=== PATIENT | female | born 1945 | race Caucasian/White ===

== ENCOUNTER → 2018-04-07 14:15 | Outpatient (CLI) | payer MEDICARE, OTHER, SELFPAY | PROVIDERS: Family Provider Family Medicine; PCP Family Medicine; Visit Provider Orthopaedic Surgery | DX: M25.561 Pain in right knee (principal) | CPT/HCPCS: 73564 ==

== ENCOUNTER 2018-11-03 05:26 | Inpatient (IN) | payer MEDICARE, OTHER, SELFPAY ==
[2018-09-28 13:55] VITALS: BMI 26.6
[2018-10-27 10:25] VITALS: BP 144/80; PULSE 75; RESP 16; TEMP 36.8; O2SAT 99; BMI 28.1
--- NOTE | 2018-10-27 10:55 | SDCEKG_ITS ---
Test Reason : Blood Pressure : / mmHG Vent. Rate : 073 BPM Atrial Rate : 073 BPM P-R Int : 128 ms QRS Dur : 086 ms QT Int : 372 ms P-R-T Axes : 068 067 052 degrees QTc Int : 409 ms Normal sinus rhythm Normal ECG Confirmed by TIFFANIE WEINBERG, TASH ([id number]), editor managing newspaper SERJIO ROMAN ([id number]) on 10/28/2018 1:57:33 PM Referred By: Sean Mittal Confirmed By:TASH MORENO MD
--- NOTE | 2018-10-30 13:24 | CASEMGMT ---
Attempted to call patient's home phone, no answer, no answering machine. Attempted to call cell phone, rang 3 times and the call was disconnected. Julianna Bueno LPN Clinical Support
[2018-11-03] VITALS (9 sets, daily range): BP systolic 123–135; BP diastolic 48–95; PULSE 72–89; RESP 14–18; TEMP 35.9–36.6; O2SAT 96–100; BMI 28.1
[2018-11-03] MEDS: Acetaminophen 500 MG Tablet PO (05:59)
[2018-11-03] MEDS: Meloxicam 7.5 MG Tablet PO (06:00)
[2018-11-03] MEDS: Pregabalin 75 MG Capsule PO (06:00)
[2018-11-03] MEDS: Cefazolin 2 GM in 0.9% Normal Saline 100 ML IV ×3 (07:26→23:06)
[2018-11-03] MEDS: Morphine 4 MG/ML Syringe (09:13)
[2018-11-03] MEDS: Bupivacaine Mpf 0.5% 30 ML VIAL (09:15)
[2018-11-03] MEDS: Betamethasone/Betamethasone 30 MG/5 ML Vial (09:15)
--- NOTE | 2018-11-03 09:32 | RAD_ITS ---
STUDY: X-RAY - RIGHT KNEE REASON FOR EXAM: Female, 73 years old. Status post right total knee replacement. TECHNIQUE: 2 view(s) of the knee. COMPARISON: Comparison is made with prior study of April 07, 2018. FINDINGS: Normal visualized distal femur. Normal visualized proximal tibia and fibula. Normal proximal tibiofibular articulation. The patient is status post total knee replacement. There is good alignment. Postoperative soft tissue changes. RAD/Knee 1 or 2 Views IMPRESSION: Status post total knee replacement. There is good alignment. Postoperative soft tissue changes. Electronically Signed: Luis Higgins, at 12:42 EDT , Service support ,
--- NOTE | 2018-11-03 09:51 | PCM.OPRPT ---
Report of Operation Date of Procedure: 11/03/18 Description of Surgical Findings:: Preoperative diagnosis: Right knee DJD Postoperative diagnosis: Same Procedure: Right total knee arthroplasty Implant: [place] triathlon cemented right femoral component size 4, cemented tibial baseplate size 4, cemented asymmetric patella size 29, polyethylene X3 size 9 CS Anesthesia: Spinal with adductor canal block Tourniquet time: 60 minutes at 300 mmHg Complications: None Condition: Stable to PACU Estimated blood loss: 25 cc Indication for procedure: This is a 73-year-old female with long standing degenerative joint disease of the knee who has failed conservative treatment and wished to proceed with elective total knee arthroplasty. Risk benefits and alternatives were reviewed including; risk of bleeding, infection, nerve artery and tissue damage, continued pain, postoperative stiffness, venous thromboembolism, need for postoperative rehabilitation, mechanical feel to the knee, and expected postoperative course. Procedure: The patient was met in the preoperative holding area. The operative extremity was identified by both patient and physician and was marked. Patient was met by anesthesia. An adductor canal block was placed by anesthesia postoperatively. The patient was brought back to the operating room on a wheeled cart and transferred to the operating table in the supine position. Anesthesia was started. A well-padded tourniquet was placed on the operative extremity. The patient was prepped and draped in the usual sterile fashion. A timeout was called to ensure the proper patient procedure and extremity were being contemplated. An Esmarch was used to exsanguinate the extremity. The tourniquet was inflated. A 10 blade scalpel was used to make a midline incision down through the skin and subcutaneous tissue. Skin retractors placed. Bovie was used to perform meticulous hemostasis. full-thickness flaps were elevated medial and lateral along the joint capsule. A deep blade scalpel was used to perform a medial parapatellar arthrotomy. The knee was brought to full extension. A Bovie was used to release the soft tissues off the most proximal aspect of the medial tibial plateau a three-quarter inch curved osteotome was also used for this process. The infrapatellar fat pad was excised. The fat pad was excised partially anterior lateral portion the anterior medial was elevated from the femur. the patella was everted. The knee was brought into flexion. An intramedullary drill was used followed by flexible intramedullary guide richar. The distal femoral cutting block was placed and set to remove 8 mm of bone and 5 degrees of valgus. The block was secured with pins and an oscillating saw was used to complete the distal femoral cut. During this, and all bony cuts retractors were used to protect the collateral ligaments. At this point a femoral sizer was used to measure the AP dimension of the femur. The sizer block was pinned in 3 degrees of external rotation. The sizing block was removed and the appropriately sized 4-in-1 cutting block was placed over the previously made pinholes. It was checked with an shima wing and the block was secured with pins. An oscillating saw was used to complete the anterior cut followed by the posterior cut followed by the posterior chamfer cut followed by the anterior chamfer cut. The block was removed as well as the fragments. A ronguer was used to remove excess osteophytes. The medial and lateral meniscus were excised as well as the ACL. At this point a PCL retractor was placed and an intramedullary drill was passed down the tibial canal followed by a solid intramedullary guide richar. The tibial cutting block was attached and set to remove 9 mm of bone from the high side. This was checked with an external alignment drop richar for slope and tilt. It was pinned into place. An oscillating saw was used to complete the tibial plateau cut and the block was removed. A large osteotome was used to elevate the fragment and a Lily and a Bovie were used to free the fragment from the surrounding soft tissue. A rongeur was once again used to remove osteophytes a lamina router machine operator was used to evaluate the posterior capsular structures. A three-quarter inch curved osteotome was used to remove posterior osteophytes. A spacer block was inserted in both extension and flexion to ensure adequate spacing. Trials were inserted full extension and flexion were achieved in varus and valgus stability throughout range of motion were seen, balancing techniques were performed. At this point the attention was turned towards the patella. A caliper was used to ensure sufficient bone stock to remove 10 mm of bone. A reamer was used to perform this task. Lug holes were made for the appropriate-sized patella. The patella trial was inserted and there was good patellar tracking with knee range of motion. The tibial baseplate was allowed to float into rotation and was marked on the tibial plateau with a Bovie. Lug holes were made in the femur and trials were removed. The tibial baseplate was then sized and its preparation was completed with a fin punch. The knee was thoroughly irrigated. A posterior capsular injection was performed with our standard cocktail. The knee was brought into flexion and irrigated again. The tibial baseplate was cemented. Excess cement was removed with curettes. The polyethylene component was inserted. The femoral component was cemented. The knee was brought into full extension and placed on a bump. The patellar component was cemented. At this point a Betadine rinse was placed and thoroughly irrigated after a few minutes. At this point all gloves were changed. The knee was thoroughly irrigated the joint capsule was closed with #1 Ethibond. Tourniquet was let down followed by 0 Vicryl and 2-0 Vicryl in the subcutaneous tissues. followed by jessica in the skin. Dressing was applied in the form of Xeroform 4 x 4 ABD web roll and an Jasiel wrap from the foot to the groin. The patient tolerated the procedure well, all counts were correct patient was brought back to the PACU in stable condition. Type of Anesthesia:: General, Spinal
[2018-11-03] MEDS: APIXABAN 2.5 MG TABLET PO ×2 (11:12→21:40)
[2018-11-03] MEDS: Polyethylene Glycol 3350 17 GM PACKET PO (11:12)
[2018-11-03] MEDS: Loratadine 10 MG Tablet PO (11:13)
[2018-11-03] MEDS: Senna/Docusate Sodium 1 Tablet 2 TABLET PO ×2 (11:13→21:40)
[2018-11-03] MEDS: Ensure Clear 120 ML Liquid PO ×2 (11:15→16:59)
[2018-11-03] MEDS: oxyCODONE 5 MG Tablet PO ×2 (12:43→17:01)
[2018-11-03] MEDS: Acetaminophen 500 MG Tablet 1000 MG PO ×2 (12:44→21:39)
[2018-11-03] MEDS: Lactated Ringers 1,000 ML 100 ML IV (14:46)
[2018-11-04] MEDS: 0.9% NaCl Peripheral Flush Adult/Peds IV ×3 (02:29→22:34)
[2018-11-04] MEDS: oxyCODONE 5 MG Tablet PO ×5 (02:32→22:31)
[2018-11-04 02:36] VITALS: BP 116/55; PULSE 75; RESP 18; TEMP 36.7; O2SAT 99
[2018-11-04] MEDS: Acetaminophen 500 MG Tablet 1000 MG PO ×3 (05:49→22:30)
[2018-11-04] MEDS: Levothyroxine 100 MCG Tablet PO (05:49)
[2018-11-04 06:17] LABS: Hematocrit 32.5 % (37-47); Hemoglobin 10.9 g/dl (12.0-15.0); Mean Corp Hgb Conc 33.5 g/gl (32-36); Mean Corpuscular Hgb 33.4 pg (27.0-32.0); Mean Corpuscular Volume 99.7 fL (81-99); Mean Platelet Vol. 11.2 fl (6.2-12.0); Platelet Count 176 K/mm3 (150-450); RBC Distribution Width CV 12.8 % (11.6-14.6); RBC Distribution Width SD 46.4 fl (35.1-43.9); Red Blood Count 3.26 M/mm3 (4.2-5.4); White Blood Count 12.6 K/mm3 (4.4-11.0)
[2018-11-04 06:29] LABS: Anion Gap 1 (5-15); BUN 12 mg/dL (7-18); BUN/Creat Ratio 17.5 RATIO (10-20); Calcium,Total 8.3 mg/dL (8.5-10.1); Chloride 110 mmol/L (98-107); Creatinine, Serum 0.69 mg/dL (0.55-1.02); EST Glomerular Filtration Rate 89 mL/min (>60); Est Glom Filt Rate - Afr Amer 108 mL/min (>60); Estimated Creatinine Clearance 45.76 ml/min; Glucose 141 mg/dL (74-106); Potassium 4.4 mmol/L (3.5-5.1); Sodium Level 142 mmol/L (136-145)
[2018-11-04 06:30] LABS: Scan Indicated on CBC? Y/N NO
[2018-11-04 08:52] VITALS: PULSE 81
[2018-11-04] MEDS: Senna/Docusate Sodium 1 Tablet 2 TABLET PO ×2 (09:55→22:29)
[2018-11-04] MEDS: APIXABAN 2.5 MG TABLET PO ×2 (09:55→22:28)
[2018-11-04] MEDS: Pantoprazole Sodium 40 MG Tablet PO (09:55)
[2018-11-04] MEDS: Magnesium Oxide 400 MG Tablet 200 MG PO (09:55)
[2018-11-04] MEDS: Polyethylene Glycol 3350 17 GM PACKET PO (09:55)
[2018-11-04] MEDS: Atenolol 25 MG Tablet PO (09:55)
[2018-11-04] MEDS: Loratadine 10 MG Tablet PO (09:55)
[2018-11-04] MEDS: Ensure Clear 120 ML Liquid PO (09:56)
[2018-11-04 09:59] VITALS: BP 118/55; PULSE 81; RESP 18; TEMP 37.2; O2SAT 98
[2018-11-04 10:09] VITALS: BP 118/55; PULSE 81; RESP 16; TEMP 37.2; O2SAT 98
--- NOTE | 2018-11-04 10:40 | CASEMGMT ---
DEVON MARCELINO Face to Face with patient for initial transition planning/care coordination assessment. DEVON MARCELINO introduced self and role at [facility]. Patient lying in bed, alert and oriented. Patient willing to participate in assessment and is able to answer all questions appropriately. Care providers, pharmacy, and demographics verified. Patient wishes to discharge home and would like outpatient therapy setup at [facility] or 2nd choice [facility]. Patient states she has no further needs or concerns at this time. CM to follow for discharge planning needs that may arise. DEVON MARCELINO called [facility] to setup outpatient therapy, first available appt is 11/11, which is too far out for patient to have first visit. DEVON MARCELINO called [facility] and made appt for Friday11/06/18 0900. DEVON MARCELINO updated patient regarding appt for outpatient at [place] PCP: Lexy Specialists: None Preferred [facility] Insurance: [facility] Prescription Benefit: Yes Living Will/HPOA: yes, Leroy Sandhu LNOK: Living Arrangements: Patient lives with in 1 story home with 3 steps and railing to enter the home. Transportation: DME/HHC: Patient has raised toilet seat, cane, walker, at home. Disposition Plan: Patient to discharge to home with outpatient therapy, family support, and follow-up plans in place. Asiya MATTHEWS, RN, CM
[2018-11-04] MEDS: Ketorolac 15 MG/ML Vial IV (12:05)
--- NOTE | 2018-11-04 13:29 | NURSING ---
charting reviewed for student nurse for educational learning purposes.
[2018-11-04 15:17] VITALS: BP 114/83; PULSE 74; RESP 16; TEMP 36.7; O2SAT 100
--- NOTE | 2018-11-04 17:01 | PCM.PN.ORT ---
Patient Problems: Active and Suspected Problems S/P total knee arthroplasty (Acute) Subjective: seen examined doing well. pain controlled. no fever chills nausea vomitting chest pain or SOB - Physical Exam General: Alert, Oriented x3, Cooperative, No apparent distress Extremities: - - dressing clean dry and intact, incision well approximated. compartments soft and supple. NVI EHL TA GS. intact sensation to light touch. Vital Signs Temp Pulse Resp BP Pulse Ox 98.0 F 74 16 114/83 H 100 11/04/18 15:17 11/04/18 15:17 11/04/18 15:17 11/04/18 15:17 11/04/18 15:17 Oxygen Delivery Method Room Air Weight: 171 lb 11.841 oz Body Mass Index (BMI) 28.1 Intake and Output for Last 24 Hours 11/02/18 11/03/18 11/04/18 23:59 23:59 23:59 Intake Total 3260 / 3260 1756 / 1756 Balance 3260 / 3260 1756 / 1756 Laboratory Tests Past 24 Hrs 11/04/18 11/04/18 05:20 05:20 WBC 12.6 H RBC 3.26 L Hgb 10.9 L Hct 32.5 L MCV 99.7 H MCH 33.4 H MCHC 33.5 RDW 12.8 RDW Differential 46.4 H Plt Count 176 MPV 11.2 Sodium 142 Potassium 4.4 Chloride 110 H Carbon Dioxide 31.0 Anion Gap 1 L BUN 12 Creatinine 0.69 Estim Creat Clear Calc 45.76 Est GFR (MDRD) Af Amer 108 Est GFR (MDRD) Non-Af 89 BUN/Creatinine Ratio 17.5 Glucose 141 H Calcium 8.3 L Medical Necessity - Tobacco Use Smoking Status: Never smoker Assessment/Plan All Active Problems S/P total knee arthroplasty (Acute) Continue PT/OT Out patient physical theapy Eliquis x 2 wks Oxycodone enourage ROM may begin showering POD#3 f/u 2 wks. DC in AM
--- NOTE | 2018-11-04 17:13 | PCM.DC.ORTHO ---
Discharge Diet: No Restrictions Discharge Activity: Return to Normal Activity Weight Bearing Status: Weight bearing as tolerated Additional Activity Instructions:: encourage full knee extension and flexion one time every time you get up and down and multiple x /day. may shower POD#3 but do not submerge. start physical therapy as soon as possible. f/u in office 2 wks call if any concerns. Allergies/Adverse Reactions: Allergies lincomycin [From Lincocin] Allergy (Verified 10/27/18 10:13) Other CAUSED DIARRHEA, POSSIBLY C-DIFF Sulfa (Sulfonamide Antibiotics) Allergy (Verified 10/27/18 10:12) Swelling Medications to take at Discharge Atenolol [Tenormin (beta damian)] 25 mg PO DAILY 10/22/13 Bifidobacterium Infantis [Align] 4 mg PO DAILY 10/22/13 Calcium Carbonate/Vitamin D3 [Calcium 600 + Vit D Tablet] 1 ea PO BID 10/22/13 Levothyroxine [Synthroid] 100 mcg PO DAILY 10/22/13 traMADol [Ultram (G)] 75 mg PO Q4H PRN PRN 05/17/15 fluticasone propionate 50 mcg/actuation nasal spray,suspension 1 spray INTRANASAL PRN PRN 90 Days #48 g 09/28/18 omeprazole 40 mg capsule,delayed release 40 mg PO DAILY 90 Days #90 cap 09/28/18 Cholecalciferol (VIT D3) [Vitamin D3] 1,000 unit PO DAILY 10/27/18 Diclofenac Sodium [Voltaren] 100 gm TP PRN PRN 10/27/18 Fexofenadine HCl [Nelsy Allergy] 180 mg PO DAILY 10/27/18 Ibuprofen 200 mg PO Q6H PRN PRN 10/27/18 Magnesium 250 mg PO DAILY 10/27/18 Polyethylene Glycol 3350 [Miralax] 17 gm PO DAILY 10/27/18 Vitamin B Complex 1 each PO DAILY 10/27/18 Apixaban [Eliquis] 2.5 mg PO BID 14 Days #28 tablet 11/04/18 Oxycodone [Oxyir] 5 - 10 mg PO Q4H PRN PRN #60 tablet 11/04/18 The following prescriptions were given: Oxycodone [Oxyir] 5 - 10 mg PO Q4H PRN PRN #60 tablet PRN Reason: Mod-Severe Pain (-05/13) Apixaban [Eliquis] 2.5 mg PO BID 14 Days #28 tablet Primary Care Physician: Edilberto Pugh MD [Primary Care Provider] - Test Results: Test results from this visit will be discussed in further detail at your follow-up appointment, if applicable. Please Follow Up With: [employer] When: Friday Please Follow Up With: Sean Mittal DO - 2 wks
[2018-11-04 22:36] VITALS: BP 111/54; PULSE 77; RESP 16; TEMP 36.7; O2SAT 96
[2018-11-05 03:39] VITALS: BP 106/51; PULSE 71; RESP 16; TEMP 36.7; O2SAT 95
[2018-11-05] MEDS: oxyCODONE 5 MG Tablet PO ×2 (03:43→08:03)
[2018-11-05 05:58] LABS: Hematocrit 30.9 % (37-47); Hemoglobin 10.1 g/dl (12.0-15.0); Mean Corp Hgb Conc 32.7 g/gl (32-36); Mean Platelet Vol. 11.3 fl (6.2-12.0); Platelet Count 141 K/mm3 (150-450); RBC Distribution Width SD 46.1 fl (35.1-43.9); Red Blood Count 3.06 M/mm3 (4.2-5.4); White Blood Count 7.1 K/mm3 (4.4-11.0)
[2018-11-05 06:09] LABS: Scan Indicated on CBC? Y/N NO
[2018-11-05] MEDS: Acetaminophen 500 MG Tablet 1000 MG PO (06:37)
[2018-11-05] MEDS: Levothyroxine 100 MCG Tablet PO (06:37)
[2018-11-05 07:54] VITALS: BP 130/46; PULSE 82; RESP 16; TEMP 37.1; O2SAT 96
--- NOTE | 2018-11-05 09:29 | DS.PCM_ITS ---
Discharge Date and Diagnosis - Problem List Patient Problems: Active and Suspected Problems S/P total knee arthroplasty (Acute) Date of Admission: 11/03/18 Date of Discharge: 11/05/18 - Primary Discharge Diagnosis Active and Suspected Problems S/P total knee arthroplasty (Acute) Hospital Course and Treatment Operations: total knee replacement Summary of Care Provided: The patient is a 73 year old F the patient has with long-standing history of right knee DJD and has failed conservative treatment. she wished to undergo elective total knee arthroplasty and underwent the aforementioned procedure on the admission date without complications. sHe did receive pre-and postoperative antibiotics which were discontinued within 23 hours postoperatively. she did receive a spinal anesthesia and the pain was controlled postoperatively with p.o. and IV pain medication. There was minimal intraoperative blood loss she did receive 2 g of tranexamic acid and her vital signs and labs were stable postoperatively and she did not require a blood transfusion. He was seen by physical therapy and did progress with his ambulation. Postoperatively she was started on both mechanical and chemical DVT prophylaxis for which she will continue his Eliquis 2.5 mg twice daily for 2 additional weeks post hospital discharge. her dressing was changed in the morning of postop day #2 without any concerning signs. sHe will begin showering on postop day #3 with daily dressing changes. Encouraged him to achieve full range of motion as soon as possible he will receive home health care and home physical therapy and will follow-up in the office in 2 weeks for staple removal. There is no intrahospital complications . Patient Problems: Active and Suspected Problems S/P total knee arthroplasty (Acute) Subjective: Doing well no complaints and controlled relating well wishes to go directly to outpatient physical therapy - Physical Exam General: Alert, Oriented x3 Extremities: - - Incision looks good neurovascularly intact compartments soft Vital Signs Temp Pulse Resp BP Pulse Ox 98.7 F 82 16 130/46 H 96 11/05/18 07:54 11/05/18 07:54 11/05/18 07:54 11/05/18 07:54 11/05/18 07:54 Oxygen Delivery Method Room Air Weight: 171 lb 11.841 oz Body Mass Index (BMI) 28.1 Intake and Output for Last 24 Hours 11/03/18 11/04/18 11/05/18 23:59 23:59 23:59 Intake Total 3260 / 3260 2656 / 2656 200 / 200 Balance 3260 / 3260 2656 / 2656 200 / 200 Laboratory Tests Past 24 Hrs 11/05/18 05:28 WBC 7.1 RBC 3.06 L Hgb 10.1 L Hct 30.9 L MCV 101.0 H MCH 33.0 H MCHC 32.7 RDW 13.0 RDW Differential 46.1 H Plt Count 141 L MPV 11.3 Discharge Diet: No Restrictions Discharge Activity: Return to Normal Activity Weight Bearing Status: Weight bearing as tolerated Additional Activity Instructions:: encourage full knee extension and flexion one time every time you get up and down and multiple x /day. may shower POD#3 but do not submerge. start physical therapy as soon as possible. f/u in office 2 wks call if any concerns. Home Medications: Medications to take at Discharge Atenolol [Tenormin (beta damian)] 25 mg PO DAILY 10/22/13 Bifidobacterium Infantis [Align] 4 mg PO DAILY 10/22/13 Calcium Carbonate/Vitamin D3 [Calcium 600 + Vit D Tablet] 1 ea PO BID 10/22/13 Levothyroxine [Synthroid] 100 mcg PO DAILY 10/22/13 traMADol [Ultram (G)] 75 mg PO Q4H PRN PRN 05/17/15 fluticasone propionate 50 mcg/actuation nasal spray,suspension 1 spray INTRANASAL PRN PRN 90 Days #48 g 09/28/18 omeprazole 40 mg capsule,delayed release 40 mg PO DAILY 90 Days #90 cap 09/28/18 Cholecalciferol (VIT D3) [Vitamin D3] 1,000 unit PO DAILY 10/27/18 Diclofenac Sodium [Voltaren] 100 gm TP PRN PRN 10/27/18 Fexofenadine HCl [Nelsy Allergy] 180 mg PO DAILY 10/27/18 Ibuprofen 200 mg PO Q6H PRN PRN 10/27/18 Magnesium 250 mg PO DAILY 10/27/18 Polyethylene Glycol 3350 [Miralax] 17 gm PO DAILY 10/27/18 Vitamin B Complex 1 each PO DAILY 10/27/18 Apixaban [Eliquis] 2.5 mg PO BID 14 Days #28 tablet 11/04/18 Oxycodone [Oxyir] 5 - 10 mg PO Q4H PRN PRN #60 tablet 11/04/18 Following Prescrptions Were Given to Patient: Oxycodone [Oxyir] 5 - 10 mg PO Q4H PRN PRN #60 tablet PRN Reason: Mod-Severe Pain (4-05/13) Apixaban [Eliquis] 2.5 mg PO BID 14 Days #28 tablet Primary Care Physician: Edilberto Pugh MD [Primary Care Provider] - Please Follow Up With: [employer] When: Friday Please Follow Up With: Sean Mittal DO - 2 wks Medical Necessity - Tobacco Use Smoking Status: Never smoker Meaningful Use Info Meaningful Use Diagnoses (Choose all that apply): None applicable
[2018-11-05] MEDS: Magnesium Oxide 400 MG Tablet 200 MG PO (11:33)
[2018-11-05] MEDS: APIXABAN 2.5 MG TABLET PO (11:34)
[2018-11-05] MEDS: Atenolol 25 MG Tablet PO (11:34)
[2018-11-05] MEDS: Loratadine 10 MG Tablet PO (11:34)
[2018-11-05] MEDS: Pantoprazole Sodium 40 MG Tablet PO (11:35)
== END 2018-11-05 11:57 | disposition home or self-care (01) | DRG 470 ==
PROVIDERS: Admitting Provider Orthopaedic Surgery; Family Provider Family Medicine; PCP Family Medicine; Referring Provider Orthopaedic Surgery; Visit Provider Orthopaedic Surgery
PROC: (CPT 27447; principal; 2018-11-03 07:05)
DX: M17.11 Unilateral primary osteoarthritis, right knee (principal)
CPT/HCPCS: 36415; 73560; 80048; 85027; 87081; 93005; 97110; 97162; 97166; 97530; C1776; J7120; A4216; J0702; J3490

== ENCOUNTER 2018-11-06 08:26 | Emergency (ER) | payer MEDICARE, OTHER, SELFPAY ==
[2018-11-03 10:54] VITALS: BMI 28.1
[2018-11-06 08:27] VITALS: BP 117/67; PULSE 86; RESP 16; TEMP 36.3; O2SAT 99; BMI 28.3
--- NOTE | 2018-11-06 08:49 | ED.VISSUMM ---
- ER Visit Summary Date of Service: 11/06/18 Chief Complaint: Neck pain and headache History of Present Illness: The patient is a 73 F who presents with neck pain and headache that has been getting worse over the past 2 days. Patient describes the pain as aching. Patient states the pain is worse with extension of her neck. Patient states the pain radiates up into the occipital area of her head. Patient admits to some nausea and vomiting. Patient admits to some lightheadedness. Patient also admits to some decreased hearing. Patient denies any fevers or chills. Patient denies any visual changes. Patient denies any paresthesias or weakness. Patient was recently discharged from the hospital after a right total knee replacement. Physical Examination: Vital signs are stable. Patient is afebrile. Patient is in no acute distress. Oral mucosa is pink and moist. Neck is supple. Trachea is midline. There is no JVD noted. Heart was regular rate and rhythm. Lungs are clear and equal bilateral. Abdomen is soft nontender. Cranial nerves II through XII are intact. There are no focal motor or sensory deficits noted. Test Results: CBC showed a mild anemia with a hemoglobin of 11.3 and hematocrit 34.1. Basic metabolic profile showed a slight hypokalemia of 3.4. Urinalysis was normal. CT scan of the brain was obtained. There are chronic changes but no acute ST or T wave changes. EKG showed normal sinus rhythm with a rate of 77. There are no acute ST or T wave changes. Emergency Department Course and Treatment: Patient was given an injection of morphine here. Patient felt better on reevaluation. Patient was given a dose of [place] just prior to discharge. Patient was instructed to use ice or heat to her neck as needed. Patient was instructed to continue her medications as previously prescribed. Patient understood and was agreeable with the plan. All questions were answered. Disposition: Discharge home Impression: 1. Cervical strain 2. Headache This note was generated with [employer] dictation software. It may contain incorrect words, spelling, and punctuation that were not noted in review of the chart prior to signing ED Disposition - Plan for ED Patient: Disposition: Home or Assisted Living Diagnosis: Cervical strain, Headache, tension-type Instructions: ED Headache Tension, ED Sprain Strain Neck Referrals: Edilberto Pugh MD [Primary Care Provider] - 3-5 Days
--- NOTE | 2018-11-06 08:52 | ED.DCSUM_ITS ---
- ER Visit Summary Date of Service: 11/06/18 Chief Complaint: Neck pain and headache History of Present Illness: The patient is a 73 F who presents with neck pain and headache that has been getting worse over the past 2 days. Patient describes the pain as aching. Patient states the pain is worse with extension of her neck. Patient states the pain radiates up into the occipital area of her head. Patient admits to some nausea and vomiting. Patient admits to some lightheadedness. Patient also admits to some decreased hearing. Patient denies any fevers or chills. Patient denies any visual changes. Patient denies any paresthesias or weakness. Patient was recently discharged from the hospital af ter a right total knee replacement. Physical Examination: Vital signs are stable. Patient is afebrile. Patient is in no acute distress. Oral mucosa is pink and moist. Neck is supple. Trachea is midline. There is no JVD noted. Heart was regular rate and rhythm. Lungs are clear and equal bilateral. Abdomen is soft nontender. Cranial nerves II through XII are intact. There are no focal motor or sensory deficits noted. Test Results: CBC showed a mild anemia with a hemoglobin of 11.3 and hematocrit 34.1. Basic metabolic profile showed a slight hypokalemia of 3.4. Urinalysis was normal. CT scan of the brain was obtained. There are chronic changes but no acute ST or T wave changes. EKG showed normal sinus rhythm with a rate of 77. There are no acute ST or T wave changes. Emergency Department Course and Treatment: Patient was given an injection of morphine here. Patient felt better on reevaluation. Patient was given a dose of [place] just prior to discharge. Patient was instructed to use ice or heat to her neck as needed. Patient was instructed to continue her medications as previously prescribed. Patient understood and was agreeable with the plan. All questions were answered. Disposition: Discharge home Impression: 1. Cervical strain 2. Headache This note was generated with [employer] dictation software. It may contain incorrect words, spelling, and punctuation that were not noted in review of the chart prior to signing ED Disposition - Plan for ED Patient: Disposition: Home or Assisted Living Diagnosis: Cervical strain, Headache, tension-type Instructions: ED Headache Tension, ED Sprain Strain Neck Referrals: Edilberto Pugh MD [Primary Care Provider] - 3-5 Days
--- NOTE | 2018-11-06 09:22 | CT_ITS ---
STUDY: CT BRAIN WITHOUT CONTRAST REASON FOR EXAM: Female, 73 years old. Headaches. RADIATION DOSAGE (If Supplied By Facility): CTDIvol = ( 44.99 ) mGy, DLP = ( 745.49 ) mGycm TECHNIQUE: Transaxial CT imaging of the brain was performed without administration of intravenous contrast material. Individualized dose optimization techniques were used for this CT. COMPARISON: No relevant priors. FINDINGS: Normal soft tissue structures. Normal calvarium. There is mild cerebral atrophy with widening of the extra-axial spaces and ventricular dilatation. Normal white matter tracts of the cerebral hemispheres. Normal basal ganglia and thalami. Normal brainstem. Normal cerebellum. There is no intracranial hemorrhage. There are no findings of an acute ischemic infarction. Atherosclerotic calcification of the cavernous portions of the internal carotid arteries bilaterally. Normal visualized paranasal sinuses. CT/Brain/Head without Contrast IMPRESSION: Chronic involutional changes of the brain. Electronically Signed: Luis Higgins, at 10:26 EDT , Service support ,
--- NOTE | 2018-11-06 09:23 | EKG12_ITS ---
Test Reason : NEURO Blood Pressure : / mmHG Vent. Rate : 077 BPM Atrial Rate : 077 BPM P-R Int : 130 ms QRS Dur : 074 ms QT Int : 368 ms P-R-T Axes : 057 054 047 degrees QTc Int : 416 ms Normal sinus rhythm Normal ECG Confirmed by SCOTT WEINBERG, EWA ([id number]), avid editor SERJIO ROMAN ([id number]) on 11/09/2018 11:14:50 AM Referred By: TIFFANY Confirmed By:EWA CHAVEZ MD
[2018-11-06 09:32] LABS: Absolute Lymphocyte Count 1.79 X10^3/ul (0.83-4.51); Absolute Neutrophil Count 5.9 X10^3/uL (2.0-7.7); Basophil# 0.02 X10^3/uL; Basophil% 0.2 % (0-1); Eosinophil# 0.04 X10^3/uL; Eosinophils% 0.5 % (0-5); Hematocrit 34.1 % (37-47); Hemoglobin 11.3 g/dl (12.0-15.0); Lymphocyte # 1.79 X10^3/ul (4.0); Lymphocyte % 21.2 % (19-41); Mean Corp Hgb Conc 33.1 g/gl (32-36); Mean Corpuscular Hgb 33.3 pg (27.0-32.0); Mean Corpuscular Volume 100.6 fL (81-99); Mean Platelet Vol. 11.3 fl (6.2-12.0); Monocyte# 0.68 X10^3/uL; Monocyte% 8.1 % (0-10); Neutrophil # 5.89 X10^3/uL (2.7-7.7); Neutrophil % 69.8 % (47-70); Platelet Count 179 K/mm3 (150-450); RBC Distribution Width CV 12.9 % (11.6-14.6); RBC Distribution Width SD 47.4 fl (35.1-43.9); Red Blood Count 3.39 M/mm3 (4.2-5.4); White Blood Count 8.4 K/mm3 (4.4-11.0)
[2018-11-06 09:37] LABS: POSITIVE COUNT NO; POSITIVE DIFFERENTIAL NO; POSITIVE MORPHOLOGY NO
[2018-11-06 09:41] LABS: Anion Gap 5 (5-15); BUN 14 mg/dL (7-18); BUN/Creat Ratio 16.2 RATIO (10-20); Calcium,Total 8.7 mg/dL (8.5-10.1); Chloride 103 mmol/L (98-107); Creatinine, Serum 0.86 mg/dL (0.55-1.02); EST Glomerular Filtration Rate 68 mL/min (>60); Est Glom Filt Rate - Afr Amer 83 mL/min (>60); Estimated Creatinine Clearance 53.21 ml/min; Glucose 125 mg/dL (74-106); Potassium 3.4 mmol/L (3.5-5.1); Sodium Level 138 mmol/L (136-145)
[2018-11-06] MEDS: Morphine 4 MG/ML Syringe IV (09:47)
[2018-11-06] MEDS: Ondansetron 4 MG/2 ML Vial IV (09:48)
[2018-11-06] MEDS: 0.9% Normal Saline 1,000 ML 1000 ML IV (09:48)
[2018-11-06 10:47] LABS: Bacteria 0 SEEN /hpf (None Seen); Mucous, Urine 0 SEEN /hpf (<or=2+); Red Blood Cells-Urine 0 SEEN /hpf (0-5)
[2018-11-06 10:54] LABS: Color, Urine Yellow (Yellow); Glucose, Dipstick Normal (Normal); Ketone-Dipstick 50 mg/dl (Negative); Leukocyte Esterase-Dipstick 25 /ul (Negative); Nitrite-Dipstick Negative (Negative); Occult Blood-Urine Negative /ul (Negative); Protein-Dipstick Negative (Negative); Urine Bilirubin Dipstick Negative (Negative); Urine Clarity Sl. Cloudy (Clear); Urine Urobilinogen Normal (Normal)
[2018-11-06 11:07] LABS: Squamous Epithelial Cells - UA 0-5 SEEN /hpf (5-10); White Blood Cells 0-5 SEEN /hpf (0-5)
[2018-11-06 11:45] VITALS: BP 165/87; PULSE 57; RESP 18; O2SAT 98
[2018-11-06] MEDS: HYDROcodone Bitartrate/Apap 5/325 Tablet PO (12:49)
== END 2018-11-06 14:59 | disposition home or self-care (01) ==
PROVIDERS: Emergency Provider Emergency Medicine; Family Provider Family Medicine; PCP Family Medicine
DX: S16.1XXA Strain of muscle, fascia and tendon at neck level, initial encounter (principal); X58.XXXA Exposure to other specified factors, initial encounter; Y93.9 Activity, unspecified; Y92.9 Unspecified place or not applicable; R51 Headache; I10 Essential (primary) hypertension; E03.9 Hypothyroidism, unspecified; K21.9 Gastro-esophageal reflux disease without esophagitis; Z79.899 Other long term (current) drug therapy
CPT/HCPCS: 70450; 80048; 81001; 85025; 93005; 96361; 96374; 96375; 99282; J7030; J2405

== ENCOUNTER 2018-11-07 17:36 | Emergency (ER) | payer MEDICARE, OTHER, SELFPAY ==
[2018-11-06 08:27] VITALS: BMI 28.3
[2018-11-07 17:37] VITALS: BP 146/72; PULSE 105; RESP 17; TEMP 37.1; O2SAT 100; BMI 27.9
[2018-11-07] MEDS: DiphenhydrAMINE 50 MG/ML Syringe 25 MG IV (18:07)
[2018-11-07 18:30] LABS: Absolute Lymphocyte Count 1.76 X10^3/ul (0.83-4.51); Absolute Neutrophil Count 4.2 X10^3/uL (2.0-7.7); Basophil# 0.02 X10^3/uL; Basophil% 0.3 % (0-1); Eosinophil# 0.03 X10^3/uL; Eosinophils% 0.5 % (0-5); Hematocrit 31.5 % (37-47); Hemoglobin 10.7 g/dl (12.0-15.0); Lymphocyte # 1.76 X10^3/ul (4.0); Lymphocyte % 27.4 % (19-41); Mean Corpuscular Hgb 33.2 pg (27.0-32.0); Mean Corpuscular Volume 97.8 fL (81-99); Mean Platelet Vol. 10.5 fl (6.2-12.0); Monocyte# 0.45 X10^3/uL; Neutrophil # 4.16 X10^3/uL (2.7-7.7); Neutrophil % 64.6 % (47-70); Platelet Count 189 K/mm3 (150-450); RBC Distribution Width CV 12.7 % (11.6-14.6); RBC Distribution Width SD 45.6 fl (35.1-43.9); Red Blood Count 3.22 M/mm3 (4.2-5.4); White Blood Count 6.4 K/mm3 (4.4-11.0)
[2018-11-07 18:35] LABS: POSITIVE COUNT NO; POSITIVE DIFFERENTIAL NO; POSITIVE MORPHOLOGY NO
[2018-11-07 18:41] LABS: Anion Gap 6 (5-15); BUN 14 mg/dL (7-18); BUN/Creat Ratio 21.6 RATIO (10-20); Calcium,Total 8.4 mg/dL (8.5-10.1); Chloride 107 mmol/L (98-107); Creatinine, Serum 0.65 mg/dL (0.55-1.02); EST Glomerular Filtration Rate 96 mL/min (>60); Est Glom Filt Rate - Afr Amer 116 mL/min (>60); Estimated Creatinine Clearance 45.76 ml/min; Glucose 112 mg/dL (74-106); Potassium 3.6 mmol/L (3.5-5.1); Sodium Level 139 mmol/L (136-145)
[2018-11-07] MEDS: proCHLORPERazine 10 MG/2 ML Vial IV (19:37)
[2018-11-07 19:41] VITALS: BP 144/71; PULSE 114; RESP 11; O2SAT 96
--- NOTE | 2018-11-07 19:44 | ED.VISSUMM ---
- ER Visit Summary Date of Service: 11/07/18 Chief Complaint: [] Tension to the back of the head status post right knee surgery spinal anesthesia History of Present Illness: The patient is a 73 F [] she reports a few days ago she had knee surgery the initial attempt was a spinal anesthesia that was partial effective and she was converted to general anesthesia since that time she had a pressure tension type headache to the occipital part of her head that goes away when she is supine and comes back intensifies when she is upright she was seen yesterday in the emergency department her workup including head CT and labs are unremarkable she is currently on oxy codon for the knee pain and that is really not helping her headache she has had no known history of headaches some nausea no vomiting no fever no cough no rhinorrhea no numbness paresthesias her postop status otherwise uncomplicated, she presents because the tension type pain to the back of the head persisted Physical Examination: [] Vital signs are within normal range General, no distress resting comfortably HEENT is generally unremarkable The neck is supple no adenopathy Cardiovascular, regular rate and rhythm Lungs, clear bilateral Abdomen, soft nontender Extremities, right knee has a compressive stockings and is in normal postop state no real issues with that Neurologic, awake alert answering questions appropriately moving all 4 extremities is awake alert moving all 4 her neck is very supple if she sits back she actually feels that her headache goes away her lumbar spine is unremarkable Test Results: [] Emergency Department Course and Treatment: [] Screening labs and CT were unremarkable yesterday , labs are unremarkable today with Compazine Benadryl, IV caffeine, persistent having symptoms, I spoke with the attending anesthesiology service though by shortly to see her for a blood patch Treatment Plan: [] Disposition: [] Home pending anesthesia blood patch Impression: [] Post spinal anesthesia headache, status post right knee surgery This note was generated with [employer] dictation software. It may contain incorrect words, spelling, and punctuation that were not noted in review of the chart prior to signing ED Disposition - Plan for ED Patient: Referrals: Edilberto Pugh MD [Primary Care Provider] -
--- NOTE | 2018-11-07 19:47 | ED.DEP ---
ED Disposition - Plan for ED Patient: Instructions: ED Headache Post Spinal Tap No Patc Referrals: Edilberto Pugh MD [Primary Care Provider] -
[2018-11-07 20:44] VITALS: BP 144/57; PULSE 99; RESP 17; O2SAT 97
== END 2018-11-07 20:45 | disposition home or self-care (01) ==
PROVIDERS: Emergency Provider Emergency Medicine; Family Provider Family Medicine; PCP Family Medicine
DX: T88.59XA Other complications of anesthesia, initial encounter (principal); G44.40 Drug-induced headache, not elsewhere classified, not intractable; Z98.890 Other specified postprocedural states; Z79.01 Long term (current) use of anticoagulants
CPT/HCPCS: 80048; 85025; 96365; 96375; 99284; J7040; A4216

== ENCOUNTER → 2018-12-21 13:17 | Outpatient (CLI) | payer MEDICARE, OTHER, SELFPAY ==
--- NOTE | 2018-12-21 13:19 | RAD_ITS ---
STUDY: X-RAY - LEFT KNEE REASON FOR EXAM: Chronic pain. TECHNIQUE: 4 view(s) of the knee. COMPARISON: Radiographs 09/05/2014. FINDINGS: Normal visualized distal femur. Normal visualized proximal tibia and fibula. Normal proximal tibiofibular articulation. There is mild joint space narrowing of the medial femorotibial compartment with little interval change. Normal lateral femorotibial compartment. There are minimal marginal osteophytes without joint space narrowing of the patellofemoral articulation. The soft tissue structures are unremarkable. RAD/Knee 4 or More Views IMPRESSION: Mild arthrosis of the medial femorotibial compartment. Electronically Signed: Gerry Bai MD at 15:34 EDT Tel , Service support ,
== END ==
PROVIDERS: Family Provider Family Medicine; PCP Family Medicine; Referring Provider Orthopaedic Surgery; Visit Provider Orthopaedic Surgery
DX: M25.562 Pain in left knee (principal)
CPT/HCPCS: 73564

== ENCOUNTER 2019-01-22 14:00 | Outpatient (RCR) | payer MEDICARE, OTHER, SELFPAY ==
[2018-11-03 10:54] VITALS: BMI 28.1
--- NOTE | 2018-11-09 14:58 | HP.PTEVAL ---
Patient's Visit Information HENRRY GALVEZ is a 73 year old F referred to Physical Therapy by Sean Mittal DO with a diagnosis of R TKA. Date of Evaluation: 11/09/18 Physical Therapist: Manuel Isbell PT, ATC - Visit Plan Frequency: 2-3x /Week Duration: 4-6 Weeks Plan: R knee PROM/mobs, stretching and strengthening, balance and proprio, nustep, and HEP - Subjective Findings: DOS: 11/03/18. Pt reports chronic Hx of R knee pain prior to having a R TKA. Pt reports she returned home on and was doing well until having an adverse reaction to either the oxycodon or her spinal. Pt returned to the ER on Friday and Friday mornings secondary to these adverse reactions. Pt reports this is the worst she has felt for the past few days because is feels weak an is not eating well. Pt reports she hopes to only get better now at this time. No tingling or numbness in R LE. Pt reports no sleep difficulty secondary to pain, but does have trouble with getting comfortable. Pt has stairs to get into her house and negotiates them one step at a time. Pt reports she has been performing her HEP that she received from the hospital. Pt reports she has been using a walker, but used no AD prior to surgery. 0/10 pain at rest, 8/10 pain in her R thigh. - Pain R TKA Pain Intensity (Out of 10): 0 Pain Intensity Range: 8 - Objective Neuro: B LE sensation is WNL to light touch. B achilles reflex= 2/3. Girth at joint line: L knee 40 cm, R knee 43 cm. ROM: L knee 0-120 degrees, 0-10-90. MMT: L LE is 5/5 throughout. R LE is 3/5 throughout. Gait: Pt ambulates with the use of a WW and has a slow cadance at this time. - Goals Goal 1:: Decrease R knee pain x 50% to aid with ambulation Goal Time Frame: 4-6 Weeks Goal 2:: Increase R knee ROM x 25 degrees to aid with restoring a normalized gait pattern Goal Time Frame: 4-6 Weeks Goal 3:: Increase R knee strength x 1 grade to aid with stair negotiation Goal Time Frame: 4-6 Weeks Goal 4:: I with HEP Goal Time Frame: 4-6 Weeks - Rehabilitation Potential Physical Therapy Diagnosis: R knee pain, weakness, and limited ROM secondary to R TKA Rehabilitation Potential: Good - Anticipated Interventions Patient/Client Instruction: Educate patient on: Condition, Plan of Care For the Purpose of:: To improve self management Therapeutic Exercise to Include: Strength training, Endurance training, Balance training, Flexibilty training, Gait and locomotor training, Passive ROM, Active ROM, Dynamic Lumbar Stabilization For the Purpose of:: To decrease pain, To increase ROM, To improve muscle performance and motor function Cryotherapy (ice pack, ice massage): Yes For the Purpose of:: To decrease pain Thank you for the opportunity to evaluate your patient. For Medicare and Medicare HMO plans, please review the plan of care and approve it. It will need to be FAXED BACK to us at [phone] for Medicare purposes. For Medicare only, by signing this I certify the plan of care. Please let me know if there are questions or concerns regarding this plan of care. Physician Signature: Date:
--- NOTE | 2018-12-07 10:19 | HP.PTREVAL ---
Sean Mittal, DO, It has been my pleasure to treat HENRRY GALVEZ over the last 12 visits for R TKA 11/03/18. Please see the progress note below for an update on the physical therapy plan of care! Subjective: Minor pain this date Objective/Function: R knee girth at joint line: 42 cm. R knee ROM: 0-6-110. R knee MMT: Ext 4/5, flex 4-/5. Pt is progressing well toward Rx goals Plan Plan: Cont to focus on R knee ROM and strengthening Goals Goal 1:: Decrease R knee pain x 50% to aid with ambulation Goal Time Frame: 4-6 Weeks Goal 2:: Increase R knee ROM x 25 degrees to aid with restoring a normalized gait pattern Goal Time Frame: 4-6 Weeks Goal 3:: Increase R knee strength x 1 grade to aid with stair negotiation Goal Time Frame: 4-6 Weeks Goal 4:: I with HEP Goal Time Frame: 4-6 Weeks Anticipated Interventions Patient/Client Instruction: Educate patient on: Condition, Plan of Care For the Purpose of:: To improve self management Therapeutic Exercise to Include: Strength training, Endurance training, Balance training, Flexibilty training, Gait and locomotor training, Passive ROM, Active ROM, Dynamic Lumbar Stabilization For the Purpose of:: To decrease pain, To increase ROM, To improve muscle performance and motor function Cryotherapy (ice pack, ice massage): Yes For the Purpose of:: To decrease pain Please do not hesitate to contact me at [phone] by phone or if you have questions or concerns regarding this new plan of care! Sincerely, Manuel Isbell, PT, ATC
--- NOTE | 2018-12-18 14:59 | HP.PTREVAL ---
Sean Mittal, DO, It has been my pleasure to treat HENRRY GALVEZ over the last 17 visits for R TKA 11/03/18. Please see the progress note below for an update on the physical therapy plan of care! Subjective: Pt reports moderate pain this date Objective/Function: R knee pain 4-03/13. R knee ROM: 0-4-108 degrees. R knee MMT: 4/5 throughout. Pt is progressing well toward Rx goals Plan Plan: Cont or discharge pending Dr visit next week Goals Goal 1:: Decrease R knee pain x 50% to aid with ambulation Goal Time Frame: 4-6 Weeks Goal 2:: Increase R knee ROM x 25 degrees to aid with restoring a normalized gait pattern Goal Time Frame: 4-6 Weeks Goal 3:: Increase R knee strength x 1 grade to aid with stair negotiation Goal Time Frame: 4-6 Weeks Goal 4:: I with HEP Goal Time Frame: 4-6 Weeks Anticipated Interventions Patient/Client Instruction: Educate patient on: Condition, Plan of Care For the Purpose of:: To improve self management Therapeutic Exercise to Include: Strength training, Endurance training, Balance training, Flexibilty training, Gait and locomotor training, Passive ROM, Active ROM, Dynamic Lumbar Stabilization For the Purpose of:: To decrease pain, To increase ROM, To improve muscle performance and motor function Cryotherapy (ice pack, ice massage): Yes For the Purpose of:: To decrease pain Please do not hesitate to contact me at [phone] by phone or if you have questions or concerns regarding this new plan of care! Sincerely, Manuel Isbell, PT, ATC
--- NOTE | 2019-01-22 14:36 | HP.PTDCSUM ---
HP - PT D/C Summary It has been my pleasure to treat HENRRY GALVEZ under orders from Sean Mittal DO, for the diagnosis of R TKA 11/03/18 for a total of 27 visit(s). Discharge Date: Please see the following information for a summary of their discharge status. - Subjective Subjective: Pt reports she is ready for discharge - Pain R TKA Pain Intensity (Out of 10): 1 - Overall Improvement % Improvement: 80 - Objective Objective/Function: R knee pain 0-10. MMT: 5/ throughout. R knee ROM: 0-2-104 degrees. Pt is I with HEP - Goals Goal 1:: Decrease R knee pain x 50% to aid with ambulation Goal 2:: Increase R knee ROM x 25 degrees to aid with restoring a normalized gait pattern Goal 3:: Increase R knee strength x 1 grade to aid with stair negotiation Goal 4:: I with HEP - Plan Plan: Discharge - D/C Information If there are questions or concerns regarding this patient's physical therapy, please feel free to call me at [phone]. Thank you for the referral of this patient. Sincerely, Manuel Isbell, PT, ATC
== END 2019-01-22 19:00 | disposition home or self-care (01) ==
LOC: PT 14:00
PROVIDERS: Family Provider Family Medicine; PCP Family Medicine; Referring Provider Orthopaedic Surgery; Visit Provider Orthopaedic Surgery
DX: Z96.651 Presence of right artificial knee joint (principal)
CPT/HCPCS: 97110; 97140; 97161; 97530

== ENCOUNTER 2019-11-27 11:05 | Emergency (ER) | payer MEDICARE, OTHER, SELFPAY ==
[2019-02-01 13:21] VITALS: BMI 27.9
[2019-11-27 11:07] VITALS: BP 142/55; PULSE 75; RESP 16; TEMP 36.8; O2SAT 99; BMI 28.5
--- NOTE | 2019-11-27 11:08 | RAD_ITS ---
STUDY: X-RAY CHEST REASON FOR EXAM: Female, 74 years old. Epigastric pain started this am -- back pain, nausea -- fullness feeling TECHNIQUE: Single AP portable view of the chest. COMPARISON: None. FINDINGS: The lungs are clear and expanded. There is no demonstrated pleural abnormality. Normal size heart. Normal mediastinum and aj. Normal visualized pulmonary arteries. There is atherosclerotic calcification of the aortic arch with tortuosity. There are diffuse degenerative changes of the visualized thoracic spine. Normal visualized ribs, clavicles, and shoulders. There is no demonstrated abnormality of the visualized soft tissue structures of the upper abdomen. RAD/Chest 1 View (Portable) IMPRESSION: No demonstrated acute cardiopulmonary process. Electronically Signed: Maria A Hardy MD at 11:57 EDT Tel , Service support ,
--- NOTE | 2019-11-27 11:08 | EKG12_ITS ---
Test Reason : Blood Pressure : / mmHG Vent. Rate : 071 BPM Atrial Rate : 071 BPM P-R Int : 198 ms QRS Dur : 072 ms QT Int : 402 ms P-R-T Axes : 069 056 033 degrees QTc Int : 436 ms Normal sinus rhythm Confirmed by TIFFANIE WEINBERG, TASH ([id number]), business editor JAMILA JON ([id number]) on 11/29/2019 10:00:12 AM Referred By: YOVANI Confirmed By:TASH MORENO MD
--- NOTE | 2019-11-27 11:20 | ED.VISSUMM ---
- ER Visit Summary Date of Service: 11/27/19 Chief Complaint: Chest pain History of Present Illness: The patient is a 74 F history of reflux. No prior cardiac disease. Patient states after she was doing some gardening today and around 10:00 got fullness in her epigastric and lower sternal region. Radiating into her back. Mild nausea. No vomiting. No diarrhea. No fever. No cough. No melena. She is not had recent exertional chest pain or exertional shortness of breath. No history of prior DVT or PE. No risk factors. No known history of cardiac disease. Non-smoker. Physical Examination: Older female no acute distress. Vital signs are stable. She is afebrile. HEENT exam unremarkable. Neck nontender no lymphadenopathy. Lungs clear to auscultation bilaterally. Heart regular rate and rhythm rate about 75. No murmur. Chest wall nontender. Abdomen soft nontender. Normal bowel sounds no peritoneal signs. No reproducible tenderness in either the epigastric region or right upper quadrant. She is nondistended there is no signs of obstruction. She is moving all 4 extremities. They are neurovascular intact. Equal symmetrical radial pulses. Calves are nontender without edema or cords. Neurologically she is awake and alert with no focal motor deficits. Test Results: BC normal. White count of 5. Hemoglobin 13. Chemistries normal normal gap. Troponin normal. Chest x-ray portable 1 view read by myself shows a normal cardiac silhouette mediastinum. Normal heart size. No cardiomegaly. Chronic changes consistent with her age. But no acute process. EKG shows a normal sinus rhythm rate of 71 no acute signs of RI or ischemia. No significant changes from an EKG done 1 year ago. Second EKG was obtained and again showed normal sinus rhythm rate of 72 with no changes. No signs of RI or ischemia. Repeat exam at 12:47 PM. Patient is symptom-free after GI cocktail and Pepcid. She and I discussed everything she is comfortable being discharged home with outpatient follow-up. Emergency Department Course and Treatment: Older female with atypical epigastric and lower sternal chest fullness. Cardiac work-up will be entertained. Along with a lipase. She has not had any recent exertional symptoms. She is a non-smoker. She will be treated with aspirin. Repeat exam the patient is doing well at 11:50 AM. She and I went over all of her test results. She is going to be treated with a GI cocktail and Pepcid and see if that has any effect on her symptoms. Treatment Plan: With a primary care physician. Return if worse. She takes omeprazole she will now take it twice a day for the next 5 days. Return if feeling worse. Specifically increasing chest pain or develop shortness of breath. Disposition: Discharge Impression: Atypical chest and epigastric pain History of reflux This note was generated with [employer] dictation software. It may contain incorrect words, spelling, and punctuation that were not noted in review of the chart prior to signing ED Disposition - Plan for ED Patient: Referrals: Edilbetro Pugh MD [Primary Care Provider] -
[2019-11-27 11:23] VITALS: O2SAT 100
[2019-11-27] MEDS: Aspirin 81 MG TAB.CHEW 324 MG PO (11:24)
[2019-11-27 11:27] LABS: Absolute Lymphocyte Count 1.62 X10^3/uL (0.83-4.51); Absolute Neutrophil Count 2.9 X10^3/uL (2.0-7.7); Basophil# 0.05 X10^3/uL; Basophil% 0.9 % (0-1); Eosinophils% 5.5 % (0-5); Hematocrit 38.8 % (37-47); Lymphocyte # 1.62 X10^3/ul (4.0); Lymphocyte % 29.8 % (19-41); Mean Corp Hgb Conc 33.5 g/dL (32-36); Mean Corpuscular Hgb 33.8 pg (27.0-32.0); Mean Corpuscular Volume 100.8 fL (81-99); Mean Platelet Vol. 10.5 fl (6.2-12.0); Monocyte# 0.54 X10^3/uL; Monocyte% 9.9 % (0-10); NRBC Flagged by Analyzer 0 % (0-5); Neutrophil % 53.5 % (47-70); Platelet Count 209 K/mm3 (150-450); RBC Distribution Width CV 12.5 % (11.6-14.6); RBC Distribution Width SD 46.9 fl (35.1-43.9); Red Blood Count 3.85 M/mm3 (4.2-5.4); White Blood Count 5.4 K/mm3 (4.4-11.0)
[2019-11-27 11:41] LABS: Anion Gap 4 (5-15); BUN 14 mg/dL (7-18); BUN/Creat Ratio 16.1 RATIO (10-20); Calcium,Total 9.1 mg/dL (8.5-10.1); Chloride 103 mmol/L (98-107); Creatinine, Serum 0.87 mg/dL (0.55-1.02); EST Glomerular Filtration Rate 68 mL/min (>60); Est Glom Filt Rate - Afr Amer 82 mL/min (>60); Estimated Creatinine Clearance 53.91 ml/min; Glucose 107 mg/dL (74-106); Potassium 3.7 mmol/L (3.5-5.1); Sodium Level 137 mmol/L (136-145)
[2019-11-27] MEDS: Famotidine 20 MG Tablet 40 MG PO (12:04)
--- NOTE | 2019-11-27 12:04 | EKG12_ITS ---
Test Reason : Blood Pressure : / mmHG Vent. Rate : 072 BPM Atrial Rate : 072 BPM P-R Int : 096 ms QRS Dur : 084 ms QT Int : 414 ms P-R-T Axes : 046 051 024 degrees QTc Int : 453 ms Sinus rhythm with short RI Otherwise normal ECG Confirmed by TIFFANIE WEINBERG, TASH ([id number]), technical writer and editor JAMILA JON ([id number]) on 11/29/2019 9:59:58 AM Referred By: YOVANI Confirmed By:TASH MORENO MD
[2019-11-27] MEDS: Mag Hydrox/Al Hydrox/Simeth 30 ML UDC PO (12:05)
[2019-11-27 12:12] VITALS: BP 129/60; PULSE 72; RESP 11; O2SAT 98
--- NOTE | 2019-11-27 12:49 | ED.DEP ---
ED Disposition - Plan for ED Patient: Disposition: Home or Assisted Living Instructions: ED Chest Pain Atypical Unkn Cause Referrals: Edilberto Pugh MD [Primary Care Provider] - 3-5 Days Additional Instructions: Most likely this was noncardiac chest pain. All your labs and both EKGs were normal. The omeprazole you take for reflux I would now take it twice a day for the next 5 days. Call and follow-up with your primary care physician. If you are having worse chest pain or exertional chest pain or shortness of breath return to the emergency department. Otherwise follow-up with your primary care physician.
[2019-11-27 13:09] VITALS: BP 128/76; PULSE 71; RESP 18
== END 2019-11-27 13:10 | disposition home or self-care (01) ==
PROVIDERS: Emergency Provider Emergency Medicine; PCP Family Medicine
DX: R07.9 Chest pain, unspecified (principal); R10.13 Epigastric pain; K21.9 Gastro-esophageal reflux disease without esophagitis
CPT/HCPCS: 71045; 80048; 84484; 85025; 93005; 99285; A4216

== ENCOUNTER 2020-04-16 15:49 | Emergency (ER) | payer MEDICARE, OTHER, SELFPAY ==
[2020-04-16 15:50] VITALS: BP 135/74; PULSE 83; RESP 15; TEMP 36.7; O2SAT 98; BMI 30.6
--- NOTE | 2020-04-16 15:53 | ED.VIS.GEN ---
History of Present Illness Chief Complaint: Lower Extremity Injury Informant: Patient Narrative: 74-year-old female presents with right ankle pain. She states she has gait issues at baseline and typically does have falls periodically. She feels otherwise well. She just lost her balance and fell twisting her right ankle. She was able to get up but had difficulty bearing weight on the right ankle. She was assisted by her and they came directly to the ED. She has a distant fracture of the right ankle previously. She denies dizziness, lightheadedness, chest pain, palpitations, shortness of breath or any other preceding symptoms prior to the fall. She feels otherwise well now. Past Medical History - Allergies and Home Meds Allergies/Adverse Reactions: Allergies lincomycin [From Lincocin] Allergy (Verified 04/16/20 15:49) Other CAUSED DIARRHEA, POSSIBLY C-DIFF Sulfa (Sulfonamide Antibiotics) Allergy (Verified 04/16/20 15:49) Swelling Primary Care Physician: Edilberto Pugh MD [Primary Care Provider] - Past Medical History: - - Hypothyroidism, GERD, hypertension, depression Surgical History: total knee arthroplasty Lives: Spouse/ Significant Other Smoking Status: Never smoker Alcohol: None Drugs: None Review of Systems General: Denies: Chills, Fever, Sweats Eyes: Denies: Visual changes - bilaterally, Diplopia ENT: Denies: Rhinorrhea, Sore throat Cardiovascular: Denies: Chest pain, Palpitations Respiratory: Denies: Dyspnea, Cough, Dyspnea on exertion Gastrointestinal: Denies: Abdominal pain, Nausea, Vomiting, Diarrhea, Melena, Hematochezia Genitourinary: Denies: Dysuria, Hematuria, Frequency Musculoskeletal: Reports: - - Right ankle pain Skin: Reports: - - Slight bruising over lateral malleolus. Denies: Rash, Abscess Neurological: Denies: Headache, Weakness Physical Exam Vital Signs/Narrative: Vital Signs Temp Pulse Resp BP Pulse Ox 04/16/20 15:50 98.0 F 83 15 135/74 H 98 Inital Vital Signs reviewed: Yes General: Well nourished, Well developed, No Acute Distress Head: Normocephalic, Atraumatic Eyes: Perrl, EOMI ENT: Moist mucous membranes, Sinus tenderness Cardiovascular: Regular rate, Regular rhythm Respiratory: No distress, CTA bilaterally Extremities: - - Tenderness to palpation over the right lateral malleolus. No obvious deformity. Vascular intact with brisk cap refill to all 5 toes of the right foot. No tenderness to palpation of the foot Skin: - - Wheezing over the right lateral malleolus Neurological: Alert, Oriented x3 Psychological: Normal affect, Normal Mood Diagnostic/Tx/Re-eval Clinical Impression(s) from Imaging Studies Ankle X-Ray 04/16/20 16:08 IMPRESSION: Mild soft tissue swelling of the ankle. Electronically Signed: Michael Saba DO at 16:27 EDT Tel [phone], Service support , - Medical Decision Making Patient was seen and evaluated on arrival for right ankle pain after mechanical fall. There is minimal swelling however there is tenderness over the right lateral malleolus. Patient also reports she is nonambulatory on the right ankle due to pain. Right ankle x-ray shows no acute fracture or subluxation. Patient was placed in Jasiel wrap and Aircast. She states she has a walker at home and her will assist her. Patient is discharged home in stable condition. Impression: 1. Right ankle sprain 2. Mechanical fall ED Disposition - Plan for ED Patient: Disposition: Home or Assisted Living Instructions: ED Sprain Ankle Referrals: Edilberto Pugh MD [Primary Care Provider] -
--- NOTE | 2020-04-16 16:08 | RAD_ITS ---
STUDY: X-RAY - RIGHT ANKLE REASON FOR EXAM: Female, 74 years old. FALL TODAY RESULTING IN RIGHT ANKLE INJURY. PT STATES SHE CANNOT PUT WEIGHT ON THAT ANKLE. TECHNIQUE: 3 view(s) of the ankle. COMPARISON: None. FINDINGS: Normal visualized distal tibia and fibula. Normal medial and lateral malleoli. Normal tibiotalar articulation and ankle mortise. Normal visualized talus and calcaneus. The visualized subtalar, talonavicular, calcaneocuboid and tarsal articulations are normal. There is mild soft tissue swelling. RAD/Ankle min 3 Views IMPRESSION: Mild soft tissue swelling of the ankle. Electronically Signed: Michael Saba DO at 16:27 EDT Tel [phone], Service support ,
== END 2020-04-16 17:06 | disposition home or self-care (01) ==
PROVIDERS: Emergency Provider Student in an Organized Health Care Education/Training Program; PCP Family Medicine
DX: S93.401A Sprain of unspecified ligament of right ankle, initial encounter (principal); I10 Essential (primary) hypertension; E03.9 Hypothyroidism, unspecified; K21.9 Gastro-esophageal reflux disease without esophagitis; F32.9 Major depressive disorder, single episode, unspecified; W19.XXXA Unspecified fall, initial encounter; Z79.899 Other long term (current) drug therapy
CPT/HCPCS: 73610; 99283

== ENCOUNTER → 2020-05-31 09:42 | Outpatient (CLI) | payer MEDICARE, OTHER, SELFPAY ==
--- NOTE | 2020-05-31 09:50 | RAD_ITS ---
STUDY: X-RAY - ESOPHAGUS (BARIUM SWALLOW) WITH FLUOROSCOPY REASON FOR EXAM: Female, 74 years old. Clearing throat constantly, difficulty with solids getting stuck in upper esophagus TECHNIQUE: 16 view(s) of the esophagus were obtained following swallowing of barium. FLUOROSCOPY TIME (if supplied): (0:23) minutes/seconds COMPARISON: None. FINDINGS: There is no demonstrated esophageal foreign body. There is no demonstrated stricture or mucosal abnormality. There is a small hiatal hernia of the fundus of the stomach. Gastroesophageal reflux. The patient ingested a 12 mm tablet of barium without difficulty. Normal visualized aortic arch and descending thoracic aorta. Normal visualized pulmonary parenchyma. Normal visualized osseous structures of the thorax. RAD/Esophagus Single Contrast IMPRESSION: Small sliding hiatal hernia with gastroesophageal reflux. Electronically Signed: Luis Higgins, at 15:48 EDT , Service support ,
== END ==
PROVIDERS: PCP Family Medicine; Referring Provider Nurse Practitioner Adult Health; Visit Provider Nurse Practitioner Adult Health
DX: R09.89 Other specified symptoms and signs involving the circulatory and respiratory systems (principal); K21.9 Gastro-esophageal reflux disease without esophagitis
CPT/HCPCS: 74220

== ENCOUNTER 2020-06-28 09:47 | Emergency (ER) | payer MEDICARE, OTHER, SELFPAY ==
[2020-06-28 09:49] VITALS: BP 136/76; PULSE 88; RESP 16; TEMP 36.4; O2SAT 96; BMI 30.7
--- NOTE | 2020-06-28 10:01 | VDLE_ITS ---
Reason For Study: PAIN RIGHT GSV is normal. CFV is compressible, spontaneous, phasic, competent and demonstrates normal augmentation. FV is compressible, spontaneous, phasic, competent and demonstrates normal augmentation. POP V is compressible, spontaneous, phasic, competent and demonstrates normal augmentation. T/P Trunk is compressible. PTV is compressible. RT PerV is compressible. Procedure Exam performed in department. A preliminary report was called and/or faxed to ED. Interpretation Summary Deep veins of the right lower extremity are patent and compressible segmentally. There is no evidence of right lower extremity deep vein thrombosis. Valvular competence appears intact within the proximal deep venous system on the right . The right great saphenous vein appears patent and compressible segmentally. Ordering Physician: Chino Dennis Referring Physician: JEANIE SMITH Performed By: Josefina Vera, ABBECS, RVT
--- NOTE | 2020-06-28 10:03 | ED.VIS.GEN ---
History of Present Illness Chief Complaint: Lower Extremity Injury Informant: Patient Narrative: 74-year-old female presents with concern for right lower extremity pain. States that she suffered an ankle sprain 2 months ago. States that she has had persistent pain to the anterior aspect of her right ankle. Worse with movement. Describes it as aching. Denies any numbness or tingling. Patient concerned for DVT. No history of DVT or pulmonary embolism. Past Medical History - Allergies and Home Meds Allergies/Adverse Reactions: Allergies lincomycin [From Lincocin] Allergy (Verified 06/28/20 09:48) Other CAUSED DIARRHEA, POSSIBLY C-DIFF Sulfa (Sulfonamide Antibiotics) Allergy (Verified 06/28/20 09:48) Swelling Primary Care Physician: Edilberto Pugh MD [Primary Care Provider] - Prior records reviewed: Yes Past Medical History: - - GERD Surgical History: total knee arthroplasty Lives: With Family Smoking Status: Never smoker Alcohol: None Drugs: None Review of Systems General: Denies: Chills, Fever, Sweats Eyes: Denies: Visual changes - bilaterally, Diplopia ENT: Denies: Rhinorrhea, Sore throat Cardiovascular: Denies: Chest pain, Palpitations Respiratory: Denies: Dyspnea, Cough, Dyspnea on exertion Gastrointestinal: Denies: Abdominal pain, Nausea, Vomiting, Diarrhea, Melena, Hematochezia Genitourinary: Denies: Dysuria, Hematuria, Frequency Musculoskeletal: Reports: Arthralgias. Denies: Back pain, Extremity Pain Skin: Denies: Rash, Wounds Neurological: Denies: Headache, Weakness, Numbness Physical Exam Vital Signs/Narrative: Vital Signs Temp Pulse Resp BP Pulse Ox 06/28/20 09:49 97.5 F L 88 16 136/76 H 96 General: Well nourished, Well developed, No Acute Distress Head: Normocephalic, Atraumatic Eyes: Perrl, EOMI ENT: Moist mucous membranes, No rhinorrhea Neck: Supple, Nontender Cardiovascular: Regular rate, Regular rhythm, No murmurs Respiratory: No distress, CTA bilaterally, Chest nontender Abdomen: Soft, Nontender, Nondistended, Normal bowel sounds Back: Nontender, Normal Inspection Extremities: No edema, - - TTP of the anterior distal RLE. Skin: Normal color, No rash Neurological: Alert, Oriented x3, Cranial nerves II-XII grossly intact, Normal Strength, Normal Sensation Psychological: Normal affect, Normal Mood Diagnostic/Tx/Re-eval - Medical Decision Making Appears well nontoxic. Vital signs within normal limits. Venous ultrasound of the right lower extremity negative for DVT. Patient likely has a anterior right lower extremity tendinitis. Patient will be given Naprosyn 500 mg twice daily for the next 5 days. Patient will have an Jasiel wrap placed. Advised on rest and follow-up with her primary care physician. Impression: 1. RLE anterior tendonitis ED Disposition - Plan for ED Patient: Disposition: Home or Assisted Living Instructions: Treating Tendonitis of the Foot Prescriptions: Naproxen [Naprosyn] 500 mg PO BID #10 tab Prescription Printed Referrals: Edilberto Pugh MD [Primary Care Provider] -
[2020-06-28 10:44] VITALS: BP 129/78; PULSE 94; RESP 18; O2SAT 98
--- NOTE | 2020-06-28 10:45 | ED.RN ---
THIS NURSE REVIEWED D/C INSTRUCTIONS WITH PT. PT VERBALIZED UNDERSTANDING OF INSTRUCTIONS. PT DENIES FURTHER NEEDS OR QUESTIONS AT THIS TIME
== END 2020-06-28 11:19 | disposition home or self-care (01) ==
LOC: ED 10:55
PROVIDERS: Emergency Provider Emergency Medicine; PCP Family Medicine
DX: M77.9 Enthesopathy, unspecified (principal)
CPT/HCPCS: 93971; 99282

== ENCOUNTER 2020-10-10 08:00 | Outpatient (RCR) | payer MEDICARE, SELFPAY ==
[2020-10-10] MEDS: COVID-19 VACC, MRNA(PFIZER)/PF 30 MCG/0.3 ML SYRINGE IM (13:00)
[2020-10-31] MEDS: COVID-19 VACC, MRNA(PFIZER)/PF 30 MCG/0.3 ML SYRINGE IM (12:57)
== END 2021-01-09 23:59 ==
LOC: IMMUN 08:00
PROVIDERS: PCP Family Medicine; Visit Provider Family Medicine
DX: Z23 Encounter for immunization (principal)
CPT/HCPCS: 0001A; 0002A; 91300

== ENCOUNTER 2021-11-24 13:29 | Emergency (ER) | payer MEDICARE, OTHER, SELFPAY ==
[2021-11-24 13:31] VITALS: BP 129/65; PULSE 81; RESP 18; TEMP 36.7; O2SAT 97; BMI 31.1
--- NOTE | 2021-11-24 14:03 | EDS_ITS ---
HPI History of Present Illness Chief Complaint: Laceration Informant: patient Narrative Narrative: Patient tripped and fell while walking outside. She states that the last second she changes direction she wanted to go and her toes just got caught. She ended up bumping her head. She thinks her glasses actually cut her forehead. She states she did not hit that hard. She has no headache at all. She is not on any blood thinners. She has no neck pain numbness or tingling. This was a mechanical fall and not syncope. She states she feels fine. Last tetanus is unknown. [facility] Medical History COVID-19 Encounter for screening for COVID-19 Home Medications atenolol 25 mg PO DAILY 10/22/13 [History Last Taken 11/27/19] levothyroxine 100 mcg PO DAILY 10/22/13 [History Last Taken 11/27/19] fluticasone propionate 50 mcg/actuation nasal spray,suspension 1 spray INTRANAS AL PRN PRN 90 Days #48 g 09/28/18 [History Last Taken 11/27/19] omeprazole 40 mg capsule,delayed release 40 mg PO DAILY 90 Days #90 cap 09/28/18 [History Last Taken 11/27/19] cholecalciferol (vitamin D3) [Vitamin D3] 1,000 unit PO DAILY 10/27/18 [History Last Taken 11/27/19] magnesium 250 mg PO DAILY 10/27/18 [History Last Taken 11/27/19] vitamin B complex [Vitamins B Complex] 1 ea PO DAILY 10/27/18 [History Last Taken 11/27/19] fluoxetine 40 mg PO DAILY 11/27/19 [History Last Taken 11/27/19] turmeric-turmeric root extract 1 ea PO DAILY 11/27/19 [History Last Taken 11/27/19] naproxen 500 mg PO BID #10 tab 06/28/20 [Rx Last Taken Unknown] dexamethasone 4 mg tablet 4 mg PO DAILY #5 tab 07/06/21 [Rx Last Taken Unknown] Allergy/AdvReac Type Severity Reaction Status Date / Time lincomycin [From Lincocin] Allergy Other Verified 11/24/21 13:30 Sulfa (Sulfonamide Allergy Swelling Verified 11/24/21 13:30 Antibiotics) Social History Smoking Status: Never smoker ROS ROS ED Constitutional Constitutional ED: Denies chills or fever(s) Eyes Eyes: Denies blurry vision or change in vision ENT ENT ED: Denies ear pain Cardiovascular Cardiovascular: Denies chest pain, palpitations or racing heartbeat Respiratory/Chest Respiratory/Chest: Denies dyspnea Gastrointestinal Gastrointestinal: Denies nausea or vomiting Musculoskeletal Musculoskeletal: Denies back pain or neck pain Integumentary Reports other Details: See history of present illness Neurologic Neurologic: Denies headache(s), paresthesias or weakness Hematologic/Lymphatic Hematologic/Lymphatic: Denies easy bleeding or easy bruising EXAM Physical Exam Const Vital Signs: 11/24/21 13:31 Temperature 98.1 F Temperature Source Temporal Pulse Rate 81 Respiratory Rate 18 Blood Pressure 129/65 H Blood Pressure Mean 86 Pulse Ox 97 Oxygen Delivery Method Room Air Positive well nourished and well developed; Negative for unkempt General Appearance ED: well developed; Negative for unkempt or NAD HEENT HEENT Narrative: Patient has a small contusion above the right eye. She has a laceration that is about 13 mm in length. It is very shallow. It is not bleeding. Negative for tenderness Chest Wall inspection of chest normal Resp normal respiratory effort Cardio regular rhythm Rate: regular rate GI normal to inspection, nondistended, normoactive bowel sounds and non-tender Palpation: soft Back/Spine normal to inspection and no thoracic nor lumbar tenderness Extremity normal to inspection General Extremety ED: Negative for tenderness Neuro oriented x3, moves all extremities, no focal motor deficits and no sensory deficits noted Sensorium / Orientation: alert; Negative for lethargic or stuporous Motor Exam: strength 5/5 throughout Psych Appearance: Negative for unkempt MDM MDM MDM Narrative Medical decision making narrative: The area was scrubbed and clean. It was then dried off. The laceration actually was very shallow and when at an angle. The upper part of the laceration was quite thin skin. I do not think suturing would work well in this area. For that reason we did 3 layers of Dermabond closure. She tolerated this well. We discussed care of this as well as reasons to return . Discharge Plan Triage Chief Complaint: Laceration ED Provider: Dakota Chavez Dx/Rx/DC Orders Clinical Impression: Fall from slip, trip, or stumble, Forehead laceration Instructions: ED Laceration, Face: Skin Glue Prescriptions: No Action omeprazole 40 mg capsule,delayed release(DR/EC) 40 mg PO DAILY 90 Days Qty: 90 RF: 0 fluticasone propionate 50 mcg/actuation spray,suspension 1 spray INTRANASAL PRN PRN (Reason: Allergies) 90 Days Qty: 48 RF: 0 dexamethasone [Decadron] 4 mg tablet 4 mg PO DAILY Qty: 5 RF: 0 atenolol 25 MG tablet 25 mg PO DAILY RF: 0 levothyroxine 100 MCG tablet 100 mcg PO DAILY RF: 0 magnesium 250 MG tablet 250 mg PO DAILY RF: 0 vitamin B complex [Vitamins B Complex] 1 EACH capsule 1 ea PO DAILY RF: 0 cholecalciferol (vitamin D3) [Vitamin D3] 1,000 UNIT tablet 1,000 unit PO DAILY RF: 0 fluoxetine 20 MG capsule 40 mg PO DAILY RF: 0 turmeric-turmeric root extract 1 EACH capsule 1 ea PO DAILY RF: 0 naproxen 500 MG tablet 500 mg PO BID Qty: 10 RF: 0 Primary Care Provider: Edilberto Pugh Referrals: Edilberto Pugh MD [Primary Care Provider] - 3-5 Days if not improving Disposition Disposition: Home, Self Care
[2021-11-24] MEDS: Diphth,Pertuss(Acell),Tet Vac 0.5 ML Vial IM (14:13)
[2021-11-24 14:26] VITALS: PULSE 86; RESP 16
== END 2021-11-24 14:37 | disposition home or self-care (01) ==
LOC: ED 14:31
PROVIDERS: Emergency Provider Emergency Medicine; PCP Family Medicine; Visit Provider Emergency Medicine
DX: S01.81XA Laceration without foreign body of other part of head, initial encounter (principal); Z23 Encounter for immunization; Z79.899 Other long term (current) drug therapy; Z86.16 Personal history of COVID-19; W01.0XXA Fall on same level from slipping, tripping and stumbling without subsequent striking against object, initial encounter
CPT/HCPCS: 12001; 90471; 90715; 99283

== ENCOUNTER 2024-04-25 21:53 | Emergency (ER) | payer MEDICARE, OTHER, SELFPAY ==
[2024-04-25 21:54] VITALS: BP 158/86; PULSE 94; RESP 16; TEMP 36.6; O2SAT 98; BMI 33.0
[2024-04-25 22:30] VITALS: TEMP 36.6; O2SAT 98
[2024-04-25] MEDS: Lidocaine 1% (20 ml mdv) 20 ML Vial INFILT (23:11)
--- NOTE | 2024-04-25 23:23 | EX.ED.GENINJ ---
HPI History of Present Illness Chief Complaint: Fall Detail of Chief Complaint: Contusion forehead and abrasion with laceration nose Informant: patient Onset/Context/Timing Onset: Today Mechanism/Context: Blunt Injury and Fall Quality of Pain: Dull Location: Nose Current Severity: Gone Maximum Severity: Mild Worsened by: Palpation Relieved by: Not applicable Associated Symptoms Associated Symptoms: Negative for Parasthesias, Weakness, Loss of function, Inability to ambulate, Loss of consciousness or Amnesia Narrative Narrative: Patient is a 78-year-old female. She had a mechanical fall. She remembers the fall. She denies headache. She denies double vision blurred vision loss of vision. She wears hearing aids. There is no change in her hearing. There is no ringing or ears. She does not have difficulty breathing out of her nose. She denies her teeth being malaligned. Is able to open and close her mouth completely. She denies neck pain. She denies paresthesia, anesthesia medics. She is not on antithrombotic or anticoagulant. She denies cardiac respiratory symptoms. She denies GI symptoms and specifically nausea and vomiting. Prior similar symptoms: No Recent Illness/Hospitalization: No [facility] Medical History (Updated 04/25/24 @ 23:[address] Juaquin Calderon MD) Hypercholesterolemia COVID-19 Encounter for screening for COVID-19 Home Medications ?Medication ?Instructions ?Recorded ?Last Taken ?Type atenolol 25 mg tablet 25 mg PO DAILY BP 10/22/13 11/27/19 History fluticasone propionate 50 1 spray intranasal PRN PRN 09/28/18 11/27/19 History mcg/actuation nasal Allergies 90 days #48 grams spray,suspension omeprazole 40 mg capsule,delayed 40 mg PO DAILY GERD 90 days #90 09/28/18 11/27/19 History release caps magnesium 250 mg tablet 400 mg PO DAILY SUPPLEMENT 10/27/18 11/27/19 History vitamin B complex (Vitamins B 1 ea PO DAILY SUPPLEMENT 10/27/18 11/27/19 History Complex capsule) Bifidobacterium infantis 4 mg 4 mg PO DAILY 04/25/24 Unknown History capsule (Align) acetaminophen 500 mg capsule 1,000 mg PO PRN 04/25/24 Unknown History calcium carbonate 500 mg-vitamin 1 tab PO BID 04/25/24 Unknown History D3 15 mcg (600 unit) tablet levothyroxine 125 mcg tablet 125 mcg PO DAILY disorder of 04/25/24 Unknown History thyroid gland naproxen 500 mg tablet 1,000 mg PO BID 04/25/24 Unknown History polyethylene glycol 3350 17 17 g PO DAILY 04/25/24 Unknown History gram/dose oral powder (Miralax) pravastatin 20 mg tablet 20 mg PO DAILY 04/25/24 Unknown History tumeric curcumin 500 mg PO DAILY 04/25/24 Unknown History Allergy/AdvReac Type Severity Reaction Status Date / Time lincomycin (From Lincocin) Allergy Other Verified 04/25/24 21:56 Sulfa (Sulfonamide Allergy Swelling Verified 04/25/24 21:56 Antibiotics) Social History Smoking Status: Never smoker ROS ROS ED Eyes Eyes: Denies blurry vision or change in vision ENT ENT ED: Reports other Details: Complains of pain in the tip of her nose. And see HPI narrative ; Denies ear pain, rhinorrhea or sore throat Cardiovascular Cardiovascular: Denies chest pain or palpitations Respiratory/Chest Respiratory/Chest: Denies cough or dyspnea Gastrointestinal Gastrointestinal: Denies nausea or vomiting Integumentary Reports other Details: Flap like laceration tip of the nose and abrasion Neurologic Neurologic: Denies headache(s), paresthesias or weakness Hematologic/Lymphatic Hematologic/Lymphatic: Denies easy bleeding or easy bruising EXAM Physical Exam Const Vital Signs: 04/25/24 21:54 04/25/24 22:30 Temperature 97.8 F 97.8 F Temperature Source Oral Pulse Rate 94 Respiratory Rate 16 Respiratory Effort Normal Non-Labored Respiratory Depth Normal Respiratory Pattern Normal Blood Pressure 158/86 H Blood Pressure Mean 110 Pulse Ox 98 98 Oxygen Delivery Method Room Air Room Air Positive well nourished and well developed General Appearance ED: well developed and NAD HEENT HEENT Narrative: There is a contusion above the left brow. There is no palpable pression. There are no clinical findings of basilar skull fracture. Ears normal. TMs normal. There is no TMJ tenderness. There is no evidence of malocclusion. There is no injury to her teeth. trauma and tenderness Eyes PERRL and EOMs intact bilaterally General Eye ED: Yes other Other Details: There is no subconjunctival hemorrhage. Neck full ROM Neck Narrative: C-spine was cleared per Nexus criteria. General: tenderness Resp normal respiratory effort Cardio regular rhythm Rate: regular rate Back/Spine normal to inspection Extremity normal to inspection and full ROM Neuro oriented x3, CN's II-XII intact bilaterally, moves all extremities, no focal motor deficits, no sensory deficits noted and gait normal Neuro Narrative: There is no dysmetria. There is no clonus or Babinski sign noted. Marcia Coma Scale: document GCS findings Spontaneous Obeys Commands Oriented 15 Plantar Reflex: Downgoing: bilateral Psych mental status grossly normal and thought process normal Skin no rashes or lesions noted, No no wounds, skin turgor normal and no jaundice Skin Narrative: Circular flap type laceration tip of the nose. PROC Procedures Other Procedures Procedure(s): Flap type laceration tip of the nose. Total length 4.5 cm. Patient was assessed a local nutrition. Wounds irrigated with 100 cc normal saline. Simple interrupted sutures placed using 6-0 Ethilon. A total of 4 stitches. MDM MDM MDM Narrative Medical decision making narrative: Since patient is on no antithrombotic and no anticoagulant with no complaint of headache nonfocal neurologic exam CT of the head was not obtained. C-spine was cleared per Nexus criteria. The nose was anesthetized by local infiltration. Allowed 5 minutes for proper anesthesia. Will reevaluate to determine how best to repair this injury. Discharge Plan Triage Chief Complaint: Fall ED Provider: Juaquin Calderon Dx/Rx/DC Orders Clinical Impression: Laceration of nose, Abrasion of nose, Forehead contusion, Injury due to fall Instructions: ED Laceration, All Closures, ED Laceration Minimize Scars Prescriptions: No Action omeprazole 40 mg capsule,delayed release(DR/EC) 40 mg PO DAILY 90 Days Qty: 90 fluticasone propionate 50 mcg/actuation spray,suspension 1 spray INTRANASAL PRN PRN (Reason: Allergies) 90 Days Qty: 48 atenolol 25 MG tablet 25 mg PO DAILY magnesium 250 MG tablet 400 mg PO DAILY vitamin B complex [Vitamins B Complex] 1 EACH capsule 1 ea PO DAILY levothyroxine 125 mcg tablet 125 mcg PO DAILY pravastatin 20 mg tablet 20 mg PO DAILY calcium carbonate-vitamin D3 500 mg-15 mcg (600 unit) tablet 1 tab PO BID polyethylene glycol 3350 [Miralax] 17 gram/dose powder 17 g PO DAILY tumeric curcumin 500 mg PO DAILY acetaminophen 500 mg capsule 1,000 mg PO PRN Align 4 mg capsule 4 mg PO DAILY naproxen 500 MG tablet 1,000 mg PO BID Primary Care Provider: Edilberto Pugh Referrals: Edilberto Pugh MD [Primary Care Provider] - 5 Days for suture removal Activity Restrictions/Additional Instructions: Apply bacitracin ointment 2-3 times a day. Print Language: Citizen Of [place] Disposition Disposition: Home, Self Care
[2024-04-25 23:46] VITALS: BP 145/78; PULSE 84; RESP 17; TEMP 36.2; O2SAT 100
== END 2024-04-25 23:46 | disposition home or self-care (01) ==
PROVIDERS: Emergency Provider Emergency Medicine; PCP Family Medicine; Visit Provider Emergency Medicine
DX: S01.21XA Laceration without foreign body of nose, initial encounter (principal); E78.00 Pure hypercholesterolemia, unspecified; Z79.899 Other long term (current) drug therapy; Z86.16 Personal history of COVID-19; W19.XXXA Unspecified fall, initial encounter
CPT/HCPCS: 12013; 99284

== ENCOUNTER → 2025-02-28 | Outpatient (CLI) | payer MEDICARE, OTHER, SELFPAY ==
--- NOTE | 2025-02-28 08:50 | RAD_ITS ---
EXAM: Single and double contrast esophagram. CLINICAL HISTORY: Gastroesophageal reflux disease. Patient complains of constant throat clearing. COMPARISON: None. TECHNIQUE: Single and double contrast esophagram. Fluoroscopy time: 138 seconds. Dose: 53.3 mGy. FINDINGS: Recurrent esophageal reflux is seen to the level of the proximal esophagus. No area of persistent esophageal narrowing is noted. Intermittent spasm of the mid to distal esophagus is noted. Limited imaging of the stomach and duodenum shows no abnormality. Easy passage of the 13 mm barium tablet into the stomach was seen. RAD/Esophagus Dual Contrast IMPRESSION: 1. Extensive recurrent gastroesophageal reflux. 2. Intermittent spasm of the mid to distal esophagus. Reading Location: [place] [id number]
== END | disposition home or self-care (01) ==
PROVIDERS: PCP Family Medicine
DX: K21.9 Gastro-esophageal reflux disease without esophagitis (principal)
CPT/HCPCS: 74221

== ENCOUNTER 2025-04-25 05:53 | Day surgery (SDC) | payer MEDICARE, OTHER, SELFPAY ==
--- NOTE | 2025-04-20 13:20 | PAT.ANE_ITS ---
Pre-Assessment Diagnosis/Proposed Procedure Planned Operative Procedure(s): COLONOSCOPY/EGD Anesthesia History Anesthesia History - legal administrative assistant: Anesthesia History - legal administrative assistant Hx Hospitalization No 04/20/25 11:44 Any Problems With Anesthesia Yes: NAUSEA 04/20/25 11:44 Cholinesterase deficiency No 04/20/25 11:44 You/Your Family Experience No 04/20/25 11:44 fever (hyperthermia) with Relationship Recent Exposure to Contagious No 11/03/18 05:50 Disease Does patient have nerve No 04/20/25 11:44 stimulator Patient instructed to have device shut off --Does patient have Pacemaker or ICD? When Was Last Pacemaker Check QUESTION #4 FULL TEXT: You/Your Family Experience fever (hyperthermia) with Anesthesia Last Oral Intake Last Oral intake: Last Oral Intake NPO since Meds taken in AM with sips of water? Meds patient instructed to take am of surgery PONV PONV - legal administrative assistant: PONV - legal administrative assistant Female Yes 04/20/25 11:44 HX of Motion Sickness Yes 04/20/25 11:44 HX of N/V After Surgery No 04/20/25 11:44 Non-Smoker Yes 04/20/25 11:44 Duration of Surgery greater No 04/20/25 11:44 than 60 minutes Number of Risk Factors 3 04/20/25 11:44 PONV Score Moderate Risk 04/20/25 11:44 Height & Weight Height & Weight: Anesthesia: Height & Weight Height 5 ft 5 in 03/15/25 14:36 Respiratory Assessment Respiratory Assessment - legal administrative assistant: Respiratory Tract Infection Hx - legal administrative assistant Hx Respiratory Tract Infection No 04/20/25 11:44 STOP Sleep Apnea STOP Sleep Apnea - legal administrative assistant: STOP Sleep Apnea - legal administrative assistant Hx Hypertension No 04/20/25 11:44 Hx Sleep Apnea No 04/20/25 11:44 CPAP No 04/20/25 11:44 BIPAP No 04/20/25 11:44 Do you snore loudly (louder No 04/20/25 11:44 than talking or can be heard Do you often feel tired/ No 04/20/25 11:44 fatigued/ sleepy during daytime? Has anyone observed you stop No 04/20/25 11:44 breathing during sleep? STOP Results Negative 04/20/25 11:44 QUESTION #5 FULL TEXT : Do you snore loudly (louder than talking or can be heard through closed doors)? Tobacco Use History Tobacco Use History - legal administrative assistant: Tobacco Use History - legal administrative assistant Tobacco Use Smoking Status Never smoker 04/20/25 11:44 Hx Tobacco Use No 04/20/25 11:44 Years Smoking Packs Smoked per Day Smoking Cessation Date was within the last 15 years Hx Smoking Cessation Date Hx Smoking Cessation Counseling Hematologic Medial History Hematologic Hx - legal administrative assistant: Hematologic Medical Hx - documentation nurse Hx of Blood Transfusion No 04/20/25 11:44 Hx of Transfusion in last 3 No 04/20/25 11:44 Months Date of Last Transfusion (if within last 3 months) Ever experience any problems No 04/20/25 11:44 with transfusion(s)? Specify any problems Hx of Preganancy in last 3 No 04/20/25 11:44 Months Nurse Filling Out Transfusion VCHRISTIN 04/20/25 11:44 & Questions: Date: 04/20/25 04/20/25 11:44 Time: 11:45 04/20/25 11:44 Patient unable to answer at this time (ie. confused, unrespo /Reproduction History /Reproductive History - legal administrative assistant: /Reproductive Hx- legal administrative assistant Hx Now No 04/20/25 11:44 Gestational Age (in weeks): EDC: Hx Hx Para Hx Section SAB No 04/20/25 11:44 [facility] Medical History (Updated 04/20/25 @ 11:44 by Meghan Ramirez) Wears hearing aid Wears glasses Cancer Post-menopausal Alcohol use Thyroid disease Fatty liver High cholesterol Easy bruising Back pain Migraine headache Injury of head and neck Gastric reflux Non-smoker CPAP (continuous positive airway pressure) dependence Shortness of breath on exertion Chronic cough Leg cramps History of edema History of stress test Normal Holter exam History of echocardiogram History of irregular heartbeat Breast lump Back problem Hypercholesterolemia COVID-19 Encounter for screening for COVID-19 Home Medications ?Medication ?Instructions ?Recorded ?Last Taken ?Type atenolol 25 mg tablet 25 mg PO DAILY BP 10/22/13 0 11/27/19 History fluticasone propionate 50 1 spray intranasal PRN PRN 0 09/28/18 11/27/19 History mcg/actuation nasal Allergies 90 days #48 grams spray,suspension omeprazole 40 mg capsule,delayed 40 mg PO BID GERD 90 days #90 caps 09/28/18 11/27/19 History release magnesium 250 mg tablet 400 mg PO DAILY SUPPLEMENT 0 10/27/18 11/27/19 History vitamin B complex (Vitamins B 1 ea PO DAILY SUPPLEMENT 10/27/18 11/27/19 History Complex capsule) calcium 500 mg (as 1 tab PO BID 04/25/24 Unknow n History carbonate)-vitamin D3 15 mcg (600 unit) tablet pravastatin 20 mg tablet 20 mg PO DAILY 04/25/24 Unkn own History fluoxetine 40 mg capsule 40 mg PO QDAY 03/14/25 Unkno wn History levothyroxine 112 mcg capsule 112 mcg PO QDAY 03/14/25 Unknown History metformin 500 mg tablet 500 mg PO QDAY 03/14/25 Unkn own History famotidine 40 mg tablet 40 mg PO QHS #90 tabs Unknown Rx liver health supplement 2 tab PO DAILY 03/15/25 Unkn own History melatonin 5 mg capsule 5 mg PO QHS 03/15/25 Unknown History peg 3350-electrolytes 236 240 ml PO Q10M #4,000 mL 07/28 Unknown Rx gram-22.74 gram-6.74 gram-5.86 gram solution (Golytely) linaclotide 145 mcg capsule 145 mcg PO QAM #30 caps Unknown Rx (Linzess) cinnamon bark-chromium picolinate 1 cap PO DAILY 04/20 Unknown History 500 mg-100 mcg capsule turmeric 400 mg capsule 400 mg PO DAILY 04/20/25 Unk nown History Allergy/AdvReac Type Severity Reaction Status Date / Time lincomycin (From Lincocin) Allergy Other Verified 04/20/25 11:24 Sulfa (Sulfonamide Allergy Swelling Verified 04/20/25 11:24 Antibiotics) Family History Daughter Colon cancer Mother Arthritis Cancer skin Father Myocardial infarction Brother Myocardial infarction Thyroid disorder Surgical History (Updated 04/20/25 @ 11:44 by Meghan Ramirez) Hx of breast biopsy Hx of dilation and curettage Hx of arthroscopic knee surgery Hx of varicose vein ligation and stripping Hx of bilateral cataract extraction History of total right knee replacement Social History Smoking Status: Never smoker alcohol intake: current details: wine substance use type: does not use Audit: Pertinent Findings Pertinent Findings EKG Perinent findings: EKG 11/27/2019. Sinus rhythm with short CO. Otherwise normal EKG Recommendation Anesthesia Recommendation Anesthesia recommendation: OPTIMIZED for anesthesia
[2025-04-25] VITALS (8 sets, daily range): BP systolic 83–126; BP diastolic 52–68; PULSE 67–78; RESP 14–16; TEMP 36.2–36.7; O2SAT 95–97; BMI 31.3
--- OUTSIDE RECORDS SUMMARY | 2025-04-25 05:56 | XMS RPT_ITS | CCD ---
Author Organization [facility] Care Team Providers Care Internet Marketing Assistant Name Role Phone Edilberto Smith MD Primary Care Provider EDILBERTO SMITH Primary Care Unavailable LEXI MARX Referring Unavailable Edilberto Smith MD Primary Care Provider Araseli ULTRASOUND TECHNICIAN.Lexi RILEY Unavailable Suppan ULTRASOUND TECHNICIAN.ROSEMARY, Zoey A Unavailable Suppan ULTRASOUND TECHNICIAN.ROSEMARY, Zoey A Unavailable EDILBERTO SMITH Attending Unavailable LUIS, EDILBERTO Verdugo Primary Care Unavailable LUIS, EDILBERTO Verdugo Referring Unavailable LUIS, EDILBERTO Verdugo Primary Care Unavailable LUIS, EDILBERTO Verdugo Attending Unavailable LUIS, EDILBERTO Verdugo Primary Care Unavailable LUIS, EDILBERTO Verdugo Referring Unavailable LUIS, EDILBERTO Verdugo Primary Care Unavailable LUIS, EDILBERTO Verdugo Referring Unavailable LUIS, EDILBERTO Verdugo Primary Care Unavailable LUIS, EDILBERTO Verdugo Referring Unavailable LUIS, EDILBERTO Verdugo Primary Care Unavailable ZOEY PICKARD Attending Unavailable LUIS, EDILBERTO Verdugo Primary Care Unavailable LEXI MARX Attending Unavailable LUIS, EDILBERTO Verdugo Primary Care Unavailable JOSE CARLOS LEVIN Attending Unavailable LUIS, EDILBERTO Verdugo Primary Care Unavailable LEXI MARX Attending Unavailable LUIS, EDILBERTO Verdugo Primary Care Unavailable LUIS, EDILBERTO Verdugo Referring Unavailable LUIS, EDILBERTO Verdugo Primary Care Unavailable LUISEDILBERTO Attending Unavailable LUIS, EDILBERTO Verdugo Primary Care Unavailable LUIS, EDILBERTO Verdugo Referring Unavailable LUIS, EDILBERTO Verdugo Primary Care Unavailable LUIS, EDILBERTO Verdugo Referring Unavailable LUIS, EDILBERTO Verdugo Primary Care Unavailable Luis Dr. Edilberto WEINBERG Primary Care Provider Gerardo Mosley Attending Provider [phone] Gerardo Mosley Referring Provider Laura Ramsey Attending Provider Dr. Edilberto Smith MD Referring Provider [phone] Wray, Gerardo Referring Unavailable Millhousen, Edilberto Primary Care Unavailable Wray, Gerardo Attending Unavailable Edilberto Smith Primary Care Unavailable Calderon, Juaquin Attending Unavailable Luis, Edilberto Primary Care Unavailable Millhousen, Edilberto Referring Unavailable Friend, Amos Attending Unavailable LuisEdilberto Primary Care Unavailable Laura Ponce Attending Unavailable Wray, Gerardo Referring Unavailable Luis, Edilberto Primary Care Unavailable Luis, Edilberto Referring Unavailable Laura Pnoce Attending Unavailable Allergies Allergy Classification Reported Allergen(s) Allergy Type Date of Onset Reaction(s) Facility Pollen (1 source) Tree and shrub pollen Substance Allergy 0 Intolerance [facility] Sulfonamides (antibiotic) (1 source) Sulfonamides (Antibiotic) Drug Allergy 6 Other: See Comments [facility] Work Phone: (4 sources) Lincomycin Drug Allergy 2 Other [facility] Comment on above: CAUSED DIARRHEA, POS SIBLY C-DIFF (20 sources) Sulfonamides (Antibiotic); Translations: [SULFA (SULFONAMIDE ANTIBIOTICS)] Allergy to substance 6 Other: See Comments [facility] Work Phone: (20 sources) Seasonal allergy; Translations: [SEASONAL ALLERGIES] Allergy to substance 8 Other: See Comments [facility] (20 sources) Tree and shrub pollen; Translations: [TREE AND SHRUB POLLEN] Drug Allergy 0 Intolerance [facility] Work Phone: (1 source) Lincomycin Drug Allergy 5 [facility] Repository Medications Current Medications Medication Drug Class(es) Dates Sig (Normalized) Sig (Original) amoxicillin 875 mg / clavulanate 125 mg oral tablet (1 source) Penicillin-class Antibacterial Start: 09-19-2022 End: 09-29-2022 take 1 tablet by mouth twice daily amoxicillin-clavul anic acid (AUGMENTIN) 875-125 mg per tablet Indications: Boil, thigh Take 1 tablet by mouth twice daily for 10 days. 20 tablet 0 09/19/2022 09/29/2022 Active Comment on above: Take 1 tablet by jessica twice daily for 10 days. atenolol 25 mg oral tablet (20 sources) beta-Adrenergic Damian Start: 03-07-2025 End: 09-03-2025 take 1 tablet by mouth once daily atenolol (TENORMIN) 25 mg tablet Indications: Palpitations Take 1 tablet by mouth once daily. 90 tablet 1 03/07/2025 09/03/2025 Active Start: 10-22-2013 End: 02-23-2025 take 1 tablet by mouth once daily atenolol (TENORMIN) 25 mg tablet Indications: Palpitations Take 1 tablet by mouth once daily. 90 tablet 1 08/27/2024 02/23/2025 Active Comment on above: Take 1 tablet by jessica once daily. bifidobacterium infantis 4 mg oral capsule (20 sources) Start: 04-25-20 take 1 capsule by mouth once daily Bifidobacterium Infantis (Align) 4 mg capsule Active 4 mg PO DAILY April 25, 2024 12:00am Comment on above: Take by mouth. calcium carbonate 1250 mg / cholecalciferol 600 unt oral tablet (3 sources) Vitamin D Start: 04-25-20 Calcium Carbonate-Vitamin D3 500 mg-15 mcg (600 unit) tablet Active 1 {tbl} PO TWICE A DAY April 25, 2024 12:00am Calcium Carbonate / vitamin D3 (20 sources) take 1 tablet by mouth twice daily CALCIUM CARBONATE/VITAMIN D3 (CALCIUM 600 + D ORAL) Take 1 tablet by mouth twice daily. Active take 1 tablet by mouth twice gini ly CALCIUM CARBONATE/VITAMIN D3 (CALCIUM 600 + D ORAL) Take 1 tablet by mouth twice daily. 0 Active Comment on above: Take 1 tablet by jessica twice daily. COMPOUNDED PRESCRIPTION (20 sources) COMPOUNDED PRESC RIPTION Turmeric Curcumin 500 mg taking 1 daily Active COMPOUNDED PRESC RIPTION Turmeric Curcumin 500 mg taking 1 daily 0 Active Comment on above: Turmeric Curcumin 50 0 mg taking 1 daily CPAP/BIPAP/OTHER (18 sources) Start: End: CPAP/BIPAP/OTHER APAP 5-15 cmH2O 1 Each 04/02/2024 08/18/2051 Active ELDERBERRY FRUIT (9 sources) elderberry fruit 50 mg/5 mL syrp Take 2 teaspoonsful by mouth once daily. Active famotidine 40 mg oral tablet (2 sources) Histamine-2 Receptor Antagonist Start: 5 take 1 tablet by mouth at bedtime Famotidine 40 mg tablet Active 40 mg PO AT BEDTIME 90 1 March 15, 2025 12:00am FLUoxetine 40 mg oral capsule (20 sources) Serotonin Reuptake Inhibitor Start: 5 take 1 capsule by mouth once daily Fluoxetine 40 mg capsule Active 40 mg PO daily March 14, 2025 12:00am Start: 01-12-2024 End: 01-04-2025 take 1 capsule by mouth once daily Fluoxetine 40 mg capsule Active 40 mg PO daily March 14, 2025 12:00am Start: 12-11-2021 End: 01-10-2024 take 1 capsule by mouth once daily FLUoxetine (PROZAC) 40 mg capsule Indications: Hot flashes , Fatigue, unspecified type Take 1 capsule by mouth once daily. 90 capsule 3 11/11/2022 01/10/2024 Discontinued Start: 12-13-2020 End: 12-04-2021 take 1 capsule by mouth once daily FLUoxetine (PROZAC) 40 mg capsule Indications: Hot flashes , Fatigue, unspecified type Take 1 capsule by mouth once daily. 30 capsule 5 12/04/2021 Active Start: 11-27-2019 take 40 mg by mouth once daily Fluoxetine Active 40 MG PO DAILY November 27, 2019 11:29am Start: 11-27-2019 End: 04-25-2024 take 2 capsules by mouth once daily Fluoxetine 20 MG capsule Discontinued 40 mg PO DAILY November 27, 2019 12:00am April 25, 2024 10:45pm Comment on above: Take 1 capsule by [facility] once daily. fluticasone propionate 0.05 mg/actuat metered dose nasal spray (20 sources) Corticosteroid Start: 3 End: 5 take 1 spray(s) nasal route once daily fluticasone (FLONASE) 50 mcg/actuation nasal spray Use 1 [place] in each nostril once daily. 3 Each 3 01/17/2023 09/20/2024 Discontinued Start: 12-28-2019 take 1 spray(s) nasa l route once daily fluticasone (FLONASE) 50 mcg/actuation nasal spray Use 1 [place] in each nostril once daily. 3 Bottle 3 12/28/2019 Active Start: 09-28-2018 Fluticasone Pr opionate Active 1 SPRAY INTRANASAL NEEDED 48 90 September 28, 2018 2:38pm Start: 09-28-2018 End: 01-09-2025 Fluticasone Propionate 50 mcg/actuation spray,suspension Active 1 NMA INTRANASAL NEEDED as needed for Allergies 48 90 0 September 28, 2018 1:00am Comment on above: Use 1 [place] in each nostril once daily. levothyroxine sodium 0.112 mg oral capsule (20 sources) l-Thyroxine Start: take 1 capsule by mouth once daily Levothyroxine 112 mcg capsule Active 112 ug PO daily March 14, 2025 12:00am Start: 09-20-2024 End: 09-20-2025 take 1 tablet by mouth once daily for thyroid dysfunction levothyroxine (LEVOXYL) 112 mcg tablet Indications: Hypothyroidism, unspecified type Take 1 tablet by mouth once daily. Take on empty stomach. For thyroid. 90 tablet 3 09/20/2024 09/20/2025 Active Start: 06-30-2023 End: 03-15-2025 take 1 tablet by mouth once daily Levothyroxine 125 mcg tablet Discontinued 125 ug PO DAILY April 25, 2024 12:00am March 15, 2025 2:39pm disorder of thyroid gland Start: 01-01-2023 take 1 tablet by jessica th once daily for thyroid dysfunction levothyroxine (LEVOXYL) 125 mcg tablet Take 1 tablet by mouth once daily. Take on empty stomach. For thyroid. 90 tablet 1 01/01/2023 Active Start: 08-31-2021 End: 12-28-2022 take 1 tablet by mouth once daily for thyroid dysfunction levothyroxine (LEVOXYL) 125 mcg tablet Take 1 tablet by mouth once daily. Take on empty stomach. For thyroid. 90 tablet 1 07/08/2022 12/28/2022 Discontinued Start: 10-22-2013 End: 04-25-2024 take 1 tablet by mouth once daily Levothyroxine 100 MCG tablet Discontinued 100 ug PO DAILY October 22, 2013 12:00am April 25, 2024 10:45pm THROID Comment on above: Take 1 tablet by jessica th once daily. Take on empty stomach. For thyroid. linaclotide 0.145 mg oral capsule (3 sources) Guanylate Cyclase-C Agonist Start: 03-15-2025 End: 03-21-2025 Linaclotide (Linzess) 145 mcg capsule Active 145 ug PO EVERY MORNING 30 March 21, 2025 4:30pm take once a day, 30 minutes before your first meal liver health supplement (2 sources) Start: 03-15-2025 liver health supplement Active PO TWICE A DAY March 15, 2025 12:00am Magnesium (20 sources) Start: 10-27-2018 take 250 mg by mouth once daily Magnesium Active 250 MG PO DAILY October 27, 2018 10:13am Start: 10-27-2018 Magnesium 250 MG tablet Active 400 mg PO DAILY October 27, 2018 12:00am SUPPLEMENT take 1 tablet by jessica th once daily Magnesium 250 mg tab Take 250 mg by mouth once daily. Using OTC for leg cramps Active take 1 tablet by jessica th once daily Magnesium 250 mg tab Take 250 mg by mouth once daily. Using OTC for leg cramps 0 Active Comment on above: Take 250 mg by mouth once daily. Using OTC for leg cramps melatonin 5 mg oral capsule (20 sources) Start: 03-15-2025 Melatonin 5 mg capsule Active mg PO March 15, 2025 12:00am melatonin 5 mg t ablet Take 5 mg by mouth as directed. Active Comment on above: Take 5 mg by mouth a s directed. metFORMIN hydrochloride 500 mg oral tablet (11 sources) Biguanide Start: 2024 End: 2025 take 1 tablet by mouth once daily Metformin 500 mg tablet Active 500 mg PO daily March 14, 2025 12:00am methylPREDNISolone (1 source) Corticosteroid Start: 2024 End: 2024 methylPREDNISolone (MEDROL, DEBBI,) 4 mg Dose-Pack Indications: Acute right-sided low back pain without sciatica Take as instructed per package. 21 tablet 09/07/2024 09/13/2024 Active mupirocin 0.02 mg/mg topical ointment (1 source) RNA Synthetase Inhibitor Antibacterial Start: 2022 End: 2022 mupirocin (BACTROBAN) 2 % ointment Apply 1 application to affected area three times daily for 10 days. 30 g 0 01/22/2023 02/01/2023 Active Comment on above: Apply 1 application to affected area three times daily for 10 days. omeprazole 40 mg delayed release oral capsule (20 sources) Proton Pump Inhibitor Start: 2018 End: 2025 omeprazole (PRILOSEC) 40 mg capsule Indications: Gastroesophageal reflux disease without esophagitis Take 1 capsule by mouth daily before breakfast. Then resume once a day 90 capsule 3 12/28/2024 12/28/2025 Active Comment on above: Take 1 capsule by mo [facility] daily before breakfast. polyethylene glycol 3350 28983 mg powder for oral solution (20 sources) Osmotic Laxative Start: 2023 Polyethylene Glycol 3350 (Miralax) 17 gram/dose powder Active 17 g PO DAILY April 25, 2024 12:00am Start: 10-22-2013 End: 04-07-2018 take 17 g by mouth twice daily Polyethylene Glycol 335 0 17 GM packet Discontinued 17 g PO TWICE A DAY October 22, 2013 12:00am April 07, 2018 2:04pm End: 01-22-2023 polyethylene glycol 3350 (WV RALAX, GLYCOLAX) 17 gram/dose powder Take 17 g by mouth once daily. 0 01/22/2023 Discontinued (Course of therapy completed) Comment on above: Take 17 g by mouth o nce daily. polyethylene glycol 3350 558342 mg / potassium chloride 2970 mg / sodium bicarbonate 6740 mg / sodium chloride 5860 mg / sodium sulfate 67348 mg powder for oral solution (2 sources) Osmotic Laxative Start: 5 Peg 3350-Electrolytes (Golytely) 236-22.74-6.74 -5.86 gram recon soln Active 240 mL PO Q10M 4000 0 March 15, 2025 12:00am take as directed for split dose bowel prep pravastatin sodium 20 mg oral tablet (20 sources) HMG-CoA Reductase Inhibitor Start: 3 End: take 1 tablet by mouth once daily Pravastatin 20 mg tablet Active 20 mg PO DAILY April 25, 2024 12:00am Start: 12-11-2021 End: 01-01-2023 take 1 tablet by mouth once daily pravastatin (PRAVACHOL) 20 mg tablet Indications: Hyperlipidemia, mixed Take 1 tablet by mouth once daily. 90 tablet 2 12/02/2022 Active Start: 09-19-2021 take 1 tablet by jessica th once daily pravastatin (PRAVACHOL) 20 mg tablet Indications: Hyperlipidemia, mixed Take 1 tablet by mouth once daily. 30 tablet 2 09/19/2021 Active Comment on above: Take 1 tablet by jessica th once daily. psyllium 400 mg oral capsule (15 sources) psyllium husk (METAMUCIL) 0.4 gram cap Take by mouth. Active Psyllium Seed-Sucrose (METAMUCIL, SUGAR,) (15 sources) Psyllium Seed-Zaragoza crose (METAMUCIL, SUGAR,) Take 1 Tablespoonful by mouth once daily. Active tumeric curcumin (3 sources) Start: 04-25-2024 take 500 mg by mouth once daily tumeric curcumin Active 500 mg PO DAILY April 25, 2024 12:00am Turmeric-Turmeric Root Extract (8 sources) Start: 11-27-2019 Turmeric-Turmeric Root Extract Active 1 EACH PO DAILY November 27, 2019 11:29am Start: 11-27-2019 End: 04-25-2024 take 1 capsule by mouth once daily Turmeric-Turmeric Root Extract 1 EACH capsule Discontinued 1 NMA PO DAILY November 27, 2019 12:00am April 25, 2024 10:46pm Start: 10-27-2018 End: 11-04-2018 take 500 mg by mouth once daily Turmeric Root Extract Discontinued 500 MG PO DAILY October 27, 2018 10:13am November 04, 2018 5:11pm Start: 10-27-2018 End: 11-04-2018 take 1 capsule by mouth once daily Turmeric Root Extract 500 MG capsule Discontinued 500 mg PO DAILY October 27, 2018 12:00am November 04, 2018 5:11pm SUPPLEMENT Vitamin B Complex (Vitamins B Complex) 1 EACH capsule (4 sources) Start: 10-27-2018 take 1 capsule by mouth once daily Vitamin B Complex (Vitamins B Complex) 1 EACH capsule Active 1 EACH PO DAILY October 27, 2018 10:13am Start: 10-27-2018 take 1 capsule by mo [facility] once daily Vitamin B Complex (Vitamins B Complex) 1 EACH capsule Active 1 NMA PO DAILY October 27, 2018 12:00am SUPPLEMENT Completed/Discontinued Medications Medication Drug Class(es) Dates Sig (Normalized) Sig (Original) acetaminophen 500 mg oral capsule (20 sources) Start: 04-25-2024 End: 03-15-2025 Acetaminophen 500 mg capsule Discontinued 1000 mg PO NEEDED April 25, 2024 12:00am March 15, 2025 2:38pm take 2 tablets by mo [facility] every twelve hours as needed acetaminophen (TYLENOL) 500 mg tablet Ta ke 1,000 mg by mouth twice daily as needed. Active Comment on above: Take 1,000 mg by jessica twice daily as needed. acetaminophen 300 mg / HYDROcodone bitartrate 5 mg oral tablet (4 sources) Opioid Agonist Start: 5 End: 8 take 1 tablet by mouth every six hours at mealtime Hydrocodone-Acetamino phen Discontinued 1 - 2 TABLET PO EVERY 6 HOURS NEEDED 60 October 12, 2014 11:52am April 07, 2018 2:05pm take with food Start: 10-12-2014 End: 04-07-2018 Hydrocodone-Acetaminophen 1 EACH tablet Discontinued 1 - 2 {tbl} PO EVERY 6 HOURS NEEDED as needed for Pain 60 October 12, 2014 12:00am April 07, 2018 2:05pm take with food acetaminophen 325 mg / oxyCODONE hydrochloride 5 mg oral tablet (4 sources) Opioid Agonist Start: 05-24-2015 End: 04-07-2018 take 1 tablet by mouth every six hours as needed Oxycodone-Acetaminophen Discontinued 1 - 2 TABLET PO EVERY 6 HOURS NEEDED 60 May 24, 2015 7:31am April 07, 2018 2:04pm Start: 05-24-2015 End: 04-07-2018 Oxycodone-Acetaminophen 1 TA BLET tablet Discontinued 1 - 2 {tbl} PO EVERY 6 HOURS NEEDED as needed for Pain 60 May 24, 2015 12:00am April 07, 2018 2:04pm apixaban 2.5 mg oral tablet (4 sources) Factor Xa Inhibitor Start: 11-04-2018 End: 11-18-2018 take 1 tablet by mouth twice daily Apixaban (Eliquis) 2.5 MG tablet Discontinued 2.5 mg PO TWICE A DAY 28 14 0 November 04, 2018 12:00am November 17, 2018 12:00am November 18, 2018 12:07am aspirin 81 mg chewable tablet (4 sources) Platelet Aggregation Inhibitor, Nonsteroidal Anti-inflammatory Drug Start: 10-22-2013 End: 04-07-2018 take 1 tablet by mouth once daily Aspirin 81 MG tablet,chewable Discontinued 81 mg PO DAILY@0800 October 22, 2013 12:00am April 07, 2018 2:05pm chlorpheniramine maleate 4 mg oral tablet (4 sources) Histamine-1 Receptor Antagonist Start: 10-22-2013 End: 09-28-2018 take 1 tablet by mouth once daily Chlorpheniramine Maleate 4 MG tablet Discontinued 4 mg PO DAILY October 22, 2013 12:00am September 28, 2018 2:41pm cholecalciferol 0.025 mg oral tablet (20 sources) Vitamin D Start: 10-27-2018 End: 04-25-2024 take 1 tablet by mouth once daily Cholecalciferol (Vitamin D3) (Vitamin D3) 1,000 UNIT tablet Discontinued 1000 U PO DAILY October 27, 2018 12:00am April 25, 2024 10:45pm SUPPLEMENT take 1 capsule by mouth once gini ly Cholecalciferol, Vitamin D3, 1,000 unit cap Take 1,000 Units by mouth once daily. 0 Active Comment on above: Take 1,000 Units by mouth once daily. CPAP (4 sources) Start: 09-19-2023 End: 12-12-2023 CPAP Indications: SHIVA (obstructive sleep apnea) Auto titrating PAP device 5-15 cmH2O with humidification, A extra small ResMed AirFit P10 for her nasal pillows mask was used. optional chin strap (if indicated) , filters, tubing, humidifier and lifetime supplies. 1 Each 0 09/19/2023 12/12/2023 Discontinued Start: 09-19-2023 CPAP Indicatio ns: SHIVA (obstructive sleep apnea) Auto titrating PAP device 5-15 cmH2O with humidification, A extra small ResMed AirFit P10 for her nasal pillows mask was used. optional chin strap (if indicated) , filters, tubing, humidifier and lifetime supplies. 1 Each 0 09/19/2023 Active Comment on above: Auto titrating PAP d evice 5-15 cmH2O with humidification, A extra small ResMed AirFit P10 for her nasal pillows mask was used. optional chin strap (if indicated) , filters, tubing, humidifier and lifetime supplies. dexamethasone 4 mg oral tablet (4 sources) Corticosteroid Start: 07-06-20 End: 04-25-20 24 take 1 tablet by mouth once daily Dexamethasone (Decadron) 4 mg tablet Discontinued 4 mg PO DAILY 5 July 06, 2021 1:00am April 25, 2024 10:45pm docusate sodium 200 mg oral capsule (20 sources) End: 06-25-20 docusate sodium (COLACE ORAL) Take 200 mg by mouth as directed. 06/25/2024 Discontinued Comment on above: Take 200 mg by mouth as directed. oxyquinoline sulfate 0.97846 mg/mg / sodium dodecyl sulfate 0.0001 mg/mg vaginal gel (19 sources) Start: 01-10-20 Oxyquinoline-Na Lauryl Sulfate (TRIMO-RAMON JELLY) 0.025-0.01 % gel Use 1 Applicatorful vaginally two times a week. 113.4 g 1 01/09/2022 Active Comment on above: Use 1 Applicatorful vaginally two times a week. fexofenadine hydrochloride 180 mg oral tablet (20 sources) Histamine-1 Receptor Antagonist Start: 06-18-20 End: 06-25-20 24 take 1 tablet by mouth once daily fexofenadine (ROSITA ALLERGY) 180 mg tablet Take 1 tablet by mouth once daily. 06/18/2023 06/25/2024 Discontinued Start: 04-07-2018 End: 09-28-2018 take 1 tablet by mouth once daily Fexofenadine 180 mg tablet Discontinued 180 mg PO DAILY April 07, 2018 12:00am September 28, 2018 2:41pm Comment on above: Take 1 tablet by [facility] once daily. 24 hr fexofenadine hydrochloride 180 mg / pseudoephedrine hydrochloride 240 mg extended release oral tablet (4 sources) alpha-Adrenergic Agonist, Histamine-1 Receptor Antagonist Start: 05-17-20 15 End: 04-07-20 18 take 1 tablet by mouth once daily Fexofenadine-Pseudoe phedrine Discontinued 1 TAB.SR PO DAILY May 17, 2015 10:00am April 07, 2018 2:05pm Start: 05-17-2015 End: 04-07-2018 take 1 tablet by mouth every twenty-four hours Fexofenadine-Pseudoephedrine 1 TAB.SR tablet extended release 24 hr Discontinued 1 NMA PO DAILY May 17, 2015 12:00am April 07, 2018 2:05pm ibuprofen 200 mg oral tablet (20 sources) Nonsteroidal Anti-inflammatory Drug End: 03-03-2024 take 2 tablets by mouth every twelve hours as needed ibuprofen (MOTRIN) 200 mg tablet Take 400 mg by mouth twice daily as needed. 03/03/2024 Discontinued Comment on above: Take 400 mg by mouth twice daily as need ed. naproxen 500 mg oral tablet (11 sources) Nonsteroidal Anti-inflammatory Drug Start: 04-25-2024 End: 03-15-2025 take 2 tablets by mouth twice daily Naproxen 500 MG tablet Discontinued 1000 mg PO TWICE A DAY April 25, 2024 12:00am March 15, 2025 2:43pm Start: 06-28-2020 End: 04-25-2024 take 1 tablet by mouth twice daily Naproxen 500 MG tablet Discontinued 500 mg PO TWICE A DAY June 28, 2020 1:00am April 25, 2024 10:46pm Start: 10-06-2014 End: 09-28-2018 take 1 tablet by mouth twice daily as needed for pain Naproxen 500 MG tablet Discontinued 500 mg PO TWICE DAILY NEEDED as needed for Pain October 06, 2014 1:00am September 28, 2018 2:40pm ondansetron 8 mg oral tablet (4 sources) Serotonin-3 Receptor Antagonist Start: 05-24-2015 End: 04-07-2018 take 1 tablet by mouth every eight hours as needed for nausea Ondansetron Hcl 8 MG tablet Discontinued 8 mg PO EVERY 8 HOURS NEEDED as needed for Nausea 20 0 May 24, 2015 12:00am April 07, 2018 2:05pm PARoxetine hydrochloride 10 mg oral tablet (4 sources) Serotonin Reuptake Inhibitor Start: 05-17-2015 End: 04-07-2018 take 1 tablet by mouth once daily Paroxetine Hcl 10 MG tablet Discontinued 10 mg PO DAILY May 17, 2015 12:00am April 07, 2018 2:04pm Polyethylene Glycols (11 sources) End: 06-25-2024 polyethylene glycol 3350 (MIRALAX ORAL) Take by mouth. 06/25/2024 Discontinued polyethylene gly col 3350 (MIRALAX ORAL) Take by mouth. Active polyethylene gly col 3350 (MIRALAX ORAL) Take by mouth. 0 Active psyllium husk (METAMUCIL ORA L) (20 sources) End: 03-03-2024 psyllium husk (METAMUCIL ORA L) Take by mouth. 03/03/2024 Discontinued (Changing Therapy/Dosage Form) End: 03-03-2024 psyllium husk (METAMUCIL ORA L) Take by mouth. 0 03/03/2024 Discontinued (Changing Therapy/Dosage Form) psyllium husk (M ETAMUCIL ORAL) Take by mouth. 0 Active Comment on above: Take by mouth. triamcinolone acetonide 40 mg/ml injectable suspension (1 source) Corticosteroid Start: 04-07-2018 End: 04-07-2018 Kenalog (triamcinolone acetonide) 10 mg/mL suspension for injection Discontinued 80 MG INTRAARTIC ONCE 8 April 07, 2018 1:46pm April 07, 2018 2:43pm Vitamin B Complex (20 sources) Start: 10-22-2013 End: 04-07-2018 Vitamin B Complex Discontinued 1 EACH PO DAILY October 22, 2013 9:37am April 07, 2018 2:04pm VITAMIN B COMPLE X (B COMPLEX ORAL) Take by mouth. Active VITAMIN B COMPLE X (B COMPLEX ORAL) Take by mouth. 0 Active Comment on above: Take by mouth. 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] 03-15-2025 Chronic Cardiac dysrhythmias (4 sources) Palpitations; Translations: [Palpitations] Episodic Diabetes mellitus without complication (4 sources) Type 2 diabetes mellitus without complication; Translations: [Type 2 diabetes mellitus without complications] Onset: 5 09-20-2024 Chronic Disorders of lipid metabolism (20 sources) Mixed hyperlipidemia; Translations: [Mixed hyperlipidemia] Onset: 2 Chronic E Codes: Fall (20 sources) Fall on same level from slipping, tripping or stumbling ; Translations: [Fall on same level from slipping, tripping and stumbling without subsequent striking against object, initial encounter] Onset: 3 Resolved: 4 02-28-2023 Episodic Esophageal disorders (10 sources) Gastroesophageal reflux disease without esophagitis; Translations: [Gastro-esophageal reflux disease without esophagitis] Onset: 4 Chronic Headache; including migraine (20 sources) Tension-type headache; Translations: [Tension-type headache, unspecified, not intractable] Onset: 3 02-28-2023 Chronic Heart valve disorders (20 sources) Mitral valve prolapse; Translations: [Nonrheumatic mitral (valve) prolapse] Onset: 6 05-16-2016 Chronic Immunizations and screening for infectious disease (20 sources) Patient encounter status; Translations: [Encounter for screening for COVID-19] Onset: 3 Resolved: 4 Episodic Joint disorders and dislocations; trauma-related (2 sources) Dislocation of temporomandibular joint; Translations: [Dislocation of jaw, unspecified side, initial encounter] 03-14-2025 Episodic Malaise and fatigue (6 sources) Fatigue; Translations: [Other fatigue] Episodic Osteoarthritis (20 sources) Arthritis of knee; Translations: [Unilateral primary osteoarthritis, unspecified knee] Onset: 6 07-30-2021 Chronic Other connective tissue disease (20 sources) History of total knee arthroplasty; Translations: [Presence of unspecified artificial knee joint] Onset: 3 02-28-2023 Chronic Other ear and sense organ disorders (2 sources) Hearing loss; Translations: [Unspecified hearing loss, unspecified ear] 03-14-2025 Chronic Other ear and sense organ disorders (2 sources) Hearing disorder; Translations: [Unspecified hearing loss, unspecified ear] 03-15-2025 Chronic Other female genital disorders (1 source) Lesion of vulva; Translations: [Other specified noninflammatory disorders of vulva and perineum] Episodic Other gastrointestinal disorders (1 source) Chronic constipation; Translations: [Other constipation] 03-18-2024 Episodic Other hematologic conditions (1 source) Macrocytosis; Translations: [Other specified diseases of blood and blood-forming organs] Chronic Other injuries and conditions due to external causes (1 source) Injury of head; Translations: [Unspecified injury of head, initial encounter] Episodic Other liver diseases (1 source) Steatosis of liver; Translations: [Fatty (change of) liver, not elsewhere classified] 03-18-2024 Chronic Other lower respiratory disease (1 source) Snoring; Translations: [Snoring] 06-18-2023 Episodic Other nutritional; endocrine; and metabolic disorders (1 source) Body mass index 30+ - obesity; Translations: [Body mass index (BMI) 31.0-31.9, adult] 06-18-2023 Chronic Other upper respiratory disease (20 sources) Allergic rhinitis due to pollen; Translations: [Allergic rhinitis due to pollen] Onset: 8 03-17-2018 Chronic Prolapse of female genital organs (3 sources) Vaginal wall prolapse; Translations: [Cystocele, unspecified] Chronic Residual codes; unclassified (1 source) Hypersomnia; Translations: [Hypersomnia, unspecified] 06-18-2023 Chronic Residual codes; unclassified (4 sources) Hypoxia; Translations: [Idiopathic sleep related nonobstructive alveolar hypoventilation] 08-08-2023 Chronic Residual codes; unclassified (20 sources) Obstructive sleep apnea syndrome; Translations: [Obstructive sleep apnea (adult) (pediatric)] Onset: 4 08-08-2023 Chronic Residual codes; unclassified (2 sources) Idiopathic sleep related nonobstructive alveolar hypoventilation; Translations: [Nocturnal hypoxia] Onset: 4 Chronic Residual codes; unclassified (3 sources) Obstructive sleep apnea (adult) (pediatric); Translations: [SHIVA (obstructive sleep apnea)] Onset: 4 Chronic Residual codes; unclassified (2 sources) Sleep apnea; Translations: [Sleep apnea, unspecified] 03-14-2025 Chronic Residual codes; unclassified (1 source) Other specified health status; Translations: [Other specified conditions influencing health status] 12-12-2023 Episodic Residual codes; unclassified (1 source) Insomnia; Translations: [Insomnia, unspecified] 06-25-2024 Episodic Residual codes; unclassified (2 sources) Family history of cancer of colon; Translations: [Family history of malignant neoplasm of digestive organs] 03-15-2025 Episodic Comment on above: daughter Skin and subcutaneous tissue infections (1 source) Furuncle of thigh; Translations: [Furuncle of limb, unspecified] Episodic Sprains and strains (20 sources) Strain of neck muscle; Translations: [Strain of muscle, fascia and tendon at neck level, initial encounter] Onset: 3 Resolved: 02-28-2023 Episodic Superficial injury; contusion (6 sources) Abrasion of nose; Translations: [Abrasion of nose, initial encounter] 05-03-2024 Episodic Thyroid disorders (20 sources) Hypothyroidism; Translations: [Hypothyroidism, unspecified] Onset: 6 11-15-2015 Chronic Thyroid disorders (2 sources) Disorder of thyroid gland; Translations: [Disorder of thyroid, unspecified] 03-14-2025 Episodic Unclassified (1 source) Acute right-sided low back pain without sciatica; Translations: [Acute right-sided low back pain without sciatica] Onset: Viral infection (4 sources) Disease caused by 2019-nCoV; Translations: [COVID-19] 07-06-2021 Episodic Past or Other Problems Problem Classification Problem Date Documented Date Episodic/Chronic Abdominal pain (3 sources) Epigastric pain; Translations: [Epigastric pain] Onset: 03-03-2024 03-03-2024 Episodic Diabetes mellitus without complication (20 sources) Hyperglycemia; Translations: [Hyperglycemia, unspecified] Onset: 09-03-2023 Resolved: 09-20-2024 Episodic Gastritis and duodenitis (20 sources) Acute superficial gastritis; Translations: [Acute gastritis without bleeding] Onset: 07-15-2018 07-15-2018 Episodic Open wounds of head; neck; and trunk (20 sources) Laceration of forehead; Translations: [Laceration without foreign body of other part of head, initial encounter] Onset: 02-28-2023 Resolved: 09-03-2023 02-28-2023 Episodic Other non-traumatic joint disorders (20 sources) Pain in right knee; Translations: [Pain in joint, lower leg] Onset: 01-11-2018 01-11-2018 Episodic Other screening for suspected conditions (not mental disorders or infectious disease) (1 source) Encounter for screening mammogram for malignant neoplasm of breast; Translations: [Encounter for screening mammogram for malignant neoplasm of breast] Onset: 03-03-2024 Episodic Residual codes; unclassified (20 sources) Flushing; Translations: [Flushing] Onset: 11-15-2015 11-15-2015 Episodic Residual codes; unclassified (20 sources) History of colonoscopy; Translations: [Other specified postprocedural states] Onset: 07-15-2018 07-15-2018 Episodic Residual codes; unclassified (1 source) Insomnia, unspecified; Translations: [Insomnia, unspecified type] Onset: 06-25-2024 Episodic Screening and history of mental health and substance abuse codes (2 sources) Encounter for screening for depression; Translations: [Encounter for screening examination for other mental health and behavioral disorders] Onset: 03-03-2024 Episodic Spondylosis; intervertebral disc disorders; other back problems (20 sources) Low back pain; Translations: [Lumbar pain] Onset: 03-04-2022 Episodic Results Test Name Value Interpretation Reference Range Facility MR/PAT.[facility] 04-20[facility]2025 [facility] [address] [place] [address] PAT - Anesthesia 04/20/25 1320 MR#: [id number] Acct: [id number] Name: YANG SANDHU Rep #: [id number] : 1945 79 From: Brian Saldana MD PCP: Dr. Edilberto Smith MD Status:PRE [facility] [place] Race: C Location: EN Pre-Assessment Diagnosis/Proposed Procedure Planned Operative Procedure(s): COLONOSCOPY/EGD Anesthesia History Anesthesia History - independent living instructor: Anesthesia History - independent living instructor Hx Hospitalization No 04/20/25 11:44 Any Problems With Anesthesia Yes: NAUSEA 04/20/25 11:44 Cholinesterase deficiency No 04/20/25 11:44 You/Your Family Experience No 04/20/25 11:44 fever (hyperthermia) with Relationship Recent Exposure to Contagious No 11/03/18 05:50 Disease Does patient have nerve No 04/20/25 11:44 stimulator Patient instructed to have device shut off --Does patient have Pacemaker or ICD? When Was Last Pacemaker Check QUESTION #4 FULL TEXT: You/Your Family Experience fever (hyperthermia) with Anesthesia Last Oral Intake Last Oral intake: Last Oral Intake NPO since Meds taken in AM with sips of water? Meds patient instructed to take am of surgery PONV PONV - independent living instructor: PONV - independent living instructor Female Yes 04/20/25 11:44 HX of Motion Sickness Yes 04/20/25 11:44 HX of N/V After Surgery No 04/20/25 11:44 Non-Smoker Yes 04/20/25 11:44 Duration of Surgery greater No 04/20/25 11:44 than 60 minutes Number of Risk Factors 3 04/20/25 11:44 PONV Score Moderate Risk 04/20/25 11:44 Height Weight Height Weight: Anesthesia: Height Weight Height 5 ft 5 in 03/15/25 14:36 Respiratory Assessment Respiratory Assessment - independent living instructor: Respiratory Tract Infection Hx - independent living instructor Hx Respiratory Tract Infection No 04/20/25 11:44 STOP Sleep Apnea STOP Sleep Apnea - independent living instructor: STOP Sleep Apnea - independent living instructor Hx Hypertension No 04/20/25 11:44 Hx Sleep Apnea No 04/20/25 11:44 CPAP No 04/20/25 11:44 BIPAP No 04/20/25 11:44 Do you snore loudly (louder No 04/20/25 11:44 than talking or can be heard Do you often feel tired/ No 04/20/25 11:44 fatigued/ sleepy during daytime? Has anyone observed you stop No 04/20/25 11:44 breathing during sleep? STOP Results Negative 04/20/25 11:44 QUESTION #5 FULL TEXT : Do you snore loudly (louder than talking or can be heard through closed doors)? 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 Specify any problems Hx of Preganancy in last 3 No 04/20/25 11:44 Months Nurse Filling Out Transfusion VCHRISTIN 04/20/25 11:44 Questions: Date: 04/20/25 04/20/25 11:44 Time: 11:45 04/20/25 11:44 Patient unable to answer at this time (ie. confused, unrespo /Reproduction History /Reproductive History - independent living instructor: /Reproductive Hx- independent living instructor Hx Now No 04/20/25 11:44 Gestational Age (in weeks): EDC: Hx Hx Para Hx Section SAB No 04/20/25 11:44 [facility] Medical History (Updated 04/20/25 @ 11:44 by Meghan Ramirez) Wears hearing aid Wears glasses Cancer Post-menopausal Alcohol use Thyroid disease Fatty liver High cholesterol Easy bruising Back pain Migraine headache Injury of head and neck Gastric reflux Non-smoker CPAP (continuous positive airway pressure) dependence Shortness of breath on exertion Chronic cough Leg cramps History of edema History of stress test Normal Holter exam History of echocardiogram History of irregular heartbeat Breast lump Back problem Hypercholesterolemia COVID-19 Encounter for screening for COVID-19 Home Medications ???Medication ???Instructions ???Recorded ???Last Taken ???Type atenolol 25 mg tablet 25 mg PO DAILY BP 10/22/13 0 History fluticasone propionate 50 1 spray intranasal PRN PRN 9 11/27/19 History mcg/actuation nasal Allergies 90 days #48 grams spray,suspensio (more content not included)... Normal [facility] Gastroenterology Visit Repor ton 04-12-2025 Gastroenterology Visit Report [facility] Gastroenterology [address] [place] [address] OFFICE VISIT Date of Service: 04/12/25 MR#: [id number] Acct: [id number] Name: YANG SANDHU Rep #: [id number] : 1945 Provider: JOSE thomas Age/Sex: 79/F Location: [facility] Status: Signed Intake Vital Signs 03/15/25 14:36 04/11/25 08:45 04/12/25 15:46 Height 5 ft 5 in 5 ft 5 in 5 ft 5 in Weight: 200 lb 8 oz 197 lb 2 oz BMI 33.3 32.8 BP 130/80 H 137/65 H Respiration 16 16 Pulse 80 77 Temp 97.5 F L 97.8 F Temp Source Temporal Pulse Oximetry (%) 92 95 Oxygen Delivery Method room air room air Intake Visit Reasons: PROBLEMS W/ABIGAILS Pattern Keeper Required: No Accompanied by: Self Is patient in pain?: No Allergies lincomycin (From Lincocin) Allergy (Verified 03/15/25 14:25) Other Sulfa (Sulfonamide Antibiotics) Allergy (Verified 03/15/25 14:25) Swelling Medications ???Medication ???Instructions ???Recorded ???Confirmed ???Type atenolol 25 mg tablet 25 mg PO DAILY BP 10/22/13 5 History fluticasone propionate 50 1 spray intranasal PRN PRN 9 04/12/25 History mcg/actuation nasal Allergies 90 days #48 grams spray,suspension omeprazole 40 mg capsule,delayed 40 mg PO DAILY GERD 90 days #90 04/12/25 History release caps magnesium 250 mg tablet 400 mg PO DAILY SUPPLEMENT 9 04/12/25 History vitamin B complex (Vitamins B 1 ea PO DAILY SUPPLEMENT 10/27/18 04/12/25 History Complex capsule) Bifidobacterium infantis 4 mg 4 mg PO DAILY 04/25/24 04/12/25 Hi story capsule (Align (B.infantis)) calcium 500 mg (as 1 tab PO BID 04/25/24 04/12/25 His tory carbonate)-vitamin D3 15 mcg (600 unit) tablet polyethylene glycol 3350 17 17 g PO DAILY 04/25/24 04/12/25 Hi story gram/dose oral powder (Miralax) pravastatin 20 mg tablet 20 mg PO DAILY 04/25/24 04/12/25 H istory tumeric curcumin 500 mg PO DAILY 04/25/24 04/12/25 History fluoxetine 40 mg capsule 40 mg PO QDAY 03/14/25 04/12/25 Hi story levothyroxine 112 mcg capsule 112 mcg PO QDAY 03/14/25 04/12/25 History metformin 500 mg tablet 500 mg PO QDAY 03/14/25 04/12/25 H istory famotidine 40 mg tablet 40 mg PO QHS #90 tabs 03/15/2504/28 Rx liver health supplement PO BID 03/15/25 04/12/25 History melatonin 5 mg capsule mg PO 03/15/25 04/12/25 History peg 3350-electrolytes 236 240 ml PO Q10M #4,000 mL 03/15/25 04/12/25 Rx gram-22.74 gram-6.74 gram-5.86 gram solution (Golytely) linaclotide 145 mcg capsule 145 mcg PO QAM #30 caps 03/21/25 0 04/12/25 Rx (Linzess) Have you fallen in the past year?: No PFS Medical History Breast lump Back problem Hypercholesterolemia COVID-19 Encounter for screening for COVID-19 Surgical History History of eye surgery History of joint replacement Family History Daughter Colon cancer Mother Arthritis Cancer skin Father Myocardial infarction Brother Myocardial infarction Thyroid disorder Social History Smoking Status: Never smoker alcohol intake: current details: wine substance use type: does not use HPI HPI Details: OV 03/15/2025 79-year-old female with a history of gastroesophageal reflux disease presenting with a worsening of reflux symptoms. Her condition has been managed with omeprazole but remains uncontrolled as confirmed by recent imaging which highlighted significant acid reflux and esophageal spasms. This is further complicated by chronic constipation that affects her bowel habits. Due to a strong family history of colon cancer, there is a noted emphasis on continued gastrointestinal surveillance. The current symptoms from GERD are persistent and mainly exacerbated in the morning. She will add Famotidine at HS and schedule bidirectional endoscopies. Patient Instructions: Continue Omeprazole every morning Add Famotidine 40mg at HS Colonoscopy and EGD - adding Famotidine at HS is still an issue - persistent throat clearing - hoarseness worse in the morning - ENT referred her to GI - was really hope full that Linzess was going to work - has had days where she takes 290mcg - now going every 2-3 days with an OTC laxative and has used suppositories - probiotic daily - Miralax - discontinued The patient is a 79-year-old female presenting with persistent reflux symptoms and chronic constipation. The patient has a known history of Gastroesophageal Reflux Disease (GERD), which has been managed with omeprazole, but her symptoms remain uncontrolled. There is a noted presence of (more content not included)... Normal [facility] Gastroenterology Visit Repor ton 03-15-2025 Gastroenterology Visit Report [facility] Gastroenterology [address] [place] [address] OFFICE VISIT Date of Service: 03/15/25 MR#: [id number] Acct: [id number] Name: YANG SANDHU Rep #: [id number] : 1945 Provider: JOSE thomas Age/Sex: 79/F Location: [facility] Status: Signed Intake Vital Signs 04/25/24 21:54 03/15/25 14:36 Height 5 ft 5 in 5 ft 5 in Weight: 200 lb 8 oz BMI 33.3 BP 130/80 H Respiration 16 Pulse 80 Temp 97.5 F L Temp Source Temporal Pulse Oximetry (%) 92 Oxygen Delivery Method room air Intake Visit Reasons: Gastroesophageal reflux disease (GERD) Chief Complaint: globus sensation Pattern Keeper Required: No Accompanied by: Self Is patient in pain?: No Allergies lincomycin (From Lincocin) Allergy (Verified 03/15/25 14:25) Other Sulfa (Sulfonamide Antibiotics) Allergy (Verified 03/15/25 14:25) Swelling Medications ???Medication ???Instructions ???Recorded ???Confirmed ???Type atenolol 25 mg tablet 25 mg PO DAILY BP 10/22/13 5 History fluticasone propionate 50 1 spray intranasal PRN PRN 9 03/15/25 History mcg/actuation nasal Allergies 90 days #48 grams spray,suspension omeprazole 40 mg capsule,delayed 40 mg PO DAILY GERD 90 days #90 03/15/25 History release caps magnesium 250 mg tablet 400 mg PO DAILY SUPPLEMENT 9 03/15/25 History vitamin B complex (Vitamins B 1 ea PO DAILY SUPPLEMENT 10/27/18 03/15/25 History Complex capsule) Bifidobacterium infantis 4 mg 4 mg PO DAILY 04/25/24 03/15/25 Hi story capsule (Align (B.infantis)) calcium 500 mg (as 1 tab PO BID 04/25/24 03/15/25 His tory carbonate)-vitamin D3 15 mcg (600 unit) tablet polyethylene glycol 3350 17 17 g PO DAILY 04/25/24 03/15/25 Hi story gram/dose oral powder (Miralax) pravastatin 20 mg tablet 20 mg PO DAILY 04/25/24 03/15/25 H istory tumeric curcumin 500 mg PO DAILY 04/25/24 03/15/25 History fluoxetine 40 mg capsule 40 mg PO QDAY 03/14/25 03/15/25 Hi story levothyroxine 112 mcg capsule 112 mcg PO QDAY 03/14/25 03/15/25 History metformin 500 mg tablet 500 mg PO QDAY 03/14/25 03/15/25 H istory famotidine 40 mg tablet 40 mg PO QHS #90 tabs 03/15/2507/28 Rx linaclotide 145 mcg capsule 145 mcg PO QAM #90 caps 03/15/25 0 03/15/25 Rx (Linzess) liver health supplement PO BID 03/15/25 History melatonin 5 mg capsule mg PO 03/15/25 03/15/25 History peg 3350-electrolytes 236 240 ml PO Q10M #4,000 mL 03/15/25 03/15/25 Rx gram-22.74 gram-6.74 gram-5.86 gram solution (Golytely) Have you fallen in the past year?: Yes [facility] Medical History Breast lump Back problem Hypercholesterolemia COVID-19 Encounter for screening for COVID-19 Surgical History History of eye surgery History of joint replacement Family History Daughter Colon cancer Mother Arthritis Cancer skin Father Myocardial infarction Brother Myocardial infarction Thyroid disorder Social History Smoking Status: Never smoker alcohol intake: current details: wine substance use type: does not use HPI HPI Chief Complaint: globus sensation Details: Barium Swallow 02/28/2025 1. Extensive recurrent gastroesophageal reflux. 2. Intermittent spasm of the mid to distal esophagus. - referred by ENT - evidence of LPR on laryngoscopy - Omeprazole 40mg daily, has been on this dose for the past 5-6 years - she has also been taking chewable Alkaseltzer antacid for the past week - c/o globus sensation - denies any dysphagia - denies any heart, lung or kidney disease - denies taking any NSAIDS - denies any weight gain - 1-2 glasses of wine daily - denies any smoking - 1-2cup of coffee a day - reports her last colonoscopy was 5 years ago - daughter with colon CA - Maternal GF with esophageal CA - reports she has had trouble cleaning out in the past for a colonoscopy - denies any bleeding - has 1-2 BM and reports incomplete evacuation - Miralax 17g once a day - water intake is not optimal - she reports her fiber intake is good - denies any hard stools - she reports stools have been small in the past 1-2 years ROS Const Constitutional: No fatigue, fever(s) or weight change ENT ENT: No difficulty swallowing Gastro GI: Positive for heartburn; No abdominal pain, belching, bloating, change in bowel habits, change in stool character, coffee ground emesis, constipation, cramping, diarrhea, difficulty swallowing, feeling full early, excessive flatus, incontinent of stools, Vomiting blood/hematemesis, Bloo (more content not included)... Normal [facility] Esophagus Dual Contraston Esophagus Dual Contrast [facility] Imaging Services [address], [place] [id number] Esophagus Dual Contrast MR#: [id number] Acct: [id number] Name: YANG SANDHU Rep #: [id number] : 1945 F 79 From: William Donohue PCP: Dr. Edilberto Smith MD Status: REG CLI Study: Esophagus Dual Contrast Date of Exam: 02/28/25 Exam# [id number] Ordering Dr: Gerardo Wray EXAM: Single and double contrast esophagram. CLINICAL HISTORY: Gastroesophageal reflux disease. Patient complains of constant throat clearing. COMPARISON: None. TECHNIQUE: Single and double contrast esophagram. Fluoroscopy time: 138 seconds. Dose: 53.3 mGy. FINDINGS: Recurrent esophageal reflux is seen to the level of the proximal esophagus. No area of persistent esophageal narrowing is noted. Intermittent spasm of the mid to distal esophagus is noted. Limited imaging of the stomach and duodenum shows no abnormality. Easy passage of the 13 mm barium tablet into the stomach was seen. RAD/Esophagus Dual Contrast IMPRESSION: 1. Extensive recurrent gastroesophageal reflux. 2. Intermittent spasm of the mid to distal esophagus. Reading Location: [place] [address] CC: Dr. Edilberto Smith MD; ROSANNE Muniz Rn Visiting: Signed [facility] CNOVon 12-21-2024 [facility] Office Visit (FAMPWS ) HENRRY SANDHU ([id number]) 1945 F Date Time Provider Department 12/21/24 4:40 PM [facility] During your visit today, we recorded the following information about you: Pulse Blood pressure Weight Height 86/minute 108/64 91.4 kg 1.676 m Edilberto Smtih MD 12/21/2024 5:05 PM Signed Patient presents with: Follow Up HPI: Patient presents today for office visit for follow up. HLD: No myalgias THYROID: No energy, hair or skin changes. No temperature intolerances. No weight change. Hx of mitral valve prolapse Continues atenolol Does not follow with cardiology Denies chest pain and shortness of breath DM: Sugars are slightly higher. Discussed watching the diet. Does not check sugars. Still using cpap. Benefiting from its use. Using prozac for hot flashes. Seems to be improved. Latest Ref Rng 12/18/2024 WBC 3.70 - 11.00 k/uL 6.09 RBC 3.90 - 5.20 m/uL 4.16 Hemoglobin 11.5 - 15.5 g/dL 13.8 Hematocrit 36.0 - 46.0 % 41.1 MCV 80.0 - 100.0 fL 98.8 MCH 26.0 - 34.0 pg 33.2 MCHC 30.5 - 36.0 g/dL 33.6 RDW-CV 11.5 - 15.0 % 12.2 Platelet Count 150 - 400 k/uL 208 MPV 9.0 - 12.7 fL 11.5 Neut% % 54.5 Abs Neut (ANC) 1.45 - 7.50 k/uL 3.32 Lymph% % 28.2 Abs Lymph 1.00 - 4.00 k/uL 1.72 [place]% % 7.6 Abs [place] <0.87 k/uL 0.46 Eosin% % 8.7 Abs Eosin <0.46 k/uL 0.53 (H) Baso% % 0.8 Abs Baso <0.11 k/uL 0.05 Immature Gran % % 0.2 IMMATURE GRANS (ABS) <0.10 k/uL <0.03 NRBC /100 WBC 0.0 Absolute nRBC <0.01 k/uL <0.01 DTYPE Auto Protein, Total 6.3 - 8.0 g/dL 6.9 Albumin 3.9 - 4.9 g/dL 4.0 Calcium 8.5 - 10.2 mg/dL 9.4 Bilirubin, Total 0.2 - 1.3 mg/dL 0.7 Alkaline Phosphatase 34 - 123 U/L 81 AST 13 - 35 U/L 21 ALT 7 - 38 U/L 21 Glucose 74 - 99 mg/dL 180 (H) BUN 7 - 21 mg/dL 12 Creatinine 0.58 - 0.96 mg/dL 0.72 Sodium 136 - 144 mmol/L 135 (L) Potassium 3.7 - 5.1 mmol/L 4.7 Chloride 98 - 107 mmol/L 100 CO2 22 - 30 mmol/L 27 Anion Gap 8 - 15 mmol/L 8 eGFR >=60 mL/min/1.73m? 86 Hemoglobin A1C 4.3 - 5.6 % 6.3 (H) Estimated Average Glucose mg/dL 134 MEDICATIONS: Current Outpatient Medications Medication Sig pravastatin (PRAVACHOL) 20 mg tablet Take 1 tablet by mouth once daily. elderberry fruit 50 mg/5 mL syrp Take 2 teaspoonsful by mouth once daily. fluticasone (FLONASE) 50 mcg/actuation nasal spray Use 1 Mcfall in each nostril once daily. levothyroxine (LEVOXYL) 112 mcg tablet Take 1 tablet by mouth once daily. Take on empty stomach. For thyroid. metFORMIN (GLUCOPHAGE) 500 mg tablet Take 1 tablet by mouth daily with breakfast. atenolol (TENORMIN) 25 mg tablet Take 1 tablet by mouth once daily. psyllium husk (METAMUCIL) 0.4 gram cap Take by mouth. Psyllium Seed-Sucrose (METAMUCIL, SUGAR,) Take 1 Tablespoonful by mouth once daily. omeprazole (PRILOSEC) 40 mg capsule Take 1 capsule by mouth daily before breakfast. Then resume once a day CPAP/BIPAP/OTHER APAP 5-15 cmH2O FLUoxetine (PROZAC) 40 mg capsule Take 1 capsule by mouth once daily. melatonin 5 mg tablet Take 5 mg by mouth as directed. acetaminophen (TYLENOL) 500 mg tablet Take 1,000 mg by mouth twice daily as needed. Magnesium 250 mg tab Take 250 mg by mouth once daily. Using OTC for leg cramps COMPOUNDED PRESCRIPTION Turmeric Curcumin 500 mg taking 1 daily CALCIUM CARBONATE/VITAMIN D3 (CALCIUM 600 + D ORAL) Take 1 tablet by mouth twice daily. Bifidobacterium Infantis (ALIGN) 4 mg cap Take by mouth. VITAMIN B COMPLEX (B COMPLEX ORAL) Take by mouth. No current facility-administered medications for this visit. ALLERGIES: ALLERGIES Allergen Reactions Seasonal Allergies Other: See Comments Sulfa (Sulfonamide * Other: See Comments Eye swelling with use of eye drops containing sulfa antimicrobial Tree And Shrub Poll* Intolerance PAST MEDICAL HISTORY Diagnosis Date Arrhythmia Arthritis GERD (gastroesophageal reflux disease) Hot flashes Hypothyroid Mitral valve prolapse normal echo 2015 Seasonal allergies Snoring PAST SURGICAL HISTORY Procedure Laterality Date BREAST BIOPSY Left 90? @ [facility] COLONOSCOPY FLX DX W/COLLJ SPEC WHEN PFRMD 02/27/2018 normal colonoscopy, repeat in 5 years due to family history D AND C DIAGNOSTIC NONOB 14 ESOPHAGOGASTRODUODENOSCOPY TRANSORAL DIAGNOSTIC 02/27/2018 EGD ESOPHAGOGASTRODUODENOSCOPY TRANSORAL DIAGNOSTIC 06/12/2020 EGD EYE SURGERY HX JOINT REPLACEMENT HX KNEE SURGERY HX Bilateral 10/16,05/18 LIGATION COLLATERAL VEIN 1999? SKIN BIOPSY HX FAMILY HISTORY Problem Relation Age of Onset Anesthesia Mother Hypertension Mother Stroke Mother Heart Father Cancer Maternal Grandfather esophagus Colon Cancer Daughter Social History Tobacco Use Smoking status: Never Smokeless tobacco: Never Vaping Use Vaping status: Never Used Substance Use Topics Alcohol use: Yes Alcohol/w (more content not included)... Normal [facility] CBC W Auto Differential pane l (Bld)on 12-18-2024 Basophils (Bld) [#/Vol] 0.05 10*3/uL Normal <0.11 [facility] Comment on above: Order Comment: Speci men Type: BLOOD SPECIMENOrdering Facility: [facility] Address: [address] [place] [address] Performed By: #### 5 7021-8 ####[facility] LABCLIA [id number] [place] [address] [place] Basophils/100 WBC (Bld) 0.8 % Normal [facility] Comment on above: Order Comment: Speci men Type: BLOOD SPECIMENOrdering Facility: [facility] Address: [address] [place] [address] Performed By: #### 5 7021-8 ####[facility] LABCLIA [id number] [place] [address] [place] Differential cell count method Nom (Bld) Auto Normal [facility] Comment on above: Order Comment: Speci men Type: BLOOD SPECIMENOrdering Facility: [facility] Address: [address] [place] [address] Performed By: #### 5 7021-8 ####[facility] LABIA [id number] [place] [address] [place] Eosinophils (Bld) [#/Vol] 0.53 10*3/uL High <0.46 [facility] Comment on above: Order Comment: Speci men Type: BLOOD SPECIMENOrdering Facility: [facility] Address: [address] [place], [place] [address] Performed By: #### 5 7021-8 ####[facility] LABCLIA [id number] [place] [address] [place] Eosinophils/100 WBC (Bld) 8.7 % Normal [facility] Comment on above: Order Comment: Speci men Type: BLOOD SPECIMENOrdering Facility: [facility] Address: [address] [place] [address] Performed By: #### 5 7021-8 ####[facility] LABCLIA [id number] [address], [place] [address] [place] Erythrocyte distribution width (RBC) [Ratio] 12.2 % Normal 11.5-15.0 [facility] Comment on above: Order Comment: Speci men Type: BLOOD SPECIMENOrdering Facility: [facility] Address: [address] [place] [address] Performed By: #### 5 7021-8 ####[facility] LABIA [id number] [address], [place] [address] [place] Hematocrit (Bld) [Volume fraction] 41.1 % Normal 36.0-46.0 [facility] Comment on above: Order Comment: Speci men Type: BLOOD SPECIMENOrdering Facility: [facility] Address: [address] [place] [address] Performed By: #### 5 7021-8 ####[facility]CLIA [id number] [place] [id number] [place] Hemoglobin (Bld) [Mass/Vol] 13.8 g/dL Normal 11.5-15.5 [facility] Comment on above: Order Comment: Speci men Type: BLOOD SPECIMENOrdering Facility: [facility] Address: [address] [place] [address] Performed By: #### 5 7021-8 ####[facility] LABIA [id number] [address] [place] [address] [place] Immature granulocytes (Bld) [#/Vol] 10*3/uL Normal <0.10 [facility] Comment on above: Order Comment: Speci men Type: BLOOD SPECIMENOrdering Facility: [facility] Address: [address] [place] [address] Performed By: #### 5 7021-8 ####[facility]CLIA [id number] [place] [address] [place] Immature granulocytes/100 WBC (Bld) 0.2 % Normal [facility] Comment on above: Order Comment: Speci men Type: BLOOD SPECIMENOrdering Facility: [facility] Address: [address] [place] [address] Performed By: #### 5 7021-8 ####[facility]CLIA [id number] [place] [address] [place] Lymphocytes (Bld) [#/Vol] 1.72 10*3/uL Normal 1.00-4.00 [facility] Comment on above: Order Comment: Speci men Type: BLOOD SPECIMENOrdering Facility: [facility] Address: [address] [place] [address] Performed By: #### 5 7021-8 ####[facility]CLIA [id number] [place] [address] [place] Lymphocytes/100 WBC (Bld) 28.2 % Normal [facility] Comment on above: Order Comment: Speci men Type: BLOOD SPECIMENOrdering Facility: [facility] Address: [address] [place] [address] Performed By: #### 5 7021-8 ####[facility] LABCLIA [id number] [place] [address] [place] MCH (RBC) [Entitic mass] 33.2 pg Normal 26.0-34.0 [facility] Comment on above: Order Comment: Speci men Type: BLOOD SPECIMENOrdering Facility: [facility] Address: [address] [place] [address] Performed By: #### 5 7021-8 ####[facility]CLIA [id number] [address], [place] [address] [place] MCHC (RBC) [Mass/Vol] 33.6 g/dL Normal 30.5-36.0 [facility] Comment on above: Order Comment: Speci men Type: BLOOD SPECIMENOrdering Facility: [facility] Address: [address] [place] [address] Performed By: #### 5 7021-8 ####[facility] LABIA [id number] [address], [place] [address] [place] MCV (RBC) [Entitic vol] 98.8 fL Normal 80.0-100.0 [facility] Comment on above: Order Comment: Speci men Type: BLOOD SPECIMENOrdering Facility: [facility] Address: [address] [place] [address] Performed By: #### 5 7021-8 ####[facility] LABIA [id number] [address], [place] [address] [place] Monocytes (Bld) [#/Vol] 0.46 10*3/uL Normal <0.87 [facility] Comment on above: Order Comment: Speci men Type: BLOOD SPECIMENOrdering Facility: [facility] Address: [address] [place] [address] Performed By: #### 5 7021-8 ####[facility]CLIA [id number] [address], [facility] [place] Monocytes/100 WBC (Bld) 7.6 % Normal [facility] Comment on above: Order Comment: Speci men Type: BLOOD SPECIMENOrdering Facility: [facility] Address: [address] [place] [address] Performed By: #### 5 7021-8 ####[facility]CLIA [id number] [address], [facility] [place] Neutrophils (Bld) [#/Vol] 3.32 10*3/uL Normal 1.45-7.50 [facility] Comment on above: Order Comment: Speci men Type: BLOOD SPECIMENOrdering Facility: [facility] Address: [address] [place] [address] Performed By: #### 5 7021-8 ####[facility] LABCLIA [id number] [place] [address] [place] Neutrophils/100 WBC (Bld) 54.5 % Normal [facility] Comment on above: Order Comment: Speci men Type: BLOOD SPECIMENOrdering Facility: [facility] Address: [address] [place] [address] Performed By: #### 5 7021-8 ####[facility]CLIA [id number] [place] [address] [place] Nucleated RBC (Bld) [#/Vol] 10*3/uL Normal <0.01 [facility] Comment on above: Order Comment: Speci men Type: BLOOD SPECIMENOrdering Facility: [facility] Address: [address] [place] [address] Performed By: #### 5 7021-8 ####[facility] LABCLIA [id number] [place] [address] [place] Nucleated RBC/100 WBC (Bld) [Ratio] 0.0 /100 WBC Normal [facility] Comment on above: Order Comment: Speci men Type: BLOOD SPECIMENOrdering Facility: [facility] Address: [address] [place] [address] Performed By: #### 5 7021-8 ####[facility] LABCLIA [id number] [place] [address] [place] Platelet mean volume (Bld) [Entitic vol] 11.5 fL Normal 9.0-12.7 [facility] Comment on above: Order Comment: Speci men Type: BLOOD SPECIMENOrdering Facility: [facility] Address: [address] [place] [address] Performed By: #### 5 7021-8 ####[facility] LABCLIA [id number] [place] [id number] [place] Platelets (Bld) [#/Vol] 208 10*3/uL Normal 150-400 [facility] Comment on above: Order Comment: Speci men Type: BLOOD SPECIMENOrdering Facility: [facility] Address: [address] [place] [address] Performed By: #### 5 7021-8 ####[facility] LABIA [id number] [place] [address] [place] RBC (Bld) [#/Vol] 4.16 10*6/uL Normal 3.90-5.20 [facility] Comment on above: Order Comment: Speci men Type: BLOOD SPECIMENOrdering Facility: [facility] Address: [address] [place] [address] Performed By: #### 5 7021-8 ####[facility] LABIA [id number] [place] [address] [place] WBC (Bld) [#/Vol] 6.09 10*3/uL Normal 3.70-11.00 [facility] Comment on above: Order Comment: Speci men Type: BLOOD SPECIMENOrdering Facility: [facility] Address: [address] [place] [address] Performed By: #### 5 7021-8 ####[facility] LABIA [id number] [place] [id number] [place] Comprehensive metabolic 2000 panelon 12-18-2024 Albumin [Mass/Vol] 4.0 g/dL Normal 3.9-4.9 [facility] Comment on above: Order Comment: Speci men Type: BLOOD SPECIMENOrdering Facility: [facility] Address: [address] [place] [address] Performed By: #### 2 4323-8 ####[facility] [id number] [facility] [address] [place] [address] [place] ALP [Catalytic activity/Vol] 81 U/L Normal 34-123 [facility] Comment on above: Order Comment: Speci men Type: BLOOD SPECIMENOrdering Facility: [facility] Address: [address] [place] [address] Performed By: #### 2 4323-8 ####[facility]CLIA [id number] [facility] [address], [facility] [place] ALT [Catalytic activity/Vol] 21 U/L Normal 7-38 [facility] Comment on above: Order Comment: Speci men Type: BLOOD SPECIMENOrdering Facility: [facility] Address: [address] [place] [address] Performed By: #### 2 4323-8 ####[facility] LABCLIA [id number] [place] [address] [place] Anion gap [Moles/Vol] 8 mmol/L Normal 8-15 [facility] Comment on above: Order Comment: Speci men Type: BLOOD SPECIMENOrdering Facility: [facility] Address: [address] [place] [address] Performed By: #### 2 4323-8 ####[facility]CLIA [id number] [place] [id number] [place] AST [Catalytic activity/Vol] 21 U/L Normal 13-35 [facility] Comment on above: Order Comment: Speci men Type: BLOOD SPECIMENOrdering Facility: [facility] Address: [address] [place] [address] Performed By: #### 2 4323-8 ####[facility] [id number] [facility] [address] [address] [place] Bilirubin [Mass/Vol] 0.7 mg/dL Normal 0.2-1.3 [facility] Comment on above: Order Comment: Speci men Type: BLOOD SPECIMENOrdering Facility: [facility] Address: [address] [place] [address] Performed By: #### 2 4323-8 ####[facility] LABCLIA [id number] [address] [place] [address] [place] Calcium [Mass/Vol] 9.4 mg/dL Normal 8.5-10.2 [facility] Comment on above: Order Comment: Speci men Type: BLOOD SPECIMENOrdering Facility: [facility] Address: [address] [place], [place] [address] Performed By: #### 2 4323-8 ####[facility]CLIA [id number] [address] [place] [address] [place] Chloride [Moles/Vol] 100 mmol/L Normal 98-107 [facility] Comment on above: Order Comment: Speci men Type: BLOOD SPECIMENOrdering Facility: [facility] Address: [address] [place] [address] Performed By: #### 2 4323-8 ####[facility]CLIA [id number] [address] [place] [address] [place] CO2 [Moles/Vol] 27 mmol/L Normal 22-30 [facility] Comment on above: Order Comment: Speci men Type: BLOOD SPECIMENOrdering Facility: [facility] Address: [address] [place] [address] Performed By: #### 2 4323-8 ####[facility]CLIA [id number] [facility] [address] [place] [address] [place] Creatinine [Mass/Vol] 0.72 mg/dL Normal 0.58-0.96 [facility] Comment on above: Order Comment: Speci men Type: BLOOD SPECIMENOrdering Facility: [facility] Address: [address] [place] [address] Performed By: #### 2 4323-8 ####[facility]CLIA [id number] [place] [address] [place] Creatinine and Glomerular filtration rate.predicted panel (S/P/Bld) 86 mL/min/1.73m??? Normal >=60 [facility] Comment on above: Order Comment: Shun guido Type: BLOOD SPECIMENOrdering Facility: [facility] Address: [address] [place] [address] Result Comment: Roselyn mated Glomerular Filtration Rate (eGFR) is calculated using the 2020 CKD-EPI creatinine equation. This equation utilizes serum creatinine, sex, and age as parameters. The creatinine assay has traceable calibration to isotope dilution-mass spectrometry. Refer to KDIGO guidelines for clinical interpretation. In patients with unstable renal function, e.g. those with acute kidney injury, the eGFR may not accurately reflect actual GFR. Performed By: #### 2 4323-8 ####[facility] LABIA [id number] [place] [address] [place] Glucose [Mass/Vol] 180 mg/dL High 74-99 [facility] Comment on above: Order Comment: Shun guido Type: BLOOD SPECIMENOrdering Facility: [facility] Address: [address] [place] [address] Result Comment: The [place] Diabetes Association (ADA) provides guidance for cutoff values for fasting glucose and random glucose. The ADA defines fasting as no caloric intake for at least 8 hours. Fasting plasma glucose results between 100 to 125 mg/dL indicate increased risk for diabetes (prediabetes). Fasting plasma glucose results greater than or equal to 126 mg/dL meet the criteria for diagnosis of diabetes. In the absence of unequivocal hyperglycemia, results should be confirmed by repeat testing. In a patient with classic symptoms of hyperglycemia or hyperglycemic crisis, random plasma glucose results greater than or equal to 200 mg/dL meet the criteria for diagnosis of diabetes. Reference: Standards of Medical Care in Diabetes 2016, [place] Diabetes Association. Diabetes Care. 2016.39(Suppl 1). Performed By: #### 2 4323-8 ####[facility]CL[facility] [id number] [place] [id number] [place] Potassium [Moles/Vol] 4.7 mmol/L Normal 3.7-5.1 [facility] Comment on above: Order Comment: Speci men Type: BLOOD SPECIMENOrdering Facility: [facility] Address: [address] [place] [address] Performed By: #### 2 4323-8 ####[facility]CLIA [id number] [facility] [address] [place] [address] [place] Protein [Mass/Vol] 6.9 g/dL Normal 6.3-8.0 [facility] Comment on above: Order Comment: Speci men Type: BLOOD SPECIMENOrdering Facility: [facility] Address: [address] [place] [address] Performed By: #### 2 4323-8 ####[facility]CLIA [id number] [facility] [place] [id number] [place] Sodium [Moles/Vol] 135 mmol/L Low 136-144 [facility] Comment on above: Order Comment: Speci men Type: BLOOD SPECIMENOrdering Facility: [facility] Address: [address] [place] [address] Performed By: #### 2 4323-8 ####[facility]CLIA [id number] [facility] [address] [place] [address] [place] Urea nitrogen [Mass/Vol] 12 mg/dL Normal 7-21 [facility] Comment on above: Order Comment: Speci men Type: BLOOD SPECIMENOrdering Facility: [facility] Address: [address] [place] [address] Performed By: #### 2 4323-8 ####[facility]CLIA [id number] [facility] [address] [address] [place] HbA1c (Bld)on 12-18-2024 Average glucose Estimated from glycated hemoglobin (Bld) [Mass/Vol] 134 mg/dL Normal [facility] Comment on above: Order Comment: Speci men Type: BLOOD SPECIMENOrdering Facility: [facility] Address: [address] [place] [address] Result Comment: eAG: (Estimated average glucose) is a calculated value from HgbA1c and is client services representative of the average blood glucose level in the last 2-3 month period. Performed By: #### 5 5454-3 ####[facility] [id number] [place] [address] [place] HbA1c (Bld) [Mass fraction] 6.3 % High 4.3-5.6 [facility] Comment on above: Order Comment: Shun guido Type: BLOOD SPECIMENOrdering Facility: [facility] Address: [address] [place] [address] Result Comment: [place] Diabetes Association guidelines indicate that patients with HgbA1c in the range 5.7-6.4% are at increased risk for development of diabetes, and intervention by lifestyle modification may be beneficial. HgbA1c greater or equal to 6.5% is considered diagnostic of diabetes. Performed By: #### 5 5454-3 ####[facility] [id number] [address] [place] TSH SerPl-aCncon 10-18-2024 TSH Qn 0.333 m[IU]/L Normal 0.270-4.200 [facility] Comment on above: Order Comment: Shun guido Type: BLOOD SPECIMENOrdering Facility: [facility] Address: [address] [place] [address] Performed By: #### 3 016-3 ####[facility] [id number] [place] [id number] [place] CNOVon 09-20-2024 CNOV Office Visit (FAMPWS ) HENRRY [id number]) 1945 F Date Time Provider Department 09/20/24 2:40 PM EDILBERTO SMITH During your visit today, we recorded the following information about you: Pulse Blood pressure Weight Height 83/minute 100/58 91.2 kg 1.676 m Edilberto Smith MD 09/20/2024 3:15 PM Signed Patient presents with: 6 Month Exam HPI: Patient presents today for office visit for follow up. HLD: No myalgias No palpitations. Taking Atenolol. No side effects. No dizziness. Denies chest pain and shortness of breath Hot flashes stable Continues Prozac Hypothyroidism: Energy level ok for 79 Discussed diabetic diet. Declines testing. Discussed checking eyes annually and checking her feet annually as well. Pulled back muscle a couple weeks ago Mid-back Doing better Weld and felt something pop No numbness or weakness. Saw Lexi Marx on 09/07/24 for issue See note: Pt presents today with complaint of back pain. Started when she as pulling a bag of salt across the garage. Refers that she felt and heard it pop. She immediately sat down. Put ice on the area. Refers that it was in middle at the waist line. No n/t. No saddle anesthesia. No change in bowel/bladder. Legs working normally. She takes 400 mg of ibuprofen twice daily. Using a heating pad. Movement exacerbates the pain. Staying still helps the pain. MEDICATIONS: Latest Ref Rng 09/16/2024 Cholesterol, Total <200 mg/dL 184 Triglyceride <150 mg/dL 113 HDL Cholesterol >39 mg/dL 73 Non HDL Cholesterol <130 mg/dL 111 Fasting Time hrs 12 VLDL Cholesterol <30 mg/dL 23 TC:HDL Ratio <5.10 2.52 LDL Cholesterol <100 mg/dL 88 LDL:HDL Ratio <2.54 1.21 Hemoglobin A1C 4.3 - 5.6 % 7.1 (H) Estimated Average Glucose mg/dL 157 TSH 0.270 - 4.200 mIU/L 0.252 (L) Legend: (H) High (L) Low ALLERGIES: ALLERGIES Allergen Reactions Seasonal Allergies Other: See Comments Sulfa (Sulfonamide * Other: See Comments Eye swelling with use of eye drops containing sulfa antimicrobial Tree And Shrub Poll* Intolerance PAST MEDICAL HISTORY Diagnosis Date Arrhythmia Arthritis GERD (gastroesophageal reflux disease) Hot flashes Hypothyroid Mitral valve prolapse normal echo 2016 Seasonal allergies Snoring PAST SURGICAL HISTORY Procedure Laterality Date BREAST BIOPSY Left 90? @ [facility] COLONOSCOPY FLX DX W/COLLJ SPEC WHEN PFRMD 02/27/2018 normal colonoscopy, repeat in 5 years due to family history D AND C DIAGNOSTIC NONOB 14 ESOPHAGOGASTRODUODENOSCOPY TRANSORAL DIAGNOSTIC 02/27/2018 EGD ESOPHAGOGASTRODUODENOSCOPY TRANSORAL DIAGNOSTIC 06/12/2020 EGD EYE SURGERY HX JOINT REPLACEMENT HX KNEE SURGERY HX Bilateral 10/16,05/18 LIGATION COLLATERAL VEIN 1999? SKIN BIOPSY HX FAMILY HISTORY Problem Relation Age of Onset Anesthesia Mother Hypertension Mother Stroke Mother Heart Father Cancer Maternal Grandfather esophagus Colon Cancer Daughter Social History Tobacco Use Smoking status: Never Smokeless tobacco: Never Vaping Use Vaping status: Never Used Substance Use Topics Alcohol use: Yes Alcohol/week: 2.0 standard drinks of alcohol Types: 2 Glasses of Wine (5oz) per week Comment: daily Drug use: No Reviewed current medications, allergies, past medical history, surgical history, family history and social history today. REVIEW OF SYSTEMS All other reviewed and negative other than HPI. HEALTH MAINTENANCE: Reviewed health maintenance issues today and recommended the following in detail. Advance Directive Discussion -daughter and son are surrogates. VITALS: BP 100/58 Pulse 83 Ht 167.6 cm (5' 6) Wt 91.2 kg (201 lb) SpO2 96% BMI 32.44 kg/m? Last 4 Encounter Wt Readings: Date: Wt: 06/25/2024 88.3 kg (194 lb 9.6 oz) 03/18/2024 89.4 kg (197 lb) 03/03/2024 89.8 kg (198 lb) 12/12/2023 87.5 kg (193 lb) PHYSICAL EXAMINATION: General appearance: Well appearing, alert, in no acute distress, well-hydrated, well nourished. Skin: Skin color, texture, turgor normal, no suspicious rashes or lesions Head: Normocephalic, no masses, lesions, tenderness or abnormalities Lungs: Lungs clear to auscultation. No wheezing, rhonchi, rales Heart: RRR without murmur, gallop, or rubs. No ectopy Abdomen: Normal abdominal exam, Abdomen soft, non-tender. Bowel sounds normal. No masses, organomegaly Extremities: No deformities, edema, skin discoloration, clubbing or cyanosis. Good capillary refill. Musculoskeletal: No joint swelling, deformity, or tenderness ASSESSMENT/PLAN: 1. Mixed hyperlipidemia - ICD9: 272.2, ICD10: E78.2 (primary diagnosis) - Controlled - Continue current medications 2. SHIVA (obstructive sleep apnea) - ICD9: 327.23, ICD10: G47.33 - using nightly. Sees sleep med. 3. Hypothyroidism, unspecified type - ICD9: 244.9, ICD10: (more content not included)... Normal [facility] HbA1c (Bld)on 09-16-2024 Average glucose Estimated from glycated hemoglobin (Bld) [Mass/Vol] 157 mg/dL Normal [facility] Comment on above: Order Comment: Shun guido Type: BLOOD SPECIMENOrdering Facility: [facility] Address: [address] [place] [address] Result Comment: eAG: (Estimated average glucose) is a calculated value from HgbA1c and is client services representative of the average blood glucose level in the last 2-3 month period. Performed By: #### 5 5454-3 ####[facility] LABCLIA [id number] [place] [address] [place] HbA1c (Bld) [Mass fraction] 7.1 % High 4.3-5.6 [facility] Comment on above: Order Comment: Shun guido Type: BLOOD SPECIMENOrdering Facility: [facility] Address: [address] [place] [address] Result Comment: Amer ican Diabetes Association guidelines indicate that patients with HgbA1c in the range 5.7-6.4% are at increased risk for development of diabetes, and intervention by lifestyle modification may be beneficial. HgbA1c greater or equal to 6.5% is considered diagnostic of diabetes. Performed By: #### 5 5454-3 ####[facility] LABCLIA [id number] [place] [address] [place] Lipid 1996 panelon 5 Cholesterol [Mass/Vol] 184 mg/dL Normal <200 [facility] Comment on above: Order Comment: Speci men Type: BLOOD SPECIMENOrdering Facility: [facility] Address: [address] [place] [address] Result Comment: <200 mg/dL, Desirable 200-239 mg/dL, Borderline high >239 mg/dL, High Performed By: #### 2 4331-1 ####[facility]ORY[facility]IA [id number] [address] [id number] [place] [address] [place]#### 3016-3 ####[facility]ORYCLIA [id number] [address] Cholesterol in HDL [Mass/Vol] 73 mg/dL Normal >39 [facility] Comment on above: Order Comment: Speci men Type: BLOOD SPECIMENOrdering Facility: [facility] Address: [address] [place] [address] Result Comment: 40-5 9 mg/dL, Acceptable >59 mg/dL, High: Negative risk factor for coronary heart disease <40 mg/dL, Low: Positive risk factor for coronary heart disease Performed By: #### 2 4331-1 ####[facility]ORYCLIA [id number] [address] STATES [facility] [id number] [place] [address] OF [place]#### 3016-3 ####[facility]ORYCLIA [id number] [address] STATES [facility] Cholesterol in LDL [Mass/Vol] 88 mg/dL Normal <100 [facility] Comment on above: Order Comment: Speci men Type: BLOOD SPECIMENOrdering Facility: [facility] Address: [address] [place] [address] Result Comment: <100 mg/dL, Optimal 100-129 mg/dL, Near optimal/above optimal 130-159 mg/dL, Borderline high 160-189 mg/dL, High >189 mg/dL, Very high Secondary prevention optimal LDL Cholesterol levels are recommended to be < 70 mg/dL Performed By: #### 2 4331-1 ####[facility]ORYCLIA [id number] [address] [id number] [address] OF [place]#### 3016-3 ####[facility] LABORATORYCLIA [id number] [place] [id number] [facility] Cholesterol in LDL/Cholesterol in HDL [Mass ratio] 1.21 {ratio} Normal <2.54 [facility] Comment on above: Order Comment: Speci men Type: BLOOD SPECIMENOrdering Facility: [facility] Address: [address] [place] [address] Result Comment: Refe rosarioce: 1. National Cholesterol Education Program ATP III Guideline At-A-Glance Quick Desk Reference: National Heart, Lung, and Blood Strong. National Institutes of Health. 2001: NIH Publication No. 01-3305. 2. An International Atherosclerosis Society position paper: global recommendations for the management of dyslipidemia: executive summary, Atherosclerosis. 2014: 232(2):410-413. Performed By: #### 2 4331-1 ####[facility]ORYCLIA [id number] [address] [id number] [address] STATES OF [place]#### 3016-3 ####[facility] LABORATORYCLIA [id number] [place] [id number] [place] [facility] Cholesterol in VLDL [Mass/Vol] 23 mg/dL Normal <30 [facility] Comment on above: Order Comment: Speci men Type: BLOOD SPECIMENOrdering Facility: [facility] Address: [address] [place] [address] Performed By: #### 2 4331-1 ####[facility]ORYCLIA [id number] [place] [id number] [facility] [id number] [address] OF [place]#### 3016-3 ####[facility] LABORATORYCLIA [id number] [address] Cholesterol non HDL [Mass/Vol] 111 mg/dL Normal <130 [facility] Comment on above: Order Comment: Speci men Type: BLOOD SPECIMENOrdering Facility: [facility] Address: [address] [place] [address] Result Comment: <130 mg/dL, Optimal 130-159 mg/dL, Near optimal/above optimal 160-189 mg/dL, Borderline high 190-219 mg/dL, High >219 mg/dL, Very high Secondary prevention optimal non HDL Cholesterol levels are recommended to be <100 mg/dL Performed By: #### 2 4331-1 ####[facility]ORYCLIA [id number] [id number] [place] [address]#### 3016-3 ####[facility] LABORATORYCLIA [id number] [address] STATES [facility] Cholesterol.total/Ch olesterol in HDL [Mass ratio] 2.52 {ratio} Normal <5.10 [facility] Comment on above: Order Comment: Speci men Type: BLOOD SPECIMENOrdering Facility: [facility] Address: [address] [place] [address] Performed By: #### 2 4331-1 ####[facility]ORYCLIA [id number] [id number] [place] [address]#### 3016-3 ####[facility]ORYCLIA [id number] [address] STATES OF [place] FASTING TIME 12 hrs Normal [facility] Comment on above: Order Comment: Speci men Type: BLOOD SPECIMENOrdering Facility: [facility] Address: [address] [place] [address] Performed By: #### 2 4331-1 ####[facility]ATORYCLIA [id number] [place] [address] [place] [facility] [id number] [place] [address] [place]#### 3016-3 ####[facility]ORYCLIA [id number] [place] [address] [place] Triglyceride [Mass/Vol] 113 mg/dL Normal <150 [facility] Comment on above: Order Comment: Speci men Type: BLOOD SPECIMENOrdering Facility: [facility] Address: [address] [place] [address] Result Comment: <150 mg/dL, Normal 150-199 mg/dL, Borderline high 200-499 mg/dL, High >499 mg/dL, Very high Performed By: #### 2 4331-1 ####[facility]ORYCLIA [id number] [address] STATES OF [place] [id number] [place] [address] [place]#### 3016-3 ####[facility]ORYCLIA [id number] [place] [id number] [place] TSH SerPl-aCncon 09-16-2024 TSH Qn 0.252 m[IU]/L Low 0.270-4.200 [facility] Comment on above: Order Comment: Speci men Type: BLOOD SPECIMENOrdering Facility: [facility] Address: [address] [place] [address] Performed By: #### 2 4331-1 ####[facility]ATORYCLIA [id number] [address] STATES OF [facility] [id number] [place] [id number] [place]#### 3016-3 ####[facility] H[facility]PITALIA [id number] [place] [address] [place] CNOVon 09-07-2024 CNOV Office Visit (FAMPWS ) HENRRY SANDHU ([id number]) 1945 F Date Time Provider Department 09/07/24 10:00 AM LEXI MARX During your visit today, we recorded the following information about you: Pulse Respiration Blood pressure 95/minute 16/minute 126/78 Lexi Marx APRN.SCHOOL BUS ATTENDANT 09/07/2024 12:24 PM Signed This is a 79 year old female who presents today with: Patient presents with: Acute Visit: Back pain x6 days HISTORY OF PRESENT ILLNESS: Henrry Sandhu is a 79 year old female. Patient presents with: Acute Visit: Back pain x6 days Pt presents today with complaint of back pain. Started when she as pulling a bag of salt across the garage. Refers that she felt and heard it pop. She immediately sat down. Put ice on the area. Refers that it was in middle at the waist line. No n/t. No saddle anesthesia. No change in bowel/bladder. Legs working normally. She takes 400 mg of ibuprofen twice daily. Using a heating pad. Movement exacerbates the pain. Staying still helps the pain. PAST MEDICAL HISTORY: PAST MEDICAL HISTORY Diagnosis Date Arrhythmia Arthritis GERD (gastroesophageal reflux disease) Hot flashes Hypothyroid Mitral valve prolapse normal echo 2016 Seasonal allergies Snoring PAST SURGICAL HISTORY Procedure Laterality Date BREAST BIOPSY Left 90? @ [facility] COLONOSCOPY FLX DX W/COLLJ SPEC WHEN PFRMD 02/27/2018 normal colonoscopy, repeat in 5 years due to family history D AND C DIAGNOSTIC NONOB 14 ESOPHAGOGASTRODUODENOSCOPY TRANSORAL DIAGNOSTIC 02/27/2018 EGD ESOPHAGOGASTRODUODENOSCOPY TRANSORAL DIAGNOSTIC 06/12/2020 EGD EYE SURGERY HX JOINT REPLACEMENT HX KNEE SURGERY HX Bilateral 10/16,05/18 LIGATION COLLATERAL VEIN 1999? SKIN BIOPSY HX ALLERGIES Seasonal Allergies, Sulfa (Sulfonamide Antibiotics), and Tree And Shrub Pollen MEDICATIONS Current Outpatient Medications Medication Sig atenolol (TENORMIN) 25 mg tablet Take 1 tablet by mouth once daily. levothyroxine (LEVOXYL) 125 mcg tablet Take 1 tablet by mouth once daily. Take on empty stomach. For thyroid. psyllium husk (METAMUCIL) 0.4 gram cap Take by mouth. Psyllium Seed-Sucrose (METAMUCIL, SUGAR,) Take 1 Tablespoonful by mouth once daily. pravastatin (PRAVACHOL) 20 mg tablet Take 1 tablet by mouth once daily. omeprazole (PRILOSEC) 40 mg capsule Take 1 capsule by mouth daily before breakfast. Then resume once a day CPAP/BIPAP/OTHER APAP 5-15 cmH2O FLUoxetine (PROZAC) 40 mg capsule Take 1 capsule by mouth once daily. melatonin 5 mg tablet Take 5 mg by mouth as directed. fluticasone (FLONASE) 50 mcg/actuation nasal spray Use 1 Mcfall in each nostril once daily. acetaminophen (TYLENOL) 500 mg tablet Take 1,000 mg by mouth twice daily as needed. Magnesium 250 mg tab Take 250 mg by mouth once daily. Using OTC for leg cramps COMPOUNDED PRESCRIPTION Turmeric Curcumin 500 mg taking 1 daily CALCIUM CARBONATE/VITAMIN D3 (CALCIUM 600 + D ORAL) Take 1 tablet by mouth twice daily. Bifidobacterium Infantis (ALIGN) 4 mg cap Take by mouth. VITAMIN B COMPLEX (B COMPLEX ORAL) Take by mouth. No current facility-administered medications for this visit. FAMILY HISTORY Problem Relation Age of Onset Anesthesia Mother Hypertension Mother Stroke Mother Heart Father Cancer Maternal Grandfather esophagus Colon Cancer Daughter Social History Tobacco Use Smoking status: Never Smokeless tobacco: Never Vaping Use Vaping status: Never Used Substance Use Topics Alcohol use: Yes Alcohol/week: 2.0 standard drinks of alcohol Types: 2 Glasses of Wine (5oz) per week Comment: daily Drug use: No EXAM: BP 126/78 Pulse 95 Resp 16 PHYSICAL EXAM: General Appearance: Well appearing, alert, in no acute distress, well-hydrated, well nourished.. Skin: Skin color, texture, turgor normal, no suspicious rashes or lesions. Head: Normocephalic, no masses, lesions, tenderness or abnormalities. Eyes: Anicteric sclera. Pupils are equally round and reactive to light. Extraocular movements are intact. . Back:no pain to palpation of vertebrae, good flexion and extension, good range of motion, motor and sensory appear to be normal, negative SLR test, no evidence of scoliosis, + right paralumbar tenderness. Lungs: Lungs clear to auscultation. No wheezing, rhonchi, rales.. Heart: RRR without murmur, gallop, or rubs. No ectopy. Neurologic: Gait normal. Unable to elicit LE reflexes bilat. = strength of LE. No foot drop. ASSESSMENT/PLAN: 1. Acute right-sided low back pain without sciatica - ICD9: 724.2, ICD10: M54.50 Has taken medrol dose pack in the past for the same. Will start medrol dose pack. Aware to hold ibuprofen while on this. Can use tylenol prn. Moist heat/ice. Topicals. Gentle stretching. - METHYLPREDNISOLONE 4 MG TABLETS IN A DOSE PACK Discussed red flag symptoms an (more content not included)... Normal [facility] CNOVon 06-25-2024 CNOV Office Visit (SLEWST ) HENRRY SANDHU ([id number]) 1945 F Date Time Provider Department 06/25/24 9:30 AM JOSE CARLOS LEVIN During your visit today, we recorded the following information about you: Pulse Blood pressure Weight 79/minute 123/78 88.3 kg Jose Carlos Levin APRN.CNP 06/25/2024 9:52 AM Signed [facility] Follow up/ Established patient visit Date of last visit : 12/12/2023 The following Impression/Plan was copied and pasted from the patient's last [facility] visit on 12/12/23: IMPRESSION/PLAN: G47.33 SHIVA (obstructive sleep apnea) (primary encounter diagnosis) G47.34 Nocturnal hypoxia Z78.9 Intolerance of continuous positive airway pressure (CPAP) ventilation Henrry Sanhdu is a delightful 78 year old female with at least mild SHIVA, nocturnal hypoxia even in the absence of respiratory events on sleep study, CPAP intolerance. PMH of HLD, MVP, hypothyroidism, hot flashes, obesity. We reviewed her HSAT and PAP titration study results, discussed SHIVA, risks of untreated SHIVA, treatment options. 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 Her AHI is <15 so not a candidate for Inspire. She isn't interested in trying PAP again. We will order overnight oximetry from [facility]; if hypoxia as seen on HSAT then will refer to Pulm. Will send her a PT PAL msg with result. Jose Carlos Levin APRN.SCHOOL BUS ATTENDANT Here for follow up for SHIVA, now on PAP therapy, doing great on it Her PAP titration study showed that nocturnal hypoxia was controlled with PAP therapy SLEEP APNEA Sleep apnea type : SHIVA, Most Recent Apnea-Hypopnea Index (AHI): 10 on HSAT Treatment : PAP therapy DME: [facility] PAP History: Uses AutoPAP for 7.5 hours per night, 7 nights per week. Current PAP settin-15 cm H2O. Difficulties with AutoPAP: None Reviewed objective PAP compliance data: Mask type: cradle nasal mask with apical hose Mask issues: none There is a perceived benefit by the patient: fewer naps, waking less in the night, and falling asleep quicker in the night -- SLEEP HYGIENE QUESTIONS: Bedtime: 9-10 PM. She does not have a hard time falling asleep. Takes melatonin 5 mg. Sleeps for 2-3 hrs, then wakes up, then varies how long she is awake--might read on her Jermaine, falls asleep now after 15 min. Can wake up due to hot flashes, they are partially controlled with prozac. Wake time: 630-7 AM, without an alarm. On weekends, she maintains the same sleep schedule. Average total sleep time (in a 24 hour period): 7-8 hours. PATIENT-ENTERED QUESTIONNAIRE SLEEP SCORES 12/06/2023 Sleep Questions Reason for visit: Sleep apnea Difficulty falling or staying asleep or poor sleep quality On average, hours of sleep in 24 hours: 7 Accidents or near accidents due to drowsy drivin Multiple values from one day are sorted in reverse-chronological order 12/06/2023 [place] Sleepiness Scale Score 4 (No clinically significant daytime sleepiness) 12/06/2023 PROMIS CAT Sleep Disturbance PROMIS Sleep Disturbance T-Score 53 (within normal limits) PROMIS Sleep Disturbance Percentile 38 08/29/2022 12/06/2023 PHQ-9 Score 1 3 02/24/2023 12/06/2023 02/28/2024 PROMIS Global Health - (T-Scores - the mean of general population = 50. Five points is a clinically meaningful difference.) Physical T-Score 54.1 54.1 47.7 Mental T-Score 56 53.3 59 ALLERGIES Allergen Reactions Seasonal Allergies Other: See Comments Sulfa (Sulfonamide * Other: See Comments Eye swelling with use of eye drops containing sulfa antimicrobial Tree And Shrub Poll* Intolerance CURRENT MEDICATIONS: Psyllium Seed-Sucrose (METAMUCIL, SUGAR,) Take 1 Tablespoonful by mouth once daily. pravastatin (PRAVACHOL) 20 mg tablet Take 1 tablet by mouth once daily. omeprazole (PRILOSEC) 40 mg capsule Take 1 capsule by mouth daily before breakfast. Then resume once a day CPAP/BIPAP/OTHER APAP 5-15 cmH2O atenolol (TENORMIN) 25 mg tablet Take 1 tablet by mouth once daily. FLUoxetine (PROZAC) 40 mg capsule Take 1 capsule by mouth once daily. levothyroxine (LEVOXYL) 125 mcg tablet Take 1 tablet by mouth once daily. Take on empty stomach. For thyroid. melatonin 5 mg tablet Take 5 mg by mouth as directed. fluticasone (FLONASE) 50 mcg/actuation nasal spray Use 1 Mcfall in each nostril once daily. acetaminophen (TYLENOL) 500 mg tablet Take 1,000 mg by mouth twice daily as needed. Magnesium 250 mg tab Take 250 mg by mouth once daily. Using OTC for leg cramps COMPOUNDED PRESCRIPTION Turmeric Curcumin 500 mg taking 1 daily CALCIUM CARBONATE/VITAMIN D3 (CALCIUM 600 + D ORAL) Take 1 tablet by mouth twice daily. Bifidobacterium Infantis (ALIGN) 4 mg cap Take by mouth. VITAMIN B COMPLEX (B C (more content not included)... Normal [facility] CNOVon 04-30-2024 [facility] HEN[facility]Y SANDHU ([id number]) 1945 F Date Time Provider Department 04/30/24 2:20 PM [facility]I [facility] During your visit today, we recorded the following information about you: Pulse Respiration Blood pressure 77/minute 16/minute 128/82 Lexi Marx APRN.SCHOOL BUS ATTENDANT 04/30/2024 6:05 PM Signed This is a 78 year old female who presents today with: Patient presents with: ER F/U: [facility] ER 04/25/24 dx: fall with laceration to nose HISTORY OF PRESENT ILLNESS: Henrry Sandhu is a 78 year old female. Patient presents with: ER F/U: [facility] ER 04/25/24 dx: fall with laceration to nose Pt presents today for ER follow-up. She went to [place] ER on 04/25/24 after a fall. She had mechanical fall. She obtained an abrasion and laceration to her nose and a contusion on her forehead. There was a contusion above the left brow. No palpable pression. There were no clinical findings of basilar skull fracture. Ears normal TMs were normal there were no TMJ tenderness. No evidence of malocclusion. No injury to her teeth. She had a flap type laceration on the tip of her nose. She had 4 sutures placed. Last Tdap was 2021. PAST MEDICAL HISTORY: PAST MEDICAL HISTORY Diagnosis Date Arrhythmia Arthritis GERD (gastroesophageal reflux disease) Hot flashes Hypothyroid Mitral valve prolapse normal echo 2015 Seasonal allergies Snoring PAST SURGICAL HISTORY Procedure Laterality Date BREAST BIOPSY Left 90? @ [facility] COLONOSCOPY FLX DX W/COLLJ SPEC WHEN PFRMD 02/27/2018 normal colonoscopy, repeat in 5 years due to family history D AND C DIAGNOSTIC NONOB 14 ESOPHAGOGASTRODUODENOSCOPY TRANSORAL DIAGNOSTIC 02/27/2018 EGD ESOPHAGOGASTRODUODENOSCOPY TRANSORAL DIAGNOSTIC 06/12/2020 EGD EYE SURGERY HX JOINT REPLACEMENT HX KNEE SURGERY HX Bilateral 10/16,05/18 LIGATION COLLATERAL VEIN 1999? SKIN BIOPSY HX ALLERGIES Seasonal Allergies, Sulfa (Sulfonamide Antibiotics), and Tree And Shrub Pollen MEDICATIONS Current Outpatient Medications Medication Sig omeprazole (PRILOSEC) 40 mg capsule Take 1 capsule by mouth daily before breakfast. Then resume once a day CPAP/BIPAP/OTHER APAP 5-15 cmH2O polyethylene glycol 3350 (MIRALAX ORAL) Take by mouth. atenolol (TENORMIN) 25 mg tablet Take 1 tablet by mouth once daily. FLUoxetine (PROZAC) 40 mg capsule Take 1 capsule by mouth once daily. levothyroxine (LEVOXYL) 125 mcg tablet Take 1 tablet by mouth once daily. Take on empty stomach. For thyroid. pravastatin (PRAVACHOL) 20 mg tablet Take 1 tablet by mouth once daily. docusate sodium (COLACE ORAL) Take 200 mg by mouth as directed. melatonin 5 mg tablet Take 5 mg by mouth as directed. fexofenadine (ROSITA ALLERGY) 180 mg tablet Take 1 tablet by mouth once daily. fluticasone (FLONASE) 50 mcg/actuation nasal spray Use 1 Mcfall in each nostril once daily. acetaminophen (TYLENOL) 500 mg tablet Take 1,000 mg by mouth twice daily as needed. Magnesium 250 mg tab Take 250 mg by mouth once daily. Using OTC for leg cramps COMPOUNDED PRESCRIPTION Turmeric Curcumin 500 mg taking 1 daily CALCIUM CARBONATE/VITAMIN D3 (CALCIUM 600 + D ORAL) Take 1 tablet by mouth twice daily. Bifidobacterium Infantis (ALIGN) 4 mg cap Take by mouth. VITAMIN B COMPLEX (B COMPLEX ORAL) Take by mouth. No current facility-administered medications for this visit. FAMILY HISTORY Problem Relation Age of Onset Anesthesia Mother Hypertension Mother Stroke Mother Heart Father Cancer Maternal Grandfather esophagus Colon Cancer Daughter Social History Tobacco Use Smoking status: Never Smokeless tobacco: Never Vaping Use Vaping status: Never Used Substance Use Topics Alcohol use: Yes Alcohol/week: 2.0 standard drinks of alcohol Types: 2 Glasses of Wine (5oz) per week Comment: daily Drug use: No EXAM: BP 128/82 Pulse 77 Resp 16 SpO2 95% PHYSICAL EXAM: General Appearance: Well appearing, alert, in no acute distress, well-hydrated, well nourished.. Skin: Skin color, texture, turgor normal, no suspicious rashes or lesions. 4 sutures intact to the tip of the nose. Well approximated. No s/s of infection. Some healing ecchymosis around eyes and forehead. Head: Normocephalic, no masses, lesions, tenderness or abnormalities. Eyes: Anicteric sclera. Extraocular movements are intact. Neurologic: Gait normal. ASSESSMENT/PLAN: 1. Laceration of nose, subsequent encounter - ICD9: V58.89, 873.20, ICD10: S01.21XD (primary diagnosis) - SUTURE REMOVAL PROCECDURE (W NOTE) SUTURE REMOVAL Date/Time: 04/30/2024 6:01 PM Performed by: Lexi Marx APRN.SCHOOL BUS ATTENDANT Authorized by: Lexi Marx APRN.SCHOOL BUS ATTENDANT Location: Body area: Head/neck Location details: Nose Procedure details: Wound appearance: Clean Suture not placed during surgical procedure Patient tolerance: Patient tolerated the procedure we (more content not included)... Normal [facility] Suture Removalon 04-30-2024 Lexi Marx APR N.SCHOOL BUS ATTENDANT 04/30/2024 6:05 PM SUTURE REMOVAL Date/Time: 04/30/2024 6:01 PM Performed by: Lexi Marx APRN.SCHOOL BUS ATTENDANT Authorized by: Lexi Marx APRN.SCHOOL BUS ATTENDANT Location: Body area: Head/neck Location details: Nose Procedure details: Wound appearance: Clean Suture not placed during surgical procedure Patient tolerance: Patient tolerated the procedure well with no immediate complications [facility] Emergency Department Summary on 04-25-2024 Emergency Department Summary [facility] Medical Records Department [address] [place] [address] Emergency Department Summary 04/25/24 MR#: [id number] Acct: [id number] Name: YANG SANDHU Rep #: [id number] : 1945 78 From: Juaquin Calderon MD PCP: Dr. Edilberto Smith MD Status:REG ER Location: ED HPI History of Present Illness Chief Complaint: Fall Detail of Chief Complaint: Contusion forehead and abrasion with laceration nose Informant: patient Onset/Context/Timing Onset: Today Mechanism/Context: Blunt Injury and Fall Quality of Pain: Dull Location: Nose Current Severity: Gone Maximum Severity: Mild Worsened by: Palpation Relieved by: Not applicable Associated Symptoms Associated Symptoms: Negative for Parasthesias, Weakness, Loss of function, Inability to ambulate, Loss of consciousness or Amnesia Narrative Narrative: Patient is a 78-year-old female. She had a mechanical fall. She remembers the fall. She denies headache. She denies double vision blurred vision loss of vision. She wears hearing aids. There is no change in her hearing. There is no ringing or ears. She does not have difficulty breathing out of her nose. She denies her teeth being malaligned. Is able to open and close her mouth completely. She denies neck pain. She denies paresthesia, anesthesia medics. She is not on antithrombotic or anticoagulant. She denies cardiac respiratory symptoms. She denies GI symptoms and specifically nausea and vomiting. Prior similar symptoms: No Recent Illness/Hospitalization: No PFSH PFS Medical History (Updated 04/25/24 @ 23:[address] Juaquin Calderon MD) Hypercholesterolemia COVID-19 Encounter for screening for COVID-19 Home Medications ???Medication ???Instructions ???Recorded ???Last Taken ???Type atenolol 25 mg tablet 25 mg PO DAILY BP 10/22/13 11/27/19 History fluticasone propionate 50 1 spray intranasal PRN PRN 09/28/18 11/27/19 History mcg/actuation nasal Allergies 90 days #48 grams spray,suspension omeprazole 40 mg capsule,delayed 40 mg PO DAILY GERD 90 days #90 09/28/18 11/27/19 History release caps magnesium 250 mg tablet 400 mg PO DAILY SUPPLEMENT 10/27/18 11/27/19 History vitamin B complex (Vitamins B 1 ea PO DAILY SUPPLEMENT 10/27/18 11/27/19 History Complex capsule) Bifidobacterium infantis 4 mg 4 mg PO DAILY 04/25/24 Unknown History capsule (Align) acetaminophen 500 mg capsule 1,000 mg PO PRN 04/25/24 Unknown History calcium carbonate 500 mg-vitamin 1 tab PO BID 04/25/24 Unknown History D3 15 mcg (600 unit) tablet levothyroxine 125 mcg tablet 125 mcg PO DAILY disorder of 04/25/24 Unknown History thyroid gland naproxen 500 mg tablet 1,000 mg PO BID 04/25/24 Unknown History polyethylene glycol 3350 17 17 g PO DAILY 04/25/24 Unknown History gram/dose oral powder (Miralax) pravastatin 20 mg tablet 20 mg PO DAILY 04/25/24 Unknown History tumeric curcumin 500 mg PO DAILY 04/25/24 Unknown History Allergy/AdvReac Type Severity Reaction Status Date / Time lincomycin (From Lincocin) Allergy Other Verified 04/25/24 21:56 Sulfa (Sulfonamide Allergy Swelling Verified 04/25/24 21:56 Antibiotics) Social History Smoking Status: Never smoker ROS ROS ED Eyes Eyes: Denies blurry vision or change in vision ENT ENT ED: Reports other Details: Complains of pain in the tip of her nose. And see HPI narrative ; Denies ear pain, rhinorrhea or sore throat Cardiovascular Cardiovascular: Denies chest pain or palpitations Respiratory/Chest Respiratory/Chest: Denies cough or dyspnea Gastrointestinal Gastrointestinal: Denies nausea or vomiting Integumentary Reports other Details: Flap like laceration tip of the nose and abrasion Neurologic Neurologic: Denies headache(s), paresthesias or weakness Hematologic/Lymphatic Hematologic/Lymphatic: Denies easy bleeding or easy bruising EXAM Physical Exam Const Vital Signs: 04/25/24 21:54 04/25/24 22:30 Temperature 97.8 F 97.8 F Temperature Source Oral Pulse Rate 94 Respiratory Rate 16 Respiratory Effort Normal Non-Labored Respiratory Depth Normal Respiratory Pattern Normal Blood Pressure 158/86 H Blood Pressure Mean 110 Pulse Ox 98 98 Oxygen Delivery Method Room Air Room Air Positive well nourished and well developed General Appearance ED: well developed and NAD HEENT HEENT Narrative: There is a contusion above the left brow. There is no palpable pression. There are no clinical findings of basilar skull fracture. Ears normal. TMs normal. There is no TMJ tenderness. There is no evidence of malocclusion. There is no injury to her teeth. trauma and tenderness Eyes PERRL and EOMs intact bilaterally General Eye ED: Yes other Other Details: There is no subconj (more content not included)... Normal [facility] 03-30-2024 ROSEMARYN Telephone (SLEWST) HENRRY SANDHU ([id number]) 1945 F Date Time Provider Department 03/30/24 JOSE CARLOS LEVIN During your visit today, we recorded the following information about you: Jose Carlos Levin APRN.CNP 03/30/2024 5:19 PM Signed We had referred pt to Pulm for nocturnal hypoxia however her oxygen level is normal when she uses CPAP per her titration study. Therefore, she doesn't need to see Pulm. The treatment is CPAP, not oxygen. But she chose not to use CPAP. She doesn't need a workup by Pulm, this is per the [facility] Dr Henderson. Jose Carlos Levin APRN.SCHOOL BUS ATTENDANT Allergies As of Date: 03/30/2024 Noted Allergy Reaction SEASONAL ALLERGIES 03/17/2018 14 - Other: See Comments SULFA (SULFONAMIDE ANTIBIOTICS) 08/05/2015 14 - Other: See Comments Comments: Eye swelling with use of eye drops containing sulfa antimicrobial TREE AND SHRUB POLLEN 05/23/2020 5 - Intolerance Date Reviewed: 03/18/2024 Reviewed by: Zoey Pickard APRN.CNP - Fully Assessed Prescriptions as of 04/27/2024 - omeprazole (PRILOSEC) 40 mg capsule Take 1 capsule by mouth daily before breakfast. Then resume once a day - CPAP/BIPAP/OTHER APAP 5-15 cmH2O - polyethylene glycol 3350 (MIRALAX ORAL) Take by mouth. - atenolol (TENORMIN) 25 mg tablet Take 1 tablet by mouth once daily. - FLUoxetine (PROZAC) 40 mg capsule Take 1 capsule by mouth once daily. - levothyroxine (LEVOXYL) 125 mcg tablet Take 1 tablet by mouth once daily. Take on empty stomach. For thyroid. - pravastatin (PRAVACHOL) 20 mg tablet Take 1 tablet by mouth once daily. - docusate sodium (COLACE ORAL) Take 200 mg by mouth as directed. - melatonin 5 mg tablet Take 5 mg by mouth as directed. - fexofenadine (ROSITA ALLERGY) 180 mg tablet Take 1 tablet by mouth once daily. - fluticasone (FLONASE) 50 mcg/actuation nasal spray Use 1 Mcfall in each nostril once daily. - acetaminophen (TYLENOL) 500 mg tablet Take 1,000 mg by mouth twice daily as needed. - Magnesium 250 mg tab Take 250 mg by mouth once daily. Using OTC for leg cramps - COMPOUNDED PRESCRIPTION Turmeric Curcumin 500 mg taking 1 daily - CALCIUM CARBONATE/VITAMIN D3 (CALCIUM 600 + D ORAL) Take 1 tablet by mouth twice daily. - Bifidobacterium Infantis (ALIGN) 4 mg cap Take by mouth. - VITAMIN B COMPLEX (B COMPLEX ORAL) Take by mouth. Problem List As Of Date 03/30/2024 Noted Resolved Arthritis of knee [M17.10] 11/15/2015 Hot flashes [R23.2] 11/15/2015 Hypothyroidism [E03.9] 11/15/2015 Mitral valve prolapse [I34.1] 05/16/2016 Chronic pain of right knee [M25.561, G89.29] 01/11/2018 Chronic pain of left knee [M25.562, G89.29] 01/11/2018 Seasonal allergic rhinitis due to pollen [J30.1]03/17/2018 Acute superficial gastritis without hemorrhage *07/15/2018 H/O colonoscopy [Z98.890] 07/15/2018 Mixed hyperlipidemia [E78.2] 02/28/2022 Lumbar pain [M54.50] 03/04/2022 Encounter for screening for COVID-19 [Z11.52] 02/28/2023 09/03/2023 Diagnosed: 02/28/2023 Fall on same level from slipping, tripping or s*02/28/2023 09/03/2023 Diagnosed: 02/28/2023 History of total knee replacement [Z96.659] 02/28/2023 Diagnosed: 02/28/2023 Laceration of forehead [S01.81XA] 02/28/2023 09/03/2023 Diagnosed: 02/28/2023 Strain of neck muscle [S16.1XXA] 02/28/2023 09/03/2023 Diagnosed: 02/28/2023 Tension type headache [G44.209] 02/28/2023 Diagnosed: 02/28/2023 Prediabetes [R73.03] 09/03/2023 SHIVA (obstructive sleep apnea) [G47.33] 09/19/2023 Encounter Status:Closed by JOSE CARLOS LEVIN on 04/27/24 [facility] CNOVon 03-18-2024 CNOV Office Visit (FAMPWS ) HENRRY SANDHU ([id number]) 1945 F Date Time Provider Department 03/18/24 11:40 AM ZOEY PICKARD [facility] During your visit today, we recorded the following information about you: Pulse Blood pressure Weight 76/minute 120/70 89.4 kg Zoey Pickard APRN.SCHOOL BUS ATTENDANT 03/18/2024 12:22 PM Signed This is a 78 year old female who presents today with: Patient presents with: Follow Up: Epigastric pain HISTORY OF PRESENT ILLNESS: Henrry S Edson is a 78 year old female. Patient presents with: Follow Up: Epigastric pain Still some epigastric stuffiness. Also bowels are constipated. Was taking metamucil, switched to Benefiber, now on Miralax. Bowels are moving but not enough and only small amounts. States not exercising enough. Drinks 2 cups of coffee, ice tea and Crystal light. Balance issues so hard for her to exercise. Does chair yogurt. Doesn't drink much water. PAST MEDICAL HISTORY: PAST MEDICAL HISTORY No date: Arrhythmia No date: Arthritis No date: GERD (gastroesophageal reflux disease) No date: Hot flashes No date: Hypothyroid No date: Mitral valve prolapse Comment: normal echo 2015 No date: Seasonal allergies No date: Snoring PAST SURGICAL HISTORY 90?: BREAST BIOPSY; Left Comment: @ [facility] 02/27/2018: COLONOSCOPY FLX DX W/COLLJ SPEC WHEN PFRMD Comment: normal colonoscopy, repeat in 5 years due to family history 14: D AND C DIAGNOSTIC NONOB 02/27/2018: ESOPHAGOGASTRODUODENOSCOPY TRANSORAL DIAGNOSTIC Comment: EGD 06/12/2020: ESOPHAGOGASTRODUODENOSCOPY TRANSORAL DIAGNOSTIC Comment: EGD No date: EYE SURGERY HX No date: JOINT REPLACEMENT HX 10/16,05/18: KNEE SURGERY HX; Bilateral 1999?: LIGATION COLLATERAL VEIN No date: SKIN BIOPSY HX ALLERGIES Seasonal Allergies, Sulfa (Sulfonamide Antibiotics), and Tree And Shrub Pollen MEDICATIONS Current Outpatient Medications Medication Sig polyethylene glycol 3350 (MIRALAX ORAL) Take by mouth. omeprazole (PRILOSEC) 40 mg capsule Take 1 capsule by mouth daily before breakfast. Then resume once a day atenolol (TENORMIN) 25 mg tablet Take 1 tablet by mouth once daily. FLUoxetine (PROZAC) 40 mg capsule Take 1 capsule by mouth once daily. levothyroxine (LEVOXYL) 125 mcg tablet Take 1 tablet by mouth once daily. Take on empty stomach. For thyroid. pravastatin (PRAVACHOL) 20 mg tablet Take 1 tablet by mouth once daily. docusate sodium (COLACE ORAL) Take 200 mg by mouth as directed. melatonin 5 mg tablet Take 5 mg by mouth as directed. fexofenadine (ROSITA ALLERGY) 180 mg tablet Take 1 tablet by mouth once daily. fluticasone (FLONASE) 50 mcg/actuation nasal spray Use 1 Mcfall in each nostril once daily. acetaminophen (TYLENOL) 500 mg tablet Take 1,000 mg by mouth twice daily as needed. Magnesium 250 mg tab Take 250 mg by mouth once daily. Using OTC for leg cramps COMPOUNDED PRESCRIPTION Turmeric Curcumin 500 mg taking 1 daily CALCIUM CARBONATE/VITAMIN D3 (CALCIUM 600 + D ORAL) Take 1 tablet by mouth twice daily. Bifidobacterium Infantis (ALIGN) 4 mg cap Take by mouth. VITAMIN B COMPLEX (B COMPLEX ORAL) Take by mouth. No current facility-administered medications for this visit. FAMILY HISTORY Problem Relation Age of Onset Anesthesia Mother Hypertension Mother Stroke Mother Heart Father Cancer Maternal Grandfather esophagus Colon Cancer Daughter Social History Tobacco Use Smoking status: Never Smokeless tobacco: Never Vaping Use Vaping Use: Never used Substance Use Topics Alcohol use: Yes Alcohol/week: 2.0 standard drinks of alcohol Types: 2 Glasses of Wine (5oz) per week Comment: daily Drug use: No REVIEW OF SYSTEMS Weight gain Some weight gain in last few years. Grieving loss of 3 years ago Good social support. No N/V, much constipation, liquid Hepatic steatosis. Discussed diet, exercise, and prune juice EXAM: BP 120/70 Pulse 76 Wt 89.4 kg (197 lb) SpO2 95% BMI 31.80 kg/m? PHYSICAL EXAM: Physical Exam Vitals reviewed. Constitutional: Appearance: Normal appearance. Cardiovascular: Rate and Rhythm: Normal rate and regular rhythm. Pulses: Normal pulses. Heart sounds: Normal heart sounds. Pulmonary: Effort: Pulmonary effort is normal. Breath sounds: Normal breath sounds. Abdominal: Palpations: Abdomen is soft. Tenderness: There is no abdominal tenderness. There is no guarding or rebound. Comments: Very hypoactive MONO Musculoskeletal: Comments: Moves all ext. W/O difficulty No edema Neurological: Mental Status: She is alert. LABS: reviewed recent labs AND liver ultrasound ASSESSMENT/PLAN: 1. Chronic constipation - ICD9: 564.00, ICD10: K59.09 (primary diagnosis) Ongoing - Increase water to 64 oz. Water daily - Prune juice or apple cider - Increase activity - Miralax daily - MOM if needed or magnesiu (more content not included)... [facility] [id number] Author: COORDINATOR, MAMMOGRAPHY, ? Service: ? Author Type: Physician Type: Letter Filed: 03/10/2024 13:15 Note Text: March 11, 2024 PID: [id number] Henrry Sandhu [facility] [place] [id number] Dear Ms. Sandhu, We are pleased to inform you that the results of your recent breast imaging exam on 03/10/2024 are normal. Breast tissue can be either dense or not dense. Dense tissue makes it harder to find breast cancer on a mammogram and also raises the risk of developing breast cancer. Your breast tissue is dense. In some people with dense tissue, other imaging tests in addition to a mammogram may help find cancers. Talk to your healthcare provider about breast density, risks for breast cancer, and your individual situation. Early detection of cancer is very important. We also understand recommendations regarding breast cancer screening are controversial. Please discuss with your primary care provider which strategy is best for you and whether a mammogram is right for you. Your imaging studies and report will be kept on file at [facility] as part of your permanent medical record and are available for your continuing care. Thank you for allowing us to help in meeting your health care needs. Sincerely, Dr. Alicea Interpreting Radiologist [facility] (Normal over 40) Normal [facility] SCREENINGon 03-10-2024 [facility] SCREENING * * *Final Report* * * DATE OF EXAM: Mar 10 2024 10:52AM [facility] [id number] - [facility] SCREENING / PROCEDURE REASON: Encounter for screening mammogram for malignant neoplasm of breast * * * * Physician Interpretation * * * * RESULT: #[id number] - [facility] SCREENING BILATERAL DIGITAL SCREENING MAMMOGRAM WITH CAD: 03/10/2024 HISTORY: /Screening Mammogram - patient reports NO breast symptoms /priors available for comparison Encounter For Screening Mammogram For Malignant Neoplasm Of Breast. RESULT: TECHNIQUE: The study was acquired using full field digital technology and interpreted from soft copy. Current study was also evaluated with a Computer Aided Detection (CAD). Comparison is made to exams dated: 09/11/2021 mammogram, 09/08/2020 mammogram - [facility], 12/15/2017 mammogram, and 01/26/2019 mammogram - [facility]. The breasts are heterogeneously dense, which may obscure small masses. There is a biopsy clip in the left breast. No significant masses, calcifications, or other findings are seen in either breast. There has been no significant interval change. IMPRESSION: NEGATIVE There is no mammographic evidence of malignancy. A 1 year screening mammogram is recommended. The exam was reviewed by a staff physician. Lizette Ramírez D.O. pt,joey/keturah:03/10/2024 13:15:28 Cycle Manager(s): Eamon Tuttle RT(R)(M), [facility] letter sent: Normal over 40 Mammogram BI-RADS: Category 1: Negative Multiple national specialty organizations have released breast cancer screening guidelines for women at average risk for developing breast cancer - guidelines that are based on both evidence and opinion, yet differ on when to start and how often to screen for breast cancer. With representation from Breast Imaging, Internal Medicine, Women's Health, Family Medicine, and Medical/Surgical Oncology, the [facility] has carefully reviewed the data and reached the following consensus: 1) All women should engage in shared decision-making with their providers to decide when to start and how often to screen; 2) All women should have the opportunity to start screening mammography at age 40; 3) For women ages 45-55, we recommend annual screening mammograms; 4) For women ages 55 and over, we support both the transition from an annual to a biennial interval if this aligns more with patient's values and preferences, or continuation with annual screening; 5) All women should discuss with their providers when to stop screening mammograms. Rn Visiting: [place] Transcribe Date/Time: Mar 10 2024 10:34A Dictated by: JASSI RAMÍREZ DO This examination was interpreted and the report reviewed and electronically signed by: LIZETTE ALICEA MD on Mar 10 2024 1:15PM EST [id number] Normal [facility] No Panel Informationon 03-10 IMPRESSION: Hepatic steatosis. Rn Visiting: RAHUL Transcribe Date/Time: Mar 10 2024 11:41A Dictated by : STERLING GODINEZ MD This examination was interpreted and the report reviewed and electronically signed by: STERLING GODINEZ MD on Mar 10 2024 11:49AM EST DIVISION OF RADIOLOGY No Panel InformationOrdered By: [facility] Provider on 03-10-2024 [facility] US ABD RIGHT UPPER QUADRANTo n 03-10-2024 US ABD RIGHT UPPER QUADRANT * * *Final Report* * * DATE OF EXAM: Mar 10 2024 11:18AM [facility] 1032 - US ABD RIGHT UPPER QUADRANT / PROCEDURE REASON: Epigastric pain * * * * Physician Interpretation * * * * EXAMINATION: RIGHT UPPER QUADRANT AND SPLEEN ULTRASOUND CLINICAL HISTORY: Epigastric pain TECHNIQUE: Sonography of the right upper quadrant and spleen was performed. Images were obtained and stored in a permanent archive and interpreted remotely. MQ: URUQ_2 COMPARISON: None. RESULT: Pancreas: Normal sonographic appearance. Portions obscured: tail Liver: Echotexture: Normal, homogeneous. Echogenicity: Increased Surface contour: Smooth Lesions: None. Biliary: No intrahepatic biliary duct dilation. CBD: 0.3 cm at the hilum. Gallbladder: Normal caliber -Contents: No cholelithiasis -Wall: Normal -Other: No pericholecystic fluid. Bilateral Kidneys: Normal cortical echogenicity. No hydronephrosis. Spleen: Normal in size measuring 8.2 cm in craniocaudad dimension. No sonographic evidence of focal splenic lesion. Ascites: None. IMPRESSION: Hepatic steatosis. Rn Visiting: RAHUL Transcribe Date/Time: Mar 10 2024 11:41A Dictated by : STERLING GODINEZ MD This examination was interpreted and the report reviewed and electronically signed by: STERLING GODINEZ MD on Mar 10 2024 11:49AM EST [id number] Normal [facility] US ABD SPLEEN - NBon 024 * * *Final Report* * * DATE OF EXAM: Mar 10 2024 11:18AM U 1232 - US ABD SPLEEN -NB / PROCEDURE REASON: Epigastric pain * * * * Physician Interpretation * * * * EXAMINATION: RIGHT UPPER QUADRANT AND SPLEEN ULTRASOUND CLINICAL HISTORY: Epigastric pain TECHNIQUE: Sonography of the right upper quadrant and spleen was performed. Images were obtained and stored in a permanent archive and interpreted remotely. MQ: URUQ_2 COMPARISON: None. RESULT: Pancreas: Normal sonographic appearance. Portions obscured: tail Liver: Echotexture: Normal, homogeneous. Echogenicity: Increased Surface contour: Smooth Lesions: None. Biliary: No intrahepatic biliary duct dilation. CBD: 0.3 cm at the hilum. Gallbladder: Normal caliber -Contents: No cholelithiasis -Wall: Normal -Other: No pericholecystic fluid. Bilateral Kidneys: Normal cortical echogenicity. No hydronephrosis. Spleen: Normal in size measuring 8.2 cm in craniocaudad dimension. No sonographic evidence of focal splenic lesion. Ascites: None. DIVISION OF RADIOLOGY Provider, [facility] - 03/10/2024 * * *Final Report* * * DATE OF EXAM: Mar 10 2024 11:18AM U 1232 - US ABD SPLEEN -NB / PROCEDURE REASON: Epigastric pain * * * * Physician Interpretation * * * * EXAMINATION: RIGHT UPPER QUADRANT AND SPLEEN ULTRASOUND CLINICAL HISTORY: Epigastric pain TECHNIQUE: Sonography of the right upper quadrant and spleen was performed. Images were obtained and stored in a permanent archive and interpreted remotely. MQ: URUQ_2 COMPARISON: None. RESULT: Pancreas: Normal sonographic appearance. Portions obscured: tail Liver: Echotexture: Normal, homogeneous. Echogenicity: Increased Surface contour: Smooth Lesions: None. Biliary: No intrahepatic biliary duct dilation. CBD: 0.3 cm at the hilum. Gallbladder: Normal caliber -Contents: No cholelithiasis -Wall: Normal -Other: No pericholecystic fluid. Bilateral Kidneys: Normal cortical echogenicity. No hydronephrosis. Spleen: Normal in size measuring 8.2 cm in craniocaudad dimension. No sonographic evidence of focal splenic lesion. Ascites: None. IMPRESSION IMPRESSION: Hepatic steatosis. Rn Visiting: RAHUL Transcribe Date/Time: Mar 10 2024 11:41A Dictated by : STERLING GODINEZ MD This examination was interpreted and the report reviewed and electronically signed by: STERLING GODINEZ MD on Mar 10 2024 11:49AM EST [facility] Radiology Study observation (narrative) [facility] US ABD SPLEEN -NBon 03-10-20 24 US ABD SPLEEN -NB * * *Final Report* * * DATE OF EXAM: Mar 10 2024 11:18AM U 1232 - US ABD SPLEEN -NB / PROCEDURE REASON: Epigastric pain * * * * Physician Interpretation * * * * EXAMINATION: RIGHT UPPER QUADRANT AND SPLEEN ULTRASOUND CLINICAL HISTORY: Epigastric pain TECHNIQUE: Sonography of the right upper quadrant and spleen was performed. Images were obtained and stored in a permanent archive and interpreted remotely. MQ: URUQ_2 COMPARISON: None. RESULT: Pancreas: Normal sonographic appearance. Portions obscured: tail Liver: Echotexture: Normal, homogeneous. Echogenicity: Increased Surface contour: Smooth Lesions: None. Biliary: No intrahepatic biliary duct dilation. CBD: 0.3 cm at the hilum. Gallbladder: Normal caliber -Contents: No cholelithiasis -Wall: Normal -Other: No pericholecystic fluid. Bilateral Kidneys: Normal cortical echogenicity. No hydronephrosis. Spleen: Normal in size measuring 8.2 cm in craniocaudad dimension. No sonographic evidence of focal splenic lesion. Ascites: None. IMPRESSION: Hepatic steatosis. Rn Visiting: [facility] Transcribe Date/Time: Mar 10 2024 11:41A Dictated by : STERLING GODINEZ MD This examination was interpreted and the report reviewed and electronically signed by: STERLING GODINEZ MD on Mar 10 2024 11:49AM EST [id number] Normal [facility] US Abdomen RUQon 03-10-2024 * * *Final Report* * * DATE OF EXAM: Mar 10 2024 11:18AM WRU 1032 - US ABD RIGHT UPPER QUADRANT / PROCEDURE REASON: Epigastric pain * * * * Physician Interpretation * * * * EXAMINATION: RIGHT UPPER QUADRANT AND SPLEEN ULTRASOUND CLINICAL HISTORY: Epigastric pain TECHNIQUE: Sonography of the right upper quadrant and spleen was performed. Images were obtained and stored in a permanent archive and interpreted remotely. MQ: URUQ_2 COMPARISON: None. RESULT: Pancreas: Normal sonographic appearance. Portions obscured: tail Liver: Echotexture: Normal, homogeneous. Echogenicity: Increased Surface contour: Smooth Lesions: None. Biliary: No intrahepatic biliary duct dilation. CBD: 0.3 cm at the hilum. Gallbladder: Normal caliber -Contents: No cholelithiasis -Wall: Normal -Other: No pericholecystic fluid. Bilateral Kidneys: Normal cortical echogenicity. No hydronephrosis. Spleen: Normal in size measuring 8.2 cm in craniocaudad dimension. No sonographic evidence of focal splenic lesion. Ascites: None. DIVISION OF RADIOLOGY Provider, [facility] - 03/10/2024 * * *Final Report* * * DATE OF EXAM: Mar 10 2024 11:18AM WRU 1032 - US ABD RIGHT UPPER QUADRANT / PROCEDURE REASON: Epigastric pain * * * * Physician Interpretation * * * * EXAMINATION: RIGHT UPPER QUADRANT AND SPLEEN ULTRASOUND CLINICAL HISTORY: Epigastric pain TECHNIQUE: Sonography of the right upper quadrant and spleen was performed. Images were obtained and stored in a permanent archive and interpreted remotely. MQ: URUQ_2 COMPARISON: None. RESULT: Pancreas: Normal sonographic appearance. Portions obscured: tail Liver: Echotexture: Normal, homogeneous. Echogenicity: Increased Surface contour: Smooth Lesions: None. Biliary: No intrahepatic biliary duct dilation. CBD: 0.3 cm at the hilum. Gallbladder: Normal caliber -Contents: No cholelithiasis -Wall: Normal -Other: No pericholecystic fluid. Bilateral Kidneys: Normal cortical echogenicity. No hydronephrosis. Spleen: Normal in size measuring 8.2 cm in craniocaudad dimension. No sonographic evidence of focal splenic lesion. Ascites: None. IMPRESSION IMPRESSION: Hepatic steatosis. [facility] Transcribe Date/Time: Mar 10 2024 11:41A Dictated by : STERLING GODINEZ MD This examination was interpreted and the report reviewed and electronically signed by: STERLING GODINEZ MD on Mar 10 2024 11:49AM EST [facility] Radiology Study observation (narrative) [facility] CBC W Auto Differential pane l (Bld)on 03-03-2024 Basophils (Bld) [#/Vol] 0.05 10*3/uL [facility] Basophils/100 WBC (Bld) 0.7 % [facility] Differential cell count method Nom (Bld) Auto [facility] Eosinophils (Bld) [#/Vol] 0.37 10*3/uL [facility] Eosinophils/100 WBC (Bld) 5.1 % [facility] Erythrocyte distribution width (RBC) [Ratio] 12.6 % 11.5 - 15.0 % [facility] Hematocrit (Bld) [Volume fraction] 41.6 % 36.0 - 46.0 % [facility] Hemoglobin (Bld) [Mass/Vol] 14.0 g/dL 11.5 - 15.5 g/dL [facility] Immature granulocytes (Bld) [#/Vol] [facility] Immature granulocytes/100 WBC (Bld) 0.3 % [facility] Interpretation and review of laboratory results Abnormal [facility] Lymphocytes (Bld) [#/Vol] 2.23 10*3/uL [facility] Lymphocytes/100 WBC (Bld) 30.5 % [facility] MCH (RBC) [Entitic mass] 33.9 pg 26.0 - 34.0 pg [facility] MCHC (RBC) [Mass/Vol] 33.7 g/dL 30.5 - 36.0 g/dL [facility] MCV (RBC) [Entitic vol] 100.7 fL High 80.0 - 100.0 fL [facility] Monocytes (Bld) [#/Vol] 0.54 10*3/uL NINF [facility] Monocytes/100 WBC (Bld) 7.4 % [facility] Neutrophils (Bld) [#/Vol] 4.10 10*3/uL [facility] Neutrophils/100 WBC (Bld) 56.0 % [facility] Nucleated RBC (Bld) [#/Vol] NINF [facility] Nucleated RBC/100 WBC (Bld) [Ratio] 0.0 % /100 WBC [facility] Platelet mean volume (Bld) [Entitic vol] 11.6 fL 9.0 - 12.7 fL [facility] Platelets (Bld) [#/Vol] 207 10*3/uL [facility] RBC (Bld) [#/Vol] 4.13 10*6/uL 3.90 - 5.2 0 m/uL [facility] WBC (Bld) [#/Vol] 7.31 10*3/uL [facility] Basophils (Bld) [#/Vol] 0.05 10*3/uL Normal <0.11 [facility] Comment on above: Order Comment: Speci men Type: BLOOD SPECIMENOrdering Facility: [facility] Address: [address] [place] [address] Performed By: #### 5 7021-8 ####[facility] LABCLIA [id number] [address] [place] Basophils/100 WBC (Bld) 0.7 % Normal [facility] Comment on above: Order Comment: Speci men Type: BLOOD SPECIMENOrdering Facility: [facility] Address: [address] [place], [place] [id number] Performed By: #### 5 7021-8 ####[facility] LABCLIA [id number] [place] [address] [place] Differential cell count method Nom (Bld) Auto Normal [facility] Comment on above: Order Comment: Speci men Type: BLOOD SPECIMENOrdering Facility: [facility] Address: [address] [place] [address] Performed By: #### 5 7021-8 ####[facility] LABCLIA [id number] [place] [address] [place] Eosinophils (Bld) [#/Vol] 0.37 10*3/uL Normal <0.46 [facility] Comment on above: Order Comment: Speci men Type: BLOOD SPECIMENOrdering Facility: [facility] Address: [address] [place] [address] Performed By: #### 5 7021-8 ####[facility] LABCLIA [id number] [place] [address] [place] Eosinophils/100 WBC (Bld) 5.1 % Normal [facility] Comment on above: Order Comment: Speci men Type: BLOOD SPECIMENOrdering Facility: [facility] Address: [address] [place] [address] Performed By: #### 5 7021-8 ####[facility] LABIA [id number] [place] [address] [place] Erythrocyte distribution width (RBC) [Ratio] 12.6 % Normal 11.5-15.0 [facility] Comment on above: Order Comment: Speci men Type: BLOOD SPECIMENOrdering Facility: [facility] Address: [address] [place] [address] Performed By: #### 5 7021-8 ####[facility] LABCLIA [id number] [place] [address] [place] Hematocrit (Bld) [Volume fraction] 41.6 % Normal 36.0-46.0 [facility] Comment on above: Order Comment: Speci men Type: BLOOD SPECIMENOrdering Facility: [facility] Address: [address] [place] [address] Performed By: #### 5 7021-8 ####[facility] LABCLIA [id number] [place] [address] [place] Hemoglobin (Bld) [Mass/Vol] 14.0 g/dL Normal 11.5-15.5 [facility] Comment on above: Order Comment: Speci men Type: BLOOD SPECIMENOrdering Facility: [facility] Address: [address] [place] [address] Performed By: #### 5 7021-8 ####[facility] LABIA [id number] [place] [address] [place] Immature granulocytes (Bld) [#/Vol] 10*3/uL Normal <0.10 [facility] Comment on above: Order Comment: Speci men Type: BLOOD SPECIMENOrdering Facility: [facility] Address: [address] [place] [address] Performed By: #### 5 7021-8 ####[facility] LABIA [id number] [place] [address] [place] Immature granulocytes/100 WBC (Bld) 0.3 % Normal [facility] Comment on above: Order Comment: Speci men Type: BLOOD SPECIMENOrdering Facility: [facility] Address: [address] [place] [address] Performed By: #### 5 7021-8 ####[facility] LABIA [id number] [place] [address] [place] Lymphocytes (Bld) [#/Vol] 2.23 10*3/uL Normal 1.00-4.00 [facility] Comment on above: Order Comment: Speci men Type: BLOOD SPECIMENOrdering Facility: [facility] Address: [address] [place] [address] Performed By: #### 5 7021-8 ####[facility] LABIA [id number] [place] [address] [place] Lymphocytes/100 WBC (Bld) 30.5 % Normal [facility] Comment on above: Order Comment: Speci men Type: BLOOD SPECIMENOrdering Facility: [facility] Address: [address] [place] [address] Performed By: #### 5 7021-8 ####[facility] LABIA [id number] [place] [address] [place] MCH (RBC) [Entitic mass] 33.9 pg Normal 26.0-34.0 [facility] Comment on above: Order Comment: Speci men Type: BLOOD SPECIMENOrdering Facility: [facility] Address: [address] [place] [address] Performed By: #### 5 7021-8 ####[facility] LABIA [id number] [place] [address] [place] MCHC (RBC) [Mass/Vol] 33.7 g/dL Normal 30.5-36.0 [facility] Comment on above: Order Comment: Speci men Type: BLOOD SPECIMENOrdering Facility: [facility] Address: [address] [place] [address] Performed By: #### 5 7021-8 ####[facility] LABIA [id number] [place] [address] [place] MCV (RBC) [Entitic vol] 100.7 fL High 80.0-100.0 [facility] Comment on above: Order Comment: Speci men Type: BLOOD SPECIMENOrdering Facility: [facility] Address: [address] [place] [address] Performed By: #### 5 7021-8 ####[facility] LABIA [id number] [place] [address] [place] Monocytes (Bld) [#/Vol] 0.54 10*3/uL Normal <0.87 [facility] Comment on above: Order Comment: Speci men Type: BLOOD SPECIMENOrdering Facility: [facility] Address: [address] [place] [address] Performed By: #### 5 7021-8 ####[facility] LABCLIA [id number] [place] [address] [place] Monocytes/100 WBC (Bld) 7.4 % Normal [facility] Comment on above: Order Comment: Speci men Type: BLOOD SPECIMENOrdering Facility: [facility] Address: [address] [place] [address] Performed By: #### 5 7021-8 ####[facility] LABCLIA [id number] [place] [address] [place] Neutrophils (Bld) [#/Vol] 4.10 10*3/uL Normal 1.45-7.50 [facility] Comment on above: Order Comment: Speci men Type: BLOOD SPECIMENOrdering Facility: [facility] Address: [address] [place] [address] Performed By: #### 5 7021-8 ####[facility] LABCLIA [id number] [place] [address] [place] Neutrophils/100 WBC (Bld) 56.0 % Normal [facility] Comment on above: Order Comment: Speci men Type: BLOOD SPECIMENOrdering Facility: [facility] Address: [address] [place] [address] Performed By: #### 5 7021-8 ####[facility] LABCLIA [id number] [place] [address] [place] Nucleated RBC (Bld) [#/Vol] 10*3/uL Normal <0.01 [facility] Comment on above: Order Comment: Speci men Type: BLOOD SPECIMENOrdering Facility: [facility] Address: [address] [place] [address] Performed By: #### 5 7021-8 ####[facility] LABCLIA [id number] [place] [address] [place] Nucleated RBC/100 WBC (Bld) [Ratio] 0.0 /100 WBC Normal [facility] Comment on above: Order Comment: Speci men Type: BLOOD SPECIMENOrdering Facility: [facility] Address: [address] [place] [address] Performed By: #### 5 7021-8 ####[facility] LABIA [id number] [place] [address] [place] Platelet mean volume (Bld) [Entitic vol] 11.6 fL Normal 9.0-12.7 [facility] Comment on above: Order Comment: Speci men Type: BLOOD SPECIMENOrdering Facility: [facility] Address: [address] [place] [address] Performed By: #### 5 7021-8 ####[facility] LABIA [id number] [place] [address] [place] Platelets (Bld) [#/Vol] 207 10*3/uL Normal 150-400 [facility] Comment on above: Order Comment: Speci men Type: BLOOD SPECIMENOrdering Facility: [facility] Address: [address] [place] [address] Performed By: #### 5 7021-8 ####[facility] LABCLIA [id number] [place] [address] [place] RBC (Bld) [#/Vol] 4.13 10*6/uL Normal 3.90-5.20 [facility] Comment on above: Order Comment: Speci men Type: BLOOD SPECIMENOrdering Facility: [facility] Address: [address] [place] [address] Performed By: #### 5 7021-8 ####[facility] LABCLIA [id number] [place] [id number] [place] WBC (Bld) [#/Vol] 7.31 10*3/uL Normal 3.70-11.00 [facility] Comment on above: Order Comment: Speci men Type: BLOOD SPECIMENOrdering Facility: [facility] Address: [address] [place] [address] Performed By: #### 5 7021-8 ####[facility] LABCLIA [id number] [place] [id number] [place] CNOVon 03-03-2024 CNOV Office Visit (FAMPWS ) HENRRY SANDHU ([id number]) 1945 F Date Time Provider Department 03/03/24 1:40 PM [facility] During your visit today, we recorded the following information about you: Pulse Blood pressure Weight 88/minute 124/72 89.8 kg Edilberto Smith MD 03/03/2024 2:13 PM Signed Patient presents with: 6 Month Exam HPI: Patient presents today for office visit for follow up. Uncomfortable fullness above naval. Has had for about 2-3 months. Notices more after she eats and doesn't seem to matter how much she eats. Taking omeprazole 40 mg daily. Started that due to clearing her throat all the time. Feels like still doing that and thought maybe that needed increased. Using Miralax now for bowels has tried a few different things. 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 No changes in the bowels overall. No bloody or black stools. Is on prilosec once a day. Last EGD 3 yrs ago. No cough. ? Dysphagia. Discussed avoiding nsaids No chest pain or shortness of breath. Takes atenolol for palpitations and doing well. Prozac is doing well. Hot flashes under control. HYPOTHYROID: Patient is compliant with medications: Yes TSH up to date. Prediabetes: A1C is elevated at 6.1 Follows with sleep med Sees pulmonary end of the month. Is not using her cpap. Discussed risks of not treating. No issues with lipid meds. MEDICATIONS: Current Outpatient Medications Medication Sig atenolol (TENORMIN) 25 mg tablet Take 1 tablet by mouth once daily. FLUoxetine (PROZAC) 40 mg capsule Take 1 capsule by mouth once daily. levothyroxine (LEVOXYL) 125 mcg tablet Take 1 tablet by mouth once daily. Take on empty stomach. For thyroid. pravastatin (PRAVACHOL) 20 mg tablet Take 1 tablet by mouth once daily. omeprazole (PRILOSEC) 40 mg capsule Take 1 capsule by mouth daily before breakfast. docusate sodium (COLACE ORAL) Take 200 mg by mouth as directed. melatonin 5 mg tablet Take 5 mg by mouth as directed. fexofenadine (ROSITA ALLERGY) 180 mg tablet Take 1 tablet by mouth once daily. fluticasone (FLONASE) 50 mcg/actuation nasal spray Use 1 Mcfall in each nostril once daily. psyllium husk (METAMUCIL ORAL) Take by mouth. acetaminophen (TYLENOL) 500 mg tablet Take 1,000 mg by mouth twice daily as needed. ibuprofen (MOTRIN) 200 mg tablet Take 400 mg by mouth twice daily as needed. Magnesium 250 mg tab Take 250 mg by mouth once daily. Using OTC for leg cramps COMPOUNDED PRESCRIPTION Turmeric Curcumin 500 mg taking 1 daily CALCIUM CARBONATE/VITAMIN D3 (CALCIUM 600 + D ORAL) Take 1 tablet by mouth twice daily. Bifidobacterium Infantis (ALIGN) 4 mg cap Take by mouth. VITAMIN B COMPLEX (B COMPLEX ORAL) Take by mouth. No current facility-administered medications for this visit. ALLERGIES: ALLERGIES Allergen Reactions Seasonal Allergies Other: See Comments Sulfa (Sulfonamide * Other: See Comments Eye swelling with use of eye drops containing sulfa antimicrobial Tree And Shrub Poll* Intolerance PAST MEDICAL HISTORY No date: Arrhythmia No date: Arthritis No date: GERD (gastroesophageal reflux disease) No date: Hot flashes No date: Hypothyroid No date: Mitral valve prolapse Comment: normal echo 2015 No date: Seasonal allergies No date: Snoring PAST SURGICAL HISTORY 90?: BREAST BIOPSY; Left Comment: @ [facility] 02/27/2018: COLONOSCOPY FLX DX W/COLLJ SPEC WHEN PFRMD Comment: normal colonoscopy, repeat in 5 years due to family history 15: D AND C DIAGNOSTIC NONOB 02/27/2018: ESOPHAGOGASTRODUODENOSCOPY TRANSORAL DIAGNOSTIC Comment: EGD 06/12/2020: ESOPHAGOGASTRODUODENOSCOPY TRANSORAL DIAGNOSTIC Comment: EGD No date: EYE SURGERY HX No date: JOINT REPLACEMENT HX 10/16,05/18: KNEE SURGERY HX; Bilateral 1999?: LIGATION COLLATERAL VEIN No date: SKIN BIOPSY HX FAMILY HISTORY Problem Relation Age of Onset Anesthesia Mother Hypertension Mother Stroke Mother Heart Father Cancer Maternal Grandfather esophagus Colon Cancer Daughter Social History Tobacco Use Smoking status: Never Smokeless tobacco: Never Vaping Use Vaping Use: Never used Substance Use Topics Alcohol use: Yes Alcohol/week: 2.0 standard drinks of alcohol Types: 2 Glasses of Wine (5oz) per week Comment: daily Drug use: No Reviewed current medications, allergies, past medical history, surgical history, family history and social history today. REVIEW OF SYSTEMS All other reviewed and negative other than HPI. HEALTH MAINTENANCE: Reviewed health maintenance issues today and recommended the following in detail. Depression Screening Never done Anxiety Screening Never done Covid-19 Vaccine( season) due on 10/03/2023 VITALS: BP 124/72 Pulse 88 Wt 89.8 kg (198 lb) SpO2 98% BMI 31.96 kg/m? Last 4 Encounter Wt Readings: Date: Wt: 12/12/2023 87.5 kg (193 lb) 10/30/2023 (more content not included)... Normal [facility] Comprehensive metabolic 2000 panelon 03-03-2024 Albumin [Mass/Vol] 4.2 g/dL Normal 3.9-4.9 [facility] Comment on above: Order Comment: Speci men Type: BLOOD SPECIMENOrdering Facility: [facility] Address: [address] [place] [address] Performed By: #### 2 4323-8, 3040-3 ####[facility] LABCLIA [id number] [place] [address] [place] ALP [Catalytic activity/Vol] 81 U/L Normal 34-123 [facility] Comment on above: Order Comment: Speci men Type: BLOOD SPECIMENOrdering Facility: [facility] Address: [address] [place] [phone] Performed By: #### 2 4323-8, 0-3 ####[facility] LABCLIA [id number] [place] [id number] [place] ALT [Catalytic activity/Vol] 19 U/L Normal 7-38 [facility] Comment on above: Order Comment: Speci men Type: BLOOD SPECIMENOrdering Facility: [facility] Address: [address] [place] [phone] Performed By: #### 2 4323-8, 3039-3 ####[facility] LABCLIA [id number] [place] [address] [place] Anion gap [Moles/Vol] 12 mmol/L Normal 8-15 [facility] Comment on above: Order Comment: Speci men Type: BLOOD SPECIMENOrdering Facility: [facility] Address: [address] [place] [phone] Performed By: #### 2 4323-8, 3039-3 ####[facility] LABCLIA [id number] [place] [address] [place] AST [Catalytic activity/Vol] 19 U/L Normal 13-35 [facility] Comment on above: Order Comment: Speci men Type: BLOOD SPECIMENOrdering Facility: [facility] Address: [address] [place] [phone] Performed By: #### 2 4323-8, 3040-3 ####[facility] LABCLIA [id number] [place] [id number] [place] Bilirubin [Mass/Vol] 0.5 mg/dL Normal 0.2-1.3 [facility] Comment on above: Order Comment: Speci men Type: BLOOD SPECIMENOrdering Facility: [facility] Address: [address] [place] [phone] Performed By: #### 2 4323-8, 3039-3 ####[facility] LABCLIA [id number] [facility] [place] [address] [place] Calcium [Mass/Vol] 9.7 mg/dL Normal 8.5-10.2 [facility] Comment on above: Order Comment: Speci men Type: BLOOD SPECIMENOrdering Facility: [facility] Address: [address] [place] [address] Performed By: #### 2 4323-8, 3039-3 ####[facility] LABCLIA [id number] [facility] [place] [address] [place] Chloride [Moles/Vol] 100 mmol/L Normal 98-107 [facility] Comment on above: Order Comment: Speci men Type: BLOOD SPECIMENOrdering Facility: [facility] Address: [address] [place] [address] Performed By: #### 2 43238, 3 ####[facility] LABCLIA [id number] [place] [address] [place] CO2 [Moles/Vol] 24 mmol/L Normal 22-30 [facility] Comment on above: Order Comment: Speci men Type: BLOOD SPECIMENOrdering Facility: [facility] Address: [address] [place] [address] Performed By: #### 2 4323-8, 3039-3 ####[facility] LABCLIA [id number] [facility] [place] [id number] [place] Creatinine [Mass/Vol] 0.80 mg/dL Normal 0.58-0.96 [facility] Comment on above: Order Comment: Speci men Type: BLOOD SPECIMENOrdering Facility: [facility] Address: [address] [place] [address] Performed By: #### 2 4323-8, 3039-3 ####[facility] LABCLIA [id number] [place] [id number] [place] Creatinine and Glomerular filtration rate.predicted panel (S/P/Bld) 76 mL/min/1.73m??? Normal >=60 [facility] Comment on above: Order Comment: Shun guido Type: BLOOD SPECIMENOrdering Facility: [facility] Address: [address] [place] [address] Result Comment: Roselyn mated Glomerular Filtration Rate (eGFR) is calculated using the 2020 CKD-EPI creatinine equation. This equation utilizes serum creatinine, sex, and age as parameters. The creatinine assay has traceable calibration to isotope dilution-mass spectrometry. Refer to KDIGO guidelines for clinical interpretation. In patients with unstable renal function, e.g. those with acute kidney injury, the eGFR may not accurately reflect actual GFR. Performed By: #### 2 4323-8, 3040-3 ####[facility] LABCLIA [id number] [place] [address] [place] Glucose [Mass/Vol] 165 mg/dL High 74-99 [facility] Comment on above: Order Comment: Shun guido Type: BLOOD SPECIMENOrdering Facility: [facility] Address: [address] [place] [address] Result Comment: The [place] Diabetes Association (ADA) provides guidance for cutoff values for fasting glucose and random glucose. The ADA defines fasting as no caloric intake for at least 8 hours. Fasting plasma glucose results between 100 to 125 mg/dL indicate increased risk for diabetes (prediabetes). Fasting plasma glucose results greater than or equal to 126 mg/dL meet the criteria for diagnosis of diabetes. In the absence of unequivocal hyperglycemia, results should be confirmed by repeat testing. In a patient with classic symptoms of hyperglycemia or hyperglycemic crisis, random plasma glucose results greater than or equal to 200 mg/dL meet the criteria for diagnosis of diabetes. Reference: Standards of Medical Care in Diabetes 2016, [place] Diabetes Association. Diabetes Care. 2016.39(Suppl 1). Performed By: #### 2 4323-8, 3040-3 ####[facility] LABIA [id number] [place] [address] [place] Potassium [Moles/Vol] 3.7 mmol/L Normal 3.7-5.1 [facility] Comment on above: Order Comment: Speci men Type: BLOOD SPECIMENOrdering Facility: [facility] Address: [address] [place] [address] Performed By: #### 2 4323-8, 3039-3 ####[facility] LABCLIA [id number] [place] [address] [place] Protein [Mass/Vol] 7.1 g/dL Normal 6.3-8.0 [facility] Comment on above: Order Comment: Speci men Type: BLOOD SPECIMENOrdering Facility: [facility] Address: [address] [place] [address] Performed By: #### 2 4323-8, 3039-3 ####[facility] LABCLIA [id number] [place] [address] [place] Sodium [Moles/Vol] 136 mmol/L Normal 136-144 [facility] Comment on above: Order Comment: Speci men Type: BLOOD SPECIMENOrdering Facility: [facility] Address: [address] [place] [address] Performed By: #### 2 4323-8, 3 ####[facility] LABCLIA [id number] [place] [address] [place] Urea nitrogen [Mass/Vol] 17 mg/dL Normal 7-21 [facility] Comment on above: Order Comment: Speci men Type: BLOOD SPECIMENOrdering Facility: [facility] Address: [address] [place] [address] Performed By: #### 2 4323-8, 3039-3 ####[facility] LABCLIA [id number] [place] [address] [place] Lipase SerPl-cCncon 03-03- 24 Lipase [Catalytic activity/Vol] 17 U/L Normal 16-61 [facility] Comment on above: Order Comment: Speci men Type: BLOOD SPECIMENOrdering Facility: [facility] Address: [address] [place] [address] Performed By: #### 2 4323-8, 3040-3 ####[facility] LABIA [id number] [address] [place] HbA1c (Bld)on 02-10-2024 Average glucose Estimated from glycated hemoglobin (Bld) [Mass/Vol] 128 mg/dL Normal [facility] Comment on above: Order Comment: Shun guido Type: BLOOD SPECIMENOrdering Facility: [facility] Address: [address] [place] [address] Result Comment: eAG: (Estimated average glucose) is a calculated value from HgbA1c and is client services representative of the average blood glucose level in the last 2-3 month period. Performed By: #### 5 5454-3 ####[facility] [id number] [address] [place] HbA1c (Bld) [Mass fraction] 6.1 % High 4.3-5.6 [facility] Comment on above: Order Comment: Shun guido Type: BLOOD SPECIMENOrdering Facility: [facility] Address: [address] [place] [address] Result Comment: [place] Diabetes Association guidelines indicate that patients with HgbA1c in the range 5.7-6.4% are at increased risk for development of diabetes, and intervention by lifestyle modification may be beneficial. HgbA1c greater or equal to 6.5% is considered diagnostic of diabetes. Performed By: #### 5 5454-3 ####[facility] [id number] [address] [place] 01-12-2024 LIANA Telephone (FAMPWS) HENRRY SANDHU ([id number]) 1945 F Date Time Provider Department 01/12/24 JOSE CARLOS LEVIN During your visit today, we recorded the following information about you: Robyn Jean LPN 01/12/2024 11:21 AM Signed Vernell with [facility] reports they received an order for nocturnal O2. Vernell reports she needs a sleep titration study from the last 30 days-signed, dated by provider with [facility]. OV notes from last 30 days. Advised Vernell last sleep titration was 09/16/23. Pt did have an Overnight Pulse Ox on 12/23/23. Last OV with Jose Carlos Levin CNP: 12/12/23. Vernell is going to call back after reviewing with billing team to see if they will accept Sleep Titration 09/16/23 along with Overnight PO. JM Babin Sherrie, RN 01/12/2024 12:08 PM Signed Vernell with [facility] calling back. States since patient has medicare, she will need new sleep titration study completed and after that, a new O2 script. DEVON Magallanes Rebecca, APRN.ROSEMARY 01/12/2024 12:49 PM Signed She isn't on PAP therapy, therefore no titration study needed. Jose Carlos Levin APRN.Julianna Rockwell LPN 01/12/2024 2:11 PM Signed TC to [facility] who will pass along information to Vernell and will give a phone call. Advised them the patient is not using PAP and will not need a titration study. JM Livingston M Robin, RN 01/13/2024 10:56 AM Signed Vernell- Sasha- returned call and reports, because it is Medicare, and patient has a diagnoses of SHIVA, patient does have to have a sleep titration study within 30 days, to qualify for oxygen. Please phone Vernell with any questions- [phone] extension [phone] Gissel Alston RN 01/13/2024 11:56 AM Signed Vernell calls back and states if provider orders a 3 part O2 testing patient would then qualify without sleep titration study. Patient would have to de-stat during a walking test to qualify. DEVON Rodrigez Rebecca, APRN.SCHOOL BUS ATTENDANT 01/13/2024 12:47 PM Signed Please tell Dasannamaria we have referred pt to Pul for them to eval and treat, thank you Allergies As of Date: 01/12/2024 Noted Allergy Reaction SEASONAL ALLERGIES 03/17/2018 14 - Other: See Comments SULFA (SULFONAMIDE ANTIBIOTICS) 08/05/2015 14 - Other: See Comments Comments: Eye swelling with use of eye drops containing sulfa antimicrobial TREE AND SHRUB POLLEN 05/23/2020 5 - Intolerance Date Reviewed: 12/12/2023 Reviewed by: Jose Carlos Levin APRN.SCHOOL BUS ATTENDANT - Fully Assessed Reason for Visit: Orders [681] Prescriptions as of 03/31/2024 - polyethylene glycol 3350 (MIRALAX ORAL) Take by mouth. - omeprazole (PRILOSEC) 40 mg capsule Take 1 capsule by mouth daily before breakfast. Then resume once a day - atenolol (TENORMIN) 25 mg tablet Take 1 tablet by mouth once daily. - FLUoxetine (PROZAC) 40 mg capsule Take 1 capsule by mouth once daily. - levothyroxine (LEVOXYL) 125 mcg tablet Take 1 tablet by mouth once daily. Take on empty stomach. For thyroid. - pravastatin (PRAVACHOL) 20 mg tablet Take 1 tablet by mouth once daily. - docusate sodium (COLACE ORAL) Take 200 mg by mouth as directed. - melatonin 5 mg tablet Take 5 mg by mouth as directed. - fexofenadine (ROSITA ALLERGY) 180 mg tablet Take 1 tablet by mouth once daily. - fluticasone (FLONASE) 50 mcg/actuation nasal spray Use 1 Mcfall in each nostril once daily. - acetaminophen (TYLENOL) 500 mg tablet Take 1,000 mg by mouth twice daily as needed. - Magnesium 250 mg tab Take 250 mg by mouth once daily. Using OTC for leg cramps - COMPOUNDED PRESCRIPTION Turmeric Curcumin 500 mg taking 1 daily - CALCIUM CARBONATE/VITAMIN D3 (CALCIUM 600 + D ORAL) Take 1 tablet by mouth twice daily. - Bifidobacterium Infantis (ALIGN) 4 mg cap Take by mouth. - VITAMIN B COMPLEX (B COMPLEX ORAL) Take by mouth. Problem List As Of Date 01/12/2024 Noted Resolved Arthritis of knee [M17.10] 11/15/2015 Hot flashes [R23.2] 11/15/2015 Hypothyroidism [E03.9] 11/15/2015 Mitral valve prolapse [I34.1] 05/16/2016 Chronic pain of right knee [M25.561, G89.29] 01/11/2018 Chronic pain of left knee [M25.562, G89.29] 01/11/2018 Seasonal allergic rhinitis due to pollen [J30.1]03/17/2018 Acute superficial gastritis without hemorrhage *07/15/2018 H/O colonoscopy [Z98.890] 07/15/2018 Mixed hyperlipidemia [E78.2] 02/28/2022 Lumbar pain [M54.50] 03/04/2022 Encounter for screening for COVID-19 [Z11.52] 02/28/2023 09/03/2023 Diagnosed: 02/28/2023 Fall on same level from slipping, tripping or s*02/28/2023 09/03/2023 Diagnosed: 02/28/2023 History of total knee replacement [Z96.659] 02/28/2023 Diagnosed: 02/28/2023 Laceration of forehead [S01.81XA] 02/28/2023 09/03/2023 Diagnosed: 02/28/2023 Strain of neck muscle [S16.1XXA] 02/28/2023 09/03/2023 Diagnosed: 02/28/2023 Tension type headache [G44.209] 02/28/2023 Diagnosed: 02/28/2023 (more content not included)... Normal [facility] Cielo 12-31-2023 CNPN Telephone (CHASITY) HENRRY SANDHU ([id number]) 1945 F Date Time Provider Department 12/31/23 JOSE CARLOS LEVIN During your visit today, we recorded the following information about you: Julianna Choe LPN 12/31/2023 3:57 PM Addendum Please see attached overnight pulse ox results. Scan on 12/30/2023 1:40 PM by Provider, Mike, MARIBELL: Overnight Pulse Ox JM Livingston Rebecca, APRN.ROSEMARY 01/02/2024 12:41 PM Signed Please tell pt the overnight oximetry showed she spent 3 hrs with oxygen below 88%. I would like Pulmonology to evaluate her. Consult placed. Jose Carlos Levin APRN.Julianna Rockwell LPN 01/02/2024 2:12 PM Signed TC to pt who voiced understanding and is agreeable to seeing pulmonology. Please assist pt in scheduling. JM Livingston M Robin, RN 01/08/2024 1:11 PM Signed Bessie - Sasha- reports she received the overnight POX testing signed, but the oxygen order was not signed. Patient has an appt with pulm on 04-01-24 Bessie asking if you want patient to stay hypoxic until the pulm appt? Asking if Nayeli Levin can sign the oxygen order, then once patient sees pulmonary they can take over? Please phone Bessie with reply: [phone] Jose Carlos Levin APRN.ROSEMARY 01/08/2024 3:49 PM Signed First, that is a ridiculous question asked by [facility]: of course I don't want the patient to be hypoxic. Second, I don't recall seeing an order for oxygen. Third, I would be happy to sign an order for oxygen until the pt sees Pulm. Is there an order for me to sign today? I am off tomorrow. Jose Carlos Levin APRN.Brittney Riggs LPN 01/08/2024 4:54 PM Signed Phone call placed to Bessie at [facility] advised original order was signed but not the oxygen portion. Advised provider agreeable to sign Rx Oxygen [employer] faxing to [phone], upload to chart for provider to print sign. Brittney Willingham LPN Rx received [employer] fwd to provider for review. Scan on 01/08/2024 4:49 PM by Provider, MARIBELL Mckeon: Rx [employer] O2 Jose Carlos Levin APRN.ROSEMARY 01/08/2024 6:15 PM Signed I printed and signed the O2 order. Will have MD staff fax it to [facility]. It is in the 3B To Be Faxed file. Shona Gomez MA 01/09/2024 11:27 AM Signed Orders are signed by Jeremi Levin and faxed back to [facility] Fax has been sent and confirmed . Nothing further needed Allergies As of Date: 12/31/2023 Noted Allergy Reaction SEASONAL ALLERGIES 03/17/2018 14 - Other: See Comments SULFA (SULFONAMIDE ANTIBIOTICS) 08/05/2015 14 - Other: See Comments Comments: Eye swelling with use of eye drops containing sulfa antimicrobial TREE AND SHRUB POLLEN 05/23/2020 5 - Intolerance Date Reviewed: 12/12/2023 Reviewed by: Jose Carlos Levin APRN.SCHOOL BUS ATTENDANT - Fully Assessed Reason for Visit: Results [95] Primary Visit Diagnosis:Nocturnal hypoxia [G47.34] Order(s):CONSULT TO PULM/CRITICAL CARE [116566] Order #: [id number]: 1 FUTURE Prescriptions as of 01/09/2024 - levothyroxine (LEVOXYL) 125 mcg tablet Take 1 tablet by mouth once daily. Take on empty stomach. For thyroid. - pravastatin (PRAVACHOL) 20 mg tablet Take 1 tablet by mouth once daily. - omeprazole (PRILOSEC) 40 mg capsule Take 1 capsule by mouth daily before breakfast. - atenolol (TENORMIN) 25 mg tablet Take 1 tablet by mouth once daily. - docusate sodium (COLACE ORAL) Take 200 mg by mouth as directed. - melatonin 5 mg tablet Take 5 mg by mouth as directed. - fexofenadine (ROSITA ALLERGY) 180 mg tablet Take 1 tablet by mouth once daily. - fluticasone (FLONASE) 50 mcg/actuation nasal spray Use 1 Mcfall in each nostril once daily. - FLUoxetine (PROZAC) 40 mg capsule Take 1 capsule by mouth once daily. - psyllium husk (METAMUCIL ORAL) Take by mouth. - acetaminophen (TYLENOL) 500 mg tablet Take 1,000 mg by mouth twice daily as needed. - ibuprofen (MOTRIN) 200 mg tablet Take 400 mg by mouth twice daily as needed. - Magnesium 250 mg tab Take 250 mg by mouth once daily. Using OTC for leg cramps - COMPOUNDED PRESCRIPTION Turmeric Curcumin 500 mg taking 1 daily - CALCIUM CARBONATE/VITAMIN D3 (CALCIUM 600 + D ORAL) Take 1 tablet by mouth twice daily. - Bifidobacterium Infantis (ALIGN) 4 mg cap Take by mouth. - VITAMIN B COMPLEX (B COMPLEX ORAL) Take by mouth. Problem List As Of Date 12/31/2023 Noted Resolved Arthritis of knee [M17.10] 11/15/2015 Hot flashes [R23.2] 11/15/2015 Hypothyroidism [E03.9] 11/15/2015 Mitral valve prolapse [I34.1] 05/16/2016 Chronic pain of right knee [M25.561, G89.29] 01/11/2018 Chronic pain of left knee [M25.562, G89.29] 01/11/2018 Seasonal allergic rhinitis due to pollen [J30.1]03/17/2018 Acute superficial gastritis without hemorrhage *07/15/2018 H/O colonoscopy [Z98.890] 07/15/2018 Mixed hyperlipidemia [E78.2] 02/28/2022 Lumbar pain [M54.50] 03/04/2022 Encounter for screening for COVID-19 [Z11.52] 02/02 (more content not included)... Normal [facility] CBC W Auto Differential pane l (Bld)on 06-18-2023 Basophils (Bld) [#/Vol] 0.04 10*3/uL <0.11 k/uL [facility] Basophils/100 WBC (Bld) 0.5 % [facility] Differential cell count method Nom (Bld) Auto [facility] Eosinophils (Bld) [#/Vol] 0.36 10*3/uL <0.46 k/uL [facility] Eosinophils/100 WBC (Bld) 4.8 % [facility] Erythrocyte distribution width (RBC) [Ratio] 12.2 % 11.5 - 15.0 % [facility] Hematocrit (Bld) [Volume fraction] 41.3 % 36.0 - 46.0 % [facility] Hemoglobin (Bld) [Mass/Vol] 14.4 g/dL 11.5 - 15.5 g/dL [facility] Immature granulocytes (Bld) [#/Vol] <0.10 k/uL [facility] Immature granulocytes/100 WBC (Bld) 0.3 % [facility] Lymphocytes (Bld) [#/Vol] 2.80 10*3/uL 1.00 - 4.00 k/uL [facility] Lymphocytes/100 WBC (Bld) 37.0 % [facility] MCH (RBC) [Entitic mass] 35.0 pg High 26.0 - 34.0 pg [facility] MCHC (RBC) [Mass/Vol] 34.9 g/dL 30.5 - 36.0 g/dL [facility] MCV (RBC) [Entitic vol] 100.2 fL High 80.0 - 100.0 fL [facility] Monocytes (Bld) [#/Vol] 0.57 10*3/uL <0.87 k/uL [facility] Monocytes/100 WBC (Bld) 7.5 % [facility] Neutrophils (Bld) [#/Vol] 3.77 10*3/uL 1.45 - 7.50 k/uL [facility] Neutrophils/100 WBC (Bld) 49.9 % [facility] Nucleated RBC (Bld) [#/Vol] <0.01 k/uL [facility] Nucleated RBC/100 WBC (Bld) [Ratio] 0.0 /100 WBC [facility] Platelet mean volume (Bld) [Entitic vol] 11.2 fL 9.0 - 12.7 fL [facility] Platelets (Bld) [#/Vol] 227 10*3/uL 150 - 400 k/uL [facility] RBC (Bld) [#/Vol] 4.12 10*6/uL 3.90 - 5.2 0 m/uL [facility] WBC (Bld) [#/Vol] 7.56 10*3/uL 3.70 - 11.00 k/uL [facility] XR Lumbar spine 3 Viewson IMPRESSION: No acute fracture. Degenerative disease of the lumbar spine. Rn Visiting: RAHUL Transcribe Date/Time: Mar 01 2022 4:21P Dictated by : YOGESH RAMIRES MD This examination was interpreted and the report reviewed and electronically signed by: YOGESH RAMIRES MD on Mar 01 2022 4:22PM EST ZZZ_DO_NOT_ USE_DIVISIO N OF RADIOLOGY * * *Final Report* * * DATE OF EXAM: Feb 28 2022 4:01PM WOX 5228 - XR LUMBAR 3V AP/LAT/L5-S1 / PROCEDURE REASON: Lumbar pain * * * * Physician Interpretation * * * * X-ray lumbosacral spine, AP, lateral and L5-S1 views Indication: Intermittent low back pain Comparison: None Counting reference: Lumbosacral junction. For the purposes of this report, L5S1 is considered the last lumbar type disc space and L4-5 is considered the level of the iliac crest. No acute fracture or destructive osseous lesion. Slight curvature of the lower thoracic and upper lumbar spine towards the left. Grade 1 anterolisthesis of L4 on L5. There is degenerative disc disease at multiple levels of the lumbar spine with endplate sclerosis, intervertebral disc space narrowing and osteophyte formation. Facet joint degenerative disease at L4-5 and L5-S1. Sacroiliac joints appear normal. ZZZ_DO_NOT_ USE_DIVISIO N OF RADIOLOGY Provider[facility]01/[facility]22 * * *Final Report* * * DATE OF EXAM: Feb 28 2022 4:01PM WOX 5228 - XR LUMBAR 3V AP/LAT/L5-S1 / PROCEDURE REASON: Lumbar pain * * * * Physician Interpretation * * * * X-ray lumbosacral spine, AP, lateral and L5-S1 views Indication: Intermittent low back pain Comparison: None Counting reference: Lumbosacral junction. For the purposes of this report, L5S1 is considered the last lumbar type disc space and L4-5 is considered the level of the iliac crest. No acute fracture or destructive osseous lesion. Slight curvature of the lower thoracic and upper lumbar spine towards the left. Grade 1 anterolisthesis of L4 on L5. There is degenerative disc disease at multiple levels of the lumbar spine with endplate sclerosis, intervertebral disc space narrowing and osteophyte formation. Facet joint degenerative disease at L4-5 and L5-S1. Sacroiliac joints appear normal. IMPRESSION IMPRESSION: No acute fracture. Degenerative disease of the lumbar spine. Rn Visiting: RAHUL Transcribe Date/Time: Mar 01 2022 4:21P Dictated by : YOGESH RAMIRES MD This examination was interpreted and the report reviewed and electronically signed by: YOGESH RAMIRES MD on Mar 01 2022 4:22PM EST [facility] XR Lumbar spine 3 ViewsOrder ed By: [facility] Provider on 03-01-2022 [facility] XR Lumbar spine 3 Viewson Radiology Study observation (narrative) [facility] Vital Signs Date Time Vital Sign Value Performing Clinician Facility 04-12-2025 15:46-0400 Body height 165.[address] Edilberto Smith MD Work Phone: 8(360)[phone] [place] [address] 04-12-2025 15:46-0400 Body mass index (BMI) [Ratio] 32.8 kg/m2 Dr. Edilberto Smith MD Work Phone: 5(164)091-458037 [place] [address] 04-12-2025 15:46-0400 Body temperature 97.8 [degF] Dr. Edilberto Smith MD Work Phone: 2(196)898-406337 [place] [address] 04-12-2025 15:46-0400 Body weight 89.[address] Edilberto Smith MD Work Phone: 3(012)761-753537 [place] [address] 04-12-2025 15:46-0400 Diastolic blood pressure 65 mm[Hg] Dr. Edilberto Smith MD Work Phone: 7(205)887-663137 [place] [address] 04-12-2025 15:46-0400 Heart rate 77 /min Dr. Edilberto Smith MD Work Phone: 2(384)455-413937 [place] [address] 04-12-2025 15:46-0400 Respiratory rate 16 /min Dr. Edilberto Smith MD Work Phone: 0(430)986-733037 [place] [address] 04-12-2025 15:46-0400 SaO2% (BldA) [Mass fraction] 95 % Dr. Edilberto Smith MD Work Phone: 2(447)389-310937 [place] [address] 04-12-2025 15:46-0400 Systolic blood pressure 137 mm[Hg] Dr. Edilberto Smith MD Work Phone: 6(306)605-951237 [place] [address] 03-15-2025 14:36-0400 Body height 165.[address] Edilberto Smith MD Work Phone: 3(006)867-384437 [place] [address] 03-15-2025 14:36-0400 Body mass index (BMI) [Ratio] 33.3 kg/m2 Dr. Edilberto Smith MD Work Phone: 7(761)651-262537 [place] [address] 03-15-2025 14:36-0400 Body temperature 97.5 [degF] Dr. Edilberto Smith MD Work Phone: 5(827)723-620637 [place] [address] 03-15-2025 14:36-0400 Body weight 90.[address] Edilberto Smith MD Work Phone: 0(573)350-034437 [place] [address] 03-15-2025 14:36-0400 Diastolic blood pressure 80 mm[Hg] Dr. Edilberto Smith MD Work Phone: 5(339)868-116137 [place] [address] 03-15-2025 14:36-0400 Heart rate 80 /min Dr. Edilberto Smith MD Work Phone: 5(072)452-734837 [place] [address] 03-15-2025 14:36-0400 Respiratory rate 16 /min Dr. Edilberto Smith MD Work Phone: 0(830)587-824437 [place] [address] 03-15-2025 14:36-0400 SaO2% (BldA) [Mass fraction] 92 % Dr. Edilberto Smith MD Work Phone: 1(659)616-782637 [place] [address] 03-15-2025 14:36-0400 Systolic blood pressure 130 mm[Hg] Dr. Edilberto Smith MD Work Phone: [facility] 09-20-2024 14:34-0500 Body height 167.6 cm Edilberto Smith MD Work Phone: [facility] 09-20-2024 14:34-0500 Body mass index (BMI) [Ratio] 32.44 kg/m2 Edilberto Smith MD Work Phone: [facility] 09-20-2024 14:34-0500 Body weight 91.17 kg Edilberto Smiht MD Work Phone: [facility] 09-20-2024 14:34-0500 Diastolic blood pressure 58 mm[Hg] Edilberto Smith MD Work Phone: [facility] 02-17-2025 14:34-0500 Heart rate 83 /min Edilberto Smith MD Work Phone: [facility] 09-20-2024 14:34-0500 SaO2% (BldA) [Mass fraction] 96 % Edilberto Smith MD Work Phone: [facility] 09-20-2024 14:34-0500 Systolic blood pressure 100 mm[Hg] Edilberto Smith MD Work Phone: [facility] 09-07-2024 09:50-0500 Diastolic blood pressure 78 mm[Hg] Lexi Haagen ULTRASOUND TECHNICIAN.SCHOOL BUS ATTENDANT Work Phone: [facility] 09-07-2024 09:50-0500 Heart rate 95 /min Lexi Haagen ULTRASOUND TECHNICIAN.SCHOOL BUS ATTENDANT Work Phone: [facility] 09-07-2024 09:50-0500 Respiratory rate 16 /min Lexi Haagen ULTRASOUND TECHNICIAN.SCHOOL BUS ATTENDANT Work Phone: [facility] 09-07-2024 09:50-0500 Systolic blood pressure 126 mm[Hg] Lexi Haagen ULTRASOUND TECHNICIAN.SCHOOL BUS ATTENDANT Work Phone: [facility] 06-25-2024 09:18-0500 Body mass index (BMI) [Ratio] 31.41 kg/m2 Jose Carlos Poonam ULTRASOUND TECHNICIAN.SCHOOL BUS ATTENDANT Work Phone: [facility] 06-25-2024 09:18-0500 Body weight 88.27 kg Jose Carlos Poonam ULTRASOUND TECHNICIAN.SCHOOL BUS ATTENDANT Work Phone: [facility] 06-25-2024 09:18-0500 Diastolic blood pressure 78 mm[Hg] Jose Carlos Poonam ULTRASOUND TECHNICIAN.SCHOOL BUS ATTENDANT Work Phone: [facility] 06-25-2024 09:18-0500 Heart rate 79 /min Jose Carlos Poonam ULTRASOUND TECHNICIAN.SCHOOL BUS ATTENDANT Work Phone: [facility] 06-25-2024 09:18-0500 SaO2% (BldA) [Mass fraction] 97 % Jose Carlos Poonam ULTRASOUND TECHNICIAN.SCHOOL BUS ATTENDANT Work Phone: [facility] 06-25-2024 09:18-0500 Systolic blood pressure 123 mm[Hg] Jose Carlos Poonam ULTRASOUND TECHNICIAN.SCHOOL BUS ATTENDANT Work Phone: [facility] 04-30-2024 14:32-0400 Diastolic blood pressure 82 mm[Hg] Lexi Haagen ULTRASOUND TECHNICIAN.SCHOOL BUS ATTENDANT Work Phone: [facility] 04-30-2024 14:32-0400 Heart rate 77 /min Lexi Haagen ULTRASOUND TECHNICIAN.SCHOOL BUS ATTENDANT Work Phone: [facility] 04-30-2024 14:32-0400 Respiratory rate 16 /min Lexi Haagen ULTRASOUND TECHNICIAN.SCHOOL BUS ATTENDANT Work Phone: [facility] 04-30-2024 14:32-0400 SaO2% (BldA) [Mass fraction] 95 % Lexi Haagen ULTRASOUND TECHNICIAN.SCHOOL BUS ATTENDANT Work Phone: [facility] 04-30-2024 14:32-0400 Systolic blood pressure 128 mm[Hg] Lexi Haagen ULTRASOUND TECHNICIAN.SCHOOL BUS ATTENDANT Work Phone: [facility] 03-18-2024 11:44-0400 Body mass index (BMI) [Ratio] 31.8 kg/m2 Zoey Suppan ULTRASOUND TECHNICIAN.SCHOOL BUS ATTENDANT Work Phone: [facility] 03-18-2024 11:44-0400 Body weight 89.36 kg Zoey Suppan ULTRASOUND TECHNICIAN.SCHOOL BUS ATTENDANT Work Phone: [facility] 03-18-2024 11:44-0400 Diastolic blood pressure 70 mm[Hg] Zoey Suppan ULTRASOUND TECHNICIAN.SCHOOL BUS ATTENDANT Work Phone: [facility] 03-18-2024 11:44-0400 Heart rate 76 /min Zoey Suppan ULTRASOUND TECHNICIAN.SCHOOL BUS ATTENDANT Work Phone: [facility] 03-18-2024 11:44-0400 SaO2% (BldA) [Mass fraction] 95 % Zoey Suppan ULTRASOUND TECHNICIAN.SCHOOL BUS ATTENDANT Work Phone: [facility] 03-18-2024 11:44-0400 Systolic blood pressure 120 mm[Hg] Zoey Suppan ULTRASOUND TECHNICIAN.SCHOOL BUS ATTENDANT Work Phone: [facility] 03-03-2024 13:42-0400 Body mass index (BMI) [Ratio] 31.96 kg/m2 Edilberto Smith MD Work Phone: [facility] 03-03-2024 13:42-0400 Body weight 89.81 kg Edilberto Smith MD Work Phone: [facility] 03-03-2024 13:42-0400 Diastolic blood pressure 72 mm[Hg] Edilberto Smith MD Work Phone: [facility] 03-03-2024 13:42-0400 Heart rate 88 /min Edilberto Smith MD Work Phone: [facility] 03-03-2024 13:42-0400 SaO2% (BldA) [Mass fraction] 98 % Edilberto Smith MD Work Phone: [facility] 03-03-2024 13:42-0400 Systolic blood pressure 124 mm[Hg] Edilberto Smith MD Work Phone: [facility] 12-12-2023 14:54-0400 Body mass index (BMI) [Ratio] 31.15 kg/m2 Jose Carlos Poonam ULTRASOUND TECHNICIAN.SCHOOL BUS ATTENDANT Work Phone: [facility] 12-12-2023 14:54-0400 Body weight 87.54 kg Jose Carlos Poonam ULTRASOUND TECHNICIAN.SCHOOL BUS ATTENDANT Work Phone: [facility] 12-12-2023 14:54-0400 Diastolic blood pressure 74 mm[Hg] Jose Carlos Poonam ULTRASOUND TECHNICIAN.SCHOOL BUS ATTENDANT Work Phone: [facility] 12-12-2023 14:54-0400 Heart rate 77 /min Jose Carlos Poonam ULTRASOUND TECHNICIAN.SCHOOL BUS ATTENDANT Work Phone: [facility] 12-12-2023 14:54-0400 Respiratory rate 16 /min Jose Carlos Poonam ULTRASOUND TECHNICIAN.SCHOOL BUS ATTENDANT Work Phone: [facility] 12-12-2023 14:54-0400 SaO2% (BldA) [Mass fraction] 97 % Jose Carlos Poonam ULTRASOUND TECHNICIAN.SCHOOL BUS ATTENDANT Work Phone: [facility] 12-12-2023 14:54-0400 Systolic blood pressure 122 mm[Hg] Jose Carlos Levin ULTRASOUND TECHNICIAN.SCHOOL BUS ATTENDANT Work Phone: [facility] 06-18-2023 14:18-0500 Body temperature 98.49 [degF] Lexi Haagen ULTRASOUND TECHNICIAN.SCHOOL BUS ATTENDANT Work Phone: [facility] 06-18-2023 14:18-0500 Body weight 88.91 kg Lexi Haagen ULTRASOUND TECHNICIAN.SCHOOL BUS ATTENDANT Work Phone: [facility] 06-18-2023 14:18-0500 Diastolic blood pressure 80 mm[Hg] Lexi Haagen ULTRASOUND TECHNICIAN.SCHOOL BUS ATTENDANT Work Phone: [facility] 06-18-2023 14:18-0500 Heart rate 83 /min Lexi Haagen ULTRASOUND TECHNICIAN.SCHOOL BUS ATTENDANT Work Phone: [facility] 06-18-2023 14:18-0500 SaO2% (BldA) [Mass fraction] 90 % Lexi Haagen ULTRASOUND TECHNICIAN.SCHOOL BUS ATTENDANT Work Phone: [facility] 06-18-2023 14:18-0500 Systolic blood pressure 130 mm[Hg] Lexi Haagen ULTRASOUND TECHNICIAN.SCHOOL BUS ATTENDANT Work Phone: [facility] 01-22-2023 08:53-0400 Body temperature 98.49 [degF] Marcella Faina ULTRASOUND TECHNICIAN.SCHOOL BUS ATTENDANT Work Phone: [facility] 01-22-2023 08:53-0400 Body weight 90.08 kg Marcella Faina ULTRASOUND TECHNICIAN.SCHOOL BUS ATTENDANT Work Phone: [facility] 01-22-2023 08:53-0400 Diastolic blood pressure 90 mm[Hg] Marcella Faina ULTRASOUND TECHNICIAN.SCHOOL BUS ATTENDANT Work Phone: [facility] 01-22-2023 08:53-0400 Heart rate 91 /min Marcella Faina ULTRASOUND TECHNICIAN.SCHOOL BUS ATTENDANT Work Phone: [facility] 01-22-2023 08:53-0400 Respiratory rate 18 /min Marcella Faina ULTRASOUND TECHNICIAN.SCHOOL BUS ATTENDANT Work Phone: [facility] 01-22-2023 08:53-0400 SaO2% (BldA) [Mass fraction] 96 % Marcella Faina ULTRASOUND TECHNICIAN.SCHOOL BUS ATTENDANT Work Phone: [facility] 01-22-2023 08:53-0400 Systolic blood pressure 136 mm[Hg] Marcella Faina ULTRASOUND TECHNICIAN.SCHOOL BUS ATTENDANT Work Phone: [facility] 09-19-2022 10:34-0500 Body temperature 98.29 [degF] Pat Praisler-Wood ULTRASOUND TECHNICIAN.SCHOOL BUS ATTENDANT Work Phone: [facility] 09-19-2022 10:34-0500 Body weight 91.44 kg Pat Praisler-Wood ULTRASOUND TECHNICIAN.SCHOOL BUS ATTENDANT Work Phone: [facility] 09-19-2022 10:34-0500 Diastolic blood pressure 84 mm[Hg] Pat Praisler-Wood ULTRASOUND TECHNICIAN.SCHOOL BUS ATTENDANT Work Phone: [facility] 09-19-2022 10:34-0500 Heart rate 87 /min Pat Praisler-Wood ULTRASOUND TECHNICIAN.SCHOOL BUS ATTENDANT Work Phone: [facility] 09-19-2022 10:34-0500 Respiratory rate 18 /min Pat Praisler-Wood ULTRASOUND TECHNICIAN.SCHOOL BUS ATTENDANT Work Phone: [facility] 09-19-2022 10:34-0500 SaO2% (BldA) [Mass fraction] 98 % Pat Praisler-Wood ULTRASOUND TECHNICIAN.SCHOOL BUS ATTENDANT Work Phone: [facility] 09-19-2022 10:34-0500 Systolic blood pressure 124 mm[Hg] Pat Praisler-Wood ULTRASOUND TECHNICIAN.SCHOOL BUS ATTENDANT Work Phone: [facility] 09-02-2022 13:42-0500 Body weight 89.81 kg Edilberto Smith MD Work Phone: [facility] 09-02-2022 13:42-0500 Diastolic blood pressure 71 mm[Hg] Edilberto Smith MD Work Phone: [facility] 09-02-2022 13:42-0500 Heart rate 76 /min Edilberto Smith MD Work Phone: [facility] 09-02-2022 13:42-0500 SaO2% (BldA) [Mass fraction] 99 % Edilberto Smith MD Work Phone: [facility] 09-02-2022 13:42-0500 Systolic blood pressure 108 mm[Hg] Edilberto Smith MD Work Phone: [facility] 02-28-2022 14:36-0400 Body weight 87.54 kg Edilberto Smith MD Work Phone: [facility] 02-28-2022 14:36-0400 Diastolic blood pressure 72 mm[Hg] Edilberto Smith MD Work Phone: [facility] 02-28-2022 14:36-0400 Heart rate 61 /min Edilberto Smith MD Work Phone: [facility] 02-28-2022 14:36-0400 Respiratory rate 16 /min Edilberto Smith MD Work Phone: [facility] 02-28-2022 14:36-0400 SaO2% (BldA) [Mass fraction] 93 % Edilberto Smith MD Work Phone: [facility] 02-28-2022 14:36-0400 Systolic blood pressure 120 mm[Hg] Edilberto Smith MD Work Phone: [facility] 01-09-2022 15:38-0400 Body weight 86.18 kg Jose Carlos Townsend MD Work Phone: [facility] 01-09-2022 15:38-0400 Diastolic blood pressure 74 mm[Hg] Jose Carlos Townsend MD Work Phone: [facility] 01-09-2022 15:38-0400 Systolic blood pressure 122 mm[Hg] Jose Carlos Townsend MD Work Phone: [facility] 01-02-2022 15:10-0400 Body weight 86.18 kg Jose Carlos Townsend MD Work Phone: [facility] 01-02-2022 15:10-0400 Diastolic blood pressure 62 mm[Hg] Jose Carlos Townsend MD Work Phone: [facility] 01-02-2022 15:10-0400 Systolic blood pressure 114 mm[Hg] Jose Carlos Townsend MD Work Phone: [facility] 11-24-2021 14:26-0400 Heart rate 86 /min [facility] Work Phone: 11-24-2021 14:26-0400 Respiratory rate 16 /min [facility] Work Phone: 11-24-2021 13:31-0400 Body height 165.[address] [facility] Work Phone: 11-24-2021 13:31-0400 Body mass index (BMI) [Ratio] 31.1 kg/m2 [facility] Work Phone: 11-24-2021 13:31-0400 Body temperature 98.1 [degF] [facility] Work Phone: 11-24-2021 13:31-0400 Body weight 84.[address] [facility] Work Phone: 11-24-2021 13:31-0400 Diastolic blood pressure 65 mm[Hg] [facility] Work Phone: 11-24-2021 13:31-0400 SaO2% (BldA) [Mass fraction] 97 % [facility] Work Phone: 11-24-2021 13:31-0400 Systolic blood pressure 129 mm[Hg] [facility] Work Phone: Encounters Encounter Date Encounter Type Care Provider Facility Start: 04-25-2025 ambulatory Edilberto Smith Facility:[facility] Start: 04-12-2025 End: 04-12-2025 Patient encounter procedure Laura GARCIA -[facility] Work Phone: Start: 04-12-2025 End: 04-12-[address] Edilberto Smith MD Work Phone: -[facility] Start: 04-03-2025 End: 04-06-2025 Refill Edilberto Smith MD Work Phone: [facility] Comment on above: Refill Request Start: 03-15-2025 End: 03-15-2025 Patient encounter procedure Laura Kris [facility] [employer] -[facility] Work Phone: Start: 03-15-2025 End: 03-15-[address] Edilberto Smith MD Work Phone: -[facility] Start: 03-05-2025 End: 03-07-2025 Refill Edilberto Smith MD Work Phone: [facility] Comment on above: Refill Request Start: 02-28-2025 End: 02-28-[address] Edilberto Smith MD Work Phone: -Radiology [facility] Start: 02-28-2025 End: 02-28-2025 Patient encounter procedure Gerardo Wray PA -Radiology [facility] Work Phone: Start: 02-28-2025 End: 02-28-2025 ambulatory Gerardo Wray Facility:[facility] Start: 01-09-2025 End: 01-10-2025 Refill Edilberto Smith MD Work Phone: [facility] Comment on above: Refill Request Start: 01-04-2025 End: 01-04-2025 Refill Edilberto Smith MD Work Phone: [facility] Comment on above: Refill Request Start: 12-28-2024 End: 12-28-2024 Refill Edilberto Smith MD Work Phone: [facility] Comment on above: Refill Request Start: 12-21-2024 End: 12-21-2024 ambulatory EDILBERTO SMITH Facility:[facility] Start: 12-18-2024 End: 12-18-2024 ambulatory [facility] Facility:[facility] Start: 12-14-2024 End: 12-14-2024 Refill Parisa Rush APRN.CNP Work Phone: [facility] Comment on above: Refill Request Start: 10-18-2024 End: 12-18-2024 Follow-up encounter Edilberto Smith MD Work Phone: [facility] Kavitha Wahl Start: 10-18-2024 End: 10-18-2024 ambulatory EDILBERTO SMITH Facility:[facility] Start: 09-20-2024 End: 09-20-2024 ambulatory EDILBERTO SMITH Facility:[facility] Start: 09-20-2024 End: 09-20-2024 Patient encounter procedure Edilberto Smith MD Work Phone: [facility] Comment on above: Mixed hyperlipidemia (Primary Dx); SHIVA (obstructive sleep apnea); Hypothyroidism, unspecified type; Hot flashes; Controlled type 2 diabetes mellitus without complication, without long-term current use of insulin (HCC) Start: 09-16-2024 End: 09-16-2024 ambulatory EDILBERTO SMITH Facility:[facility] Start: 09-14-2024 End: 09-15-2024 ambulatory Edilberto Smith MD Work Phone: [facility] Comment on above: Upcoming visit Start: 09-07-2024 End: 09-07-2024 Office outpatient visit 25 minutes Lexi Marx APRN.CNP Work Phone: [facility] Comment on above: Acute right-sided lo w back pain without sciatica (Primary Dx) Start: 09-07-2024 End: 09-07-2024 ambulatory LEXI MARX Facility:[facility] Start: 09-06-2024 End: 09-06-2024 ambulatory Nurse Intm/Famp Triage [facility] Work Phone: Nurse Phone Triage Comment on above: Low Back Pain Start: 08-27-2024 End: 08-27-2024 Refill Edilberto Smith MD Work Phone: [facility] Comment on above: Refill Request Start: 06-28-2024 End: 06-28-2024 Refill Edliberto Smith MD Work Phone: [facility] Comment on above: Refill Request Start: 06-25-2024 End: 06-25-2024 Patient encounter procedure Jose Carlos Levin APRN.SCHOOL BUS ATTENDANT Work Phone: Neurology Comment on above: SHIVA on CPAP (Primary Dx); Nocturnal hypoxia; Insomnia, unspecified type Start: 06-25-2024 End: 06-25-2024 ambulatory JOSE CARLOS POONAM Facility:[facility] Start: 06-14-2024 End: 06-14-2024 Refill Edilberto Smith MD Work Phone: [facility] Comment on above: Refill Request Start: 04-30-2024 End: 04-30-2024 Patient encounter procedure Lexi Marx APRN.SCHOOL BUS ATTENDANT Work Phone: [facility] Comment on above: Laceration of nose, subsequent encounter (Primary Dx); Fall, subsequent encounter; Encounter for immunization Start: 04-30-2024 End: 04-30-2024 ambulatory [facility] Facility:[facility] Start: 04-25-2024 End: 04-25-2024 Emergency department patient visit Edilberto Smith Facility:[facility] Start: 04-04-2024 End: 04-06-2024 Refill Edilberto Smith MD Work Phone: [facility] Comment on above: Refill Request Start: 03-31-2024 End: 03-31-2024 E-mail encounter from caregiver Jaycee Henderson MD Work Phone: Pulmonary Medicine Start: 03-31-2024 End: 03-31-2024 Patient encounter procedure Jaycee Henderson MD Work Phone: Pulmonary Medicine Comment on above: Appointment with Dr. Henderson Start: 03-30-2024 End: 04-27-2024 Telephone encounter Jose Carlos Levin APRN.SCHOOL BUS ATTENDANT Work Phone: Neurology Start: 03-18-2024 End: 03-18-2024 ambulatory ZOEY PICKARD Facility:[facility] Start: 03-18-2024 End: 03-18-2024 Office outpatient visit 15 minutes Zoey Pickard ULTRASOUND TECHNICIAN.SCHOOL BUS ATTENDANT Work Phone: [facility] [place] Comment on above: Chronic constipation (Primary Dx); Hepatic steatosis Start: 03-10-2024 Documentation procedure Mammog radha Coordinator [facility] Start: 03-10-2024 Letter encounter Mammography Coordinator [facility] Start: 03-10-2024 End: 03-10-2024 ambulatory EDILBERTO SMITH Facility:[facility] Start: 03-10-2024 End: 03-10-2024 Subsequent hospital visit by physician Screen Mammo [facility] Comment on above: Encounter for screen ing mammogram for malignant neoplasm of breast [Z12.31] Epigastric pain [R10 .13] Start: 03-03-2024 End: 03-03-2024 [facility] Start: 03-03-2024 End: 03-03-2024 Patient encounter procedure Edilberto Smith MD Work Phone: [facility] Comment on above: Epigastric pain (Alicia hoang Dx); Encounter for screening mammogram for malignant neoplasm of breast; Tension-type headache, not intractable, unspecified chronicity pattern; Mixed hyperlipidemia; Mitral valve prolapse; SHIVA (obstructive sleep apnea); Hypothyroidism, unspecified type; Prediabetes; Screening for depression; Encounter for screening examination for other mental health and behavioral disorders; Gastroesophageal reflux disease without esophagitis Start: 03-03-2024 End: 03-03-2024 ambulatory EDILBERTO SMITH Facility:[facility] Start: 02-27-2024 Refill Edilberto Smith MD Work Phone: [facility] Comment on above: Refill Request Start: 02-10-2024 End: 02-10-2024 ambulatory EDILBERTO SMITH Facility:[facility] Start: 01-12-2024 ambulatory Edilberto Smith MD Work Phone: [facility] Comment on above: Throat clearing Start: 01-12-2024 End: 03-31-2024 Telephone encounter Jose Carlos Levin APRN.CNP Work Phone: [facility] Comment on above: Orders Start: 01-10-2024 Refill Edilberto Smith MD Work Phone: [facility] [place] Comment on above: Refill Request Start: 12-31-2023 Telephone encounter Jose Carlosreid del rio APRN.SCHOOL BUS ATTENDANT Work Phone: Neurology Comment on above: Results Start: 12-22-2023 Refill Edilberto Smith MD Work Phone: [facility] [place] Comment on above: Refill Request Start: 12-12-2023 End: 12-12-2023 Patient encounter procedure Jose Carlos Levin APRN.SCHOOL BUS ATTENDANT Work Phone: Neurology Comment on above: SHIVA (obstructive sle ep apnea) (Primary Dx); Nocturnal hypoxia; Intolerance of continuous positive airway pressure (CPAP) ventilation Start: 12-08-2023 Telephone encounter Jose Carlos del rio APRN.SCHOOL BUS ATTENDANT Work Phone: Neurology Comment on above: PAP Therapy Follow U p (PT RETURNED DEVICE ) Start: 12-07-2023 Refill Lexi Marx APRN.SCHOOL BUS ATTENDANT Work Phone: [facility] Comment on above: Refill Request Start: 09-19-2023 Telephone encounter Edilberto Smith MD Work Phone: [facility] [place] Comment on above: Results Start: 09-16-2023 End: 09-17-2023 ambulatory EDILBERTO SMITH Facility:[facility] Start: 08-28-2023 Chart [facility] Work Phone: Neurology Comment on above: Psg Check In (Adult) Start: 08-08-2023 Telephone encounter Lexi moreno APRN.CNP Work Phone: [facility] Comment on above: Results Start: 06-18-2023 End: 06-18-2023 Office outpatient visit 25 minutes Lexi Marx APRN.CNP Work Phone: [facility] Comment on above: Fatigue, unspecified type (Primary Dx); Hyperlipidemia, mixed; Snoring; Fatigue due to sleep pattern disturbance; Hyperglycemia; Hypersomnia, unspecified; Body mass index (BMI) 31.0-31.9, adult Start: 06-04-2023 End: 06-04-2023 ambulatory [facility] Work Phone: [facility] Start: 06-03-2023 Telephone encounter Edilberto Smith MD Work Phone: [facility] Comment on above: Patient Question; Im m/Inj Start: 01-22-2023 End: 01-22-2023 Patient encounter procedure Marcella Eisenberg ULTRASOUND TECHNICIAN.SCHOOL BUS ATTENDANT Work Phone: [facility] Comment on above: Vulvar lesion (Prima ry Dx) Start: 12-28-2022 Refill Edilberto Smith MD Work Phone: [facility] [place] Comment on above: Refill Request Start: 12-02-2022 Refill Edilberto Smith MD Work Phone: [facility] [place] Comment on above: Refill Request Start: 11-11-2022 Refill Edilberto Smith MD Work Phone: [facility] [place] Comment on above: Refill Request Start: 09-19-2022 ambulatory Edilberto Smith MD Work Phone: [facility] [place] Comment on above: Skin eruption Start: 09-19-2022 End: 09-19-2022 Patient encounter procedure Pat Duron ULTRASOUND TECHNICIAN.SCHOOL BUS ATTENDANT Work Phone: [facility] Comment on above: Boil, thigh (Primary Dx) Start: 09-02-2022 End: 09-02-2022 Patient encounter procedure Edilberto Smith MD Work Phone: [facility] Comment on above: Mixed hyperlipidemia (Primary Dx); Mitral valve prolapse; Acute superficial gastritis without hemorrhage; Macrocytosis; Hypothyroidism, unspecified type; Hyperglycemia Start: 07-31-2022 Refill Edilberto Smith MD Work Phone: [facility] Comment on above: Refill Request Start: 07-07-2022 Refill Edilberto Smith MD Work Phone: [facility] [place] Comment on above: Refill Request Start: 03-29-2022 End: 03-29-2022 [facility] on above: Lumbar pain (Primary Dx) Start: 03-26-2022 End: 03-26-2022 ambulatory Julianna O'Morgan PT [facility] Physical [facility] Comment on above: Lumbar pain (Primary Dx) Start: 03-21-2022 End: 03-21-2022 ambulatory Julianna O'Morgan PT [place] [facility] Physical Therapy Comment on above: Lumbar pain (Primary Dx) Start: 03-12-2022 End: 03-12-2022 ambulatory Julianna O'Morgan PT [place] [facility] Physical Therapy Comment on above: Lumbar pain (Primary Dx) Start: 03-04-2022 End: 03-04-2022 ambulatory Julianna O'Morgan PT [place] [facility] Physical Therapy Comment on above: Lumbar pain (Primary Dx) Start: 02-28-2022 End: 02-28-2022 Subsequent hospital visit by physician [facility] Work Phone: Radiology Comment on above: Lumbar pain [M54.50] Start: 02-28-2022 End: 02-28-2022 Patient encounter procedure Edilberto Smith MD Work Phone: [facility] Comment on above: Hypothyroidism, unsp ecified type (Primary Dx); Hyperlipidemia, mixed; Mitral valve prolapse; Mixed hyperlipidemia; Hot flashes; Lumbar pain; Palpitations; Hyperglycemia; Need for vaccination Start: 01-22-2022 Get Medical Advice Edilberto Smith MD Work Phone: [facility] Comment on above: Medication refill Trimo-Ramon Jelly Start: 01-09-2022 End: 01-09-2022 Patient encounter procedure Jose Carlos Townsend MD Work Phone: OB/Gynecology Comment on above: Cystocele, midline ( Primary Dx) Start: 01-09-2022 Refill Jose Carlos mcclelland MD Work Phone: OB/Gynecology Comment on above: Refill Request Start: 01-02-2022 End: 01-02-2022 Patient encounter procedure Jose Carlos Townsend MD Work Phone: OB/Gynecology Comment on above: Prolapse of vaginal wall (Primary Dx); Cystocele, midline Start: 12-29-2021 ambulatory Jose Carlos mcclelland MD Work Phone: OB/Gynecology Comment on above: Pessary Start: 12-11-2021 Refill Edilberto Smith MD Work Phone: [facility] Comment on above: Refill Request; Refi ll Request Start: 12-04-2021 Refill Edilberto Smith MD Work Phone: [facility] Comment on above: Refill Request Start: 11-24-2021 End: 11-24-2021 [facility] Start: 11-24-2021 End: 11-24-2021 Patient encounter procedure Duyen Jo PA-C Work Phone: [facility] Comment on above: Injury of head, init ial encounter (Primary Dx) Procedures Date Procedure Procedure Detail Performing Clinician Start: 02-28-2025 X-ray of esophagus w ith double contrast Dr. Edilberto Smith MD Work Phone: Start: 04-30-2024 REMOVAL SUTURES OR S TAPLES NOT REQUIRING ANESTHESIA Lexi Marx ULTRASOUND TECHNICIAN.SCHOOL BUS ATTENDANT Work Phone: Start: 04-30-2024 PFIZER-BIONTECH COVI D-19 VACCINE AGE 12+ YR (COMIRNATY) Lexi Marx ULTRASOUND TECHNICIAN.SCHOOL BUS ATTENDANT Work Phone: Start: 03-10-2024 Us abdominal real ti me w/image limited Edilberto Smith MD Work Phone: Start: 03-03-2024 Adult depression scr eening assessment Edilberto Smith MD Work Phone: Start: 06-04-2023 PFIZER-BIONTECH COVI D-19 VACCINE ( SEASON) AGE 12+ YR Tanner Cohen MD Work Phone: Start: 06-04-2023 INFLUENZA VACCINE, P RSV FREE, AGE 65+ YR, HIGH DOSE, QUADRIVALENT (FLUZONE HIGH-DOSE) Tanner Cohen MD Work Phone: Start: 02-28-2022 Radex spine lumbosac ral 2/3 views Edilberto Smith MD Work Phone: Start: 07-28-2022 Adult depression scr eening assessment Edilberto Smith MD Work Phone: Start: 04-17-2020 Adult depression scr eening assessment Duyen Jo PA-C Work Phone: Start: 02-27-2018 Colonoscopy Duyen Jo PA-C Work Phone: Plan of Treatment Date Care Activity Detail Author Start: 11-25-2031 Urine microalbumin profile [facility] Start: 09-16-2027 [facility] Start: 03-03-2027 [facility] Start: 02-09-2027 [facility] Start: 08-29-2026 LIPID SCREEN LIPID SCREEN [facility] Start: 08-14-2026 [facility] Start: 02-18-2026 [facility] Start: 12-21-2025 Annual PCP Team Peer Health Promoter hailee Disease Visit Annual PCP Team Chronic Disease Visit [facility] Start: 12-21-2025 Covid-19 Vaccine () Covid-19 Vaccine () [facility] Comment on above: Postponed from 10/28 (Declined at this time) Start: 12-21-2025 Diabetic foot examination Diabetic Foot Exam [facility] Start: 09-21-2025 Glaucoma screening Dilated Retinal E xam [facility] Start: 09-20-2025 Annual PCP Team Peer Health Promoter hailee Disease Visit Annual PCP Team Chronic Disease Visit [facility] Start: 09-16-2025 Hepatitis B surface antibody level LDL Cholesterol [facility] Start: 09-07-2025 Annual PCP Team Peer Health Promoter hailee Disease Visit Annual PCP Team Chronic Disease Visit [facility] Start: 08-21-2025 DIABETES SCREEN DIABETES SCREEN [facility] Start: 06-24-2025 End: 06-24-2025 Patient encounter procedure 06/24/2025 4:00 PM EST Office Visit Family [facility] [address] [facility] [place] [id number] Edilberto Smith MD [address] [facility] [place] [address] Medicare wellness. Labs prior [facility] [place] Comment on above: Medicare wellness. L abs prior Start: 06-20-2025 Hemoglobin A1c measurement HbA1C [facility] Start: 04-30-2025 Annual PCP Team Peer Health Promoter hailee Disease Visit Annual PCP Team Chronic Disease Visit [facility] Start: 04-04-2025 Influenza vaccination Influenza Vacc ine (#1) [facility] Start: 03-03-2025 Annual PCP Team Peer Health Promoter hailee Disease Visit Annual PCP Team Chronic Disease Visit [facility] Start: 03-03-2025 Anxiety Screening Anxiety Screening [facility] Start: 03-03-2025 Covid-19 Vaccine () Covid-19 Vaccine () [facility] Comment on above: Postponed from 10/02 (Declined at this time) Start: 03-03-2025 Depression Screening Depression Scre ening [facility] Start: 12-21-2024 End: 12-21-2024 Patient encounter procedure 12/21/2024 4:40 PM EDT Office Visit [facility] Kavitha Wahl [address] [place], [place] [id number] Edilberto Smith MD [address] [place], [place] [id number] 3 month follow up. Labs prior [facility] Kavitha Wahl Comment on above: 3 month follow up. L abs prior Start: 12-18-2024 End: 03-19-2025 CBC W Auto Differential panel - Blood COMPLETE BLOOD COUNT AND DIFFERENTIAL Lab Routine Controlled type 2 diabetes mellitus without complication, without long-term current use of insulin ([facility]) Expected: 12/18/2024, Expires: 03/19/2025 [facility] Comment on above: Expected: 12/18/2024 , Expires: 03/19/2025 Start: 12-18-2024 End: 03-19-2025 Comprehensive metabolic 2000 panel - Serum or Plasma COMPREHENSIVE METABOLIC PANEL Lab Routine Controlled type 2 diabetes mellitus without complication, without long-term current use of insulin (HCC) Expected: 12/18/2024, Expires: 03/19/2025 [facility] Comment on above: Expected: 12/18/2024 , Expires: 03/19/2025 Start: 12-18-2024 End: 03-19-2025 Hemoglobin A1c in Blood HEMOGLOBIN A1C Lab Routine Controlled type 2 diabetes mellitus without complication, without long-term current use of insulin (HCC) Expected: 12/18/2024, Expires: 03/19/2025 [facility] Comment on above: Expected: 12/18/2024 , Expires: 03/19/2025 Start: 12-18-2024 End: 12-18-2024 ambulatory 12/18/2024 9:30 AM EDT Results Only [place] [facility] Draw Station [address] [place] [address] [facility] Start: 10-28-2024 Covid-19 Vaccine () Covid-19 Vaccine () [facility] Start: 10-18-2024 End: 01-17-2025 Thyrotropin [Units/volume] in Serum or Plasma THYROID STIMULATING HORMONE Lab Routine Hypothyroidism, unspecified type Expected: 10/18/2024, Expires: 01/17/2025 [facility] Work Phone: Comment on above: Expected: 10/18/2024 , Expires: 01/17/2025 Start: 09-20-2024 End: 09-20-2024 Patient encounter procedure 09/20/2024 2:40 PM EST Office Visit [facility] [address] [place] [address] Edilberto Smith MD [address] [place] [address] 6 month routine f/u [facility] Comment on above: 6 month routine f/u Start: 09-16-2024 End: 09-16-2024 ambulatory 09/16/2024 9:30 AM EST Results Only [place] Draw Station [address] [place] [address] [place] [facility] Station Start: 09-15-2024 End: 12-15-2024 Hemoglobin A1c in Blood HEMOGLOBIN A1C Lab Routine Prediabetes Hypothyroidism, unspecified type Expected: 09/15/2024, Expires: 12/15/2024 [facility] Work Phone: Comment on above: Expected: 09/15/2024 , Expires: 12/15/2024 Start: 09-15-2024 End: 12-15-2024 Lipid 1996 panel - Serum or Plasma LIPID PANEL BASIC Lab Routine Prediabetes Hypothyroidism, unspecified type Expected: 09/15/2024, Expires: 12/15/2024 [facility] Comment on above: Expected: 09/15/2024 , Expires: 12/15/2024 Start: 09-15-2024 End: 12-15-2024 Thyrotropin [Units/volume] in Serum or Plasma THYROID STIMULATING HORMONE Lab Routine Hypothyroidism, unspecified type Expected: 09/15/2024, Expires: 12/15/2024 [facility] Comment on above: Expected: 09/15/2024 , Expires: 12/15/2024 Start: 09-07-2024 End: 09-07-2024 Patient encounter procedure 09/07/2024 10:00 AM EST Office Visit Family Medicine [place] [address] [place], [place] [id number] Lexi Marx, ULTRASOUND TECHNICIAN.SCHOOL BUS ATTENDANT [address] [place] [address] Injury to back [facility] [place] Comment on above: Injury to back Start: 09-03-2024 Annual PCP Team Peer Health Promoter hailee Disease Visit Annual PCP Team Chronic Disease Visit [facility] Start: 08-29-2024 DIABETES SCREEN DIABETES SCREEN [facility] Start: 08-04-2024 Advance Directive Discussion Advance Directive Discussion [facility] Start: 06-25-2024 End: 06-25-2024 Patient encounter procedure 06/25/2024 9:30 AM EST Office Visit Neurology [address] [place] [address] Jose Carlos Levin, ULTRASOUND TECHNICIAN.SCHOOL BUS ATTENDANT [address] [place] [address] Medicare requirements for Cpap, [facility] Comment on above: Medicare requirement s for Cpap, [facility] Start: 06-18-2024 Annual PCP Team Peer Health Promoter hailee Disease Visit Annual PCP Team Chronic Disease Visit [facility] Start: 04-30-2024 End: 04-30-2024 Patient encounter procedure 04/30/2024 2:20 PM EDT Office Visit [facility] [place] [address] [place] [address] Lexi Marx APRN.SCHOOL BUS ATTENDANT [address] [place] [address] stitch removal-er 04/25/24 WC stitches on top of nose [facility] [place] Comment on above: stitch removal-er WC stitches on top of nose Start: 04-04-2024 Covid-19 Vaccine () Covid-19 Vaccine () [facility] Start: 04-04-2024 Covid-19 Vaccine () Covid-19 Vaccine () [facility] Start: 04-04-2024 Influenza vaccination Influenza Vacc ine (#1) [facility] Start: 04-01-2024 End: 04-01-2024 Patient encounter procedure 04/01/2024 11:00 AM EDT Office Visit Pulmonary Medicine [address] [place] [address] Jaycee Henderson MD [address] [place] [address] Nocturnal hypoxia [G47 Pulmonary Medicine Comment on above: Nocturnal hypoxia [G 47 Start: 03-18-2024 End: 03-18-2024 Patient encounter procedure 03/18/2024 11:40 AM EDT Office Visit Family Medicine [place] [address] [place] [address] Zoey Pickard APRN.SCHOOL BUS ATTENDANT [address] [place] [address] 2 week follow up [facility] Comment on above: 2 week follow up Start: 03-10-2024 End: 03-10-2024 Patient encounter procedure Mammogram Comment on above: Encounter for screen ing mammogram for malignant neoplasm of breast [Z12.31] Epigastric pain [R10 .13] Start: 03-03-2024 End: 06-02-2024 Comprehensive metabolic 2000 panel - Serum or Plasma [facility] Comment on above: Expected: 03/03/2024 , Expires: 06/02/2024 Start: 03-03-2024 End: 06-02-2024 Lipase [Enzymatic activity/volume] in Serum or Plasma [facility] Comment on above: Expected: 03/03/2024 , Expires: 06/02/2024 Start: 03-03-2024 End: 03-03-2024 Patient encounter procedure 03/03/2024 1:40 PM EDT Office Visit [facility] [place] [address] [place], [place] [id number] Edilberto Smith MD [address] [place], [place] [address] 6 month follow up [facility] Comment on above: 6 month follow up Start: 02-29-2024 Annual PCP Team Peer Health Promoter hailee Disease Visit Annual PCP Team Chronic Disease Visit [facility] Start: 12-12-2023 End: 12-12-2023 Patient encounter procedure 12/12/2023 3:00 PM EDT Office Visit Neurology [address] [place], [place] [id number] Jose Carlos Levin APRN.SCHOOL BUS ATTENDANT [address] [place] [address] SHIVA (obstructive sleep apnea) [G47.33] Neurology Comment on above: SHIVA (obstructive sle ep apnea) [G47.33] Start: 10-03-2023 Covid-19 Vaccine ( season) Covid-19 Vaccine () [facility] Start: 09-02-2023 ANNUAL PCP TEAM SCOUT PROFESSIONAL SPORTS HAILEE DISEASE VISIT ANNUAL PCP TEAM CHRONIC DISEASE VISIT [facility] Start: 08-04-2023 Behavioral Health Screening Behavioral Health Screening [facility] Start: 06-18-2023 End: 09-17-2023 25-hydroxyvitamin D3 [Mass/volume] in Serum or Plasma [facility] Work Phone: Comment on above: Expected: 06/18/2023 , Expires: 09/17/2023 Start: 06-18-2023 End: 09-17-2023 Comprehensive metabolic 2000 panel - Serum or Plasma [facility] Work Phone: Comment on above: Expected: 06/18/2023 , Expires: 09/17/2023 Start: 06-18-2023 End: 09-17-2023 Hemoglobin A1c in Blood [facility] Work Phone: Comment on above: Expected: 06/18/2023 , Expires: 09/17/2023 Start: 06-18-2023 End: 09-17-2023 Thyrotropin [Units/volume] in Serum or Plasma [facility] Work Phone: Comment on above: Expected: 06/18/2023 , Expires: 09/17/2023 Start: 04-04-2023 Covid-19 Vaccine () Covid-19 Vaccine () [facility] Start: 04-04-2023 Influenza vaccination Influenza Vacc ine (#1) [facility] Start: 03-02-2023 End: 05-02-2023 Hemoglobin A1c in Blood HGB A1C Lab Routine Hyperglycemia Expected: 03/02/2023, Expires: 05/02/2023 [facility] Work Phone: Comment on above: Expected: 03/02/2023 , Expires: 05/02/2023 Start: 02-28-2023 Adult depression screening assessment DEPRESSION SCREENING [facility] Start: 02-28-2023 ANNUAL PCP TEAM SCOUT PROFESSIONAL SPORTS HAILEE DISEASE VISIT ANNUAL PCP TEAM CHRONIC DISEASE VISIT [facility] Start: 02-27-2023 Colonoscopy COLONOSCOPY [facility] Start: 02-27-2023 COLORECTAL CANCER SCREENING COLORECTAL CANCER SCREENING [facility] Start: 09-02-2022 End: 11-02-2022 Cobalamin (Vitamin B12) [Mass/volume] in Serum or Plasma [facility] Work Phone: Comment on above: Expected: 09/02/2022 , Expires: 11/02/2022 Start: 09-02-2022 End: 11-02-2022 Folate [Mass/volume] in Serum or Plasma [facility] Work Phone: Comment on above: Expected: 09/02/2022 , Expires: 11/02/2022 Start: 08-31-2022 End: 02-28-2023 CBC W Auto Differential panel - Blood CBC + DIFF Lab Routine Hot flashes Expected: 08/31/2022, Expires: 02/28/2023 [facility] Work Phone: Comment on above: Expected: 08/31/2022 , Expires: 02/28/2023 Start: 08-31-2022 End: 02-28-2023 Comprehensive metabolic 2000 panel - Serum or Plasma COMP METABOLIC PANEL Lab Routine Hyperlipidemia, mixed Expected: 08/31/2022, Expires: 02/28/2023 [facility] Work Phone: Comment on above: Expected: 08/31/2022 , Expires: 02/28/2023 Start: 08-31-2022 End: 10-31-2022 Hemoglobin A1c in Blood HGB A1C Lab Routine Hyperglycemia Expected: 08/31/2022, Expires: 10/31/2022 [facility] Work Phone: Comment on above: Expected: 08/31/2022 , Expires: 10/31/2022 Start: 08-31-2022 End: 02-28-2023 Lipid 1996 panel - Serum or Plasma LIPID PANEL BASIC Lab Routine Hyperlipidemia, mixed Expected: 08/31/2022, Expires: 02/28/2023 [facility] Work Phone: Comment on above: Expected: 08/31/2022 , Expires: 02/28/2023 Start: 08-31-2022 End: 10-31-2022 Thyrotropin [Units/volume] in Serum or Plasma TSH BLD Lab Routine Hypothyroidism, unspecified type Expected: 08/31/2022, Expires: 10/31/2022 [facility] Work Phone: Comment on above: Expected: 08/31/2022 , Expires: 10/31/2022 Start: 08-29-2022 ANNUAL PCP TEAM SCOUT PROFESSIONAL SPORTS HAILEE DISEASE VISIT ANNUAL PCP TEAM CHRONIC DISEASE VISIT [facility] Start: 08-04-2022 ADVANCE DIRECTIVE DISCUSSION ADVANCE DIRECTIVE DISCUSSION [facility] Start: 08-04-2022 DEPRESSION ASSESSMENT DEPRESSION ASS ESSMENT [facility] Start: 04-04-2022 Influenza vaccination INFLUENZA (#1) [facility] Start: 08-04-2021 ADVANCE DIRECTIVE DISCUSSION ADVANCE DIRECTIVE DISCUSSION [facility] Start: 08-04-2021 [facility] Start: 04-17-2021 Adult depression screening assessment DEPRESSION SCREENING [facility] Start: 08-04-2015 PNEUMOCOCCAL: 65+ (2 - PCV) PNEUMOCOCCAL: 65+ (2 - PCV) [facility] Start: 07-04-2011 Medicare Annual Well ness Visit Medicare Annual Wellness Visit [facility] Start: 2006 RSV Vaccine (1 - 1-d ose 60+ series) RSV Vaccine (1 - 1-dose 60+ series) [facility] Start: 1991 COLOGUARD (FIT-DNA) COLOGUARD (FIT-D NA) [facility] Start: [address] COLONOGRAPHY [facility] Start: 1991 FECAL OCCULT BLOOD FECAL OCCULT BLOO D [facility] Start: 1991 SIGMOIDOSCOPY SIGMOIDOSCOPY [facility] Start: 1965 Urine microalbumin profile DTAP,TDAP,TD (1 - Tdap) [facility] Start: 1964 Anxiety Screening Anxiety Screening [facility] Start: 1964 Depression Screening Depression Scre ening [facility] Start: 1956 Hepatitis B screening Urine Albumin:Creatinine Ratio [facility] Bacteria identified in Wound by Culture WOUND CULTURE AND GRAM STAIN Microbiology Routine Boil, thigh 09/19/2022 11:29 AM EST [facility] Work Phone: End: 06-17-2024 HOME SLEEP APNEA TEST (HSAT) HOME SLEEP APNEA TEST (HSAT) Procedures Routine Fatigue, unspecified type Snoring Fatigue due to sleep pattern disturbance Hypersomnia, unspecified 1 Occurrences starting 06/18/2023 until 06/17/2024 [facility] Work Phone: Comment on above: 1 Occurrences starti ng 06/18/2023 until 06/17/2024 End: 08-30-2025 MG Breast Screening PERRI SCREENING Radiology Routine Encounter for screening mammogram for malignant neoplasm of breast 1 Occurrences starting 03/03/2024 until 04/02/2025 [facility] Work Phone: Comment on above: 1 Occurrences starti ng 03/03/2024 until 04/02/2025 MG Breast Screening PERRI SCREENIN G Radiology Routine Encounter for screening mammogram for malignant neoplasm of breast 03/10/2024 10:52 AM EDT [facility] Work Phone: OXIMETRY - NOCTURNAL OXIMETRY - NOCTURNAL Procedures Routine Nocturnal hypoxia Ordered: 12/12/2023 [facility] Work Phone: Comment on above: Ordered: 12/12/2023 End: 09-06-2024 PAP TITRATION PSG (CPAP, BIPAP, ASV) PAP TITRATION PSG (CPAP, BIPAP, ASV) Procedures Routine Nocturnal hypoxia SHIVA (obstructive sleep apnea) 1 Occurrences starting 08/08/2023 until 09/06/2024 [facility] Work Phone: Comment on above: 1 Occurrences starti ng 08/08/2023 until 09/06/2024 Patient Education ED Laceration, Face: Skin Glue [facility] Work Phone: Patient referral [facility] Work Phone: PT PLAN OF CARE CERTIFICATION PT PLAN OF CARE CERTIFICATION Procedures Routine Lumbar pain Ordered: 03/04/2022 [facility] Comment on above: Ordered: 03/04/2022 Radex spine lumbosac ral 2/3 views XR LUMBAR GENERAL 3V AP/LAT/L5-S1 Radiology Routine Lumbar pain 02/28/2022 4:01 PM EDT [facility] Work Phone: End: 04-02-2025 US Abdomen RUQ US ABD RIGHT UPPER QUADRANT Radiology Routine Epigastric pain 1 Occurrences starting 03/03/2024 until 04/02/2025 [facility] Comment on above: 1 Occurrences starti ng 03/03/2024 until 04/02/2025 [facility] Immunizations Immunization Date Immunization Notes Care Provider Fa ania 04-30-2024 COVID-19 vaccine, ag e 12+ yr (PFIZER-BIONTECH COMIRNATY) Lexi Marx ULTRASOUND TECHNICIAN.SCHOOL BUS ATTENDANT Work Phone: [facility] 04-30-2024 influenza, high dose seasonal, preservative-free Lexi Marx ULTRASOUND TECHNICIAN.SCHOOL BUS ATTENDANT Work Phone: [facility] 04-30-2024 influenza virus vaccine, unspecified formulation Edilberto Smith MD Work Phone: [facility] 07-16-2023 respiratory syncytia l virus (RSV) vaccine, bivalent (ABRYSVO) Edilberto Smith MD Work Phone: [facility] 06-04-2023 COVID-19 vaccine, ag e 12+ yr, season (PFIZER-BIONTECH) Immunization [place] Work Phone: [facility] Work Phone: 06-04-2023 influenza (HD-IIV4) vaccine, age 65+ yr, high dose, quadrivalent, PF (FLUZONE HIGH-DOSE) Immunization [place] Work Phone: [facility] Work Phone: 06-04-2023 influenza virus vaccine, unspecified formulation Edilberto Smith MD Work Phone: [facility] 05-21-2022 COVID-19 booster vaccine, age 12+ yr, bivalent (PFIZER-BIONTECH) Edilberto Smith MD Work Phone: [facility] 05-21-2022 influenza (HD-IIV4) vaccine, age 65+ yr, high dose, quadrivalent, PF (FLUZONE HIGH-DOSE) Edilberto Smith MD Work Phone: [facility] 05-21-2022 influenza, high dose seasonal, preservative-free Edilberto Smith MD Work Phone: [facility] 05-21-2022 influenza virus vaccine, unspecified formulation Edilberto Smith MD Work Phone: [facility] 02-28-2022 pneumococcal Conjuga te, unspecified formulation Edilberto Smith MD Work Phone: [facility] Work Phone: 02-28-2022 pneumococcal (PCV20) vaccine, 20 valent (PREVNAR 20) Edilberto Smith MD Work Phone: [facility] 11-24-2021 tetanus toxoid, redu pita diphtheria toxoid, and acellular pertussis vaccine, adsorbed [facility] 05-30-2021 COVID-19 vaccine, ag e 12+ yr ([employer]-R2G - PURPLE TOP) Duyen Jo PA-C Work Phone: [facility] 05-30-2021 influenza (aIIV4) vaccine, age 65+ yr, quadrivalent, PF (FLUAD QUADRIVALENT) Duyen Westy PA-C Work Phone: [facility] 05-30-2021 influenza, high dose seasonal, preservative-free Duyen Athy PA-C Work Phone: [facility] 10-31-2020 Covid (Pfizer) [facility] 10-10-2020 Covid (Pfizer) [facility] 06-15-2020 zoster vaccine recombinant Duyen Athy PA-C Work Phone: [facility] 04-25-2020 influenza (aIIV4) vaccine, age 65+ yr, quadrivalent, PF (FLUAD QUAD) Edilberto Smith MD Work Phone: [facility] 04-11-2020 zoster vaccine recombinant Duyen Athy PA-C Work Phone: [facility] 05-11-2019 influenza, high dose seasonal, preservative-free Duyen Athy PA-C Work Phone: [facility] 06-02-2018 influenza, high dose seasonal, preservative-free Duyen Athy PA-C Work Phone: [facility] 05-05-2018 Influenza virus vaccine [facility] 05-16-2016 influenza, high dose seasonal, preservative-free Duyen Athy PA-C Work Phone: [facility] 08-04-2014 pneumococcal polysaccharide vaccine, 23 valent Jose Carlos Townsend MD Work Phone: [facility] Work Phone: 08-02-2009 novel [id number], preservative-free, injectable Duyen Deysi MARIBELL Work Phone: [facility] 10-17-2008 zoster vaccine, live Duyen At hy MARIBELL Work Phone: [facility] Payers Date Payer Category Payer Unknown [id number] 2024 Self-pay [id number] 2020 Private Health Insurance [facility] [id number] Unknown [id number] 2020 Unknown [facility] MEDICARE SUPPLEMENT [id number] 2020-Present [phone] [address] [facility] [place] [address] [facility] [id number] 2020 Medicare [id number] 2011 Medicare MEDICARE MEDICAR E A AND B [id number] 2011-Present [phone] [place] [address] Medicare [id number] 2011 Medicare [id number] 2011 Medicare [id number] Unknown [id number] Unknown [id number] Unknown [id number] Unknown [id number] Unknown [id number] Unknown [id number] Social History Date Type Detail Facility Start: 11-24-2021 Tobacco smoking status [facility] Unknown if ever smoked [facility] Work Phone: Start: 06-28-2020 None [facility] Start: 06-28-2020 With Family [facility] Start: 1945 Sex Assigned At Female [facility] Start: 08-05-2015 End: 04-11-2025 Tobacco smoking status MDIS Never smoked tobacco [facility] Start: 08-05-2015 End: 09-02-2022 Tobacco use and exposure Smokeless tobacco non-user [facility] Start: 09-04-2021 End: 12-21-2024 Alcohol intake Current drinker of alcohol (finding) [facility] Start: 09-04-2021 End: 02-28-2023 Alcohol intake [facility] Start: 06-12-2020 End: 08-29-2022 History SDOH Alcohol Frequency 5 [facility] Start: 06-12-2020 End: 08-29-2022 History SDOH Alcohol Std Drinks 1 [facility] Start: 02-27-2018 History SDOH Alcohol Comment daily [facility] Start: 12-02-2019 End: 08-29-2022 History SDOH Social Connections Get Together 3 [facility] Start: 04-17-2020 History SDOH Physical Activity DPW 0 [facility] Start: 04-17-2020 End: 08-29-2022 History SDOH Stress 2 [facility] Start: 12-02-2019 Education 12 [facility] Start: 11-14-2021 End: 02-28-2022 Exposure to SARS-CoV-2 (event) Not sure [facility] Start: 08-29-2022 History SDOH Social Connections Phone 4 [facility] Start: 08-29-2022 End: 02-28-2023 Social connection and isolation panel [facility] Do you belong to any clubs or organizations such as denominational groups, unions, fraternal or athletic groups, or school groups? Yes [facility] Are you now , , , , never or living with a partner? [facility] How often to you hav e a drink containing alcohol? 4 or more times a week [facility] How many standard dr inks containing alcohol do you have on a typical day? 1 or 2 [facility] How often do you hav e 6 or more drinks on 1 occasion? Never [facility] [facility] Start: 07-05-2012 How hard is it for you to pay for the very basics like food, housing, medical care, and heating Not hard at all [facility] Do you feel stress - tense, restless, nervous, or anxious, or unable to sleep at night because your mind is troubled all the time - these days [OSQ] Not at all [facility] (I/We) worried sarahy er (my/our) food would run out before (I/we) got money to buy more. Never true [facility] In the past 12 month s, was there a time when you were not able to pay the mortgage or rent on time? No [facility] Start: 01-19-2019 Gender identity Identifies as female gender (finding) [facility] Start: 01-19-2019 Sexual orientation Heterosexual (finding) [facility] Are you now , , , , never or living with a partner? [facility] Do you feel stress - tense, restless, nervous, or anxious, or unable to sleep at night because your mind is troubled all the time - these days [OSQ] Only a little [facility] Medical Equipment Procedure Code Equipment Code Equipment Origin al Text Equipment Identifier Dates Total knee replacement ASYMMETRIC PATELLA FDA Start: 11-03-2018 Total knee replacement CEMENT,HV SIMPLEX FDA Start: 11-03-2018 Total knee replacement CEMENT,HV SIMPLEX FDA Start: 11-03-2018 Total knee replacement CRUCIATE RETAINING FEMORAL FDA Start: 11-03-2018 Total knee replacement PRIMARY TIBIAL BASEPLATE FDA Start: 11-03-2018 Total knee replacement TIBIAL BEARING INSERT-CS FDA Start: 11-03-2018 Total knee replacement ASYMMETRIC PATELLA FDA Start: 11-03-2018 Total knee replacement CEMENT,HV SIMPLEX FDA Start: 11-03-2018 Total knee replacement CEMENT,HV SIMPLEX FDA Start: 11-03-2018 Total knee replacement CRUCIATE RETAINING FEMORAL FDA Start: 11-03-2018 Total knee replacement PRIMARY TIBIAL BASEPLATE FDA Start: 11-03-2018 Total knee replacement TIBIAL BEARING INSERT-CS FDA Start: 11-03-2018 Total knee replacement ASYMMETRIC PATELLA FDA Start: 11-03-2018 Total knee replacement CEMENT,HV SIMPLEX FDA Start: 11-03-2018 Total knee replacement CEMENT,HV SIMPLEX FDA Start: 11-03-2018 Total knee replacement CRUCIATE RETAINING FEMORAL FDA Start: 11-03-2018 Total knee replacement PRIMARY TIBIAL BASEPLATE FDA Start: 11-03-2018 Total knee replacement TIBIAL BEARING INSERT-CS FDA Start: 11-03-2018 Total knee replacement ASYMMETRIC PATELLA FDA Start: 11-03-2018 Total knee replacement CEMENT,HV SIMPLEX FDA Start: 11-03-2018 Total knee replacement CEMENT,HV SIMPLEX FDA Start: 11-03-2018 Total knee replacement CRUCIATE RETAINING FEMORAL FDA Start: 11-03-2018 Total knee replacement PRIMARY TIBIAL BASEPLATE FDA Start: 11-03-2018 Total knee replacement TIBIAL BEARING INSERT-CS FDA Start: 11-03-2018 Clinical Notes 11-24-2021 to 03-15-2025 Note Date & Type Note Facility 03-15-2025 Evaluation note Diagnosis Onset Date Resolution Family hx of colon cancer acute March 15 2:09pm GERD (gastroesophageal reflux disease) acute March 15 2:09pm [facility] Work Phone: [phone] Telephone encounter Note* Telephone Encounter - Rosemary Barron LPN - 03/07/2025 2:23 PM EDT 06/24/25 [facility] 12/21/24 [facility]08-04-2025 Miscellaneous Notes* Telephone Encounter - Rosemary Barron LPN - 03/07/2025 2:23 PM EDT 06/24/25 [facility] 12/21/24 [facility] Radiology Diagnostic study note [facility] [address] [place] [address] Esophagus Dual Contrast MR#: [id number] Acct: [id number] Name: YANG SANDHU Rep #: [id number] : 1945 F 79 From: Fernando Duarte MD PCP: Dr. Edilberto Smith MD Status: REG C Study:Esophagus Dual Contrast Date of Exam: 02/28/25 Exam# [id number] Ordering Dr: Gerardo Wray EXAM: Single and double contrast esophagram. CLINICAL HISTORY: Gastroesophageal reflux disease. Patient complains of constant throat clearing. COMPARISON: None. TECHNIQUE: Single and double contrast esophagram. Fluoroscopy time: 138 seconds. Dose: 53.3 mGy. FINDINGS: Recurrent esophageal reflux is seen to the level of the proximal esophagus. No area of persistent esophageal narrowing is noted. Intermittent spasm of the mid to distal esophagus is noted. Limited imaging of the stomach and duodenum shows no abnormality. Easy passage of the 13 mm barium tablet into the stomach was seen. RAD/Esophagus Dual Contrast IMPRESSION: 1. Extensive recurrent gastroesophageal reflux. 2. Intermittent spasm of the mid to distal esophagus. Reading Location: [place] [address] CC: Dr. Edilberto Smith MD; ROSANNE Muniz ~ Rn Visiting: Signed [facility]06-09-2025 Telephone encounter Note* Telephone Encounter - Rosemary Barron LPN - 01/10/2025 4:34 PM EDT Prescription Refill Information The patient has been identified by name and date of : Yes Caregiver verified no other encounters exist for this prescription request: Yes Caregiver confirmed with patient/requestor that no other refills are due, in the near future, with this provider at this time: Yes The last office visit in the department: 12/21/24 Does the patient have a future office visit with this provider/department: Yes Requested Prescriptions Pending Prescriptions Disp Refills fluticasone (FLONASE) 50 mcg/actuation nasal spray 16 g 2 Sig: Use 1 spray in each nostril once daily. Rosemary Barron LPN January 10, 2025 4:34 PM [facility]06-09-2025 Miscellaneous Notes* Telephone Encounter - Rosemary Barron LPN - 01/10/2025 4:34 PM EDT Prescription Refill Information The patient has been identified by name and date of : Yes Caregiver verified no other encounters exist for this prescription request: Yes Caregiver confirmed with patient/requestor that no other refills are due, in the near future, with this provider at this time: Yes The last office visit in the department: 12/21/24 Does the patient have a future office visit with this provider/department: Yes Requested Prescriptions Pending Prescriptions Disp Refills fluticasone (FLONASE) 50 mcg/actuation nasal spray 16 g 2 Sig: Use 1 spray in each nostril once daily. Roseamry Barron LPN January 10, 2025 4:34 PM [facility] Telephone encounter Note * Telephone Encounter - Jaycee Israel MA - 01/04/2025 9:41 AM EDT Patient has been identified by name and date of : yes Patient phones for refill(s): Requested Prescriptions Pending Prescriptions Disp Refills FLUoxetine (PROZAC) 40 mg capsule 90 capsule 3 Sig: Take 1 capsule by mouth once daily. Date of last office visit in primary care: 12/21/2024 Date of next office visit in primary care: 06/24/2025 Please advise. Thank you. Jaycee Israel MA. [facility]06-03-2025 Miscellaneous Notes* Telephone Encounter - Jaycee Israel MA - 01/04/2025 9:41 AM EDT Patient has been identified by name and date of : yes Patient phones for refill(s): Requested Prescriptions Pending Prescriptions Disp Refills FLUoxetine (PROZAC) 40 mg capsule 90 capsule 3 Sig: Take 1 capsule by mouth once daily. Date of last office visit in primary care: 12/21/2024 Date of next office visit in primary care: 06/24/2025 Please advise. Thank you. Jaycee Israel MA. * Telephone Encounter - Hanny Seo - 01/04/2025 9:38 AM EDT Prescription Refill Information The patient has been identified by name and date of : Yes Caregiver verified no other encounters exist for this prescription request: Yes Caregiver confirmed with patient/requestor that no other refills are due, in the near future, with this provider at this time: Yes The last office visit in the department: 12-24-24 Does the patient have a future office visit with this provider/department: Yes Requested Prescriptions Pending Prescriptions Disp Refills FLUoxetine (PROZAC) 40 mg capsule 90 capsule 3 Sig: Take 1 capsule by mouth once daily. Hanny Alex January 04, 2025 9:39 AM documented [facility] Telephone encounter Note * Telephone Encounter - Hanny Seo - 01/04/2025 9:38 AM EDT Prescription Refill Information The patient has been identified by name and date of : Yes Caregiver verified no other encounters exist for this prescription request: Yes Caregiver confirmed with patient/requestor that no other refills are due, in the near future, with this provider at this time: Yes The last office visit in the department: 12-24-24 Does the patient have a future office visit with this provider/department: Yes Requested Prescriptions Pending Prescriptions Disp Refills FLUoxetine (PROZAC) 40 mg capsule 90 capsule 3 Sig: Take 1 capsule by mouth once daily. Hanny Alex January 04, 2025 9:39 AM T [facility]05-27-2025 Telephone encounter Note* Telephone Encounter - Hanny Seo - 12/28/2024 9:13 AM EDT Prescription Refill Information The patient has been identified by name and date of : Yes Caregiver verified no other encounters exist for this prescription request: Yes Caregiver confirmed with patient/requestor that no other refills are due, in the near future, with this provider at this time: Yes The last office visit in the department: 09-20-24 Does the patient have a future office visit with this provider/department: Yes Requested Prescriptions Pending Prescriptions Disp Refills omeprazole (PRILOSEC) 40 mg capsule 90 capsule 3 Sig: Take 1 capsule by mouth daily before breakfast. Then resume once a day Hanny Alex December 28, 2024 9:13 AM T [facility]05-27-2025 Miscellaneous Notes* Telephone Encounter - Hanny Seo - 12/28/2024 9:13 AM EDT Prescription Refill Information The patient has been identified by name and date of : Yes Caregiver verified no other encounters exist for this prescription request: Yes Caregiver confirmed with patient/requestor that no other refills are due, in the near future, with this provider at this time: Yes The last office visit in the department: 09-20-24 Does the patient have a future office visit with this provider/department: Yes Requested Prescriptions Pending Prescriptions Disp Refills omeprazole (PRILOSEC) 40 mg capsule 90 capsule 3 Sig: Take 1 capsule by mouth daily before breakfast. Then resume once a day Hanny Alex December 28, 2024 9:13 AM documented in [facility] encounterMi[facility]05-20-2025 NoteHNO ID: [id number] Author: EDILBERTO SMITH MD Service: ? Author Type: Physician Type: Progress Notes Filed: 12/21/2024 17:05 Note Text: Patient presents with: Follow Up HPI: Patient presents today for office visit for follow up. HLD: No myalgias THYROID: No energy, hair or skin changes. No temperature intolerances. No weight change. Hx of mitral valve prolapse Continues atenolol Does not follow with cardiology Denies chest pain and shortness of breath DM: Sugars are slightly higher. Discussed watching the diet. Does not check sugars. Still using cpap. Benefiting from its use. Using prozac for hot flashes. Seems to be improved. Latest Ref Rng 12/18/2024 WBC 3.70 - 11.00 k/uL 6.09 RBC 3.90 - 5.20 m/uL 4.16 Hemoglobin 11.5 - 15.5 g/dL 13.8 Hematocrit 36.0 - 46.0 % 41.1 MCV 80.0 - 100.0 fL 98.8 MCH 26.0 - 34.0 pg 33.2 MCHC 30.5 - 36.0 g/dL 33.6 RDW-CV 11.5 - 15.0 % 12.2 Platelet Count 150 - 400 k/uL 208 MPV 9.0 - 12.7 fL 11.5 Neut% % 54.5 Abs Neut (ANC) 1.45 - 7.50 k/uL 3.32 Lymph% % 28.2 Abs Lymph 1.00 - 4.00 k/uL 1.72 [place]% % 7.6 Abs [place] <0.87 k/uL 0.46 Eosin% % 8.7 Abs Eosin <0.46 k/uL 0.53 (H) Baso% % 0.8 Abs Baso <0.11 k/uL 0.05 Immature Gran % % 0.2 IMMATURE GRANS (ABS) <0.10 k/uL <0.03 NRBC /100 WBC 0.0 Absolute nRBC <0.01 k/uL <0.01 DTYPE Auto Protein, Total 6.3 - 8.0 g/dL 6.9 Albumin 3.9 - 4.9 g/dL 4.0 Calcium 8.5 - 10.2 mg/dL 9.4 Bilirubin, Total 0.2 - 1.3 mg/dL 0.7 Alkaline Phosphatase 34 - 123 U/L 81 AST 13 - 35 U/L 21 ALT 7 - 38 U/L 21 Glucose 74 - 99 mg/dL 180 (H) BUN 7 - 21 mg/dL 12 Creatinine 0.58 - 0.96 mg/dL 0.72 Sodium 136 - 144 mmol/L 135 (L) Potassium 3.7 - 5.1 mmol/L 4.7 Chloride 98 - 107 mmol/L 100 CO2 22 - 30 mmol/L 27 Anion Gap 8 - 15 mmol/L 8 eGFR >=60 mL/min/1.73m? 86 Hemoglobin A1C 4.3 - 5.6 % 6.3 (H) Estimated Average Glucose mg/dL 134 MEDICATIONS: Current Outpatient Medications Medication Sig pravastatin (PRAVACHOL) 20 mg tablet Take 1 tablet by mouth once daily. elderberry fruit 50 mg/5 mL syrp Take 2 teaspoonsful by mouth once daily. fluticasone (FLONASE) 50 mcg/actuation nasal spray Use 1 Mcfall in each nostril once daily. levothyroxine (LEVOXYL) 112 mcg tablet Take 1 tablet by mouth once daily. Take on empty stomach. For thyroid. metFORMIN (GLUCOPHAGE) 500 mg tablet Take 1 tablet by mouth daily with breakfast. atenolol (TENORMIN) 25 mg tablet Take 1 tablet by mouth once daily. psyllium husk (METAMUCIL) 0.4 gram cap Take by mouth. Psyllium Seed-Sucrose (METAMUCIL, SUGAR,) Take 1 Tablespoonful by mouth once daily. omeprazole (PRILOSEC) 40 mg capsule Take 1 capsule by mouth daily before breakfast. Then resume once a day CPAP/BIPAP/OTHER APAP 5-15 cmH2O FLUoxetine (PROZAC) 40 mg capsule Take 1 capsule by mouth once daily. melatonin 5 mg tablet Take 5 mg by mouth as directed. acetaminophen (TYLENOL) 500 mg tablet Take 1,000 mg by mouth twice daily as needed. Magnesium 250 mg tab Take 250 mg by mouth once daily. Using OTC for leg cramps COMPOUNDED PRESCRIPTION Turmeric Curcumin 500 mg taking 1 daily CALCIUM CARBONATE/VITAMIN D3 (CALCIUM 600 + D ORAL) Take 1 tablet by mouth twice daily. Bifidobacterium Infantis (ALIGN) 4 mg cap Take by mouth. VITAMIN B COMPLEX (B COMPLEX ORAL) Take by mouth. No current facility-administered medications for this visit. ALLERGIES: ALLERGIES Allergen Reactions Seasonal Allergies Other: See Comments Sulfa (Sulfonamide * Other: See Comments Eye swelling with use of eye drops containing sulfa antimicrobial Tree And Shrub Poll* Intolerance PAST MEDICAL HISTORY Diagnosis Date Arrhythmia Arthritis GERD (gastroesophageal reflux disease) Hot flashes Hypothyroid Mitral valve prolapse normal echo 2015 Seasonal allergies Snoring PAST SURGICAL HISTORY Procedure Laterality Date BREAST BIOPSY Left 90? @ [facility] COLONOSCOPY FLX DX W/COLLJ SPEC WHEN PFRMD 02/27/2018 normal colonoscopy, repeat in 5 years due to family history D AND C DIAGNOSTIC NONOB 14 ESOPHAGOGASTRODUODENOSCOPY TRANSORAL DIAGNOSTIC 02/27/2018 EGD ESOPHAGOGASTRODUODENOSCOPY TRANSORAL DIAGNOSTIC 06/12/2020 EGD EYE SURGERY HX JOINT REPLACEMENT HX KNEE SURGERY HX Bilateral 10/16,05/18 LIGATION COLLATERAL VEIN 1999? SKIN BIOPSY HX FAMILY HISTORY Problem Relation Age of Onset Anesthesia Mother Hypertension Mother Stroke Mother Heart Father Cancer Maternal Grandfather esophagus Colon Cancer Daughter Social History Tobacco Use Smoking status: Never Smokeless tobacco: Never Vaping Use Vaping status: Never Used Substance Use Topics Alcohol use: Yes Alcohol/week: 2.0 standard drinks of alcohol Types: 2 Glasses of Wine (5oz) per week Comment: daily Drug use: No Reviewed current medications, allergies, past medical history, surgical history, family history and social history today. REVIEW OF SYSTEMS Having wo (more content not included)...[facility]05-13-2025 Telephone encounter Note* Telephone Encounter - Navdeep Irving LPN - 12/14/2024 2:32 PM EDT Prescription Refill Information The patient has been identified by name and date of : Yes Caregiver verified no other encounters exist for this prescription request: Yes Caregiver confirmed with patient/requestor that no other refills are due, in the near future, with this provider at this time: Yes The last office visit in the department: 09/20/24 Does the patient have a future office visit with this provider/department: Yes, 12/21/24 Requested Prescriptions Pending Prescriptions Disp Refills pravastatin (PRAVACHOL) 20 mg tablet 90 tablet 1 Sig: Take 1 tablet by mouth once daily. Navdeep Irving LPN December 14, 2024 2:33 PM [facility]05-13-2025 Miscellaneous Notes* Telephone Encounter - Navdeep Irving LPN - 12/14/2024 2:32 PM EDT Prescription Refill Information The patient has been identified by name and date of : Yes Caregiver verified no other encounters exist for this prescription request: Yes Caregiver confirmed with patient/requestor that no other refills are due, in the near future, with this provider at this time: Yes The last office visit in the department: 09/20/24 Does the patient have a future office visit with this provider/department: Yes, 12/21/24 Requested Prescriptions Pending Prescriptions Disp Refills pravastatin (PRAVACHOL) 20 mg tablet 90 tablet 1 Sig: Take 1 tablet by mouth once daily. Navdeep Irving LPN December 14, 2024 2:33 PM documented in [facility] encounterMi[facility]02-17-2025 NoteHNO ID: [id number] Author: EDILBERTO SMITH MD Service: ? Author Type: Physician Type: Progress Notes Filed: 09/20/2024 15:15 Note Text: Patient presents with: 6 Month Exam HPI: Patient presents today for office visit for follow up. HLD: No myalgias No palpitations. Taking Atenolol. No side effects. No dizziness. Denies chest pain and shortness of breath Hot flashes stable Continues Prozac Hypothyroidism: Energy level ok for 79 Discussed diabetic diet. Declines testing. Discussed checking eyes annually and checking her feet annually as well. Pulled back muscle a couple weeks ago Mid-back Doing better Weld and felt something pop No numbness or weakness. Saw Lexi Marx on 09/07/24 for issue See note: Pt presents today with complaint of back pain. Started when she as pulling a bag of salt across the garage. Refers that she felt and heard it pop. She immediately sat down. Put ice on the area. Refers that it was in middle at the waist line. No n/t. No saddle anesthesia. No change in bowel/bladder. Legs working normally. She takes 400 mg of ibuprofen twice daily. Using a heating pad. Movement exacerbates the pain. Staying still helps the pain. MEDICATIONS: Latest Ref Rng 09/16/2024 Cholesterol, Total <200 mg/dL 184 Triglyceride <150 mg/dL 113 HDL Cholesterol >39 mg/dL 73 Non HDL Cholesterol <130 mg/dL 111 Fasting Time hrs 12 VLDL Cholesterol <30 mg/dL 23 TC:HDL Ratio <5.10 2.52 LDL Cholesterol <100 mg/dL 88 LDL:HDL Ratio <2.54 1.21 Hemoglobin A1C 4.3 - 5.6 % 7.1 (H) Estimated Average Glucose mg/dL 157 TSH 0.270 - 4.200 mIU/L 0.252 (L) Legend: (H) High (L) Low ALLERGIES: ALLERGIES Allergen Reactions Seasonal Allergies Other: See Comments Sulfa (Sulfonamide * Other: See Comments Eye swelling with use of eye drops containing sulfa antimicrobial Tree And Shrub Poll* Intolerance PAST MEDICAL HISTORY Diagnosis Date Arrhythmia Arthritis GERD (gastroesophageal reflux disease) Hot flashes Hypothyroid Mitral valve prolapse normal echo 2015 Seasonal allergies Snoring PAST SURGICAL HISTORY Procedure Laterality Date BREAST BIOPSY Left 90? @ [facility] COLONOSCOPY FLX DX W/COLLJ SPEC WHEN PFRMD 02/27/2018 normal colonoscopy, repeat in 5 years due to family history D AND C DIAGNOSTIC NONOB 14 ESOPHAGOGASTRODUODENOSCOPY TRANSORAL DIAGNOSTIC 02/27/2018 EGD ESOPHAGOGASTRODUODENOSCOPY TRANSORAL DIAGNOSTIC 06/12/2020 EGD EYE SURGERY HX JOINT REPLACEMENT HX KNEE SURGERY HX Bilateral 10/16,05/18 LIGATION COLLATERAL VEIN 1999? SKIN BIOPSY HX FAMILY HISTORY Problem Relation Age of Onset Anesthesia Mother Hypertension Mother Stroke Mother Heart Father Cancer Maternal Grandfather esophagus Colon Cancer Daughter Social History Tobacco Use Smoking status: Never Smokeless tobacco: Never Vaping Use Vaping status: Never Used Substance Use Topics Alcohol use: Yes Alcohol/week: 2.0 standard drinks of alcohol Types: 2 Glasses of Wine (5oz) per week Comment: daily Drug use: No Reviewed current medications, allergies, past medical history, surgical history, family history and social history today. REVIEW OF SYSTEMS All other reviewed and negative other than HPI. HEALTH MAINTENANCE: Reviewed health maintenance issues today and recommended the following in detail. Advance Directive Discussion -daughter and son are surrogates. VITALS: BP 100/58 Pulse 83 Ht 167.6 cm (5' 6) Wt 91.2 kg (201 lb) SpO2 96% BMI 32.44 kg/m? Last 4 Encounter Wt Readings: Date: Wt: 06/25/2024 88.3 kg (194 lb 9.6 oz) 03/18/2024 89.4 kg (197 lb) 03/03/2024 89.8 kg (198 lb) 12/12/2023 87.5 kg (193 lb) PHYSICAL EXAMINATION: General appearance: Well appearing, alert, in no acute distress, well-hydrated, well nourished. Skin: Skin color, texture, turgor normal, no suspicious rashes or lesions Head: Normocephalic, no masses, lesions, tenderness or abnormalities Lungs: Lungs clear to auscultation. No wheezing, rhonchi, rales Heart: RRR without murmur, gallop, or rubs. No ectopy Abdomen: Normal abdominal exam, Abdomen soft, non-tender. Bowel sounds normal. No masses, organomegaly Extremities: No deformities, edema, skin discoloration, clubbing or cyanosis. Good capillary refill. Musculoskeletal: No joint swelling, deformity, or tenderness ASSESSMENT/PLAN: 1. Mixed hyperlipidemia - ICD9: 272.2, ICD10: E78.2 (primary diagnosis) - Controlled - Continue current medications 2. SHIVA (obstructive sleep apnea) - ICD9: 327.23, ICD10: G47.33 - using nightly. Sees sleep med. 3. Hypothyroidism, unspecified type - ICD9: 244.9, ICD10: E03.9 - adjust meds and recheck labs on one month. - LEVOTHYROXINE 112 MCG TABLET - THYROID STIMULATING HORMONE 4. Hot flashes - ICD9: 782.62, ICD10: R23.2 - doing well. 5. Controlled type 2 diabetes mellitus without complication, without long-term curr (more content not included)...[facility] [id number] History of Present illness Narrative* Edilberto Smith MD - 09/20/2024 2:32 PM EST Patient presents with: 6 Month Exam HPI: Patient presents today for office visit for follow up. HLD: No myalgias No palpitations. Taking Atenolol. No side effects. No dizziness. Denies chest pain and shortness of breath Hot flashes stable Continues Prozac Hypothyroidism: Energy level ok for 79 Discussed diabetic diet. Declines testing. Discussed checking eyes annually and checking her feet annually as well. Pulled back muscle a couple weeks ago Mid-back Doing better Weld and felt something pop No numbness or weakness. Saw Lexi Marx on 09/07/24 for issue See note: Pt presents today with complaint of back pain. Started when she as pulling a bag of salt across the garage. Refers that she felt and heard it pop. She immediately sat down. Put ice on the area. Refers that it was in middle at the waist line. No n/t. No saddle anesthesia. No change in bowel/bladder. Legs working normally. She takes 400 mg of ibuprofen twice daily. Using a heating pad. Movement exacerbates the pain. Staying still helps the pain. MEDICATIONS: Latest Ref Rng 09/16/2024 Cholesterol, Total <200 mg/dL 184 Triglyceride <150 mg/dL 113 HDL Cholesterol >39 mg/dL 73 Non HDL Cholesterol <130 mg/dL 111 Fasting Time hrs 12 VLDL Cholesterol <30 mg/dL 23 TC:HDL Ratio <5.10 2.52 LDL Cholesterol <100 mg/dL 88 LDL:HDL Ratio <2.54 1.21 Hemoglobin A1C 4.3 - 5.6 % 7.1 (H) Estimated Average Glucose mg/dL 157 TSH 0.270 - 4.200 mIU/L 0.252 (L) Legend: (H) High (L) Low ALLERGIES: ALLERGIES Allergen Reactions Seasonal Allergies Other: See Comments Sulfa (Sulfonamide * Other: See Comments Eye swelling with use of eye drops containing sulfa antimicrobial Tree And Shrub Poll* Intolerance PAST MEDICAL HISTORY Diagnosis Date Arrhythmia Arthritis GERD (gastroesophageal reflux disease) Hot flashes Hypothyroid Mitral valve prolapse normal echo 2016 Seasonal allergies Snoring PAST SURGICAL HISTORY Procedure Laterality Date BREAST BIOPSY Left 90? @ [facility] COLONOSCOPY FLX DX W/COLLJ SPEC WHEN PFRMD 02/27/2018 normal colonoscopy, repeat in 5 years due to family history D AND C DIAGNOSTIC NONOB 14 ESOPHAGOGASTRODUODENOSCOPY TRANSORAL DIAGNOSTIC 02/27/2018 EGD ESOPHAGOGASTRODUODENOSCOPY TRANSORAL DIAGNOSTIC 06/12/2020 EGD EYE SURGERY HX JOINT REPLACEMENT HX KNEE SURGERY HX Bilateral 10/16,05/18 LIGATION COLLATERAL VEIN 2000? SKIN BIOPSY HX FAMILY HISTORY Problem Relation Age of Onset Anesthesia Mother Hypertension Mother Stroke Mother Heart Father Cancer Maternal Grandfather esophagus Colon Cancer Daughter Social History Tobacco Use Smoking status: Never Smokeless tobacco: Never Vaping Use Vaping status: Never Used Substance Use Topics Alcohol use: Yes Alcohol/week: 2.0 standard drinks of alcohol Types: 2 Glasses of Wine (5oz) per week Comment: daily Drug use: No Reviewed current medications, allergies, past medical history, surgical history, family history andsocial history today. REVIEW OF SYSTEMS All other reviewed and negative other than HPI. HEALTH MAINTENANCE: Reviewed health maintenance issues today and recommended the following in detail. Advance Directive Discussion -daughter and son are surrogates. VITALS: BP 100/58 Pulse 83 Ht 167.6 cm (5' 6) Wt 91.2 kg (201 lb) SpO2 96% BMI 32.44 kg/m Last 4 Encounter Wt Readings: Date: Wt: 06/25/2024 88.3 kg (194 lb 9.6 oz) 03/18/2024 89.4 kg (197 lb) 03/03/2024 89.8 kg (198 lb) 12/12/2023 87.5 kg (193 lb) PHYSICAL EXAMINATION: General appearance: Well appearing, alert, in no acute distress, well-hydrated, well nourished. Skin: Skin color, texture, turgor normal, no suspicious rashes or lesions Head: Normocephalic, no masses, lesions, tenderness or abnormalities Lungs: Lungs clear to auscultation. No wheezing, rhonchi, rales Heart: RRR without murmur, gallop, or rubs. No ectopy Abdomen: Normal abdominal exam, Abdomen soft, non-tender. Bowel sounds normal. No masses, organomegaly Extremities: No deformities, edema, skin discoloration, clubbing or cyanosis. Good capillary refill. Musculoskeletal: No joint swelling, deformity, or tenderness ASSESSMENT/PLAN: 1. Mixed hyperlipidemia - ICD9: 272.2, ICD10: E78.2 (primary diagnosis) - Controlled - Continue current medications 2. SHIVA (obstructive sleep apnea) - ICD9: 327.23, ICD10: G47.33 - using nightly. Sees sleep med. 3. Hypothyroidism, unspecified type - ICD9: 244.9, ICD10: E03.9 - adjust meds and recheck labs on one month. - LEVOTHYROXINE 112 MCG TABLET - THYROID STIMULATING HORMONE 4. Hot flashes - ICD9: 782.62, ICD10: R23.2 - doing well. 5. Controlled type 2 diabetes mellitus without complication, without long-term current use of insulin (HCC) - ICD9: 250.00, ICD10: E11.9 - declines testing. Watch diet. Recheck labs in three months. - METFORMIN 500 MG TABLET - COMPLETE BLOOD COUNT AND DIFFERENTIAL - COMPREHENSIVE METABOLIC PANEL - HEMOGLOBIN A1C Edilberto Smith MD [facility] Telephone encounter Note * Telephone Encounter - Navdeep Irving LPN - 09/15/2024 3:16 PM EST No labs ordered. Last labs done 02/10/24. Please advise. Navdeep Irving LPN [facility]02-[facility] Miscellaneous Notes* Telephone Encounter - Navdeep Irving LPN - 09/15/2024 3:16 PM EST No labs ordered. Last labs done 02/10/24. Please advise. Navdeep Irving LPN documented [facility] encounter[facility]02-04-2025 Instructions* Patient Instructions* Lexi Marx APRN.SCHOOL BUS ATTENDANT - 09/07/2024 10:17 AM EST Start the medrol dose pack. Do not take additional ibuprofen while on the medrol pack. You can still use tylenol if needed. Ice/moist heat to the back. Topicals (caridad meyer, icy hot, etc). Gentle stretching and walking. documented in this encounterMi[facility]02-04-2025 NoteHNO ID: [id number] Author: LEXI MARX APRN.ROSEMARY Service: ? Author Type: Nurse Practitioner Type: Progress Notes Filed: 09/07/2024 12:24 Note Text: This is a 79 year old female who presents today with: Patient presents with: Acute Visit: Back pain x6 days HISTORY OF PRESENT ILLNESS: Henrry Sandhu is a 79 year old female. Patient presents with: Acute Visit: Back pain x6 days Pt presents today with complaint of back pain. Started when she as pulling a bag of salt across the garage. Refers that she felt and heard it pop. She immediately sat down. Put ice on the area. Refers that it was in middle at the waist line. No n/t. No saddle anesthesia. No change in bowel/bladder. Legs working normally. She takes 400 mg of ibuprofen twice daily. Using a heating pad. Movement exacerbates the pain. Staying still helps the pain. PAST MEDICAL HISTORY: PAST MEDICAL HISTORY Diagnosis Date Arrhythmia Arthritis GERD (gastroesophageal reflux disease) Hot flashes Hypothyroid Mitral valve prolapse normal echo 2015 Seasonal allergies Snoring PAST SURGICAL HISTORY Procedure Laterality Date BREAST BIOPSY Left 90? @ [facility] COLONOSCOPY FLX DX W/COLLJ SPEC WHEN PFRMD 02/27/2018 normal colonoscopy, repeat in 5 years due to family history D AND C DIAGNOSTIC NONOB 14 ESOPHAGOGASTRODUODENOSCOPY TRANSORAL DIAGNOSTIC 02/27/2018 EGD ESOPHAGOGASTRODUODENOSCOPY TRANSORAL DIAGNOSTIC 06/12/2020 EGD EYE SURGERY HX JOINT REPLACEMENT HX KNEE SURGERY HX Bilateral 10/16,05/18 LIGATION COLLATERAL VEIN 1999? SKIN BIOPSY HX ALLERGIES Seasonal Allergies, Sulfa (Sulfonamide Antibiotics), and Tree And Shrub Pollen MEDICATIONS Current Outpatient Medications Medication Sig atenolol (TENORMIN) 25 mg tablet Take 1 tablet by mouth once daily. levothyroxine (LEVOXYL) 125 mcg tablet Take 1 tablet by mouth once daily. Take on empty stomach. For thyroid. psyllium husk (METAMUCIL) 0.4 gram cap Take by mouth. Psyllium Seed-Sucrose (METAMUCIL, SUGAR,) Take 1 Tablespoonful by mouth once daily. pravastatin (PRAVACHOL) 20 mg tablet Take 1 tablet by mouth once daily. omeprazole (PRILOSEC) 40 mg capsule Take 1 capsule by mouth daily before breakfast. Then resume once a day CPAP/BIPAP/OTHER APAP 5-15 cmH2O FLUoxetine (PROZAC) 40 mg capsule Take 1 capsule by mouth once daily. melatonin 5 mg tablet Take 5 mg by mouth as directed. fluticasone (FLONASE) 50 mcg/actuation nasal spray Use 1 Mcfall in each nostril once daily. acetaminophen (TYLENOL) 500 mg tablet Take 1,000 mg by mouth twice daily as needed. Magnesium 250 mg tab Take 250 mg by mouth once daily. Using OTC for leg cramps COMPOUNDED PRESCRIPTION Turmeric Curcumin 500 mg taking 1 daily CALCIUM CARBONATE/VITAMIN D3 (CALCIUM 600 + D ORAL) Take 1 tablet by mouth twice daily. Bifidobacterium Infantis (ALIGN) 4 mg cap Take by mouth. VITAMIN B COMPLEX (B COMPLEX ORAL) Take by mouth. No current facility-administered medications for this visit. FAMILY HISTORY Problem Relation Age of Onset Anesthesia Mother Hypertension Mother Stroke Mother Heart Father Cancer Maternal Grandfather esophagus Colon Cancer Daughter Social History Tobacco Use Smoking status: Never Smokeless tobacco: Never Vaping Use Vaping status: Never Used Substance Use Topics Alcohol use: Yes Alcohol/week: 2.0 standard drinks of alcohol Types: 2 Glasses of Wine (5oz) per week Comment: daily Drug use: No EXAM: BP 126/78 Pulse 95 Resp 16 PHYSICAL EXAM: General Appearance: Well appearing, alert, in no acute distress, well-hydrated, well nourished.. Skin: Skin color, texture, turgor normal, no suspicious rashes or lesions. Head: Normocephalic, no masses, lesions, tenderness or abnormalities. Eyes: Anicteric sclera. Pupils are equally round and reactive to light. Extraocular movements are intact. . Back:no pain to palpation of vertebrae, good flexion and extension, good range of motion, motor and sensory appear to be normal, negative SLR test, no evidence of scoliosis, + right paralumbar tenderness. Lungs: Lungs clear to auscultation. No wheezing, rhonchi, rales.. Heart: RRR without murmur, gallop, or rubs. No ectopy. Neurologic: Gait normal. Unable to elicit LE reflexes bilat. = strength of LE. No foot drop. ASSESSMENT/PLAN: 1. Acute right-sided low back pain without sciatica - ICD9: 724.2, ICD10: M54.50 Has taken medrol dose pack in the past for the same. Will start medrol dose pack. Aware to hold ibuprofen while on this. Can use tylenol prn. Moist heat/ice. Topicals. Gentle stretching. - METHYLPREDNISOLONE 4 MG TABLETS IN A DOSE PACK Discussed red flag symptoms and when/where to seek further care if develops. Discussed treatment plan and patient voices understanding. Patient's questions answered appropriately. Medications and potential side effects were discussed and patient voices understanding. (more content not included)...[facility]02-04-2025 History of Present illness Narrative* Lexi Marx APRN.SCHOOL BUS ATTENDANT - 09/07/2024 9:58 AM EST This is a 79 year old female who presents today with: Patient presents with: Acute Visit: Back pain x6 days HISTORY OF PRESENT ILLNESS: Henrry Sandhu is a 79 year old female. Patient presents with: Acute Visit: Back pain x6 days Pt presents today with complaint of back pain. Started when she as pulling a bag of salt across the garage. Refers that she felt and heard it pop. She immediately sat down. Put ice on the area. Refers that it was in middle at the waist line. No n/t. No saddle anesthesia. No change in bowel/bladder. Legs working normally. She takes 400 mg of ibuprofen twice daily. Using a heating pad. Movement exacerbates the pain. Staying still helps the pain. PAST MEDICAL HISTORY: PAST MEDICAL HISTORY Diagnosis Date Arrhythmia Arthritis GERD (gastroesophageal reflux disease) Hot flashes Hypothyroid Mitral valve prolapse normal echo 2016 Seasonal allergies Snoring PAST SURGICAL HISTORY Procedure Laterality Date BREAST BIOPSY Left 90? @ [facility] COLONOSCOPY FLX DX W/COLLJ SPEC WHEN PFRMD 02/27/2018 normal colonoscopy, repeat in 5 years due to family history D AND C DIAGNOSTIC NONOB 14 ESOPHAGOGASTRODUODENOSCOPY TRANSORAL DIAGNOSTIC 02/27/2018 EGD ESOPHAGOGASTRODUODENOSCOPY TRANSORAL DIAGNOSTIC 06/12/2020 EGD EYE SURGERY HX JOINT REPLACEMENT HX KNEE SURGERY HX Bilateral 10/16,05/18 LIGATION COLLATERAL VEIN 1999? SKIN BIOPSY HX ALLERGIES Seasonal Allergies, Sulfa (Sulfonamide Antibiotics), and Tree And Shrub Pollen MEDICATIONS Current Outpatient Medications Medication Sig atenolol (TENORMIN) 25 mg tablet Take 1 tablet by mouth once daily. levothyroxine (LEVOXYL) 125 mcg tablet Take 1 tablet by mouth once daily. Take on empty stomach. For thyroid. psyllium husk (METAMUCIL) 0.4 gram cap Take by mouth. Psyllium Seed-Sucrose (METAMUCIL, SUGAR,) Take 1 Tablespoonful by mouth once daily. pravastatin (PRAVACHOL) 20 mg tablet Take 1 tablet by mouth once daily. omeprazole (PRILOSEC) 40 mg capsule Take 1 capsule by mouth daily before breakfast. Then resume once a day CPAP/BIPAP/OTHER APAP 5-15 cmH2O FLUoxetine (PROZAC) 40 mg capsule Take 1 capsule by mouth once daily. melatonin 5 mg tablet Take 5 mg by mouth as directed. fluticasone (FLONASE) 50 mcg/actuation nasal spray Use 1 Mcfall in each nostril once daily. acetaminophen (TYLENOL) 500 mg tablet Take 1,000 mg by mouth twice daily as needed. Magnesium 250 mg tab Take 250 mg by mouth once daily. Using OTC for leg cramps COMPOUNDED PRESCRIPTION Turmeric Curcumin 500 mg taking 1 daily CALCIUM CARBONATE/VITAMIN D3 (CALCIUM 600 + D ORAL) Take 1 tablet by mouth twice daily. Bifidobacterium Infantis (ALIGN) 4 mg cap Take by mouth. VITAMIN B COMPLEX (B COMPLEX ORAL) Take by mouth. No current facility-administered medications for this visit. FAMILY HISTORY Problem Relation Age of Onset Anesthesia Mother Hypertension Mother Stroke Mother Heart Father Cancer Maternal Grandfather esophagus Colon Cancer Daughter Social History Tobacco Use Smoking status: Never Smokeless tobacco: Never Vaping Use Vaping status: Never Used Substance Use Topics Alcohol use: Yes Alcohol/week: 2.0 standard drinks of alcohol Types: 2 Glasses of Wine (5oz) per week Comment: daily Drug use: No EXAM: BP 126/78 Pulse 95 Resp 16 PHYSICAL EXAM: General Appearance: Well appearing, alert, in no acute distress, well-hydrated, well nourished.. Skin: Skin color, texture, turgor normal, no suspicious rashes or lesions. Head: Normocephalic, no masses, lesions, tenderness or abnormalities. Eyes: Anicteric sclera. Pupils are equally round and reactive to light. Extraocular movements are intact. . Back:no pain to palpation of vertebrae, good flexion and extension, good range of motion, motor andsensory appear to be normal, negative SLR test, no evidence of scoliosis, + right paralumbar tenderness. Lungs: Lungs clear to auscultation. No wheezing, rhonchi, rales.. Heart: RRR without murmur, gallop, or rubs. No ectopy. Neurologic: Gait normal. Unable to elicit LE reflexes bilat. = strength of LE. No foot drop. ASSESSMENT/PLAN: 1. Acute right-sided low back pain without sciatica - ICD9: 724.2, ICD10: M54.50 Has taken medrol dose pack in the past for the same. Will start medrol dose pack. Aware to hold ibuprofen while on this. Can use tylenol prn. Moist heat/ice. Topicals. Gentle stretching. - METHYLPREDNISOLONE 4 MG TABLETS IN A DOSE PACK Discussed red flag symptoms and when/where to seek further care if develops. Discussed treatment plan and patient voices understanding. Patient's questions answered appropriately. Medications and potential side effects were discussed and patient voices understanding. Return to the office as scheduled or as needed for worsening/no improvement. Lexi Marx APRN.SCHOOL BUS ATTENDANT documented [facility] encounter[facility]02-[facility] Telephone encounter Note * Telephone Encounter - Kristen Wagner RN - 09/06/2024 10:38 AM EST Protocol recommends see provider in 3 days. Pt is scheduled to see provider tomorrow. Changed from VV to in person appointment. Care plan reviewed with patient. Patient voices understanding. Advised patient that if symptoms get worse to be evaluated in Urgent Care or ER. Reason for Disposition Back pain from overuse (work, exercise, gardening) OR from twisting, lifting, or bending injury [1] MODERATE back pain (e.g., interferes with normal activities) AND [2] present > 3 days Answer Assessment - Initial Assessment Questions 1. MECHANISM: Low back pain from bending and pulling a big bag of salt. 2. ONSET: The injury happen morning. 3. LOCATION: The low back down by the waist is injured. 4. SEVERITY: She can't move the back normally. Bending, twisting, moving up and down make it hurt. She states she can walk and no pain walking of when she is still. She said it is mainly the side to side or back to front movement make it hurt. 5. PAIN: - NONE (0): No pain. - MILD (1-3): Doesn't interfere with normal activities. - MODERATE (4-7): Interferes with normal activities or awakens from sleep. - SEVERE (8-10): Excruciating pain, unable to do any normal activities. 5-6/10 aching, sometimes sharp when she moves. If she is laying still or sitting still there is no pain. 6. SIZE: Denies any cuts, bruises, or swelling. 7. TETANUS: Denies any breaks in the skin. 8. NEUROLOGIC SYMPTOMS: Denies any weakness or numbness of the arms or legs. 9. OTHER SYMPTOMS: Pt denies abdomen pain or blood in urine. States her neck is a little stiff, butshe thinks it is from holding herself in a straight position. 10. : Postmenopausal. Answer Assessment - Initial Assessment Questions 1. ONSET: The pain began Th. 2. LOCATION: It hurts in the lower back. 3. SEVERITY: - MILD (1-3): Doesn't interfere with normal activities. - MODERATE (4-7): Interferes with normal activities or awakens from sleep. - SEVERE (8-10): Excruciating pain, unable to do any normal activities. 5-6/10 intm aching, if turns the wrong way can be sharp. 4. PATTERN: The pain is not constant. 5. RADIATION: The pain does not shoot into your legs or somewhere else. 6. CAUSE: Thinks pulling heavy bag of salt is what caused the back pain, states she heard a pop. 7. BACK OVERUSE: Pt was pulling a heavy back of salt. 8. MEDICINES: Pt has taken Ibuprofen and it has helped some. 9. NEUROLOGIC SYMPTOMS: Pt denies any weakness, numbness, or problems with bowel/bladder control. 10. OTHER SYMPTOMS: Pt denies fever, abdomen pain, burning with urination, or blood in urine. 11. : Postmenopausal Protocols used: Back [id number], Back [id number] [facility]02-03-[facility] Miscellaneous Notes* Telephone Encounter - Kristen Wagner RN - 09/06/2024 10:38 AM EST Protocol recommends see provider in 3 days. Pt is scheduled to see provider tomorrow. Changed from VV to in person appointment. Care plan reviewed with patient. Patient voices understanding. Advised patient that if symptoms get worse to be evaluated in Urgent Care or ER. Reason for Disposition Back pain from overuse (work, exercise, gardening) OR from twisting, lifting, or bending injury [1] MODERATE back pain (e.g., interferes with normal activities) AND [2] present > 3 days Answer Assessment - Initial Assessment Questions 1. MECHANISM: Low back pain from bending and pulling a big bag of salt. 2. ONSET: The injury happen morning. 3. LOCATION: The low back down by the waist is injured. 4. SEVERITY: She can't move the back normally. Bending, twisting, moving up and down make it hurt. She states she can walk and no pain walking of when she is still. She said it is mainly the side to side or back to front movement make it hurt. 5. PAIN: - NONE (0): No pain. - MILD (1-3): Doesn't interfere with normal activities. - MODERATE (4-7): Interferes with normal activities or awakens from sleep. - SEVERE (8-10): Excruciating pain, unable to do any normal activities. 5-6/10 aching, sometimes sharp when she moves. If she is laying still or sitting still there is no pain. 6. SIZE: Denies any cuts, bruises, or swelling. 7. TETANUS: Denies any breaks in the skin. 8. NEUROLOGIC SYMPTOMS: Denies any weakness or numbness of the arms or legs. 9. OTHER SYMPTOMS: Pt denies abdomen pain or blood in urine. States her neck is a little stiff, butshe thinks it is from holding herself in a straight position. 10. : Postmenopausal. Answer Assessment - Initial Assessment Questions 1. ONSET: The pain began Thur. 2. LOCATION: It hurts in the lower back. 3. SEVERITY: - MILD (1-3): Doesn't interfere with normal activities. - MODERATE (4-7): Interferes with normal activities or awakens from sleep. - SEVERE (8-10): Excruciating pain, unable to do any normal activities. 5-6/10 intm aching, if turns the wrong way can be sharp. 4. PATTERN: The pain is not constant. 5. RADIATION: The pain does not shoot into your legs or somewhere else. 6. CAUSE: Thinks pulling heavy bag of salt is what caused the back pain, states she heard a pop. 7. BACK OVERUSE: Pt was pulling a heavy back of salt. 8. MEDICINES: Pt has taken Ibuprofen and it has helped some. 9. NEUROLOGIC SYMPTOMS: Pt denies any weakness, numbness, or problems with bowel/bladder control. 10. OTHER SYMPTOMS: Pt denies fever, abdomen pain, burning with urination, or blood in urine. 11. : Postmenopausal Protocols used: Back [id number], Back Mitr-[id number]-EX documented in [facility] encounterMi[facility]01-[facility]25 Telephone encounter Note * Telephone Encounter - Lien Conteh MA - 08/27/2024 12:50 PM EST Prescription Refill Information The patient has been identified by name and date of : Yes Caregiver verified no other encounters exist for this prescription request: Yes Caregiver confirmed with patient/requestor that no other refills are due, in the near future, with this provider at this time: Yes The last office visit in the department: 04/30/24 Does the patient have a future office visit with this provider/department: Yes: 09/20/24 Requested Prescriptions Pending Prescriptions Disp Refills atenolol (TENORMIN) 25 mg tablet 90 tablet 1 Sig: Take 1 tablet by mouth once daily. Lien Conteh MA August 27, 2024 12:50 PM [facility]01-24-[facility] Miscellaneous Notes* Telephone Encounter - Lien Conteh MA - 08/27/2024 12:50 PM EST Prescription Refill Information The patient has been identified by name and date of : Yes Caregiver verified no other encounters exist for this prescription request: Yes Caregiver confirmed with patient/requestor that no other refills are due, in the near future, with this provider at this time: Yes The last office visit in the department: 04/30/24 Does the patient have a future office visit with this provider/department: Yes: 09/20/24 Requested Prescriptions Pending Prescriptions Disp Refills atenolol (TENORMIN) 25 mg tablet 90 tablet 1 Sig: Take 1 tablet by mouth once daily. Lien Conteh MA August 27, 2024 12:50 PM documented in this encounterMi[facility]11-25-2024 Telephone encounter Note * Telephone Encounter - [place] Darlene Alex - 06/28/2024 10:20 AM EST Prescription Refill Information The patient has been identified by name and date of : Yes Caregiver verified no other encounters exist for this prescription request: Yes Caregiver confirmed with patient/requestor that no other refills are due, in the near future, with this provider at this time: Yes The last office visit in the department: 04/30/24 Does the patient have a future office visit with this provider/department: Yes Requested Prescriptions Pending Prescriptions Disp Refills levothyroxine (LEVOXYL) 125 mcg tablet 90 tablet 3 Sig: Take 1 tablet by mouth once daily. Take on empty stomach. For thyroid. Darlene Alex June 28, 2024 10:21 AM [facility] Miscellaneous Notes* Telephone Encounter - [place] Darlene Alex - 06/28/2024 10:20 AM EST Prescription Refill Information The patient has been identified by name and date of : Yes Caregiver verified no other encounters exist for this prescription request: Yes Caregiver confirmed with patient/requestor that no other refills are due, in the near future, with this provider at this time: Yes The last office visit in the department: 04/30/24 Does the patient have a future office visit with this provider/department: Yes Requested Prescriptions Pending Prescriptions Disp Refills levothyroxine (LEVOXYL) 125 mcg tablet 90 tablet 3 Sig: Take 1 tablet by mouth once daily. Take on empty stomach. For thyroid. Darlene Alex June 28, 2024 10:21 AM documented in this encounterMiami [facility] Hospital11-22-2024 NoteHNO ID: [id number] Author: JOSE CARLOS LEVIN APRN.ROSEMARY Service: ? Author Type: Nurse Practitioner Type: Progress Notes Filed: 06/25/2024 09:52 Note Text: [facility] Follow up/ Established patient visit Date of last visit : 12/12/2023 The following Impression/Plan was copied and pasted from the patient's last [facility] visit on 12/12/23: IMPRESSION/PLAN: G47.33 SHIVA (obstructive sleep apnea) (primary encounter diagnosis) G47.34 Nocturnal hypoxia Z78.9 Intolerance of continuous positive airway pressure (CPAP) ventilation Henrry Sandhu is a delightful 78 year old female with at least mild SHIVA, nocturnal hypoxia even in the absence of respiratory events on sleep study, CPAP intolerance. PMH of HLD, MVP, hypothyroidism, hot flashes, obesity. We reviewed her HSAT and PAP titration study results, discussed SHIVA, risks of untreated SHIVA, treatment options. 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 Her AHI is <15 so not a candidate for Inspire. She isn't interested in trying PAP again. We will order overnight oximetry from [employer]; if hypoxia as seen on HSAT then will refer to Pulm. Will send her a mychart msg with result. Jose Carlos Levin APRN.SCHOOL BUS ATTENDANT Here for follow up for SHIVA, now on PAP therapy, doing great on it Her PAP titration study showed that nocturnal hypoxia was controlled with PAP therapy SLEEP APNEA Sleep apnea type : SHIVA, Most Recent Apnea-Hypopnea Index (AHI): 10 on HSAT Treatment : PAP therapy DME: [facility] PAP History: Uses AutoPAP for 7.5 hours per night, 7 nights per week. Current PAP settin-15 cm H2O. Difficulties with AutoPAP: None Reviewed objective PAP compliance data: Mask type: cradle nasal mask with apical hose Mask issues: none There is a perceived benefit by the patient: fewer naps, waking less in the night, and falling asleep quicker in the night SLEEP HYGIENE QUESTIONS: Bedtime: 9-10 PM. She does not have a hard time falling asleep. Takes melatonin 5 mg. Sleeps for 2-3 hrs, then wakes up, then varies how long she is awake--might read on her Jermaine, falls asleep now after 15 min. Can wake up due to hot flashes, they are partially controlled with prozac. Wake time: 630-7 AM, without an alarm. On weekends, she maintains the same sleep schedule. Average total sleep time (in a 24 hour period): 7-8 hours. PATIENT-ENTERED QUESTIONNAIRE SLEEP SCORES 12/06/2023 Sleep Questions Reason for visit: Sleep apnea Difficulty falling or staying asleep or poor sleep quality On average, hours of sleep in 24 hours: 7 Accidents or near accidents due to drowsy drivin Multiple values from one day are sorted in reverse-chronological order 12/06/2023 [place] Sleepiness Scale Score 4 (No clinically significant daytime sleepiness) 12/06/2023 PROMIS CAT Sleep Disturbance PROMIS Sleep Disturbance T-Score 53 (within normal limits) PROMIS Sleep Disturbance Percentile 38 08/29/2022 12/06/2023 PHQ-9 Score 1 3 02/24/2023 12/06/2023 02/28/2024 PROMIS Global Health - (T-Scores - the mean of general population = 50. Five points is a clinically meaningful difference.) Physical T-Score 54.1 54.1 47.7 Mental T-Score 56 53.3 59 ALLERGIES Allergen Reactions Seasonal Allergies Other: See Comments Sulfa (Sulfonamide * Other: See Comments Eye swelling with use of eye drops containing sulfa antimicrobial Tree And Shrub Poll* Intolerance CURRENT MEDICATIONS: Psyllium Seed-Sucrose (METAMUCIL, SUGAR,) Take 1 Tablespoonful by mouth once daily. pravastatin (PRAVACHOL) 20 mg tablet Take 1 tablet by mouth once daily. omeprazole (PRILOSEC) 40 mg capsule Take 1 capsule by mouth daily before breakfast. Then resume once a day CPAP/BIPAP/OTHER APAP 5-15 cmH2O atenolol (TENORMIN) 25 mg tablet Take 1 tablet by mouth once daily. FLUoxetine (PROZAC) 40 mg capsule Take 1 capsule by mouth once daily. levothyroxine (LEVOXYL) 125 mcg tablet Take 1 tablet by mouth once daily. Take on empty stomach. For thyroid. melatonin 5 mg tablet Take 5 mg by mouth as directed. fluticasone (FLONASE) 50 mcg/actuation nasal spray Use 1 Mcfall in each nostril once daily. acetaminophen (TYLENOL) 500 mg tablet Take 1,000 mg by mouth twice daily as needed. Magnesium 250 mg tab Take 250 mg by mouth once daily. Using OTC for leg cramps COMPOUNDED PRESCRIPTION Turmeric Curcumin 500 mg taking 1 daily CALCIUM CARBONATE/VITAMIN D3 (CALCIUM 600 + D ORAL) Take 1 tablet by mouth twice daily. Bifidobacterium Infantis (ALIGN) 4 mg cap Take by mouth. VITAMIN B COMPLEX (B COMPLEX ORAL) Take by mouth. psyllium husk (METAMUCIL) 0.4 gram cap Take by mouth. polyethylene glycol 3350 (MIRALAX ORAL) Take by mouth. (Patient not taking: Reported on 06/25/2024) docusate sodium (COLACE ORAL) Take 200 mg by mouth as di (more content not included)...[facility]11-22-2024 History of Present illness Narrative* Jose Carlos Levin APRN.SCHOOL BUS ATTENDANT - 06/25/2024 8:56 AM EST Images from the original note were not included. [facility] Follow up/ Established patient visit Date of last visit : 12/12/2023 The following Impression/Plan was copied and pasted from the patient's last [facility] visit on 12/12/23: IMPRESSION/PLAN: G47.33 SHIVA (obstructive sleep apnea) (primary encounter diagnosis) G47.34 Nocturnal hypoxia Z78.9 Intolerance of continuous positive airway pressure (CPAP) ventilation Henrry Sandhu is a delightful 78 year old female with at least mild SHIVA, nocturnal hypoxia even in the absence of respiratory events on sleep study, CPAP intolerance. PMH of HLD, MVP, hypothyroidism, hot flashes, obesity. We reviewed her HSAT and PAP titration study results, discussed SHIVA, risks of untreated SHIVA, treatment options. 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 Her AHI is <15 so not a candidate for Inspire. She isn't interested in trying PAP again. We will order overnight oximetry from [facility]; if hypoxia as seen on HSAT then will refer to Pulm. Will send her a [facility] msg with result. Jose Carlos Levin APRN.SCHOOL BUS ATTENDANT Here for follow up for SHIVA, now on PAP therapy, doing great on it Her PAP titration study showed that nocturnal hypoxia was controlled with PAP therapy SLEEP APNEA Sleep apnea type : SHIVA, Most Recent Apnea-Hypopnea Index (AHI): 10 on HSAT Treatment : PAP therapy DME: [facility] PAP History: Uses AutoPAP for 7.5 hours per night, 7 nights per week. Current PAP settin-15 cm H2O. Difficulties with AutoPAP: None Reviewed objective PAP compliance data: Mask type: cradle nasal mask with apical hose Mask issues: none There is a perceived benefit by the patient: fewer naps, waking less in the night, and falling asleep quicker in the night SLEEP HYGIENE QUESTIONS: Bedtime: 9-10 PM. She does not have a hard time falling asleep. Takes melatonin 5 mg. Sleeps for 2-3 hrs, then wakes up, then varies how long she is awake--might read on her Jermaine, falls asleep now after 15 min. Can wake up due to hot flashes, they are partially controlled with prozac. Wake time: 630-7 AM, without an alarm. On weekends, she maintains the same sleep schedule. Average total sleep time (in a 24 hour period): 7-8 hours. PATIENT-ENTERED QUESTIONNAIRE SLEEP SCORES 12/06/2023 Sleep Questions Reason for visit: Sleep apnea Difficulty falling or staying asleep or poor sleep quality On average, hours of sleep in 24 hours: 7 Accidents or near accidents due to drowsy drivin Multiple values from one day are sorted in reverse-chronological order 12/06/2023 [place] Sleepiness Scale Score 4 (No clinically significant daytime sleepiness) 12/06/2023 PROMIS CAT Sleep Disturbance PROMIS Sleep Disturbance T-Score 53 (within normal limits) PROMIS Sleep Disturbance Percentile 38 08/29/2022 12/06/2023 PHQ-9 Score 1 3 02/24/2023 12/06/2023 02/28/2024 PROMIS Global Health - (T-Scores - the mean of general population = 50. Five points is a clinicallymeaningful difference.) Physical T-Score 54.1 54.1 47.7 Mental T-Score 56 53.3 59 ALLERGIES Allergen Reactions Seasonal Allergies Other: See Comments Sulfa (Sulfonamide * Other: See Comments Eye swelling with use of eye drops containing sulfa antimicrobial Tree And Shrub Poll* Intolerance CURRENT MEDICATIONS: Psyllium Seed-Sucrose (METAMUCIL, SUGAR,) Take 1 Tablespoonful by mouth once daily. pravastatin (PRAVACHOL) 20 mg tablet Take 1 tablet by mouth once daily. omeprazole (PRILOSEC) 40 mg capsule Take 1 capsule by mouth daily before breakfast. Then resume once a day CPAP/BIPAP/OTHER APAP 5-15 cmH2O atenolol (TENORMIN) 25 mg tablet Take 1 tablet by mouth once daily. FLUoxetine (PROZAC) 40 mg capsule Take 1 capsule by mouth once daily. levothyroxine (LEVOXYL) 125 mcg tablet Take 1 tablet by mouth once daily. Take on empty stomach. For thyroid. melatonin 5 mg tablet Take 5 mg by mouth as directed. fluticasone (FLONASE) 50 mcg/actuation nasal spray Use 1 Mcfall in each nostril once daily. acetaminophen (TYLENOL) 500 mg tablet Take 1,000 mg by mouth twice daily as needed. Magnesium 250 mg tab Take 250 mg by mouth once daily. Using OTC for leg cramps COMPOUNDED PRESCRIPTION Turmeric Curcumin 500 mg taking 1 daily CALCIUM CARBONATE/VITAMIN D3 (CALCIUM 600 + D ORAL) Take 1 tablet by mouth twice daily. Bifidobacterium Infantis (ALIGN) 4 mg cap Take by mouth. VITAMIN B COMPLEX (B COMPLEX ORAL) Take by mouth. psyllium husk (METAMUCIL) 0.4 gram cap Take by mouth. polyethylene glycol 3350 (MIRALAX ORAL) Take by mouth. (Patient not taking: Reported on 06/25/2024) docusate sodium (COLACE ORAL) Take 200 mg by mouth as directed. fexofenadine (ROSITA ALLERGY) 180 mg tablet Take 1 tablet by mouth once daily. PHYSICAL EXAMINATION: Vital Signs: BP 123/78 (BP Site: Right Arm, BP Position: Sitting) Pulse 79 Wt 88.3 kg (194 lb 9.6 oz) OlM462% BMI 31.41 kg/m PHYSICAL EXAM: General appearance: pleasant, NAD Mental status: alert and oriented, able to provide own history Constitutional: WNL Skin: No visible rashes on exposed skin Neuro: No focal deficits observed, no tremors IMPRESSION: Shiva on cpap (primary encounter diagnosis) Henrry Sandhu is a 78 year old female with PMH of SHIVA, nocturnal hypoxia Now on PAP therapy which was shown on titration study to control nocturnal hypoxia --Patient is compliant with PAP therapy and reports subjective benefits from treatment --We reviewed PAP compliance report; AHI is normalized PLAN: - Continue Auto CPAP at 5-15 cmH2O. DME [facility] - Remember to clean your mask and equipment regularly, as directed. - You should be eligible for new supplies approximately every 3-6 months, depending on your insurance coverage. Contact your Durable Medical Equipment (DME) company for new supplies as needed. - Follow up in 12 months with JUANIS. Jose Carlos Levin APRN.CNP [facility] Telephone encounter Note * Telephone Encounter - Diane Gonzalez - 06/14/2024 11:30 AM EST Prescription Refill Information The patient has been identified by name and date of : Yes Caregiver verified no other encounters exist for this prescription request: Yes Caregiver confirmed with patient/requestor that no other refills are due, in the near future, with this provider at this time: Yes The last office visit in the department: 04/30/24 Does the patient have a future office visit with this provider/department: Yes Requested Prescriptions Pending Prescriptions Disp Refills pravastatin (PRAVACHOL) 20 mg tablet 90 tablet 1 Sig: Take 1 tablet by mouth once daily. Diane Alex June 14, 2024 11:30 AM [facility]11-11-[facility]24 Miscellaneous Notes* Telephone Encounter - Diane Gonzalez - 06/14/2024 11:30 AM EST Prescription Refill Information The patient has been identified by name and date of : Yes Caregiver verified no other encounters exist for this prescription request: Yes Caregiver confirmed with patient/requestor that no other refills are due, in the near future, with this provider at this time: Yes The last office visit in the department: 04/30/24 Does the patient have a future office visit with this provider/department: Yes Requested Prescriptions Pending Prescriptions Disp Refills pravastatin (PRAVACHOL) 20 mg tablet 90 tablet 1 Sig: Take 1 tablet by mouth once daily. Diane Alex June 14, 2024 11:30 AM documented [facility]09-[facility]-2024 NoteHNO ID: [id number] Author: LEXI MARX APRN.CNP Service: ? Author Type: Nurse Practitioner Type: Progress Notes Filed: 04/30/2024 18:05 Note Text: This is a 78 year old female who presents today with: Patient presents with: ER F/U: [facility] ER 04/25/24 dx: fall with laceration to nose HISTORY OF PRESENT ILLNESS: Henrry Sandhu is a 78 year old female. Patient presents with: ER F/U: [facility] ER 04/25/24 dx: fall with laceration to nose Pt presents today for ER follow-up. She went to [place] ER on 04/25/24 after a fall. She had mechanical fall. She obtained an abrasion and laceration to her nose and a contusion on her forehead. There was a contusion above the left brow. No palpable pression. There were no clinical findings of basilar skull fracture. Ears normal TMs were normal there were no TMJ tenderness. No evidence of malocclusion. No injury to her teeth. She had a flap type laceration on the tip of her nose. She had 4 sutures placed. Last Tdap was 2021. PAST MEDICAL HISTORY: PAST MEDICAL HISTORY Diagnosis Date Arrhythmia Arthritis GERD (gastroesophageal reflux disease) Hot flashes Hypothyroid Mitral valve prolapse normal echo 2015 Seasonal allergies Snoring PAST SURGICAL HISTORY Procedure Laterality Date BREAST BIOPSY Left 90? @ [facility] COLONOSCOPY FLX DX W/COLLJ SPEC WHEN PFRMD 02/27/2018 normal colonoscopy, repeat in 5 years due to family history D AND C DIAGNOSTIC NONOB 14 ESOPHAGOGASTRODUODENOSCOPY TRANSORAL DIAGNOSTIC 02/27/2018 EGD ESOPHAGOGASTRODUODENOSCOPY TRANSORAL DIAGNOSTIC 06/12/2020 EGD EYE SURGERY HX JOINT REPLACEMENT HX KNEE SURGERY HX Bilateral 10/16,05/18 LIGATION COLLATERAL VEIN 1999? SKIN BIOPSY HX ALLERGIES Seasonal Allergies, Sulfa (Sulfonamide Antibiotics), and Tree And Shrub Pollen MEDICATIONS Current Outpatient Medications Medication Sig omeprazole (PRILOSEC) 40 mg capsule Take 1 capsule by mouth daily before breakfast. Then resume once a day CPAP/BIPAP/OTHER APAP 5-15 cmH2O polyethylene glycol 3350 (MIRALAX ORAL) Take by mouth. atenolol (TENORMIN) 25 mg tablet Take 1 tablet by mouth once daily. FLUoxetine (PROZAC) 40 mg capsule Take 1 capsule by mouth once daily. levothyroxine (LEVOXYL) 125 mcg tablet Take 1 tablet by mouth once daily. Take on empty stomach. For thyroid. pravastatin (PRAVACHOL) 20 mg tablet Take 1 tablet by mouth once daily. docusate sodium (COLACE ORAL) Take 200 mg by mouth as directed. melatonin 5 mg tablet Take 5 mg by mouth as directed. fexofenadine (ROSITA ALLERGY) 180 mg tablet Take 1 tablet by mouth once daily. fluticasone (FLONASE) 50 mcg/actuation nasal spray Use 1 Mcfall in each nostril once daily. acetaminophen (TYLENOL) 500 mg tablet Take 1,000 mg by mouth twice daily as needed. Magnesium 250 mg tab Take 250 mg by mouth once daily. Using OTC for leg cramps COMPOUNDED PRESCRIPTION Turmeric Curcumin 500 mg taking 1 daily CALCIUM CARBONATE/VITAMIN D3 (CALCIUM 600 + D ORAL) Take 1 tablet by mouth twice daily. Bifidobacterium Infantis (ALIGN) 4 mg cap Take by mouth. VITAMIN B COMPLEX (B COMPLEX ORAL) Take by mouth. No current facility-administered medications for this visit. FAMILY HISTORY Problem Relation Age of Onset Anesthesia Mother Hypertension Mother Stroke Mother Heart Father Cancer Maternal Grandfather esophagus Colon Cancer Daughter Social History Tobacco Use Smoking status: Never Smokeless tobacco: Never Vaping Use Vaping status: Never Used Substance Use Topics Alcohol use: Yes Alcohol/week: 2.0 standard drinks of alcohol Types: 2 Glasses of Wine (5oz) per week Comment: daily Drug use: No EXAM: BP 128/82 Pulse 77 Resp 16 SpO2 95% PHYSICAL EXAM: General Appearance: Well appearing, alert, in no acute distress, well-hydrated, well nourished.. Skin: Skin color, texture, turgor normal, no suspicious rashes or lesions. 4 sutures intact to the tip of the nose. Well approximated. No s/s of infection. Some healing ecchymosis around eyes and forehead. Head: Normocephalic, no masses, lesions, tenderness or abnormalities. Eyes: Anicteric sclera. Extraocular movements are intact. Neurologic: Gait normal. ASSESSMENT/PLAN: 1. Laceration of nose, subsequent encounter - ICD9: V58.89, 873.20, ICD10: S01.21XD (primary diagnosis) - SUTURE REMOVAL PROCECDURE (W NOTE) SUTURE REMOVAL Date/Time: 04/30/2024 6:01 PM Performed by: Lexi Marx APRN.SCHOOL BUS ATTENDANT Authorized by: Lexi Marx APRN.SCHOOL BUS ATTENDANT Location: Body area: Head/neck Location details: Nose Procedure details: Wound appearance: Clean Suture not placed during surgical procedure Patient tolerance: Patient tolerated the procedure well with no immediate complications 2. Fall, subsequent encounter - ICD9: V58.89, E888.9, ICD10: W19.XXXD Mechanical fall. Admits that she has stopped wearing slip ons/flip flops. 3. Encounter for immunization - ICD9: V03.89, ICD10: Z23 - [place] (more content not included)...[facility]09-[facility] History of Present illness Narrative* Lexi Marx, JABIER.SCHOOL BUS ATTENDANT - 04/30/2024 2:45 PM EDT Associated Order(s): Suture Removal Post-Procedure Diagnose(s): Laceration of nose, subsequent encounter This is a 78 year old female who presents today with: Patient presents with: ER F/U: [facility] ER 04/25/24 dx: fall with laceration to nose HISTORY OF PRESENT ILLNESS: Henrry Sandhu is a 78 year old female. Patient presents with: ER F/U: [facility] ER 04/25/24 dx: fall with laceration to nose Pt presents today for ER follow-up. She went to [place] ER on 04/25/24 after a fall. She had mechanical fall. She obtained an abrasion and laceration to her nose and a contusion on herforehead. There was a contusion above the left brow. No palpable pression. There were no clinical findings ofbasilar skull fracture. Ears normal TMs were normal there were no TMJ tenderness. No evidence of malocclusion. No injury to her teeth. She had a flap type laceration on the tip of her nose. She had 4 sutures placed. Last Tdap was 2021. PAST MEDICAL HISTORY: PAST MEDICAL HISTORY Diagnosis Date Arrhythmia Arthritis GERD (gastroesophageal reflux disease) Hot flashes Hypothyroid Mitral valve prolapse normal echo 2015 Seasonal allergies Snoring PAST SURGICAL HISTORY Procedure Laterality Date BREAST BIOPSY Left 90? @ [facility] COLONOSCOPY FLX DX W/COLLJ SPEC WHEN PFRMD 02/27/2018 normal colonoscopy, repeat in 5 years due to family history D AND C DIAGNOSTIC NONOB 14 ESOPHAGOGASTRODUODENOSCOPY TRANSORAL DIAGNOSTIC 02/27/2018 EGD ESOPHAGOGASTRODUODENOSCOPY TRANSORAL DIAGNOSTIC 06/12/2020 EGD EYE SURGERY HX JOINT REPLACEMENT HX KNEE SURGERY HX Bilateral 10/16,05/18 LIGATION COLLATERAL VEIN 1999? SKIN BIOPSY HX ALLERGIES Seasonal Allergies, Sulfa (Sulfonamide Antibiotics), and Tree And Shrub Pollen MEDICATIONS Current Outpatient Medications Medication Sig omeprazole (PRILOSEC) 40 mg capsule Take 1 capsule by mouth daily before breakfast. Then resume once a day CPAP/BIPAP/OTHER APAP 5-15 cmH2O polyethylene glycol 3350 (MIRALAX ORAL) Take by mouth. atenolol (TENORMIN) 25 mg tablet Take 1 tablet by mouth once daily. FLUoxetine (PROZAC) 40 mg capsule Take 1 capsule by mouth once daily. levothyroxine (LEVOXYL) 125 mcg tablet Take 1 tablet by mouth once daily. Take on empty stomach. For thyroid. pravastatin (PRAVACHOL) 20 mg tablet Take 1 tablet by mouth once daily. docusate sodium (COLACE ORAL) Take 200 mg by mouth as directed. melatonin 5 mg tablet Take 5 mg by mouth as directed. fexofenadine (ROSITA ALLERGY) 180 mg tablet Take 1 tablet by mouth once daily. fluticasone (FLONASE) 50 mcg/actuation nasal spray Use 1 Mcfall in each nostril once daily. acetaminophen (TYLENOL) 500 mg tablet Take 1,000 mg by mouth twice daily as needed. Magnesium 250 mg tab Take 250 mg by mouth once daily. Using OTC for leg cramps COMPOUNDED PRESCRIPTION Turmeric Curcumin 500 mg taking 1 daily CALCIUM CARBONATE/VITAMIN D3 (CALCIUM 600 + D ORAL) Take 1 tablet by mouth twice daily. Bifidobacterium Infantis (ALIGN) 4 mg cap Take by mouth. VITAMIN B COMPLEX (B COMPLEX ORAL) Take by mouth. No current facility-administered medications for this visit. FAMILY HISTORY Problem Relation Age of Onset Anesthesia Mother Hypertension Mother Stroke Mother Heart Father Cancer Maternal Grandfather esophagus Colon Cancer Daughter Social History Tobacco Use Smoking status: Never Smokeless tobacco: Never Vaping Use Vaping status: Never Used Substance Use Topics Alcohol use: Yes Alcohol/week: 2.0 standard drinks of alcohol Types: 2 Glasses of Wine (5oz) per week Comment: daily Drug use: No EXAM: BP 128/82 Pulse 77 Resp 16 SpO2 95% PHYSICAL EXAM: General Appearance: Well appearing, alert, in no acute distress, well-hydrated, well nourished.. Skin: Skin color, texture, turgor normal, no suspicious rashes or lesions. 4 sutures intact to the tip of the nose. Well approximated. No s/s of infection. Some healing ecchymosis around eyes and forehead. Head: Normocephalic, no masses, lesions, tenderness or abnormalities. Eyes: Anicteric sclera. Extraocular movements are intact. Neurologic: Gait normal. ASSESSMENT/PLAN: 1. Laceration of nose, subsequent encounter - ICD9: V58.89, 873.20, ICD10: S01.21XD (primary diagnosis) - SUTURE REMOVAL PROCECDURE (W NOTE) SUTURE REMOVAL Date/Time: 04/30/2024 6:01 PM Performed by: Lexi Marx APRN.SCHOOL BUS ATTENDANT Authorized by: Lexi Marx APRN.ROSEMARY Location: Body area: Head/neck Location details: Nose Procedure details: Wound appearance: Clean Suture not placed during surgical procedure Patient tolerance: Patient tolerated the procedure well with no immediate complications 2. Fall, subsequent encounter - ICD9: V58.89, E888.9, ICD10: W19.XXXD Mechanical fall. Admits that she has stopped wearing slip ons/flip flops. 3. Encounter for immunization - ICD9: V03.89, ICD10: Z23 - INFLUENZA VACCINE, PRSV FREE, AGE 65+ YR, HIGH DOSE, TRIVALENT (FLUZONE HIGH-DOSE) - [employer] COVID-19 VACCINE AGE 12+ YR (COMIRNATY) Discussed treatment plan and patient voices understanding. Patient's questions answered appropriately. Medications and potential side effects were discussed and patient voices understanding. Return to the office as scheduled or as needed for worsening/no improvement. Lexi Marx APRN.SCHOOL BUS ATTENDANT documented [facility] encounter[facility]09-[facility]24 Telephone encounter Note * Telephone Encounter - Laurita Orourke RN - 04/06/2024 10:23 AM EDT The patient has been identified by name and date of : Yes Caregiver verified no other encounters exist for this prescription request: Yes Caregiver confirmed with patient/requestor that no other refills are due, in the near future, with this provider at this time: Yes The last office visit in the department: 03/18/2024 Does the patient have a future office visit with this provider/department: 09/20/2024 Requested Prescriptions Pending Prescriptions Disp Refills omeprazole (PRILOSEC) 40 mg capsule 30 capsule 0 Sig: Take 1 capsule by mouth daily before breakfast. Then resume once a day Laurita Orourke RN April 06, 2024 10:23 AM [facility]09-[facility] Miscellaneous Notes* Telephone Encounter - Laurita Orourke RN - 04/06/2024 10:23 AM EDT The patient has been identified by name and date of : Yes Caregiver verified no other encounters exist for this prescription request: Yes Caregiver confirmed with patient/requestor that no other refills are due, in the near future, with this provider at this time: Yes The last office visit in the department: 03/18/2024 Does the patient have a future office visit with this provider/department: 09/20/2024 Requested Prescriptions Pending Prescriptions Disp Refills omeprazole (PRILOSEC) 40 mg capsule 30 capsule 0 Sig: Take 1 capsule by mouth daily before breakfast. Then resume once a day Laurita Orourke RN April 06, 2024 10:23 AM documented in this encounterMi[facility]08-28-2024 Telephone encounter Note * Telephone Encounter - Mary Leyva LPN - 03/31/2024 8:39 AM EDT Spoke with patient. She may need to trial different equipment- can navigate with sleep medicine. Mary Leyva LPN [facility]-28-2024 Miscellaneous Notes* Telephone Encounter - Mary Leyva LPN - 03/31/2024 8:39 AM EDT Spoke with patient. She may need to trial different equipment- can navigate with sleep medicine. Mary Leyva LPN * Telephone Encounter - Letty Hernández MA - 03/31/2024 8:24 AM EDT Patient called and states she tried the CPAP for 6 weeks in and was unable to tolerate it. documented in this encounterMi[facility]08-28-2024 Telephone encounter Note * Telephone Encounter - Letty Hernández MA - 03/31/2024 8:24 AM EDT Patient called and states she tried the CPAP for 6 weeks in and was unable to tolerate it. [facility] Telephone encounter Note* Telephone Encounter - Jose Carlos Levin APRN.CNP - 03/30/2024 5:16 PM EDT We had referred pt to Pulm for nocturnal hypoxia however her oxygen level is normal when she uses CPAP per her titration study. Therefore, she doesn't need to see Pulm. The treatment is CPAP, not oxygen. But she chose not to use CPAP. She doesn't need a workup by Pulm, this is per the PulmonologistDr Henderson. Jose Carlos Levin APRN.ROSEMARY [facility] Work Phone: 1(491) 501-939008-27-2024 Miscellaneous Notes* Telephone Encounter - Jose Carlos Levin APRN.CNP - 03/30/2024 5:16 PM EDT We had referred pt to Pulm for nocturnal hypoxia however her oxygen level is normal when she uses CPAP per her titration study. Therefore, she doesn't need to see Pulm. The treatment is CPAP, not oxygen. But she chose not to use CPAP. She doesn't need a workup by Pulm, this is per the PulmonologistDr Henderson. Jose Carlos Levin APRN.ROSEMARY documented in this encounterMiami [facility] Hospital08-15-2024 Instructions* Patient Instructions* Zoey Pickard APRN.CNP - 03/18/2024 12:21 PM EDT 1) Increase water intake to 64 oz. 2) Consider apple cider or warm prune juice 3) Milk of Magnesia or magnesium citrate 4) Keep alcohol to 1 glass daily 5) Follow up in 6 months documented in this encounterMiami [facility] Hospital08-15-2024 NoteHNO ID: [id number] Author: ZOEY PICKARD APRN.CNP Service: ? Author Type: Clinical Nurse Specialist Type: Progress Notes Filed: 03/18/2024 12:22 Note Text: This is a 78 year old female who presents today with: Patient presents with: Follow Up: Epigastric pain HISTORY OF PRESENT ILLNESS: Henrry Sandhu is a 78 year old female. Patient presents with: Follow Up: Epigastric pain Still some epigastric stuffiness. Also bowels are constipated. Was taking metamucil, switched to Benefiber, now on Miralax. Bowels are moving but not enough and only small amounts. States not exercising enough. Drinks 2 cups of coffee, ice tea and Crystal light. Balance issues so hard for her to exercise. Does chair yogurt. Doesn't drink much water. PAST MEDICAL HISTORY: PAST MEDICAL HISTORY No date: Arrhythmia No date: Arthritis No date: GERD (gastroesophageal reflux disease) No date: Hot flashes No date: Hypothyroid No date: Mitral valve prolapse Comment: normal echo 2015 No date: Seasonal allergies No date: Snoring PAST SURGICAL HISTORY 90?: BREAST BIOPSY; Left Comment: @ [facility] 02/27/2018: COLONOSCOPY FLX DX W/COLLJ SPEC WHEN PFRMD Comment: normal colonoscopy, repeat in 5 years due to family history 14: D AND C DIAGNOSTIC NONOB 02/27/2018: ESOPHAGOGASTRODUODENOSCOPY TRANSORAL DIAGNOSTIC Comment: EGD 06/12/2020: ESOPHAGOGASTRODUODENOSCOPY TRANSORAL DIAGNOSTIC Comment: EGD No date: EYE SURGERY HX No date: JOINT REPLACEMENT HX 10/16,05/18: KNEE SURGERY HX; Bilateral 1999?: LIGATION COLLATERAL VEIN No date: SKIN BIOPSY HX ALLERGIES Seasonal Allergies, Sulfa (Sulfonamide Antibiotics), and Tree And Shrub Pollen MEDICATIONS Current Outpatient Medications Medication Sig polyethylene glycol 3350 (MIRALAX ORAL) Take by mouth. omeprazole (PRILOSEC) 40 mg capsule Take 1 capsule by mouth daily before breakfast. Then resume once a day atenolol (TENORMIN) 25 mg tablet Take 1 tablet by mouth once daily. FLUoxetine (PROZAC) 40 mg capsule Take 1 capsule by mouth once daily. levothyroxine (LEVOXYL) 125 mcg tablet Take 1 tablet by mouth once daily. Take on empty stomach. For thyroid. pravastatin (PRAVACHOL) 20 mg tablet Take 1 tablet by mouth once daily. docusate sodium (COLACE ORAL) Take 200 mg by mouth as directed. melatonin 5 mg tablet Take 5 mg by mouth as directed. fexofenadine (ROSITA ALLERGY) 180 mg tablet Take 1 tablet by mouth once daily. fluticasone (FLONASE) 50 mcg/actuation nasal spray Use 1 Mcfall in each nostril once daily. acetaminophen (TYLENOL) 500 mg tablet Take 1,000 mg by mouth twice daily as needed. Magnesium 250 mg tab Take 250 mg by mouth once daily. Using OTC for leg cramps COMPOUNDED PRESCRIPTION Turmeric Curcumin 500 mg taking 1 daily CALCIUM CARBONATE/VITAMIN D3 (CALCIUM 600 + D ORAL) Take 1 tablet by mouth twice daily. Bifidobacterium Infantis (ALIGN) 4 mg cap Take by mouth. VITAMIN B COMPLEX (B COMPLEX ORAL) Take by mouth. No current facility-administered medications for this visit. FAMILY HISTORY Problem Relation Age of Onset Anesthesia Mother Hypertension Mother Stroke Mother Heart Father Cancer Maternal Grandfather esophagus Colon Cancer Daughter Social History Tobacco Use Smoking status: Never Smokeless tobacco: Never Vaping Use Vaping Use: Never used Substance Use Topics Alcohol use: Yes Alcohol/week: 2.0 standard drinks of alcohol Types: 2 Glasses of Wine (5oz) per week Comment: daily Drug use: No REVIEW OF SYSTEMS Weight gain Some weight gain in last few years. Grieving loss of 3 years ago Good social support. No N/V, much constipation, liquid Hepatic steatosis. Discussed diet, exercise, and prune juice EXAM: BP 120/70 Pulse 76 Wt 89.4 kg (197 lb) SpO2 95% BMI 31.80 kg/m? PHYSICAL EXAM: Physical Exam Vitals reviewed. Constitutional: Appearance: Normal appearance. Cardiovascular: Rate and Rhythm: Normal rate and regular rhythm. Pulses: Normal pulses. Heart sounds: Normal heart sounds. Pulmonary: Effort: Pulmonary effort is normal. Breath sounds: Normal breath sounds. Abdominal: Palpations: Abdomen is soft. Tenderness: There is no abdominal tenderness. There is no guarding or rebound. Comments: Very hypoactive MONO Musculoskeletal: Comments: Moves all ext. W/O difficulty No edema Neurological: Mental Status: She is alert. LABS: reviewed recent labs AND liver ultrasound ASSESSMENT/PLAN: 1. Chronic constipation - ICD9: 564.00, ICD10: K59.09 (primary diagnosis) Ongoing - Increase water to 64 oz. Water daily - Prune juice or apple cider - Increase activity - Miralax daily - MOM if needed or magnesium citrate 2. Hepatic steatosis - ICD9: 571.8, ICD10: K76.0 Educated on diet, exercise, avoid ETOH, and avoid NSAIDS Discussed treatment plan and patient voices understanding. Patient's questions answered appropriately. Medications and (more content not included)...[facility] 03-18-2024 History of Present illness Narrative* Zoey Pickard APRN.[facility] - 03/18/2024 11:50 AM EDT This is a 78 year old female who presents today with: Patient presents with: Follow Up: Epigastric pain HISTORY OF PRESENT ILLNESS: Henrry Sandhu is a 78 year old female. Patient presents with: Follow Up: Epigastric pain Still some epigastric stuffiness. Also bowels are constipated. Was taking metamucil, switched to Benefiber, now on Miralax. Bowels are moving but not enough and only small amounts. States not exercising enough. Drinks 2 cups of coffee, ice tea and Crystal light. Balance issues so hard for her to exercise. Does chair yogurt. Doesn't drink much water. PAST MEDICAL HISTORY: PAST MEDICAL HISTORY No date: Arrhythmia No date: Arthritis No date: GERD (gastroesophageal reflux disease) No date: Hot flashes No date: Hypothyroid No date: Mitral valve prolapse Comment: normal echo 2015 No date: Seasonal allergies No date: Snoring PAST SURGICAL HISTORY 90?: BREAST BIOPSY; Left Comment: @ [facility] 02/27/2018: COLONOSCOPY FLX DX W/COLLJ SPEC WHEN PFRMD Comment: normal colonoscopy, repeat in 5 years due to family history 14: D AND C DIAGNOSTIC NONOB 02/27/2018: ESOPHAGOGASTRODUODENOSCOPY TRANSORAL DIAGNOSTIC Comment: EGD 06/12/2020: ESOPHAGOGASTRODUODENOSCOPY TRANSORAL DIAGNOSTIC Comment: EGD No date: EYE SURGERY HX No date: JOINT REPLACEMENT HX 10/16,05/18: KNEE SURGERY HX; Bilateral 1999?: LIGATION COLLATERAL VEIN No date: SKIN BIOPSY HX ALLERGIES Seasonal Allergies, Sulfa (Sulfonamide Antibiotics), and Tree And Shrub Pollen MEDICATIONS Current Outpatient Medications Medication Sig polyethylene glycol 3350 (MIRALAX ORAL) Take by mouth. omeprazole (PRILOSEC) 40 mg capsule Take 1 capsule by mouth daily before breakfast. Then resume once a day atenolol (TENORMIN) 25 mg tablet Take 1 tablet by mouth once daily. FLUoxetine (PROZAC) 40 mg capsule Take 1 capsule by mouth once daily. levothyroxine (LEVOXYL) 125 mcg tablet Take 1 tablet by mouth once daily. Take on empty stomach. For thyroid. pravastatin (PRAVACHOL) 20 mg tablet Take 1 tablet by mouth once daily. docusate sodium (COLACE ORAL) Take 200 mg by mouth as directed. melatonin 5 mg tablet Take 5 mg by mouth as directed. fexofenadine (ROSITA ALLERGY) 180 mg tablet Take 1 tablet by mouth once daily. fluticasone (FLONASE) 50 mcg/actuation nasal spray Use 1 Mcfall in each nostril once daily. acetaminophen (TYLENOL) 500 mg tablet Take 1,000 mg by mouth twice daily as needed. Magnesium 250 mg tab Take 250 mg by mouth once daily. Using OTC for leg cramps COMPOUNDED PRESCRIPTION Turmeric Curcumin 500 mg taking 1 daily CALCIUM CARBONATE/VITAMIN D3 (CALCIUM 600 + D ORAL) Take 1 tablet by mouth twice daily. Bifidobacterium Infantis (ALIGN) 4 mg cap Take by mouth. VITAMIN B COMPLEX (B COMPLEX ORAL) Take by mouth. No current facility-administered medications for this visit. FAMILY HISTORY Problem Relation Age of Onset Anesthesia Mother Hypertension Mother Stroke Mother Heart Father Cancer Maternal Grandfather esophagus Colon Cancer Daughter Social History Tobacco Use Smoking status: Never Smokeless tobacco: Never Vaping Use Vaping Use: Never used Substance Use Topics Alcohol use: Yes Alcohol/week: 2.0 standard drinks of alcohol Types: 2 Glasses of Wine (5oz) per week Comment: daily Drug use: No REVIEW OF SYSTEMS Weight gain Some weight gain in last few years. Grieving loss of 3 years ago Good social support. No N/V, much constipation, liquid Hepatic steatosis. Discussed diet, exercise, and prune juice EXAM: BP 120/70 Pulse 76 Wt 89.4 kg (197 lb) SpO2 95% BMI 31.80 kg/m PHYSICAL EXAM: Physical Exam Vitals reviewed. Constitutional: Appearance: Normal appearance. Cardiovascular: Rate and Rhythm: Normal rate and regular rhythm. Pulses: Normal pulses. Heart sounds: Normal heart sounds. Pulmonary: Effort: Pulmonary effort is normal. Breath sounds: Normal breath sounds. Abdominal: Palpations: Abdomen is soft. Tenderness: There is no abdominal tenderness. There is no guarding or rebound. Comments: Very hypoactive MONO Musculoskeletal: Comments: Moves all ext. W/O difficulty No edema Neurological: Mental Status: She is alert. LABS: reviewed recent labs & liver ultrasound ASSESSMENT/PLAN: 1. Chronic constipation - ICD9: 564.00, ICD10: K59.09 (primary diagnosis) Ongoing - Increase water to 64 oz. Water daily - Prune juice or apple cider - Increase activity - Miralax daily - MOM if needed or magnesium citrate 2. Hepatic steatosis - ICD9: 571.8, ICD10: K76.0 Educated on diet, exercise, avoid ETOH, and avoid NSAIDS Discussed treatment plan and patient voices understanding. Patient's questions answered appropriately. Medications and potential side effects were discussed and patient voices understanding. Return to the office as scheduled or as needed for worsening/no improvement. Zoey Pickard APRN.[facility] Note* Letter - Coordinator, [facility] - 03/10/2024 1:15 PM EDT March 11, 2024 PID: [id number] Henrry BarnardEkaterina Sandhu [address] [place] [address] Dear Ms. Sandhu, We are pleased to inform you that the results of your recent breast imaging exam on 03/10/2024 are normal. Breast tissue can be either dense or not dense. Dense tissue makes it harder to find breast cancer on a mammogram and also raises the risk of developing breast cancer. Your breast tissue is dense. Insome people with dense tissue, other imaging tests in addition to a mammogram may help find cancers. Talk to your healthcare provider about breast density, risks for breast cancer, and your individual situation. Early detection of cancer is very important. We also understand recommendations regarding breast cancer screening are controversial. Please discuss with your primary care provider which strategy is best for you and whether a mammogram is right for you. Your imaging studies and report will be kept [facility] as part of your permanent medical record and are available for your continuing care. Thank you for allowing us to help in meeting your health care needs. Sincerely, Dr. Alicea Interpreting Radiologist [facility] (Normal over 40) [facility]08-07-2024 Miscellaneous Notes* Letter - Coordinator, Mammography - 03/10/2024 1:15 PM EDT March 11, 2024 PID: [id number] Henrry Sandhu [address] [place] [address] Dear Ms. Sandhu, We are pleased to inform you that the results of your recent breast imaging exam on 03/10/2024 are normal. Breast tissue can be either dense or not dense. Dense tissue makes it harder to find breast cancer on a mammogram and also raises the risk of developing breast cancer. Your breast tissue is dense. Insome people with dense tissue, other imaging tests in addition to a mammogram may help find cancers. Talk to your healthcare provider about breast density, risks for breast cancer, and your individual situation. Early detection of cancer is very important. We also understand recommendations regarding breast cancer screening are controversial. Please discuss with your primary care provider which strategy is best for you and whether a mammogram is right for you. Your imaging studies and report will be kept [facility] at [facility] as part of your permanent medical record and are available for your continuing care. Thank you for allowing us to help in meeting your health care needs. Sincerely, Dr. Alicea Interpreting Radiologist [facility] (Normal over 40) documented in this encounterMi[facility]08-[facility]24 History of Present illness Narrative* Hiral Galvez RT(R) - 03/10/2024 11:30 AM EDT Radiology Service Progress Note PATIENT NAME: Henrry Sandhu DATE OF SERVICE: March 10, 2024 TIME: 11:18 AM PATIENT IDENTITY VERIFICATION COMPLETED USING TWO (2) IDENTIFIERS: Name and Date of confirmedby patient verbally. FALL SCREENING: Has the patient had 2 falls in the last year or 1 fall with injury or currently using an Ambulatory Assistive Device (Walker, Cane, Wheelchair, Crutches, etc.)? No PATIENT GENDER DATA: Female. status: : No status: NO. PATIENT RELEVANT IMPLANT DATA REVIEWED: Not Applicable PATIENT PRESENTS WITH AN IMPLANTABLE OR ATTACHED EXTRUDING DEPARTMENT SUPERVISOR: No RADIOLOGY DEPARTMENT: Ultrasound PERIPHERAL IV DATA: Not applicable SIGNED BY: Hiarl Galvez RDMS March 10, 2024 11:18 AM documented in this encounterMi[facility]08-[facility]-2024 NoteHNO ID: [id number] Author: HIRAL GALVEZ RT (R) Service: Radiology Author Type: Technologist Type: Progress Notes Filed: 03/10/2024 11:19 Note Text: Radiology Service Progress Note PATIENT NAME: Henrry Sandhu DATE OF SERVICE: March 10, 2024 TIME: 11:18 AM PATIENT IDENTITY VERIFICATION COMPLETED USING TWO (2) IDENTIFIERS: Name and Date of confirmed by patient verbally. FALL SCREENING: Has the patient had 2 falls in the last year or 1 fall with injury or currently using an Ambulatory Assistive Device (Walker, Cane, Wheelchair, Crutches, etc.)? No PATIENT GENDER DATA: Female. status: : No status: NO. PATIENT RELEVANT IMPLANT DATA REVIEWED: Not Applicable PATIENT PRESENTS WITH AN IMPLANTABLE OR ATTACHED EXTRUDING DEPARTMENT SUPERVISOR: No RADIOLOGY DEPARTMENT: Ultrasound PERIPHERAL IV DATA: Not applicable SIGNED BY: Hiral Galvez RDMS March 10, 2024 11:18 [facility]08-07-2024 History of Present illness Narrative* Eamon Tuttle Mammo Tech - 03/10/2024 10:50 AM EDT Radiology Service Progress Note PATIENT NAME: Henrry Sandhu DATE OF SERVICE: March 10, 2024 TIME: 10:53 AM PATIENT IDENTITY VERIFICATION COMPLETED USING TWO (2) IDENTIFIERS: Name and Date of confirmedby patient verbally. FALL SCREENING: Has the patient had 2 falls in the last year or 1 fall with injury or currently using an Ambulatory Assistive Device (Walker, Cane, Wheelchair, Crutches, etc.)? No PATIENT GENDER DATA: Female. status: : No status: NO. PATIENT RELEVANT IMPLANT DATA REVIEWED: Not Applicable PATIENT PRESENTS WITH AN IMPLANTABLE OR ATTACHED EXTRUDING DEPARTMENT SUPERVISOR: No RADIOLOGY DEPARTMENT: Mammography PERIPHERAL IV DATA: Not applicable SIGNED BY: Leann Watson March 10, 2024 10:53 AM documented in this encounterMi[facility]08-07-2024 NoteHNO ID: [id number] Author: EAMON TUTTLE Mammo Tech Service: ? Author Type: Cash Processor Type: Progress Notes Filed: 03/10/2024 10:53 Note Text: Radiology Service Progress Note PATIENT NAME: Henrry Sandhu DATE OF SERVICE: March 10, 2024 TIME: 10:53 AM PATIENT IDENTITY VERIFICATION COMPLETED USING TWO (2) IDENTIFIERS: Name and Date of confirmed by patient verbally. FALL SCREENING: Has the patient had 2 falls in the last year or 1 fall with injury or currently using an Ambulatory Assistive Device (Walker, Cane, Wheelchair, Crutches, etc.)? No PATIENT GENDER DATA: Female. status: : No status: NO. PATIENT RELEVANT IMPLANT DATA REVIEWED: Not Applicable PATIENT PRESENTS WITH AN IMPLANTABLE OR ATTACHED EXTRUDING DEPARTMENT SUPERVISOR: No RADIOLOGY DEPARTMENT: Mammography PERIPHERAL IV DATA: Not applicable SIGNED BY: Eamon Tuttle Farazo [employer] March 10, 2024 10:53 [facility]07-31-2024 NoteHNO ID: [id number] Author: EDILBERTO SMITH MD Service: ? Author Type: Physician Type: Progress Notes Filed: 03/03/2024 14:13 Note Text: Patient presents with: 6 Month Exam HPI: Patient presents today for office visit for follow up. Uncomfortable fullness above naval. Has had for about 2-3 months. Notices more after she eats and doesn't seem to matter how much she eats. Taking omeprazole 40 mg daily. Started that due to clearing her throat all the time. Feels like still doing that and thought maybe that needed increased. Using Miralax now for bowels has tried a few different things. 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 No changes in the bowels overall. No bloody or black stools. Is on prilosec once a day. Last EGD 3 yrs ago. No cough. ? Dysphagia. Discussed avoiding nsaids No chest pain or shortness of breath. Takes atenolol for palpitations and doing well. Prozac is doing well. Hot flashes under control. HYPOTHYROID: Patient is compliant with medications: Yes TSH up to date. Prediabetes: A1C is elevated at 6.1 Follows with sleep med Sees pulmonary end of the month. Is not using her cpap. Discussed risks of not treating. No issues with lipid meds. MEDICATIONS: Current Outpatient Medications Medication Sig atenolol (TENORMIN) 25 mg tablet Take 1 tablet by mouth once daily. FLUoxetine (PROZAC) 40 mg capsule Take 1 capsule by mouth once daily. levothyroxine (LEVOXYL) 125 mcg tablet Take 1 tablet by mouth once daily. Take on empty stomach. For thyroid. pravastatin (PRAVACHOL) 20 mg tablet Take 1 tablet by mouth once daily. omeprazole (PRILOSEC) 40 mg capsule Take 1 capsule by mouth daily before breakfast. docusate sodium (COLACE ORAL) Take 200 mg by mouth as directed. melatonin 5 mg tablet Take 5 mg by mouth as directed. fexofenadine (ROSITA ALLERGY) 180 mg tablet Take 1 tablet by mouth once daily. fluticasone (FLONASE) 50 mcg/actuation nasal spray Use 1 Mcfall in each nostril once daily. psyllium husk (METAMUCIL ORAL) Take by mouth. acetaminophen (TYLENOL) 500 mg tablet Take 1,000 mg by mouth twice daily as needed. ibuprofen (MOTRIN) 200 mg tablet Take 400 mg by mouth twice daily as needed. Magnesium 250 mg tab Take 250 mg by mouth once daily. Using OTC for leg cramps COMPOUNDED PRESCRIPTION Turmeric Curcumin 500 mg taking 1 daily CALCIUM CARBONATE/VITAMIN D3 (CALCIUM 600 + D ORAL) Take 1 tablet by mouth twice daily. Bifidobacterium Infantis (ALIGN) 4 mg cap Take by mouth. VITAMIN B COMPLEX (B COMPLEX ORAL) Take by mouth. No current facility-administered medications for this visit. ALLERGIES: ALLERGIES Allergen Reactions Seasonal Allergies Other: See Comments Sulfa (Sulfonamide * Other: See Comments Eye swelling with use of eye drops containing sulfa antimicrobial Tree And Shrub Poll* Intolerance PAST MEDICAL HISTORY No date: Arrhythmia No date: Arthritis No date: GERD (gastroesophageal reflux disease) No date: Hot flashes No date: Hypothyroid No date: Mitral valve prolapse Comment: normal echo 2015 No date: Seasonal allergies No date: Snoring PAST SURGICAL HISTORY 90?: BREAST BIOPSY; Left Comment: @ [facility] 02/27/2018: COLONOSCOPY FLX DX W/COLLJ SPEC WHEN PFRMD Comment: normal colonoscopy, repeat in 5 years due to family history 14: D AND C DIAGNOSTIC NONOB 02/27/2018: ESOPHAGOGASTRODUODENOSCOPY TRANSORAL DIAGNOSTIC Comment: EGD 06/12/2020: ESOPHAGOGASTRODUODENOSCOPY TRANSORAL DIAGNOSTIC Comment: EGD No date: EYE SURGERY HX No date: JOINT REPLACEMENT HX 10/16,05/18: KNEE SURGERY HX; Bilateral 1999?: LIGATION COLLATERAL VEIN No date: SKIN BIOPSY HX FAMILY HISTORY Problem Relation Age of Onset Anesthesia Mother Hypertension Mother Stroke Mother Heart Father Cancer Maternal Grandfather esophagus Colon Cancer Daughter Social History Tobacco Use Smoking status: Never Smokeless tobacco: Never Vaping Use Vaping Use: Never used Substance Use Topics Alcohol use: Yes Alcohol/week: 2.0 standard drinks of alcohol Types: 2 Glasses of Wine (5oz) per week Comment: daily Drug use: No Reviewed current medications, allergies, past medical history, surgical history, family history and social history today. REVIEW OF SYSTEMS All other reviewed and negative other than HPI. HEALTH MAINTENANCE: Reviewed health maintenance issues today and recommended the following in detail. Depression Screening Never done Anxiety Screening Never done Covid-19 Vaccine( season) due on 10/03/2023 VITALS: BP 124/72 Pulse 88 Wt 89.8 kg (198 lb) SpO2 98% BMI 31.96 kg/m? Last 4 Encounter Wt Readings: Date: Wt: 12/12/2023 87.5 kg (193 lb) 10/30/2023 90 kg (198 lb 6.6 oz) 09/03/2023 88.9 kg (196 lb) 06/18/2023 88.9 kg (196 lb) PHYSICAL EXAMINATION: General appearance: Well appearing, alert, in no acute distress, well-hydrated, well nourished. Skin: Skin color, texture, turgor normal, no s (more content not included)... [facility]07-[facility] History of Present illness Narrative* Edilberto Smith MD - 03/03/2024 1:28 PM EDT Patient presents with: 6 Month Exam HPI: Patient presents today for office visit for follow up. Uncomfortable fullness above naval. Has had for about 2-3 months. Notices more after she eats and doesn't seem to matter how much she eats. Taking omeprazole 40 mg daily. Started that due to clearingher throat all the time. Feels like still doing that and thought maybe that needed increased. UsingMiralax now for bowels has tried a few different things. 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 No changes in the bowels overall. No bloody or black stools. Is on prilosec once a day. Last EGD 3 yrs ago. No cough. ? Dysphagia. Discussed avoiding nsaids No chest pain or shortness of breath. Takes atenolol for palpitations and doing well. Prozac is doing well. Hot flashes under control. HYPOTHYROID: Patient is compliant with medications: Yes TSH up to date. Prediabetes: A1C is elevated at 6.1 Follows with sleep med Sees pulmonary end of the month. Is not using her cpap. Discussed risks of not treating. No issues with lipid meds. MEDICATIONS: Current Outpatient Medications Medication Sig atenolol (TENORMIN) 25 mg tablet Take 1 tablet by mouth once daily. FLUoxetine (PROZAC) 40 mg capsule Take 1 capsule by mouth once daily. levothyroxine (LEVOXYL) 125 mcg tablet Take 1 tablet by mouth once daily. Take on empty stomach. For thyroid. pravastatin (PRAVACHOL) 20 mg tablet Take 1 tablet by mouth once daily. omeprazole (PRILOSEC) 40 mg capsule Take 1 capsule by mouth daily before breakfast. docusate sodium (COLACE ORAL) Take 200 mg by mouth as directed. melatonin 5 mg tablet Take 5 mg by mouth as directed. fexofenadine (ROSITA ALLERGY) 180 mg tablet Take 1 tablet by mouth once daily. fluticasone (FLONASE) 50 mcg/actuation nasal spray Use 1 Mcfall in each nostril once daily. psyllium husk (METAMUCIL ORAL) Take by mouth. acetaminophen (TYLENOL) 500 mg tablet Take 1,000 mg by mouth twice daily as needed. ibuprofen (MOTRIN) 200 mg tablet Take 400 mg by mouth twice daily as needed. Magnesium 250 mg tab Take 250 mg by mouth once daily. Using OTC for leg cramps COMPOUNDED PRESCRIPTION Turmeric Curcumin 500 mg taking 1 daily CALCIUM CARBONATE/VITAMIN D3 (CALCIUM 600 + D ORAL) Take 1 tablet by mouth twice daily. Bifidobacterium Infantis (ALIGN) 4 mg cap Take by mouth. VITAMIN B COMPLEX (B COMPLEX ORAL) Take by mouth. No current facility-administered medications for this visit. ALLERGIES: ALLERGIES Allergen Reactions Seasonal Allergies Other: See Comments Sulfa (Sulfonamide * Other: See Comments Eye swelling with use of eye drops containing sulfa antimicrobial Tree And Shrub Poll* Intolerance PAST MEDICAL HISTORY No date: Arrhythmia No date: Arthritis No date: GERD (gastroesophageal reflux disease) No date: Hot flashes No date: Hypothyroid No date: Mitral valve prolapse Comment: normal echo 2015 No date: Seasonal allergies No date: Snoring PAST SURGICAL HISTORY 90?: BREAST BIOPSY; Left Comment: @ [facility] 02/27/2018: COLONOSCOPY FLX DX W/COLLJ SPEC WHEN PFRMD Comment: normal colonoscopy, repeat in 5 years due to family history 15: D AND C DIAGNOSTIC NONOB 02/27/2018: ESOPHAGOGASTRODUODENOSCOPY TRANSORAL DIAGNOSTIC Comment: EGD 06/12/2020: ESOPHAGOGASTRODUODENOSCOPY TRANSORAL DIAGNOSTIC Comment: EGD No date: EYE SURGERY HX No date: JOINT REPLACEMENT HX 10/16,05/18: KNEE SURGERY HX; Bilateral 1999?: LIGATION COLLATERAL VEIN No date: SKIN BIOPSY HX FAMILY HISTORY Problem Relation Age of Onset Anesthesia Mother Hypertension Mother Stroke Mother Heart Father Cancer Maternal Grandfather esophagus Colon Cancer Daughter Social History Tobacco Use Smoking status: Never Smokeless tobacco: Never Vaping Use Vaping Use: Never used Substance Use Topics Alcohol use: Yes Alcohol/week: 2.0 standard drinks of alcohol Types: 2 Glasses of Wine (5oz) per week Comment: daily Drug use: No Reviewed current medications, allergies, past medical history, surgical history, family history andsocial history today. REVIEW OF SYSTEMS All other reviewed and negative other than HPI. HEALTH MAINTENANCE: Reviewed health maintenance issues today and recommended the following in detail. Depression Screening Never done Anxiety Screening Never done Covid-19 Vaccine( season) due on 10/03/2023 VITALS: BP 124/72 Pulse 88 Wt 89.8 kg (198 lb) SpO2 98% BMI 31.96 kg/m Last 4 Encounter Wt Readings: Date: Wt: 12/12/2023 87.5 kg (193 lb) 10/30/2023 90 kg (198 lb 6.6 oz) 09/03/2023 88.9 kg (196 lb) 06/18/2023 88.9 kg (196 lb) PHYSICAL EXAMINATION: General appearance: Well appearing, alert, in no acute distress, well-hydrated, well nourished. Skin: Skin color, texture, turgor normal, no suspicious rashes or lesions Head: Normocephalic, no masses, lesions, tenderness or abnormalities Eyes: Anicteric sclera. Pupils are equally round and reactive to light. Extraocular movements are intact. Lungs: Lungs clear to auscultation. No wheezing, rhonchi, rales Heart: RRR without murmur, gallop, or rubs. No ectopy Abdomen: Normal abdominal exam, Abdomen soft, minimal epigastric pain. Bowel sounds normal. No masses, organomegaly Extremities: No deformities, edema, skin discoloration, clubbing or cyanosis. Good capillary refill. ASSESSMENT/PLAN: 1. Epigastric pain - ICD9: 789.06, ICD10: R10.13 (primary diagnosis) - check labs and us. Increase prilosec to bid for one month and then back to once a day. . Declines egd for now. Avoid nsaids. Recheck in two weeks. - COMPLETE BLOOD COUNT AND DIFFERENTIAL - COMPREHENSIVE METABOLIC PANEL - LIPASE - US ABD RIGHT UPPER QUADRANT 2. Encounter for screening mammogram for malignant neoplasm of breast - ICD9: V76.12, ICD10: Z12.31 - Follow up for annual exam in one year. - PERRI SCREENING 3. Tension-type headache, not intractable, unspecified chronicity pattern - ICD9: 339.10, ICD10: G44.209 - stable. 4. Mixed hyperlipidemia - ICD9: 272.2, ICD10: E78.2 - stable. 5. Mitral valve prolapse - ICD9: 424.0, ICD10: I34.1 - last echo was ok. Take betablocker for palpitations. 6. SHIVA (obstructive sleep apnea) - ICD9: 327.23, ICD10: G47.33 - not treating. 7. Hypothyroidism, unspecified type - ICD9: 244.9, ICD10: E03.9 - up to date on testing. 8. Prediabetes - ICD9: 790.29, ICD10: R73.03 - stable 9. Screening for depression - ICD9: V79.0, ICD10: Z13.31 - DEPRESSION SCREENING 10. Encounter for screening examination for other mental health and behavioral disorders - ICD9: V79.8, ICD10: Z13.39 - ANXIETY SCREENING 11. Gastroesophageal reflux disease without esophagitis - ICD9: 530.81, ICD10: K21.9 - as above. - OMEPRAZOLE 40 MG CAPSULE,DELAYED RELEASE Edilberto Smith MD RTO in two weeks. [facility] Telephone encounter Note * Telephone Encounter - Diane Jara LPN - 02/27/2024 3:45 PM EDT Patient has been identified by name and date of : Pharmacy phones for refill(s): Requested Prescriptions Pending Prescriptions Disp Refills atenolol (TENORMIN) 25 mg tablet 90 tablet 1 Sig: Take 1 tablet by mouth once daily. Date of last office visit in primary care: 09/03/2023 Date of next office visit in primary care: 03/03/2024 Please advise. Thank you. Diane Jara LPN. [facility] Miscellaneous Notes* Telephone Encounter - Diane Mayfield LPN - 02/27/2024 3:45 PM EDT Patient has been identified by name and date of : Pharmacy phones for refill(s): Requested Prescriptions Pending Prescriptions Disp Refills atenolol (TENORMIN) 25 mg tablet 90 tablet 1 Sig: Take 1 tablet by mouth once daily. Date of last office visit in primary care: 09/03/2023 Date of next office visit in primary care: 03/03/2024 Please advise. Thank you. Diane Jara LPN. [facility] Telephone encounter Note * Telephone Encounter - Jose Carlos Levin APRN.CNP - 01/13/2024 12:47 PM EDT Please tell Naeem we have referred pt to Pulm for them to eval and treat, thank you [facility] Miscellaneous Notes* Telephone Encounter - Jose Carlos Levin APRN.CNP - 01/13/2024 12:47 PM EDT Please tell Naeem we have referred pt to Pulm for them to eval and treat, thank you * Telephone Encounter - Gissel Alston RN - 01/13/2024 11:54 AM EDT Vernell calls back and states if provider orders a 3 part O2 testing patient would then qualify without sleep titration study. Patient would have to de-stat during a walking test to qualify. Gissel Alston RN * Telephone Encounter - Margie Champion RN - 01/13/2024 10:53 AM EDT Vernell- Sasha- returned call and reports, because it is Medicare, and patient has a diagnoses of SHIVA, patient does have to have a sleep titration study within 30 days, to qualify for oxygen. Please phone Vernell with any questions- [phone] extension [phone] * Telephone Encounter - Julianna Choe LPN - 01/12/2024 2:10 PM EDT TC to NAEEM who will pass along information to Vernell and will give a phone call. Advised them the patient is not using PAP and will not need a titration study. Julianna Choe LPN * Telephone Encounter - Jose Carlos Levin APRN.CNP - 01/12/2024 12:46 PM EDT She isn't on PAP therapy, therefore no titration study needed. Jose Carlos Levin APRN.ROSEMARY * Telephone Encounter - Patria Gastelum RN - 01/12/2024 11:39 AM EDT Vernell with [facility] calling back. States since patient has medicare, she will need new sleep titrationstudy completed and after that, a new O2 script. Patria Gastelum RN * Telephone Encounter - Robyn Jean LPN - 01/12/2024 11:16 AM EDT Vernell with [employer] reports they received an order for nocturnal O2. Vernell reports she needs a sleep titration study from the last 30 days-signed, dated by provider with NPI. OV notes from last 30 days. Advised Vernell last sleep titration was 09/16/23. Pt did have an Overnight Pulse Ox on 12/23/23. Last OV with Jose Carlos Levin, SCHOOL BUS ATTENDANT: 12/12/23. Vernell is going to call back after reviewing with billing team to see if they will accept Sleep Titration 09/16/23 along with Overnight PO. Robyn Jean LPN documented [facility] Telephone encounter Note * Telephone Encounter - Gissel Alston RN - 01/13/2024 11:54 AM EDT Vernell calls back and states if provider orders a 3 part O2 testing patient would then qualify without sleep titration study. Patient would have to de-stat during a walking test to qualify. Gissel Alston RN [facility] Telephone encounter Note* Telephone Encounter - Margie Champion RN - 01/13/2024 10:53 AM EDT Vernell- Sasha- returned call and reports, because it is Medicare, and patient has a diagnoses of SHIVA, patient does have to have a sleep titration study within 30 days, to qualify for oxygen. Please phone Vernell with any questions- [phone] extension [phone] [facility] Telephone encounter Note* Telephone Encounter - Julianna Choe LPN - 01/12/2024 2:10 PM EDT TC to [facility] who will pass along information to Vernell and will give a phone call. Advised them the patient is not using PAP and will not need a titration study. Julianna Choe LPN [facility] Telephone encounter Note* Telephone Encounter - Jose Carlos Levin APRN.CNP - 01/12/2024 12:46 PM EDT She isn't on PAP therapy, therefore no titration study needed. Jose Carlos Levin APRN.SCHOOL BUS ATTENDANT [facility] Telephone encounter Note* Telephone Encounter - Patria Gastelum RN - 01/12/2024 11:39 AM EDT [facility]. States since patient has medicare, she will need new sleep titrationstudy completed and after that, a new O2 script. Patria Gastelum RN [facility] Telephone encounter Note* Telephone Encounter - Robyn Jean LPN - 01/12/2024 11:16 AM EDT Vernell with [facility] reports they received an order for nocturnal O2. Vernell reports she needs a sleep titration study from the last 30 days-signed, dated by provider with NPI. OV notes from last 30 days. Advised Vernell last sleep titration was 09/16/23. Pt did have an Overnight Pulse Ox on 12/23/23. Last OV with Jose Carlos Levin CNP: 12/12/23. Vernell is going to call back after reviewing with billing team to see if they will accept Sleep Titration 09/16/23 along with Overnight PO. oRbyn Jean LPN [facility] Telephone encounter Note* Telephone Encounter - Navdeep Irving LPN - 01/12/2024 9:40 AM EDT Prescription Refill Information The patient has been identified by name and date of : Yes Caregiver verified no other encounters exist for this prescription request: Yes Caregiver confirmed with patient/requestor that no other refills are due, in the near future, with this provider at this time: Yes The last office visit in the department: 09/03/23 Does the patient have a future office visit with this provider/department: Yes, 03/03/[address] Smith Requested Prescriptions Pending Prescriptions Disp Refills FLUoxetine (PROZAC) 40 mg capsule 90 capsule 3 Sig: Take 1 capsule by mouth once daily. Navdeep Irving LPN January 12, 2024 9:40 AM [facility] Miscellaneous Notes* Telephone Encounter - Navdeep Irving LPN - 01/12/2024 9:40 AM EDT Prescription Refill Information The patient has been identified by name and date of : Yes Caregiver verified no other encounters exist for this prescription request: Yes Caregiver confirmed with patient/requestor that no other refills are due, in the near future, with this provider at this time: Yes The last office visit in the department: 09/03/23 Does the patient have a future office visit with this provider/department: Yes, 03/03/[address] Smith Requested Prescriptions Pending Prescriptions Disp Refills FLUoxetine (PROZAC) 40 mg capsule 90 capsule 3 Sig: Take 1 capsule by mouth once daily. Navdeep Irving LPN January 12, 2024 9:40 AM documented [facility] Telephone encounter Note * Telephone Encounter - Shona Gomez MA - 01/09/2024 11:17 AM EDT Orders are signed by R Poonam and faxed back to [facility] Fax has been sent and confirmed . Nothing further needed [facility] Miscellaneous Notes* Telephone Encounter - Shona Gomez MA - 01/09/2024 11:17 AM EDT Orders are signed by Jeremi Levin and faxed back to [employer] Fax has been sent and confirmed . Nothing further needed * Telephone Encounter - Jose Carlos Levin APRN.CNP - 01/08/2024 6:15 PM EDT I printed and signed the O2 order. Will have MD staff fax it to [employer]. It is in the 3B To Be Faxedfile. * Telephone Encounter - Brittney Willingham LPN - 01/08/2024 4:43 PM EDT Phone call placed to Bessie randall at [facility] advised original order was signed but not the oxygen portion. Advised provider agreeable to sign Rx Oxygen [employer] faxing to [phone], upload to chart for provider to print sign. Brittney Willingham LPN Rx received [employer] fwd to provider for review. Scan on 01/08/2024 4:49 PM by Provider, External, PANubiaC: Rx [facility] O2 * Telephone Encounter - Jose Carlos Levin APRN.CNP - 01/08/2024 3:46 PM EDT First, that is a ridiculous question asked by [employer]: of course I don't want the patient to be hypoxic. Second, I don't recall seeing an order for oxygen. Third, I would be happy to sign an order for oxygen until the pt sees Pulm. Is there an order for me to sign today? I am off tomorrow. Jose Carlos Levin APRN.ROSEMARY * Telephone Encounter - Margie Champion RN - 01/08/2024 1:07 PM EDT Bessie- abdullahi Baez- reports she received the overnight POX testing signed, but the oxygen order was not signed. Patient has an appt with pulm on 04-01-24 Bessie asking if you want patient to stay hypoxic until the pulm appt? Asking if Nayeli Levin can sign the oxygen order, then once patient sees pulmonary they can take over? Please phone Bessie with reply: [phone] * Telephone Encounter - Julianna Choe LPN - 01/02/2024 2:10 PM EDT TC to pt who voiced understanding and is agreeable to seeing pulmonology. Please assist pt in scheduling. Julianna Choe LPN * Telephone Encounter - Jose Carlos Levin APRN.CNP - 01/02/2024 12:40 PM EDT Please tell pt the overnight oximetry showed she spent 3 hrs with oxygen below 88%. I would like Pulmonology to evaluate her. Consult placed. Jose Carlos Levin APRN.ROSEMARY * Telephone Encounter - Julianna Choe LPN - 12/31/2023 3:50 PM EDT Please see attached overnight pulse ox results. Scan on 12/30/2023 1:40 PM by Provider, External, PANubiaC: Overnight Pulse Ox Julianna Choe LPN documented [facility] Telephone encounter Note * Telephone Encounter - Jose Carlos Levin APRN.CNP - 01/08/2024 6:15 PM EDT I printed and signed the O2 order. Will have [facility] staff fax it to [facility]. It is in the 3B To Be Faxedfile. [facility] Telephone encounter Note* Telephone Encounter - Brittney Willingham LPN - 01/08/2024 4:43 PM EDT Phone call placed to Bessie randall at [facility] advised original order was signed but not the oxygen portion. Advised provider agreeable to sign Rx Oxygen [employer] faxing to [phone], upload to chart for provider to print sign. Brittney Willingham LPN Rx received [facility] fwd to provider for review. Scan on 01/08/2024 4:49 PM by Provider, External, DEVENC: Rx [facility] O2 [facility] Telephone encounter Note* Telephone Encounter - Jose Carlos Levin APRN.CNP - 01/08/2024 3:46 PM EDT First, that is a ridiculous question asked by [employer]: of course I don't want the patient to be hypoxic. Second, I don't recall seeing an order for oxygen. Third, I would be happy to sign an order for oxygen until the pt sees Pulm. Is there an order for me to sign today? I am off tomorrow. Jose Carlos Levin APRN.CNP [facility] Telephone encounter Note* Telephone Encounter - Margie Champion, DEVON - 01/08/2024 1:07 PM EDT Bessie- nurse- Sasha- reports she received the overnight POX testing signed, but the oxygen order was not signed. Patient has an appt with pulm on 04-01-24 Bessie asking if you want patient to stay hypoxic until the pulm appt? Asking if Nayeli Levin can sign the oxygen order, then once patient sees pulmonary they can take over? Please phone Bessie with reply: [phone] [facility] Telephone encounter Note* Telephone Encounter - Julianna Choe LPN - 01/02/2024 2:10 PM EDT TC to pt who voiced understanding and is agreeable to seeing pulmonology. Please assist pt in scheduling. Julianna Choe LPN [facility] Telephone encounter Note* Telephone Encounter - Jose Carlos Levin APRN.CNP - 01/02/2024 12:40 PM EDT Please tell pt the overnight oximetry showed she spent 3 hrs with oxygen below 88%. I would like Pulmonology to evaluate her. Consult placed. Jose Carlos Levin APRN.ROSEMARY [facility] Telephone encounter Note* Telephone Encounter - Julianna Choe LPN - 12/31/2023 3:50 PM EDT Please see attached overnight pulse ox results. Scan on 12/30/2023 1:40 PM by Provider, External, DEVENC: Overnight Pulse Ox Julianna Choe LPN [facility] Telephone encounter Note* Telephone Encounter - Zoey Ansari LPN - 12/22/2023 4:49 PM EDT Patient has been identified by name and date of : Yes, Patient phones for refill(s): Requested Prescriptions Pending Prescriptions Disp Refills levothyroxine (LEVOXYL) 125 mcg tablet 90 tablet 1 Sig: Take 1 tablet by mouth once daily. Take on empty stomach. For thyroid. Date of last office visit in primary care: 09/03/2023 Date of next office visit in primary care: 03/03/2024 Please advise. Thank you. Zoey Ansari LPN. [facility] Miscellaneous Notes* Telephone Encounter - Zoey Ansari LPN - 12/22/2023 4:49 PM EDT Patient has been identified by name and date of : Yes, Patient phones for refill(s): Requested Prescriptions Pending Prescriptions Disp Refills levothyroxine (LEVOXYL) 125 mcg tablet 90 tablet 1 Sig: Take 1 tablet by mouth once daily. Take on empty stomach. For thyroid. Date of last office visit in primary care: 09/03/2023 Date of next office visit in primary care: 03/03/2024 Please advise. Thank you. Zoey Ansari LPN. documented [facility] History of Present illness Narrative* Jose Carlos Levin APRN.SCHOOL BUS ATTENDANT - 12/12/2023 3:00 PM EDT Images from the original note were not included. [facility] New Patient Evaluation PATIENT NAME: Henrry Sandhu DATE OF SERVICE: December 11, 2023 CONSULTING PROVIDER: Edilberto Smith [address] [facility] [id number] REASON FOR CONSULT: Edilberto Smith sends the patient for an opinion about SHIVA. My findings and recommendations will be transmitted electronically via shared medical record to the consulting provider. HPI: Henrry Sandhu is a 78 year old female. Sleep-related history: recent diagnosis of SHIVA, at least mild on HSAT. Because of nocturnal hypoxiaan in-lab titration study was done. She tried autoCPAP but didn't tolerate it, she returned the machine to [facility]. For the past 5 yrs she has needed a mid-day nap, says that's what prompted the sleep study. SLEEP-WAKE SCHEDULE Bedtime: 9-10 PM. She does not have a hard time falling asleep. Takes melatonin 5 mg. Sleeps for 2-3 hrs, then wakes up, then varies how long she is awake--might read on her Jermaine, could be 45 min to 2 hrs. Can wake up due to hot flashes, they are partially controlled with prozac. Wake time: 630-7 AM, without an alarm. On weekends, she maintains the same sleep schedule. Average total sleep time (in a 24 hour period): 7-8 hours. SLEEP-RELATED DETAILS Preferred sleep position: side Breathing disturbances and other behaviors during sleep: snoring. Bruxism: Wears a guard lieutenant for TMJ. GERD or aspiration: No Waking up with heart pounding or racing: No Anxiety or rumination: No She does not report having an urge to move the legs in the evening (when resting) that is accompanied or caused by uncomfortable and/or unpleasant sensations in the legs. She has not been told that she has leg kicking during sleep. She denies any history of parasomnias. Daytime sleepiness is not a problem. She does report sleep paralysis (when napping)--has occurred about 12x in the past 10-15 yrs. Has rarely had sleep-related hallucinations. No cataplexy WAKE-RELATED DETAILS She does not work. She does not have difficulty with memory or concentration. She denies falling asleep or dozing off when driving. She does take naps. Frequency: daily, Duration: 1-1.5 hrs. Naps are refreshing. She does drink 2 caffeinated beverages per day. There has not been a recent change in weight. Patient Questionnaires Sleep Scores 12/06/2023 Sleep Questions Reason for visit: Sleep apnea Difficulty falling or staying asleep or poor sleep quality On average, hours of sleep in 24 hours: 7 Accidents or near accidents due to drowsy drivin 12/06/2023 [place] Sleepiness Scale Score 4 (No clinically significant daytime sleepiness) 12/06/2023 PROMIS CAT Sleep Disturbance PROMIS Sleep Disturbance T-Score 53 (within normal limits) PROMIS Sleep Disturbance Percentile 38 12/06/2023 PHQ-9 Score 3 12/06/2023 PROMIS Global Health - (T-Scores - the mean of general population = 50. Five points is a clinicallymeaningful difference.) Physical T-Score 54.1 Mental T-Score 53.3 PAST TREATMENTS: AutoPAP PRIOR SLEEP STUDIES: A Home Sleep Test (HST) performed on 07/23/23 revealed an AHI of 10; supine index of 6; and a minimum oxygen saturation of 86%. 17% of recording with O2<88%. She had a PAP titration study on 09/16/23 which showed that a PAP setting of 5cmH2O reduced the AHI to 0 and normalized snoring. Recommended autoCPAP 5-15 cmH2O. PAST MEDICAL HISTORY Diagnosis Date Arrhythmia Arthritis GERD (gastroesophageal reflux disease) Hot flashes Hypothyroid Mitral valve prolapse normal echo 2015 Seasonal allergies Snoring PAST SURGICAL HISTORY Procedure Laterality Date BREAST BIOPSY Left 90? @ [facility] COLONOSCOPY FLX DX W/COLLJ SPEC WHEN PFRMD 02/27/2018 normal colonoscopy, repeat in 5 years due to family history D AND C DIAGNOSTIC NONOB 14 ESOPHAGOGASTRODUODENOSCOPY TRANSORAL DIAGNOSTIC 02/27/2018 EGD ESOPHAGOGASTRODUODENOSCOPY TRANSORAL DIAGNOSTIC 06/12/2020 EGD EYE SURGERY HX JOINT REPLACEMENT HX KNEE SURGERY HX Bilateral 10/16,05/18 LIGATION COLLATERAL VEIN 1999? SKIN BIOPSY HX ACTIVE PROBLEM LIST Arthritis of Knee Hot Flashes Hypothyroidism Mitral Valve Prolapse Chronic Pain of Right Knee Chronic Pain of Left Knee Seasonal Allergic Rhinitis Due to Pollen Acute Superficial Gastritis Without Hemorrhage H/O Colonoscopy Mixed Hyperlipidemia Lumbar Pain History of Total Knee Replacement Tension Type Headache Prediabetes Shiva (Obstructive Sleep Apnea) Allergies As of Date: 12/12/2023 Allergen Noted Reaction SEASONAL ALLERGIES 03/17/2018 Other: See Comments SULFA (SULFONAMIDE ANTIBIOTICS) 08/05/2015 Other: See Comments TREE AND SHRUB POLLEN 05/23/2020 Intolerance Fully Assessed 12/12/2023 CURRENT MEDICATIONS: pravastatin (PRAVACHOL) 20 mg tablet Take 1 tablet by mouth once daily. omeprazole (PRILOSEC) 40 mg capsule Take 1 capsule by mouth daily before breakfast. atenolol (TENORMIN) 25 mg tablet Take 1 tablet by mouth once daily. levothyroxine (LEVOXYL) 125 mcg tablet Take 1 tablet by mouth once daily. Take on empty stomach. For thyroid. docusate sodium (COLACE ORAL) Take 200 mg by mouth as directed. melatonin 5 mg tablet Take 5 mg by mouth as directed. fexofenadine (ROSITA ALLERGY) 180 mg tablet Take 1 tablet by mouth once daily. fluticasone (FLONASE) 50 mcg/actuation nasal spray Use 1 Mcfall in each nostril once daily. FLUoxetine (PROZAC) 40 mg capsule Take 1 capsule by mouth once daily. psyllium husk (METAMUCIL ORAL) Take by mouth. acetaminophen (TYLENOL) 500 mg tablet Take 1,000 mg by mouth twice daily as needed. ibuprofen (MOTRIN) 200 mg tablet Take 400 mg by mouth twice daily as needed. Magnesium 250 mg tab Take 250 mg by mouth once daily. Using OTC for leg cramps COMPOUNDED PRESCRIPTION Turmeric Curcumin 500 mg taking 1 daily CALCIUM CARBONATE/VITAMIN D3 (CALCIUM 600 + D ORAL) Take 1 tablet by mouth twice daily. Bifidobacterium Infantis (ALIGN) 4 mg cap Take by mouth. VITAMIN B COMPLEX (B COMPLEX ORAL) Take by mouth. Review of Systems Constitutional: Positive for night sweats (better on prozac). Cardiovascular: Negative for palpitations. Gastrointestinal: Negative for heartburn. Neurological: Positive for headaches (ocular migraines 1-2x per month). Negative for memory loss. SOCIAL HISTORY: Social History Tobacco Use Smoking status: Never Smokeless tobacco: Never Vaping Use Vaping Use: Never used Substance Use Topics Alcohol use: Yes Alcohol/week: 2.0 standard drinks of alcohol Types: 2 Glasses of Wine (5oz) per week Comment: daily Drug use: No FAMILY HISTORY: FAMILY HISTORY Problem Relation Age of Onset Anesthesia Mother Hypertension Mother Stroke Mother Heart Father Cancer Maternal Grandfather esophagus Colon Cancer Daughter There is a family history of: Sleep apnea. Relative: sister, son PHYSICAL EXAMINATION: Vital Signs: BP 122/74 Pulse 77 Resp 16 Wt 87.5 kg (193 lb) SpO2 97% BMI 31.15 kg/m PHYSICAL EXAM: General appearance: pleasant, NAD Mental status: alert and oriented, able to provide own history Skin: No visible rashes on exposed skin Neuro: No focal deficits observed, no tremors ENT : Posterior airspace: Sood tongue position 3, retrognathia present. Overbite absent. High arched palate present. Tongue scalloping/ridging present. Uvula: not visible IMPRESSION/PLAN: G47.33 SHIVA (obstructive sleep apnea) (primary encounter diagnosis) G47.34 Nocturnal hypoxia Z78.9 Intolerance of continuous positive airway pressure (CPAP) ventilation Henrry Sandhu is a delightful 78 year old female with at least mild SHIVA, nocturnal hypoxia even in the absence of respiratory events on sleep study, CPAP intolerance. PMH of HLD, MVP, hypothyroidism, hot flashes, obesity. We reviewed her HSAT and PAP titration study results, discussed SHIVA, risks of untreated SHIVA, treatment options. 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 Her AHI is <15 so not a candidate for Inspire. She isn't interested in trying PAP again. We will order overnight oximetry from [facility] [place] [facility]; if hypoxia as seen on HSAT then will refer to Pulm. [facility]. Jose Carlos Levin APRN.SCHOOL BUS ATTENDANT documented in [facility] encounter[facility] Telephone encounter Note * Telephone Encounter - Cade Ramos MA - 12/08/2023 2:08 PM EDT Images from the original note were not included. [facility] Miscellaneous Notes* Telephone Encounter - Cade Ramos MA - 12/08/2023 2:08 PM EDT Images from the original note were not included. documented in this encounterMi[facility]05-[facility]-2024 Telephone encounter Note * Telephone Encounter - Leonora Wylie MA - 12/08/2023 10:02 AM EDT Patient has been identified by name and date of : Yes Patient phones for refill(s): Requested Prescriptions Pending Prescriptions Disp Refills pravastatin (PRAVACHOL) 20 mg tablet 90 tablet 1 Sig: Take 1 tablet by mouth once daily. Date of last office visit in primary care: 09/03/2023 Date of next office visit in primary care: 03/03/2024 Please advise. Thank you. Leonora Wylie MA. [facility] Miscellaneous Notes* Telephone Encounter - Leonora Wylie MA - 12/08/2023 10:02 AM EDT Patient has been identified by name and date of : Yes Patient phones for refill(s): Requested Prescriptions Pending Prescriptions Disp Refills pravastatin (PRAVACHOL) 20 mg tablet 90 tablet 1 Sig: Take 1 tablet by mouth once daily. Date of last office visit in primary care: 09/03/2023 Date of next office visit in primary care: 03/03/2024 Please advise. Thank you. Leonora Wylie MA. documented in this encounterMiami [facility]02-16-2024 Miscellaneous Notes* Telephone Encounter - Gissel Alston RN - 09/19/2023 4:54 PM EST Patient calls back and notified of below. Patient voiced understanding. Patient requesting office notes, cpap order, face sheet, and sleep study test to be faxed to [facility]. Faxed as requested. Gissel Alston RN * Telephone Encounter - Corazon Davidson - 09/19/2023 4:37 PM EST Placed call to patient with no answer. Line just rings and rings. Try again later. Corazon Davidson * Telephone Encounter - Edilberto Smith MD - 09/19/2023 3:06 PM EST Sleep apnea test shows setting for cpap. Set it up and set up to follow with sleep med. documented in this encounterMiami [facility] Hospital02-14-2024 History of Present illness Narrative* Dorinda Betts - 09/17/2023 6:06 AM EST Sleep Study Check-In Documentation Date: September 17, 2023 Name: Henrry Sandhu Patient was accompanied by Self. Location: [place] Latex allergy: No Tape allergy: No Current medications were reviewed with the patient:Yes Sleep aid taken by patient for the sleep study: Yes Name of sleep aid: Melatonin Procedure was explained to the patient and all questions were answered. PAP treatment discussed and shown to patient: Yes If PAP used enter mask info: Mask Name: AirFit P10 For Her Make: ResMed Mask Type: Nasal Pillow Mask Size: Extra Small Chin Strap Used: No Knowledge Program (KP): KP was not completed in [facility] by patient and accepted Study type: PAP titration Adverse Event: No Comments: Patient was advised to follow up with their ordering provider regarding test results Dorinda Betts * Heber Watkins III, PhD - 09/01/2023 3:25 AM EST September 01, 2023 Standing PSG Orders signed in the last 90 days None Future PSG Orders signed in the last 90 days Ordered Auth. provider PAP TITRATION PSG (CPAP, BIPAP, ASV) [[id number]] 08/08/23 Lexi Marx, JABIER.SCHOOL BUS ATTENDANT Assoc. diagnoses: Nocturnal hypoxia [G47.34], SHIVA (obstructive sleep apnea) [G47.33] Q: Indications: A: Obstructive sleep apnea Q: STOP-BANG conditions - Select All That Apply: A: AGE > 50 Q: Special Needs (e.g.behavior, non-ambulatory, >450 lbs)?: A: No Q: Prior PAP (CPAP or Bilevel PAP) Use?: A: No Q: Sleep History: A: Sleep apnea (hypoxia on home sleep study.) A2: Daytime sleepiness A3: OTHER - Enter in comments Q: Current use of supplemental oxygen during sleep period?: A: No Q: Add supplemental oxygen if needed per sleep lab policy?: A: Yes All Prior Sleep Studies (past 365 days) Some values may be hidden. Unless noted otherwise, only the newest values recorded on each date aredisplayed. Sleep Studies HOME SLEEP APNEA TEST (HSAT) Date: 07/23/23 PAP TITRATION PSG (CPAP, BIPAP, ASV) Future Expected: Expires: 09/06/24 BMI Readings from Last 2 Encounters: 06/18/23 : 31.64 kg/m 02/28/23 : 32.35 kg/m PAST MEDICAL HISTORY Diagnosis Date Arrhythmia Arthritis GERD (gastroesophageal reflux disease) Hot flashes Hypothyroid Mitral valve prolapse normal echo 2015 Seasonal allergies Snoring The medical record was reviewed to determine if the proposed sleep study conforms to the AASM Practice Parameters for the Indications for Polysomnography and Related Procedures, or if the sleep studyis indicated for other reasons. Indications for study: SHIVA previously diagnosed: Evaluate response to PAP therapy Sleep study to be performed: PAP titration study Special instructions: Start titration at PAP setting of 5 cmH2O Add Transcutaneous CO2 [facility] Staff Note: I have read the above protocol, edited as needed, and agree to the plan. Heber Watkins III, PhD 6:18 PM, 09/01/2023 Lisa Lezama - 08/28/2023 3:49 PM EST August 28, 2023 An order has been received for PAP titration study from Lexi Brito, ortega. [facility] Staff. Visit prep complete. Comments :No The sleep study is scheduled for 09/16. Insurance: Payor: MEDICARE / Plan: MEDICARE A AND B / Product Type: Medicare / Payer/Plan Subscr Sex Relation Sub. Ins. ID Effective Group Num 1. MEDICARE - ME* HENRRY SANDHU 1945 Female Self [id number] 07/04/11 [address] [employer]* HENRRY SANDHU 1945 Female Self [id number] 08/04/20 [id number] [employer] JA[employer]E GILDARDO Briscoe documented in this encounterMiami [facility] Hospital01-05-2024 Miscellaneous Notes* Telephone Encounter - Navdeep Irving LPN - 08/08/2023 12:41 PM EST TC to pt, notified of results/provider response. Pt verbalized understanding. Please assist pt with scheduling in lab sleep study. Navdeep Irving LPN * Telephone Encounter - Lexi Marx APRN.CNP - 08/08/2023 11:32 AM EST Can please let patient know that I received her sleep study back. It did confirm at least mild sleep apnea. It also looked like her oxygen level dropped some during sleep. For these reason, they are recommending an inlab study to further evaluate what the best treatment for her would be. I went ahead and placed the order. Please help schedule. Lexi Marx APRN.ROSEMARY documented in this encounterMiami [facility] Hospital11-15-2023 Instructions* Patient Instructions* Lexi Marx APRN.CNP - 06/18/2023 3:01 PM EST Get labs done Complete sleep study when it arrives Keep food log on days you feel extra tired Follow up pending test results documented in this encounterMiami Valley Hospital11-15-2023 History of Present illness Narrative* Lexi Marx APRN.CNP - 06/18/2023 2:33 PM EST This is a 77 year old female who presents today with: Patient presents with: Fatigue HISTORY OF PRESENT ILLNESS: Henrry Sandhu is a 77 year old female. Patient presents with: Fatigue Pt presents today w/ complaint of fatigue. Fatigue: 1-2 times a week she feels like she hits a wall with fatigue to the point where she has to lay down. When it happens, it will be after lunch and will be extreme I have to lay down. Unable to correlate symptoms to any specific foods. She does do intermittent fasting. Pt reports she rarely falls asleep but after a restful period she feels a bit better. Reports her has remarked that she snores loudly. Pt reports she has been having symptoms for about 6 months. Pt reports some issues with sleep where she wakes up every couple hours, however reasons for wakening differ. No CP. Some SOB w/ exertion. No dizziness. No urinary symptoms. No diarrhea/constipation/hematochezia/melena. Hx of hypothyroidism. PAST MEDICAL HISTORY: PAST MEDICAL HISTORY Diagnosis Date Arrhythmia Arthritis GERD (gastroesophageal reflux disease) Hot flashes Hypothyroid Mitral valve prolapse normal echo 2015 Seasonal allergies Snoring PAST SURGICAL HISTORY Procedure Laterality Date BREAST BIOPSY Left 90? @ [facility] COLONOSCOPY FLX DX W/COLLJ SPEC WHEN PFRMD 02/27/2018 normal colonoscopy, repeat in 5 years due to family history D AND C DIAGNOSTIC NONOB 14 ESOPHAGOGASTRODUODENOSCOPY TRANSORAL DIAGNOSTIC 02/27/2018 EGD ESOPHAGOGASTRODUODENOSCOPY TRANSORAL DIAGNOSTIC 06/12/2020 EGD EYE SURGERY HX JOINT REPLACEMENT HX KNEE SURGERY HX Bilateral 10/16,05/18 LIGATION COLLATERAL VEIN 1999? SKIN BIOPSY HX ALLERGIES Seasonal Allergies, Sulfa (Sulfonamide Antibiotics), and Tree And Shrub Pollen MEDICATIONS Current Outpatient Medications Medication Sig docusate sodium (COLACE ORAL) Take 200 mg by mouth as directed. melatonin 5 mg tablet Take 5 mg by mouth as directed. pravastatin (PRAVACHOL) 20 mg tablet Take 1 tablet by mouth once daily. atenolol (TENORMIN) 25 mg tablet Take 1 tablet by mouth once daily. fluticasone (FLONASE) 50 mcg/actuation nasal spray Use 1 Mcfall in each nostril once daily. levothyroxine (LEVOXYL) 125 mcg tablet Take 1 tablet by mouth once daily. Take on empty stomach. For thyroid. FLUoxetine (PROZAC) 40 mg capsule Take 1 capsule by mouth once daily. omeprazole (PRILOSEC) 40 mg capsule Take 1 capsule by mouth daily before breakfast. psyllium husk (METAMUCIL ORAL) Take by mouth. acetaminophen (TYLENOL) 500 mg tablet Take 1,000 mg by mouth twice daily as needed. ibuprofen (MOTRIN) 200 mg tablet Take 400 mg by mouth twice daily as needed. Magnesium 250 mg tab Take 250 mg by mouth once daily. Using OTC for leg cramps COMPOUNDED PRESCRIPTION Turmeric Curcumin 500 mg taking 1 daily Cholecalciferol, Vitamin D3, 1,000 unit cap Take 1,000 Units by mouth once daily. CALCIUM CARBONATE/VITAMIN D3 (CALCIUM 600 + D ORAL) Take 1 tablet by mouth twice daily. Bifidobacterium Infantis (ALIGN) 4 mg cap Take by mouth. VITAMIN B COMPLEX (B COMPLEX ORAL) Take by mouth. No current facility-administered medications for this visit. FAMILY HISTORY Problem Relation Age of Onset Anesthesia Mother Hypertension Mother Stroke Mother Heart Father Cancer Maternal Grandfather esophagus Colon Cancer Daughter Social History Tobacco Use Smoking status: Never Smokeless tobacco: Never Vaping Use Vaping Use: Never used Substance Use Topics Alcohol use: Yes Alcohol/week: 2.0 standard drinks of alcohol Types: 2 Glasses of Wine (5oz) per week Comment: daily Drug use: No REVIEW OF SYSTEMS GENERAL: Fatigue RESPIRATORY: Negative for cough, hemoptysis, wheezing, COPD, dyspnea or shortness of breath CARDIOVASCULAR: Negative for chest pain, leg swelling, hypertension, CHF or palpitations NEURO: No history of headaches, syncope, paralysis, seizures or tremors EXAM: BP 130/80 (BP Site: Right Arm, BP Position: Sitting, BP Cuff Size: Large Adult) Pulse 83 Temp 36.9 C (98.5 F) Wt 88.9 kg (196 lb) SpO2 90% BMI 31.64 kg/m PHYSICAL EXAM: General Appearance: Well appearing, alert, in no acute distress, well-hydrated, well nourished.. Skin: Skin color, texture, turgor normal, no suspicious rashes or lesions. Head: Normocephalic, no masses, lesions, tenderness or abnormalities. Eyes: Anicteric sclera. Pupils are equally round and reactive to light. Extraocular movements are intact. . Lungs: Lungs clear to auscultation. No wheezing, rhonchi, rales.. Heart: RRR without murmur, gallop, or rubs. No ectopy. Extremities: No deformities, edema, skin discoloration, clubbing or cyanosis. Good capillary refill. . Musculoskeletal: No joint swelling, deformity, or tenderness. Neurologic: Gait normal. Reflexes normal and symmetric. Sensation grossly intact.. ASSESSMENT/PLAN: 1. Fatigue, unspecified type - ICD9: 780.79, ICD10: R53.83 (primary diagnosis) Food journal to see if correlation. Agreeable to sleep study. Will get labs. - HOME SLEEP APNEA TEST (HSAT) - CBC + DIFF - TSH BLD - COMP METABOLIC PANEL 2. Hyperlipidemia, mixed - ICD9: 272.2, ICD10: E78.2 - PRAVASTATIN 20 MG TABLET 3. Snoring - ICD9: 786.09, ICD10: R06.83 As above. - HOME SLEEP APNEA TEST (HSAT) 4. Fatigue due to sleep pattern disturbance - ICD9: 780.79, 780.50, ICD10: R53.83, G47.9 As above. - HOME SLEEP APNEA TEST (HSAT) 5. Hyperglycemia - ICD9: 790.29, ICD10: R73.9 R/o new diabetic causing symptoms. - HGB A1C 6. Hypersomnia, unspecified - ICD9: 780.54, ICD10: G47.10 As above. - HOME SLEEP APNEA TEST (HSAT) 7. Body mass index (BMI) 31.0-31.9, adult - ICD9: V85.31, ICD10: Z68.31 - VITAMIN D 25 HYDROXY Discussed treatment plan and patient voices understanding. Patient's questions answered appropriately. Medications and potential side effects were discussed and patient voices understanding. Return to the office as scheduled or as needed for worsening/no improvement. Lexi Marx APRN.SCHOOL BUS ATTENDANT documented in this encounterMiami Valley Hospital10-31-2023 Miscellaneous Notes* Telephone Encounter - Sahra Guidry RN - 06/03/2023 12:13 PM EDT Pt notified and verbalizes understanding. * Telephone Encounter - Edilberto Smith MD - 06/03/2023 11:46 AM EDT Rsv is ok. Needs to get that one for her insurance through the pharmacy. Would separate it from theothers by about two weeks. * Telephone Encounter - Sahra Guirdy RN - 06/03/2023 10:38 AM EDT Pt calling to set up an appt to receive her flu and COVID vaccines. Pt also asking what Dr. Smith recommends regarding the RSV vaccine. She has an appt 09/03/23 and is okay to wait and discuss then unless Dr. Smith feels she should get it sooner than that. Pt states okay for Dr. Smith to text her or calling from him or staff is fine as well. Appt set up for flu and COVID immunizations tomorrow 06/04 at 340 pm. documented in this encounterMiami [facility] Hospital07-28-2023 History of Past illness Narrative* Problem Noted Date Diagnosed Date Resolved Date Encounter for screening for COVID-19 02/28/2023 07/2 03/202309/03/2023 Fall on same level from slip ping, tripping or stumbling 02/28/2023 02/28/2023 09/03/2023 Laceration of forehead 02/28/2023 02/28/202309/03 Strain of neck muscle 02/28/2023 02/28/20232023 documented as of this encounter (statuses as of 09/09/2023) [facility] History of Past illness Narrative* Problem Noted Date Diagnosed Date Resolved Date Encounter for screening for COVID-19 02/28/202302/0209/03/2023 Fall on same level from slip ping, tripping or stumbling 02/28/2023 02/28/2023 09/03/2023 Laceration of forehead 02/28/2023 02/28/202309/03 Strain of neck muscle 02/28/2023 02/28/20232023 documented as of this encounter (statuses as of 09/17/2023) [facility] History of Past illness Narrative* Problem Noted Date Diagnosed Date Resolved Date Encounter for screening for COVID-19 02/28/202302/0209/03/2023 Fall on same level from slip ping, tripping or stumbling 02/28/2023 02/28/2023 09/03/2023 Laceration of forehead 02/28/2023 02/28/202309/03 Strain of neck muscle 02/28/2023 02/28/20232023 documented as of this encounter (statuses as of 09/19/2023) [facility] Instructions* Patient Instructions* Marcella Eisenberg APRN.CNP - 01/22/2023 9:27 AM EDT Warm compresses to area Mupicin if open and draining Follow up with PCP prn documented in this encounterMiami Valley Hospital06-21-2023 History of Present illness Narrative* Marcella Eisenberg APRN.CNP - 01/22/2023 9:26 AM EDT Images from the original note were not included. Subjective The history is provided by the patient. No speech language pathologist assistant was used. DAVE Johnkin is a 77 year old female who presents today for CC of possible boils on vulva that she has had off and on over the past 6 month. Occasionally they will break open. She had one drained in August 2022. She does have issues with incontinence, wears poise pads. BP 136/90 Pulse 91 Temp 36.9 C (98.5 F) Resp 18 Wt 90.1 kg (198 lb 9.6 oz) SpO2 96% BMI32.05 kg/m Social History Tobacco Use Smoking status: Never Smokeless tobacco: Never Vaping Use Vaping Use: Never used Substance Use Topics Alcohol use: Yes Alcohol/week: 2.0 standard drinks Types: 2 Glasses of Wine (5oz) per week Comment: daily Drug use: No PAST MEDICAL HISTORY Diagnosis Date Arrhythmia Arthritis GERD (gastroesophageal reflux disease) Hot flashes Hypothyroid Mitral valve prolapse normal echo 2016 Seasonal allergies Snoring I have confirmed and edited as necessary, the [facility] Review of Systems Constitutional: Negative for chills and fever. Genitourinary: Vulvar lesions Musculoskeletal: Negative for joint pain and myalgias. Skin: Negative for itching and rash. All other systems reviewed and are negative. Objective Physical Exam Vitals and nursing note reviewed. Exam conducted with a residential gas heat technician present. Pulmonary: Effort: Pulmonary effort is normal. Genitourinary: Comments: Multiple sebacous cyst present, no signs of infection, one on lower inner buttock broken open and scabbed. Skin: General: Skin is warm and dry. Neurological: Mental Status: She is alert and oriented to person, place, and time. Psychiatric: Mood and Affect: Affect normal. ASSESSMENT/PLAN: 1. Vulvar lesion - ICD9: 624.8, ICD10: N90.89 Appear to be sebaceous cyst Warm compresses as needed Decrease use of pads as able Monitor for signs of infection, none noted today Mupirocin to scabbed lesion Follow up with PIGMENT PUMPER as needed Diagnosis and treatment plan were discussed and questions were answered to the patient's satisfaction. Pt acknowledged understanding of concepts and follow up plan. Specific signs and symptoms that would indicate the need for higher level of care were discussed indetail warranting prompt ER evaluation. Marcella Eisenberg APRN.ROSEMARY documented in this encounterMiami Valley Hospital05-31-2023 Miscellaneous Notes* Telephone Encounter - Eleanor Jerome LPN - 01/01/2023 10:16 AM EDT Patient phones requesting refills as follows: Requested Prescriptions Pending Prescriptions Disp Refills levothyroxine (LEVOXYL) 125 mcg tablet 90 tablet 1 Sig: Take 1 tablet by mouth once daily. Take on empty stomach. For thyroid. FLOR 09/02/2022 NOV 02/28/2023 Please review and advise. Eleanor Jerome LPN documented in this encounterMiami Valley Hospital05-01-2023 Miscellaneous Notes* Telephone Encounter - Leonora Wylie MA - 12/02/2022 8:32 AM EDT Patient has been identified by name and date of : Yes Requested Prescriptions Pending Prescriptions Disp Refills pravastatin (PRAVACHOL) 20 mg tablet 90 tablet 2 Sig: Take 1 tablet by mouth once daily. RX INSTRUCTIONS: Patient aware RX will be sent to pharmacy. No need to notify patient. Patient last office visit: 09/02/22 Patient next office visit: 02/28/23 Leonora Wylie MA documented in this encounterMiami Valley Hospital04-10-2023 Miscellaneous Notes* Telephone Encounter - Gissel Alston RN - 11/11/2022 1:47 PM EDT Last Office Visit: 09/02/2022 Future Office Visit: 02/28/2023 Requested Prescriptions Pending Prescriptions Disp Refills FLUoxetine (PROZAC) 40 mg capsule 90 capsule 3 Sig: Take 1 capsule by mouth once daily. Date of Last Labs: 08/21/2022 documented in this encounterMiami Valley Hospital02-16-2023 Instructions* Patient Instructions* Pat Duron APRN.[facility] - 09/19/2022 11:09 AM EST ASSESSMENT/PLAN: 1. Boil, thigh - ICD9: 680.6, ICD10: L02.429 - WOUND CULTURE AND GRAM STAIN - AMOXICILLIN 875 MG-POTASSIUM CLAVULANATE 125 MG TABLET - warm compresses 2-3 times daily - Follow-up with your PCP in 3-5 days if symptoms have not improved or sooner if symptoms worsen - Discussed red flags and need for immediate medical evaluation if any occur. - Discussed supportive care treatment with fluids, rest and analgesia. - Discussed expected course of illness Pat Duron APRN.CNP ABSCESS (BOIL): You have a skin abscess, or boil. Boils usually develop when Staph bacteria get into the small glands or hair follicles in the skin and form a pus pocket. After an abscess is properly drained, it will most often heal without any problems. You should not squeeze an abscess or boil to drain it; this can cause the infection to spread to other areas under the skin. Boils are contagious, so you shoulddispose of soiled bandages carefully and not share your towel or wash cloth with others. A boil is lanced to start the draining. Soak the area in warm water for 20-30 minutes 3-4 times daily to help the healing. Oral antibiotics may be needed if the infection is severe or if it seems to be spreading. Please call your doctor if you have increased pain or swelling, chills or fever, red streaks going up the arm or leg, or continued pus drainage after 3-4 days. documented in this encounterMiami Valley Hospital02-16-2023 History of Present illness Narrative* Pat Duron APRN.CNP - 09/19/2022 10:41 AM EST Images from the original note were not included. Subjective HPI Henrry Sandhu is a 77 year old female who presents with upper left thigh tender area and swelling. She has been using hot compresses and drawing salve. She thought it was coming to a head but states it looks different today-has several spots. She denies fever or chills. Review of Systems Constitutional: Negative for chills and fever. Gastrointestinal: Negative for nausea. Musculoskeletal: Negative for joint pain and myalgias. Skin: Negative for itching and rash. BP 124/84 Pulse 87 Temp 36.8 C (98.3 F) (Temporal) Resp 18 Wt 91.4 kg (201 lb 9.6 oz) SpO2 98% BMI 32.54 kg/m PAST MEDICAL HISTORY Diagnosis Date Arrhythmia Arthritis GERD (gastroesophageal reflux disease) Hot flashes Hypothyroid Mitral valve prolapse normal echo 2015 Seasonal allergies Snoring PAST SURGICAL HISTORY Procedure Laterality Date BREAST BIOPSY Left 90? @ [facility] COLONOSCOPY FLX DX W/COLLJ SPEC WHEN PFRMD 02/27/2018 normal colonoscopy, repeat in 5 years due to family history D AND C DIAGNOSTIC NONOB 14 ESOPHAGOGASTRODUODENOSCOPY TRANSORAL DIAGNOSTIC 02/27/2018 EGD ESOPHAGOGASTRODUODENOSCOPY TRANSORAL DIAGNOSTIC 06/12/2020 EGD EYE SURGERY HX JOINT REPLACEMENT HX KNEE SURGERY HX Bilateral 10/16,05/18 LIGATION COLLATERAL VEIN 1999? SKIN BIOPSY HX ALLERGIES Seasonal Allergies, Sulfa (Sulfonamide Antibiotics), and Tree And Shrub Pollen MEDICATIONS omeprazole (PRILOSEC) 40 mg capsule Take 1 capsule by mouth daily before breakfast. levothyroxine (LEVOXYL) 125 mcg tablet Take 1 tablet by mouth once daily. Take on empty stomach. For thyroid. atenolol (TENORMIN) 25 mg tablet Take 1 tablet by mouth once daily. Oxyquinoline-Na Lauryl Sulfate (TRIMO-RAMON JELLY) 0.025-0.01 % gel Use 1 Applicatorful vaginally twotimes a week. psyllium husk (METAMUCIL ORAL) Take by mouth. FLUoxetine (PROZAC) 40 mg capsule Take 1 capsule by mouth once daily. acetaminophen (TYLENOL) 500 mg tablet Take 1,000 mg by mouth twice daily as needed. ibuprofen (MOTRIN) 200 mg tablet Take 400 mg by mouth twice daily as needed. fluticasone (FLONASE) 50 mcg/actuation nasal spray Use 1 Mcfall in each nostril once daily. Magnesium 250 mg tab Take 250 mg by mouth once daily. Using OTC for leg cramps COMPOUNDED PRESCRIPTION Turmeric Curcumin 500 mg taking 1 daily Cholecalciferol, Vitamin D3, 1,000 unit cap Take 1,000 Units by mouth once daily. CALCIUM CARBONATE/VITAMIN D3 (CALCIUM 600 + D ORAL) Take 1 tablet by mouth twice daily. Bifidobacterium Infantis (ALIGN) 4 mg cap Take by mouth. VITAMIN B COMPLEX (B COMPLEX ORAL) Take by mouth. pravastatin (PRAVACHOL) 20 mg tablet Take 1 tablet by mouth once daily. polyethylene glycol 3350 (MIRALAX, GLYCOLAX) 17 gram/dose powder Take 17 g by mouth once daily. FAMILY HISTORY Problem Relation Age of Onset Anesthesia Mother Hypertension Mother Stroke Mother Heart Father Cancer Maternal Grandfather esophagus Colon Cancer Daughter Social History Tobacco Use Smoking status: Never Smokeless tobacco: Never Vaping Use Vaping Use: Never used Substance Use Topics Alcohol use: Yes Alcohol/week: 2.0 standard drinks Types: 2 Glasses of Wine (5oz) per week Comment: daily Drug use: No Objective Physical Exam Vitals and nursing note reviewed. Constitutional: Appearance: She is obese. Cardiovascular: Rate and Rhythm: Normal rate. Pulmonary: Effort: Pulmonary effort is normal. Skin: General: Skin is warm and dry. Findings: Erythema present. No rash. Neurological: Mental Status: She is alert. After universal precaution/time out procedure done, skin was cleansed with saline and hibiclens. 1.5 cc of 1% lidocaine was injected surrounding the area of maximal fluctuance and small incision madewith 11 blade scalpel. A small amount of purulent drainage was expressed. Culture swab obtained. A dry sterile dressing was applied. Patient tolerated procedure well. UNIVERSAL PROTOCOL / SAFETY CHECKLIST Procedure to be Performed: incision and drainage of boil of left thigh Sign In: A Moment of CARE was completed. Personnel directly involved with the procedure wore the appropriate PPE (Personal Protective Equipment). Special equipment: suture tray and scalpel Patient/Surrogate Stated/Verified: PATIENT VERIFIED(optional for EMERGENT procedures): Patient name, Date of , Relevant allergies, and The intended procedure Time Out Communication: Intended patient and procedure match the source documents. Consent documented and matches the intended procedure. Relevant labs, photos, and/or imaging studies have been reviewed. Correct side/site marked and visible. Medications required for procedure verified. No fire risk assessment and interventions applicable. No implant(s) inserted. Sign Out: SIGN OUT (optional for EMERGENT procedures): All specimen containers correctly labeled. All instruments, equipment, possible retained foreign bodies accounted for. Post-procedure follow-up management communicated and Plan of Care Visit completed when applicable. Pat Duron APRN.CNP ASSESSMENT/PLAN: 1. Boil, thigh - ICD9: 680.6, ICD10: L02.429 - WOUND CULTURE AND GRAM STAIN - AMOXICILLIN 875 MG-POTASSIUM CLAVULANATE 125 MG TABLET - warm compresses 2-3 times daily - Follow-up with your PCP in 3-5 days if symptoms have not improved or sooner if symptoms worsen - Discussed red flags and need for immediate medical evaluation if any occur. - Discussed supportive care treatment with fluids, rest and analgesia. - Discussed expected course of illness Pat Duron APRN.CNP documented [facility] Miscellaneous Notes* Telephone Encounter - Josie Portillo Ma - 09/19/2022 10:14 AM EST Pt going to to seek treatment. Josie Portillo Ma documented [facility] History of Present illness Narrative* Edilberto Smith MD - 09/02/2022 1:44 PM EST Patient presents with: 6 Month Exam HPI: Patient presents today for office visit for follow up. HYPOTHYROID: Patient is compliant with medications: Yes Patient has changes in energy: No Patient has changes in hair or skin: No Patient has temperature intolerance: No Patient has weight changes: No HYPERLIPIDEMIA: Patient is taking medications: Yes. Patient is watching diet: Yes. Patient denies myalgias: Yes. Patient denies gi upset: Yes Drinks wine regularly. Discussed that she does have some macrocytosis. No gi issues. No chest pain or palpitations. Uses atenolol for palpitations. Component Latest Ref Rng & Units 08/21/2022 WBC 3.70 - 11.00 k/uL 6.61 RBC 3.90 - 5.20 m/uL 4.10 Hemoglobin 11.5 - 15.5 g/dL 14.0 Hematocrit 36.0 - 46.0 % 42.7 MCV 80.0 - 100.0 fL 104.1 (H) MCH 26.0 - 34.0 pg 34.1 (H) MCHC 30.5 - 36.0 g/dL 32.8 RDW-CV 11.5 - 15.0 % 12.5 Platelet Count 150 - 400 k/uL 205 MPV 9.0 - 12.7 fL 11.4 Neut% % 49.0 Abs Neut (ANC) 1.45 - 7.50 k/uL 3.24 Lymph% % 37.5 Abs Lymph 1.00 - 4.00 k/uL 2.48 [place]% % 6.4 Abs [place] <0.87 k/uL 0.42 Eosin% % 6.2 Abs Eosin <0.46 k/uL 0.41 Baso% % 0.6 Abs Baso <0.11 k/uL 0.04 Immature Gran % % 0.3 IMMATURE GRANS (ABS) <0.10 k/uL <0.03 NRBC /100 WBC 0.0 Absolute nRBC <0.01 k/uL <0.01 DTYPE Auto Protein, Total 6.3 - 8.0 g/dL 7.3 Albumin 3.9 - 4.9 g/dL 4.3 Calcium 8.5 - 10.2 mg/dL 9.9 Bilirubin, Total 0.2 - 1.3 mg/dL 0.7 Alkaline Phosphatase 34 - 123 U/L 72 AST 13 - 35 U/L 25 ALT 7 - 38 U/L 19 Glucose 74 - 99 mg/dL 136 (H) BUN 7 - 21 mg/dL 14 Creatinine 0.58 - 0.96 mg/dL 0.80 Sodium 136 - 144 mmol/L 140 Potassium 3.7 - 5.1 mmol/L 5.1 Chloride 97 - 105 mmol/L 102 CO2 22 - 30 mmol/L 26 Anion Gap 9 - 18 mmol/L 12 eGFR >=60 mL/min/1.73m 76 Cholesterol, Total <200 mg/dL 207 (H) Triglyceride <150 mg/dL 73 HDL Cholesterol >39 mg/dL 96 Non HDL Cholesterol <130 mg/dL 111 Fasting Time hrs 14 VLDL Cholesterol <30 mg/dL 15 TC:HDL Ratio <5.10 2.16 LDL Cholesterol <100 mg/dL 96 LDL:HDL Ratio <2.54 1.00 Hemoglobin A1C 4.3 - 5.6 % 5.6 Estimated Average Glucose mg/dL 114 TSH 0.270 - 4.200 mIU/L 1.540 MEDICATIONS: Current Outpatient Medications Medication Sig omeprazole (PRILOSEC) 40 mg capsule Take 1 capsule by mouth daily before breakfast. levothyroxine (LEVOXYL) 125 mcg tablet Take 1 tablet by mouth once daily. Take on empty stomach. For thyroid. pravastatin (PRAVACHOL) 20 mg tablet Take 1 tablet by mouth once daily. atenolol (TENORMIN) 25 mg tablet Take 1 tablet by mouth once daily. Oxyquinoline-Na Lauryl Sulfate (TRIMO-RAMON JELLY) 0.025-0.01 % gel Use 1 Applicatorful vaginally twotimes a week. psyllium husk (METAMUCIL ORAL) Take by mouth. acetaminophen (TYLENOL EXTRA STRENGTH) 500 mg tablet Take 1,000 mg by mouth twice daily as needed. ibuprofen (MOTRIN) 200 mg tablet Take 400 mg by mouth twice daily as needed. Magnesium 250 mg tab Take 250 mg by mouth once daily. Using OTC for leg cramps COMPOUNDED PRESCRIPTION Turmeric Curcumin 500 mg taking 1 daily Cholecalciferol, Vitamin D3, 1,000 unit cap Take 1,000 Units by mouth once daily. CALCIUM CARBONATE/VITAMIN D3 (CALCIUM 600 + D ORAL) Take 1 tablet by mouth twice daily. Bifidobacterium Infantis (ALIGN) 4 mg cap Take by mouth. polyethylene glycol 3350 (MIRALAX, GLYCOLAX) 17 gram/dose powder Take 17 g by mouth once daily. VITAMIN B COMPLEX (B COMPLEX ORAL) Take by mouth. FLUoxetine (PROZAC) 40 mg capsule Take 1 capsule by mouth once daily. fluticasone (FLONASE) 50 mcg/actuation nasal spray Use 1 Mcfall in each nostril once daily. No current facility-administered medications for this visit. ALLERGIES: ALLERGIES Allergen Reactions Seasonal Allergies Other: See Comments Sulfa (Sulfonamide * Other: See Comments Eye swelling with use of eye drops containing sulfa antimicrobial Tree And Shrub Poll* Intolerance PAST MEDICAL HISTORY Diagnosis Date Arrhythmia Arthritis GERD (gastroesophageal reflux disease) Hot flashes Hypothyroid Mitral valve prolapse normal echo 2015 Seasonal allergies Snoring PAST SURGICAL HISTORY Procedure Laterality Date BREAST BIOPSY Left 90? @ [facility] COLONOSCOPY FLX DX W/COLLJ SPEC WHEN PFRMD 02/27/2018 normal colonoscopy, repeat in 5 years due to family history D AND C DIAGNOSTIC NONOB 14 ESOPHAGOGASTRODUODENOSCOPY TRANSORAL DIAGNOSTIC 02/27/2018 EGD ESOPHAGOGASTRODUODENOSCOPY TRANSORAL DIAGNOSTIC 06/12/2020 EGD EYE SURGERY HX JOINT REPLACEMENT HX KNEE SURGERY HX Bilateral 10/16,05/18 LIGATION COLLATERAL VEIN 2000? SKIN BIOPSY HX FAMILY HISTORY Problem Relation Age of Onset Anesthesia Mother Hypertension Mother Stroke Mother Heart Father Cancer Maternal Grandfather esophagus Colon Cancer Daughter Social History Tobacco Use Smoking status: Never Smokeless tobacco: Never Vaping Use Vaping Use: Never used Substance Use Topics Alcohol use: Yes Alcohol/week: 2.0 standard drinks Types: 2 Glasses of Wine (5oz) per week Comment: daily Drug use: No Reviewed current medications, allergies, past medical history, surgical history, family history andsocial history today. REVIEW OF SYSTEMS All other reviewed and negative other than HPI. HEALTH MAINTENANCE: Reviewed health maintenance issues today and recommended the following in detail. ADVANCE DIRECTIVE DISCUSSION -has a dpoa. Her son and daughter are her dpoas DEPRESSION ASSESSMENT Never done VITALS: BP 108/71 Pulse 76 Wt 89.8 kg (198 lb) SpO2 99% BMI 31.96 kg/m Last 4 Encounter Wt Readings: Date: Wt: 09/02/2022 89.8 kg (198 lb) 02/28/2022 87.5 kg (193 lb) 01/09/2022 86.2 kg (190 lb) 01/02/2022 86.2 kg (190 lb) PHYSICAL EXAMINATION: General appearance: Well appearing, alert, in no acute distress, well-hydrated, well nourished. Skin: Skin color, texture, turgor normal, no suspicious rashes or lesions Head: Normocephalic, no masses, lesions, tenderness or abnormalities Lungs: Lungs clear to auscultation. No wheezing, rhonchi, rales Heart: RRR without murmur, gallop, or rubs. No ectopy Abdomen: Normal abdominal exam, Abdomen soft, non-tender. Bowel sounds normal. No masses, organomegaly Extremities: No deformities, edema, skin discoloration, clubbing or cyanosis. Good capillary refill. Musculoskeletal: No joint swelling, deformity, or tenderness Peripheral pulses: Normal Neuro: Negative. ASSESSMENT/PLAN: 1. Mixed hyperlipidemia - ICD9: 272.2, ICD10: E78.2 (primary diagnosis) - continue meds. 2. Mitral valve prolapse - ICD9: 424.0, ICD10: I34.1 - last echo was ok. Beta damian working. 3. Acute superficial gastritis without hemorrhage - ICD9: 535.40, ICD10: K29.00 - stable. 4. Macrocytosis - ICD9: 289.89, ICD10: D75.89 - limit wine. - VITAMIN B12 BLOOD - FOLATE SERUM 5. Hypothyroidism, unspecified type - ICD9: 244.9, ICD10: E03.9 - Instructed patient on importance of taking on an empty stomach either first thing in the morning or at bedtime. - take on empty stomach 6. Hyperglycemia - ICD9: 790.29, ICD10: R73.9 - stable. - HGB A1C Edilberto Smith MD documented [facility]12[facility] Miscellaneous Notes* Telephone Encounter - Navdeep Irving LPN - 07/31/2022 9:46 AM EST Patient phones requesting refills as follows: Requested Prescriptions Pending Prescriptions Disp Refills omeprazole (PRILOSEC) 40 mg capsule 30 capsule 11 Sig: Take 1 capsule by mouth daily before breakfast. [facility] 02/28/22 09/02/22 Please review and advise. Navdeep Irving LPN documented [facility]12-[facility]-2022 Miscellaneous Notes* Telephone Encounter - Navdeep Irving LPN - 07/08/2022 2:36 PM EST Patient phones requesting refills as follows: Requested Prescriptions Pending Prescriptions Disp Refills levothyroxine (LEVOXYL) 125 mcg tablet 90 tablet 1 Sig: Take 1 tablet by mouth once daily. Take on empty stomach. For thyroid. [facility] 02/28/22 09/02/22 Please review and advise. Navdeep Irving LPN documented [facility] this [facility] History of Present illness Narrative* Julianna Farley, PT - 03/29/2022 1:06 PM EDT Episode Visit Count: 7 Therapist That Will Oversee The Plan Of Care: Julianna Farley Start of Care Date: 03/04/22 Onset Date: 03/04/21 Plan of Care Certification Date: 03/04/22 Next Certification Due Date: 04/15/22 Patient Identified by Name and Date of : Yes REHABILITATION AND SPORTS THERAPY PHYSICAL THERAPY DISCONTINUANCE OF CARE PLAN OF CARE UPDATE: Assessment: Henrry Sandhu is discontinued from Physical Therapy services due to goal achievement.. Patient was seen for 7 visits from Start of Care Date: 03/04/22 to 03/29/2022 and treatment included: Therapeutic exercise and [facility] [facility] management. Goals for Episode of Care: created on 03/04/22 through 04/15/22 Goals updated on 03/29/2022. Independent in home exercises. -- MET Patient will decrease pain to 1-2/10 with functional activities to allow patient to improve standing tolerance for ADLs. -- MET Restore pain-free lumbar ROM to minimal to no limitation lumbar B side flexion, B rotation, and extension to allow for ADLs and transfers without increased symptoms. -- MET Sit 1-2 hours without pain/symptoms to allow for seated activities including rest or putting together puzzles. -- MET Patient will be able to tolerate lifting and carrying ADLs That include laundry, taking out trash, meal preparation, groceries, and transfers without increased symptoms. -- MET Knowledgeable regarding prophylaxis. -- MET Patient Goals: lifting and carrying ADLs without increased low back pain, return to using machines including elliptical and leg press at her favorite fitness facility -- MET SUBJECTIVE: Patient Reason for Visit: Pt. reports attending a soccer game and this caused some increased symptoms. She used a bleacher seat back support and this was helpful.. Pain: Pain Pain Level: 0 Pain Location: Low Back/Lumbar Spine - Left Frequency: Intermittent (at rest) Post Treatment Pain Post Treatment Pain Level: 0 PROMIS Scales Higher is Better 10/31/2020 08/28/2021 03/01/2022 Phys Func - Score - - 45 (within normal limits) Phys Func - Percentile - - 31 % Social Roles - Score - - 44 (mild dysfunction) Social Role - Percentile - - 27 % GH Physical - Score 47.7 Incomplete 44.9 (Good) GH Physical - Percentile 41 % - 31 % GH Mental - Score 62.5 Incomplete 56 (Excellent) GH Mental - Percentile 89 % - 73 % Self-Eff Symptom - Score - - 48 (Average) Self-Eff Symptom - Percentile - - 42 % T-scores: mean of general population = 50. 5 points is clinically meaningfully difference Percentiles provide an indication of how the patient's score ranks in relation to the general population. Higher percentile rankings indicate better function/quality of life. 50th percentile is the average of the general population and indicates half of respondents had a worse score. Lower is Better 03/01/2022 Fatigue - Score 49 (within normal limits) Fatigue - Percentile 54 % T-scores: mean of general population = 50. 5 points is clinically meaningfully difference Percentiles provide an indication of how the patient's score ranks in relation to the general population. Higher percentile rankings indicate better function/quality of life. 50th percentile is the average of the general population and indicates half of respondents had a worse score. OBJECTIVE MEASURES WITH LEVEL OF FUNCTION: Lumbar Spine AROM Lumbar Flexion: Normal Lumbar Extension: Normal Lumbar R Side-Bend: Normal Lumbar L Side-Bend: Normal Lumbar R Rotation: Normal Lumbar L Rotation: Normal TREATMENT: Therapeutic Exercise: 1: seated lumbar flexion 2x10 2: seated TA activation 2x10 4: seated TA activation with 65 cm physioball press down alt UEs 2x20 (with lumbar support) 5: physioball TA activation with 10 sec hold, 10x (with lumbar support) 6: seated TA activation, alt UE/LE opposite lifts pressing into physioball 65 cm in lap 2x20 (with lumbar support) Skilled Intervention: Patient was educated in proper exercise technique and purpose for exercises. Reviewed and educated patient on additions/changes for home exercise program as above (*). Additional time necessary for assessing progress toward goals due to discharge today. Educated patient on rationale for performing exercises in regards to decreasing fatigue , increase ease of ADL, and ROM and function . Patient education as noted. Self-Halfway Management: 1: *pt. education to continue core stabilization strengthening in addition to using strengthening machines at fitness facility 2: *pt. education to use the flexion directional exercises to self manage her symptoms 3: *pt. education to avoid exercises, such as the glute bridge that cause symptoms to increased during or after she completes them 4: *pt. education to be aware of correct spring former machine and lumbar spine position when doing exercises on machines . Skilled Intervention: Skilled judgment in the selection of proper modification for activity of daily living/home management based on clinical presentation, deficits, and needs. Reviewed patient specific diagnosis in relation to activities of daily living/home management. Activity progression based on professional judgement. Correct performance of home program was facilitated with verbal and visual cueing. Billing Therapeutic Exercise Treatment Minutes: 25 Self-Care/Home Management Treatment Minutes: 5 Total Treatment Time Minutes (timed/untimed): 30 Julianna Farley PT documented in this [facility]08-23-2022 History of Present illness Narrative* Julianna Farley PT - 03/26/2022 2:01 PM EDT Episode Visit Count: 6 Therapist That Will Oversee The Plan Of Care: Julianna Farley Start of Care Date: 03/04/22 Onset Date: 03/04/21 Plan of Care Certification Date: 03/04/22 Next Certification Due Date: 04/15/22 REHABILITATION AND SPORTS THERAPY PHYSICAL THERAPY TREATMENT NOTE ASSESSMENT: Henrry Sandhu tolerated the session with decreased endurance and fatigue. She demonstrated improvements in activity tolerance and TA activation with few to no cues required with supine,seated, and standing core stabilization strengthening exercises. The patient will continue to benefit from ongoing skilled physical therapy to progress toward set goals. PLAN FOR NEXT VISIT: PN and possible DC next visit. Pt. plans to return to fitness facility. SUBJECTIVE: Patient Reason for Visit: Pt. denies symptoms. She has been able to carry over TA activation with yoga. She continues to have difficulty with lifting, some symptoms were felt with bendingand turning to move things in a cupboard. Her goal is to improve endurance with walking and she would like to attend exercise classes and work with machines. Pain: Pain Pain Level: 0 Pain Location: Low Back/Lumbar Spine - Left Description: Sharp Frequency: Intermittent (at rest) Post Treatment Pain Post Treatment Pain Level: 0 OBJECTIVE MEASURES WITH LEVEL OF FUNCTION: TREATMENT: Therapeutic Exercise: 1: lifting #3 DB from table, lifting from floor 1x3 each with no cues required for correct mechanics, x1 UE support on table top for balance 2: hook lying TA activation 10x10 sec hold 3: hook lying physioball TA press 5x10 sec hold 4: seated TA activation with 65 cm physioball press down alt UEs 2x20 (with lumbar support) 5: seated TA activation, 65 cm physioball in lap, alt LE lifts (with lumbar support) 6: seated TA activation, alt UE/LE opposite lifts pressing into physioball 65 cm in lap 2x20 (with lumbar support) 7: leg press #68 2x10 8: hoist machine walking outsreverse and forward plate 1 4x 9: standing hoist machine TA pull down plate 1 + 2 small round 2x12 10: host stir the pot CW and CCW 15 sec 2x each side (tactile cues at hip and shoulders to avoid trunk rotation, pt. able to follow with minimal cues) Skilled Intervention: Patient was educated in proper exercise technique and purpose for exercises. Skilled judgment was provided in selection of appropriate interventions. Correct performance of therapeutic exercises was facilitated with verbal, visual, and tactile cuing. Educated patient on rationale for performing exercises in regards to decreasing fatigue , increase ease of ADL, and ROM and function . Patient education as noted. Self-Halfway Management: 1: *pt. education to pivot feet with lifting and turning rather than lumbar rotation 2: *pt. education to copmlete exercises with bookkeeping manager weight first and then progress after self assessing symptom response or muscle soreness over 24-48 hours after new machine/movement Skilled Intervention: Skilled judgment in the selection of proper modification for activity of daily living/home management based on clinical presentation, deficits, and needs. Physical assistance was provided during education for modifications and patient safety. Reviewed patient specific diagnosis in relation to activities of daily living/home management. Activity progression based on professional judgement. Correct performance of home program was facilitated with verbal, visual, and tactile cueing. Billing Therapeutic Exercise Treatment Minutes: 40 Self-Care/Home Management Treatment Minutes: 5 Total Treatment Time Minutes (timed/untimed): 45 Julianna Farley PT documented in this [facility]08-18-[facility]22 History of Present illness Narrative* Julianna Farley PT - 03/21/2022 1:28 PM EDT Episode Visit Count: 5 Therapist That Will Oversee The Plan Of Care: Julianna Farley Start of Care Date: 03/04/22 Onset Date: 03/04/21 Plan of Care Certification Date: 03/04/22 Next Certification Due Date: 04/15/22 Patient Identified by Name and Date of : Yes REHABILITATION AND SPORTS THERAPY PHYSICAL THERAPY TREATMENT NOTE ASSESSMENT: Henrry Sandhu tolerated the session with decreased symptoms. She demonstrated improvements in TA activation stating that she felt more work in her core this visit with less low back pain when completing the seated TA stabilization paloff press and stir the pot. The patient will continue to benefit from ongoing skilled physical therapy to progress toward set goals. PLAN FOR NEXT VISIT: SUBJECTIVE: Patient Reason for Visit: Pt. arrived 20 min early and visit began at that time. She has no pain today, but yesterday she had pain all over and she thinks that she needs to drink green tea again. Pain: Pain Pain Level: 0 Pain Location: Low Back/Lumbar Spine - Left Description: Sharp Frequency: Intermittent (at rest) OBJECTIVE MEASURES WITH LEVEL OF FUNCTION: TREATMENT: Therapeutic Exercise: 2: seated repeated lumbar flexion 2x10 (cues to not do with lumbar extension as she does in yoga) 3: seated paloff press OTB 2-3x10 each side 4: seated stir the pot OTB CW and CCW 1x10 each direction, 2 sets each side. 5: seated TA activation 2x10 (pt. reports she feels more work in the abdomen today) 6: seated TA activation 10x10 sec hold (no difficulty and not getting SOB) 8: seated TA with B shoulder ext pull down to knees OTB 2x10 9: Seated TA with alt LE marching 3x10 (cues to minimize trunk sway, BUE support, and cues to breathe) 10: Seated TA with opposite alt arm and leg lifts 2x10 Skilled Intervention: Patient was educated in proper exercise technique and purpose for exercises. Skilled judgment was provided in selection of appropriate interventions. Correct performance of therapeutic exercises was facilitated with verbal, visual, and tactile cuing. Educated patient on rationale for performing exercises in regards to decreasing fatigue , includingbalance, increase ease of ADL, and ROM and function . Patient education as noted. Self-Halfway Management: 1: *pt. education reviewing directional preference, and discouraged adding lumbar extension to her repeated lumbar flexion that may cause symptoms exercise doing as part of HEP. Extension is part of yoga, but may reduce effectiveness of this exercise as part of HEP to reduce pain. 2: *pt. education regarding importance of core stabilization strengthening in addition to yoga movements that she does on her own to maintain mobility as well as the repeated flexion directional preference exercises to self manage the symptoms. 3: *encouraged pt. to copmlete repeated lumbar flexion if low back pain comes on, and remember Slime activation with ADLs Skilled Intervention: Skilled judgment in the selection of proper modification for activity of daily living/home management based on clinical presentation, deficits, and needs. Physical assistance was provided during education for modifications and patient safety. Educated the patient regarding recommendations and provided written instruction to facilitate compliance. Reviewed patient specific diagnosis in relation to activities of daily living/home management. Activity progression based on professional judgement. Correct performance of home program was facilitated with verbal, visual, and tactile cueing. Billing Therapeutic Exercise Treatment Minutes: 30 Self-Care/Home Management Treatment Minutes: 8 Total Treatment Time Minutes (timed/untimed): 38 Julianna Farley PT documented in this [facility]08-[facility] History of Present illness Narrative* Julianna Farley PT - 03/12/2022 2:01 PM EDT Episode Visit Count: 2 Therapist That Will Oversee The Plan Of Care: Julianna Farley Start of Care Date: 03/04/22 Onset Date: 03/04/21 Plan of Care Certification Date: 03/04/22 Next Certification Due Date: 04/15/22 REHABILITATION AND SPORTS THERAPY PHYSICAL THERAPY TREATMENT NOTE ASSESSMENT: Henrry Sandhu tolerated the session with decreased endurance. She demonstrated difficulty with TA activation to prevent L lumbar rotation in the hook lying position with L bent knee fall outs as compared to the R side. The patient will continue to benefit from ongoing skilled physicaltherapy to progress toward set goals. PLAN FOR NEXT VISIT: add more reps to HEP hook lying TA stabilization exercises. SUBJECTIVE: Patient Reason for Visit: Pt. reports 30% improvement but admits she has been pushing it with working in the basement due to feeling better. Visit began 15 min early due to pt. early arrival. Pain: Pain Pain Location: Low Back/Lumbar Spine - Right Additional Pain Information : Location 2 Pain Location 2: Hip - Right Description 2: Aching Post Treatment Pain Post Treatment Pain Location: Low Back/Lumbar Spine - Right OBJECTIVE MEASURES WITH LEVEL OF FUNCTION: TREATMENT: Therapeutic Exercise: 1: supine hip flexor stretch over EOB with slight knee flexion R 3x30 sec to 1 min (cues to scoot to the edge to allow hip extension PROM) 2: *supine PPT 3-5 sets of 10 (tactile cues at HS to avoid hip extension substitution movements) 3: supine PPT 5 sets of 10 sec hold, hook lying (cues to breathe and avoid UE/neck tension) 4: *supine TA activation with alt UE raises 3x10 (5 each side) 5: *supine TA activation with alt LE raises 3x10 (5 each side) 6: *supine TA heel slides 3x5 each side 7: *supine TA bent knee fall outs 3x10 (5 each side) 8: *supine alt opposite UE and LE raises 3x10 (5 each side) Skilled Intervention: Patient was educated in proper exercise technique and purpose for exercises. Skilled judgment was provided in selection of appropriate interventions. Provided written instruction for home exercise program to facilitate proper performance and compliance. Correct performance of therapeutic exercises was facilitated with verbal, visual, and tactile cuing. Additional time necessary for providing updated HEP and correcting technique with PPT due to progressing TA stabilization exercises. Educated patient on rationale for performing exercises in regards to decreasing fatigue , increase ease of ADL, and ROM and function . Patient education as noted. Billing Therapeutic Exercise Treatment Minutes: 40 Total Treatment Time Minutes (timed/untimed): 40 Julianna Farley PT [facility] History of Present illness Narrative* Julianna Farley PT - 03/04/2022 2:26 PM EDT Episode Visit Count: 1 Therapist That Will Oversee The Plan Of Care: Julianna Farley Start of Care Date: 03/04/22 Onset Date: 03/04/21 Plan of Care Certification Date: 03/04/22 Next Certification Due Date: 04/15/22 Patient Identified by Name and Date of : Yes REHABILITATION AND SPORTS THERAPY PHYSICAL THERAPY EVALUATION PLAN OF CARE: Assessment: Henrry Sandhu presents with diagnosis of lumbar pain that interferes with lifting;cleaning;bending . She presents with impairments in ADL's, balance, flexibility, gait, independence in exercise, joint mobility, overall function, range of motion, strength , symptom management and tissue tenderness. Prognosis for therapy is Good due to: good support system/ coping skills;good overall health status;current objective clinical presentation . She will benefit from skilled therapy services to meet the goals established for this plan of care as noted below. Classification Low Back Pain Subgroup Classification: Core stabilization subgroup: recommended visits 10. Core Stabilization Subgroup Classification based on: pain with transitional movements Goals for Episode of Care: created on 03/04/22 through 04/15/22 Independent in home exercises. Patient will decrease pain to 1-2/10 with functional activities to allow patient to improve standing tolerance for ADLs. Restore pain-free lumbar ROM to minimal to no limitation lumbar B side flexion, B rotation, and extension to allow for ADLs and transfers without increased symptoms. Sit 1-2 hours without pain/symptoms to allow for seated activities including rest or putting together puzzles. Patient will be able to tolerate lifting and carrying ADLs That include laundry, taking out trash, meal preparation, groceries, and transfers without increased symptoms. Knowledgeable regarding prophylaxis. Patient Goals: lifting and carrying ADLs without increased low back pain, return to using machines including elliptical and leg press at her favorite fitness facility Planned Interventions, Frequency, and Duration: Current Frequency: 2x/week Duration: 6 weeks Total Number of Visits Planned: 12 Planned Treatment Interventions: Therapeutic exercise (49303);Neuromuscular re- education (87135);Therapeutic activities (72873);Self-[place] [facility] management ([id number]);Gait Training (10254);Patient/Family/Caregiver Education PLAN FOR NEXT VISIT: Assess balance and gait next visit. Assess symptom response to core stabliization strenghtening. Patient demonstrates good understanding of plan of care and treatment. The above goals and plan of care were discussed and agreed upon by patient/family. 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 Pt. explains that her hadterminal illness and required much assistance with mobility. This pain has decreased since participating in chair yoga and other stretches given to her by her granddaughter who is a DPT, however she continues to have difficulty with ADLs that include bending and lifting. Pt. had a fall recently in December 2021 but denies falls since this. Pt. attributes the fall being due to sitting too much. Pt. would like to reduce her lower back symptoms in order to become more active. She would eventually like to return to using fitness facility machines including the leg press and the eliptical. Patient Goals: lifting and carrying ADLs without increased low back pain, return to using machines including elliptical and leg press at her favorite fitness facility Functional Limitations: lifting;cleaning;bending Prior Level of Function: Independent without limitations Relevant History Past Relevant Surgical Conditions: Total Knee Replacement-Right Preferred Language: Romansh Employment: Retired Recreation / Current Exercise: enjoys chair yoga, limited due to balance Home Environment Patient Lives With: Self/Alone Home Type: Apt/Condo Intake Information: Prescription present Previous Treatment: Physical Therapy ;Heat ;NSAIDs (granddaughter is a DPT, XS tylenol and ibuprofen each AM) Falls Interview: Fall with injury in the last year Falls Intervention: Instructed patient on safety and use of assistive device and awareness in regards to falls prevention. Red Flags Vertebral Fracture Red Flags: Age >70;Female Vertebral Fracture Clinical Reasoning: Proceed with caution due to the above (1- 2) risk factors Abdominal Aortic Aneurysm Red Flags: Age >60 Abdominal Aortic Aneurysm Clinical Reasoning: Proceed with caution Cancer Red Flags: Age >50 or <20 Cancer Clinical Reasoning: Proceed with caution Infection Clinical Reasoning: No identified risk factors. Cauda Equina Syndrome Clinical Reasoning: No identified risk factors. Red Flags - Cervical Cancer Red Flags: Age >50 or <20 Cancer Clinical Reasoning: Proceed with caution Infection Clinical Reasoning: No identified risk factors. Spine History Symptoms Location at Onset: Back;Thigh Symptoms Since Onset: Improving Pain is Worse Always: Lying;Bending;Turning Pain is Better Always: On the Move;Standing;Walking Sleep Affected by Pain: Not affected by pain Pain: Pain Pain Level: 0 Pain Location: Low Back/Lumbar Spine - Right Frequency: With movement Additional Pain Information : Location 2 Pain Level 2: 0 Pain Location 2: Hip - Right Description 2: Aching Frequency 2: With movement Post Treatment Pain Post Treatment Pain Level: No Change Post Treatment Pain Location: Low Back/Lumbar Spine - Right Post Treatment Pain Description: Aching Post Treatment Symptoms: denies pain throughout evaluation and at end of visit (with the exception of painful seated hip flexion) Post Treatment Pain Score 2: No Change Post Treatment Pain Location 2: Hip - Right PROMIS Scales Higher is Better 10/31/2020 08/28/2021 03/01/2022 Phys Func - Score - - 45 (within normal limits) Phys Func - Percentile - - 31 % Social Roles - Score - - 44 (mild dysfunction) Social Role - Percentile - - 27 % GH Physical - Score 47.7 Incomplete 44.9 (Good) GH Physical - Percentile 41 % - 31 % GH Mental - Score 62.5 Incomplete 56 (Excellent) GH Mental - Percentile 89 % - 73 % Self-Eff Symptom - Score - - 48 (Average) Self-Eff Symptom - Percentile - - 42 % T-scores: mean of general population = 50. 5 points is clinically meaningfully difference Percentiles provide an indication of how the patient's score ranks in relation to the general population. Higher percentile rankings indicate better function/quality of life. 50th percentile is the average of the general population and indicates half of respondents had a worse score. Lower is Better 03/01/2022 Fatigue - Score 49 (within normal limits) Fatigue - Percentile 54 % T-scores: mean of general population = 50. 5 points is clinically meaningfully difference Percentiles provide an indication of how the patient's score ranks in relation to the general population. Higher percentile rankings indicate better function/quality of life. 50th percentile is the average of the general population and indicates half of respondents had a worse score. OBJECTIVE MEASURES WITH LEVEL OF FUNCTION: Cognition Cognition: Follows Commands Posture / Alignment Sitting Posture: Good Spine Observations R Lumbar Spine Palpation Tenderness: No tenderness noted L Lumbar Spine Palpation Tenderness: Paraspinals;PSIS (posterior superior iliac spine);Quadratus Lumborum Sensation - Lumbar Sensation: Grossly Intact Lumbar Spine AROM Lumbar Flexion: Normal Lumbar Extension: Moderate limitation Lumbar R Side-Bend: Moderate limitation;End range pain (R side LB) Lumbar L Side-Bend: Moderate limitation;End range pain (R side LB) Lumbar R Rotation: Normal Lumbar L Rotation: Normal LE Flexibility Flexibility: Hamstring Flexibility R Hamstring Flexibility: WNL L Hamstring Flexibility: WNL LE Strength R LE Strength: pain with active R hip flexion resistance, but no myotomal weakness observed L LE Strength: no myotomal weakness observed Education: Education Learning Preferences: Demonstration;Explanation;Performance;Printed Materials Barriers: None Learning/educational needs: Plan of Care;Posture;Gait Training Education Provided: Yes, see treatment interventions for education provided Education Provided To: Patient Education Mode/Type: Demonstration;Literature/Printed Materials;Performance;Explanation/Discussion Response to Education/Teach Back: States/Identifies;Return Demonstration TREATMENT: PT Treatment Interventions: Therapeutic Exercise;Self-Halfway Management Evaluation Evaluation Therapeutic Exercise: 1: *supine hip flexor stretch over EOB with slight knee flexion R 3x30 sec to 1 min 2: *supine hip B adductor stretch with the knees flexed 30 sec to 1 min, 3 sets (option to do one side at a time) 3: *supine PPT 3-5 sets of 10 Skilled Intervention: Patient was educated in proper exercise technique and purpose for exercises. Reviewed and educated patient on additions/changes for home exercise program as above (*). Skilled judgment was provided in selection of appropriate interventions. Provided written instruction for home exercise program to facilitate proper performance and compliance. Correct performance of therapeutic exercises was facilitated with verbal, visual and tactile cuing. Additional time necessary for providing HEP and pt. education due to initial evaluation today. Educated patient on rationale for performing exercises in regards to decreasing fatigue , increase ease of ADL and ROM and function . Patient education as noted. Self-Halfway Management: 1: *advised against machines including the elipitcal at this time until pt. has improved core stabilization strength 2: *education regarding core stabilization strength and how it relates to ADLs that including bending and lifting 3: *pt. education regarding correct lifting technique and core activation 4: *pt. education that exercises should not cause increased pain, and to dc should any exercise cause worse symptoms Skilled Intervention: Skilled judgment in the selection of proper modification for activity of daily living/home management based on clinical presentation, deficits, and needs. Educated the patient regarding recommendations and provided written instruction to facilitate compliance. Provided written instruction for activities of daily living techniques to facilitate proper performance and compliance. Reviewed patient specific diagnosis in relation to activities of daily living/home management. Reviewed and educated patient on additions/changes for home program as noted above with an (*). Correct performance of home program was facilitated with verbal, visual and tactile cueing. Billing * Evaluation Low Complexity: 1 Unit Therapeutic Exercise Treatment Minutes: 15 Self-Care/Home Management Treatment Minutes: 10 Total Treatment Time Minutes (timed/untimed): 45 Julianna Farley PT [facility] History of Present illness Narrative* Edilberto Smith MD - 02/28/2022 2:26 PM EDT Patient presents with: 6 Month Exam HPI: Patient presents today for office visit for 6 month follow up. HYPOTHYROID: Patient is compliant with medications: Yes Levothyroxine 125 mcg Patient has changes in energy: No changes. Patient has changes in hair or skin: No Patient has temperature intolerance: No Patient has weight changes: No BACK PAIN: LOCATION: left lower back PAIN SCALE: 5 on a scale of 0-10 PAIN CHARACTER: sharp DURATION: ongoing since last year FREQUENCY: (How often does the pain occur?) occurs intermittently AGGRAVATING FACTORS: weather, arising from a sitting position, lifting and twisting ALLEVIATING FACTORS: resting Saw infection control manager for a pessary. Had exam from ENT for throat clearing. He wonders if is habit. Cardiology: taking atenolol. No palpitations. No chest pain or shortness of breath. No myalgias. Tolerating prozac. Moods are doing well. Using for hot flashes. MEDICATIONS: Current Outpatient Medications Medication Sig levothyroxine (LEVOXYL) 125 mcg tablet Take 1 tablet by mouth once daily. Take on empty stomach. For thyroid. Oxyquinoline-Na Lauryl Sulfate (TRIMO-RAMON JELLY) 0.025-0.01 % gel Use 1 Applicatorful vaginally twotimes a week. psyllium husk (METAMUCIL ORAL) Take by mouth. FLUoxetine (PROZAC) 40 mg capsule Take 1 capsule by mouth once daily. pravastatin (PRAVACHOL) 20 mg tablet Take 1 tablet by mouth once daily. levothyroxine (LEVOXYL) 125 mcg tablet Take 1 tablet by mouth once daily. Take on empty stomach. For thyroid. (Patient not taking: Reported on 01/09/2022 ) omeprazole (PRILOSEC) 40 mg capsule Take 1 capsule by mouth daily before breakfast. atenolol (TENORMIN) 25 mg tablet Take 1 tablet by mouth once daily. acetaminophen (TYLENOL EXTRA STRENGTH) 500 mg tablet Take 1,000 mg by mouth twice daily as needed. ibuprofen (MOTRIN) 200 mg tablet Take 400 mg by mouth twice daily as needed. fluticasone (FLONASE) 50 mcg/actuation nasal spray Use 1 Mcfall in each nostril once daily. Magnesium 250 mg tab Take 250 mg by mouth once daily. Using OTC for leg cramps COMPOUNDED PRESCRIPTION Turmeric Curcumin 500 mg taking 1 daily Cholecalciferol, Vitamin D3, 1,000 unit cap Take 1,000 Units by mouth once daily. CALCIUM CARBONATE/VITAMIN D3 (CALCIUM 600 + D ORAL) Take 1 tablet by mouth twice daily. Bifidobacterium Infantis (ALIGN) 4 mg cap Take by mouth. polyethylene glycol 3350 (MIRALAX, GLYCOLAX) 17 gram/dose powder Take 17 g by mouth once daily. VITAMIN B COMPLEX (B COMPLEX ORAL) Take by mouth. No current facility-administered medications for this visit. ALLERGIES: ALLERGIES Allergen Reactions Seasonal Allergies Other: See Comments Sulfa (Sulfonamide * Other: See Comments Eye swelling with use of eye drops containing sulfa antimicrobial Tree And Shrub Poll* Intolerance PAST MEDICAL HISTORY Diagnosis Date Arrhythmia Arthritis GERD (gastroesophageal reflux disease) Hot flashes Hypothyroid Mitral valve prolapse normal echo 2015 Seasonal allergies Snoring PAST SURGICAL HISTORY Procedure Laterality Date BREAST BIOPSY Left 90? @ [facility] COLONOSCOPY FLX DX W/COLLJ SPEC WHEN PFRMD 02/27/2018 normal colonoscopy, repeat in 5 years due to family history D AND C DIAGNOSTIC NONOB 14 ESOPHAGOGASTRODUODENOSCOPY TRANSORAL DIAGNOSTIC 02/27/2018 EGD ESOPHAGOGASTRODUODENOSCOPY TRANSORAL DIAGNOSTIC 06/12/2020 EGD EYE SURGERY HX JOINT REPLACEMENT HX KNEE SURGERY HX Bilateral 10/16,05/18 LIGATION COLLATERAL VEIN 1999? SKIN BIOPSY HX FAMILY HISTORY Problem Relation Age of Onset Anesthesia Mother Hypertension Mother Stroke Mother Heart Father Cancer Maternal Grandfather esophagus Colon Cancer Daughter Social History Tobacco Use Smoking status: Never Smoker Smokeless tobacco: Never Used Vaping Use Vaping Use: Never used Substance Use Topics Alcohol use: Yes Alcohol/week: 2.0 standard drinks Types: 2 Glasses of Wine (5oz) per week Comment: daily Drug use: No Reviewed current medications, allergies, past medical history, surgical history, family history andsocial history today. REVIEW OF SYSTEMS All other reviewed and negative other than HPI. HEALTH MAINTENANCE: Reviewed health maintenance issues today and recommended the following in detail. PNEUMOCOCCAL: 66+(2 - PCV) due on 08/04/2015 DEPRESSION SCREENING due on 04/17/2021 ADVANCE DIRECTIVE DISCUSSION Never done VITALS: BP 120/72 Pulse 61 Resp 16 Wt 87.5 kg (193 lb) SpO2 93% BMI 31.15 kg/m Last 4 Encounter Wt Readings: Date: Wt: 01/09/2022 86.2 kg (190 lb) 01/02/2022 86.2 kg (190 lb) 12/26/2021 85.7 kg (189 lb) 08/31/2021 83.5 kg (184 lb) PHYSICAL EXAMINATION: General appearance: Well appearing, alert, in no acute distress, well-hydrated, well nourished. Skin: Skin color, texture, turgor normal, no suspicious rashes or lesions Head: Normocephalic, no masses, lesions, tenderness or abnormalities Lungs: Lungs clear to auscultation. No wheezing, rhonchi, rales Heart: RRR without murmur, gallop, or rubs. No ectopy Abdomen: Normal abdominal exam, Abdomen soft, non-tender. Bowel sounds normal. No masses, organomegaly Extremities: No deformities, edema, skin discoloration, clubbing or cyanosis. Good capillary refill. Musculoskeletal: No joint swelling, deformity, or tenderness Peripheral pulses: Normal Neuro: Negative. BACK: Normal curvature of spine. No spine tenderness. Straight leg test negative. Deep tendon reflexes 2+/4 at patellas. Normal lower extremity strength. ASSESSMENT/PLAN: 1. Hypothyroidism, unspecified type - ICD9: 244.9, ICD10: E03.9 (primary diagnosis) - Instructed patient on importance of taking on an empty stomach either first thing in the morning or at bedtime. - TSH BLD 2. Hyperlipidemia, mixed - ICD9: 272.2, ICD10: E78.2 - good control - Continue current medication. - PRAVASTATIN 20 MG TABLET - COMP METABOLIC PANEL - LIPID PANEL BASIC 3. Mitral valve prolapse - ICD9: 424.0, ICD10: I34.1 - last echo was ok 4. Mixed hyperlipidemia - ICD9: 272.2, ICD10: E78.2 - good control - Continue current medication. 5. Hot flashes - ICD9: 782.62, ICD10: R23.2 - continue prozac. - CBC + DIFF 6. Lumbar pain - ICD9: 724.2, ICD10: M54.50 - consider physical therapy. - XR LUMBAR GENERAL 3V AP/LAT/L5-S1 7. Palpitations - ICD9: 785.1, ICD10: R00.2 - Continue current medications. Notify us if any difficulties are noted. - ATENOLOL 25 MG TABLET 8. Hyperglycemia - ICD9: 790.29, ICD10: R73.9 - check ab. - HGB A1C 9. Need for vaccination - ICD9: V05.9, ICD10: Z23 - PNEUMOCOCCAL VACCINE (PREVNAR 20) Edilberto Smith RTO in six months and prn. documented [facility]06-[facility] Miscellaneous Notes* Telephone Encounter - Laura Rios RN - 01/09/2022 4:45 PM EDT Received message from pharmacy for Trimo-Tristen watkinsy. Pharmacy comment: Alternative Requested:NOT COVERED Spoke with patient. She will call [facility] and see what her out of pocket cost is. She also has Good RX if needed. Asked patient to call our office if she needs any more assistance. Laura Rios RN documented in this encounterMi[facility]06-08-2022 History of Present illness Narrative* Jose Carlos Townsend MD - 01/09/2022 3:30 PM EDT Henrry Sandhu is a 76 year old No obstetric history on file. who presents today for pessary insertion/cleaning. She wears a size 4 ring with support pessary. She returns today with no complaints. She has not had problems with the pessary. She has had vaginal discharge- small amount, white. Has been using vasoline when she checks the pessary after BM and at night. Has not displaced that she can tell. Has not tried to remove it herself. She has not had vaginal bleeding. Urination a little better w/ pessary in, a little less urgency. No change in Bm EXAM: pleasant, well developed, well nourished, in no apparent distress Pelvic: Bartholin's, urethra and [place]'s glands were normal. The ring with support pessary was removed. Vaginal exam indicated no erythema, no ulcerations and no vaginal discharge. The pessary was cleaned and a piece of dental floss tied to it to help w/ self- removal and cleaningat home. a/p Cystocele- midline doing well w/ pessary reviewed instructions for use, cleaning. Avoid use of petroleum products in vagina/on pessary. Trimosan use reviewed. Rx sent. F/u 1 year or prn The pessary was inserted, patient tolerated the procedure well and the device is comfortable. Jose Carlos Townsend MD documented in this encounter[facility]06-[facility]-2022 History of Present illness Narrative* Jose Carlos Townsend MD - 01/02/2022 3:08 PM EDT Henrry Sandhu is a 76 year old No obstetric history on file. who presents today for pessary insertion/cleaning. She wears a size 3 ring with support pessary. She returns today with complaints of itmoving frequently. She has had to push it back in a few times a day EXAM: pleasant, well developed, well nourished, in no apparent distress Pelvic: Bartholin's, urethra and [place]'s glands were normal. The ring with support pessary was removed. Vaginal exam indicated no erythema, no ulcerations and no vaginal discharge. Size 4 pessary placed, comfortable, good fit a/p cystocele midline-pessary fitting return next week as scheduled or prn reviewed pessary care. patient comfortable w/ plan The pessary was inserted, patient tolerated the procedure well and the device is comfortable. Jose Carlos Townsend MD documented in this encounterMi[facility]05-31-2022 Miscellaneous Notes* Telephone Encounter - Jose Carlos Townsend MD - 01/01/2022 9:21 AM EDT Yes that is fine. Jose Carlos Townsend MD * Telephone Encounter - Laura Rios RN - 01/01/2022 8:33 AM EDT Ok to put in 10 min spot at 3:10 on January 02? Only available opening this week. Thanks documented in this encounterMi[facility]05-10-2022 Miscellaneous Notes* Telephone Encounter - Edilberto Smith MD - 12/11/2021 4:09 PM EDT Looks like rx was sent to [facility] on 12/04-let her know I am not sure what [facility] was waiting for since they have never contacted us. I can send again * Telephone Encounter - Berenice Roberto Carlos ONEAL - 12/11/2021 4:00 PM EDT Patient calling she is out of levothyroxine and asking for 30 day rx to go locally to [facility]. [facility] keeps telling her the 90 day rx is on hold, waiting for Dr to call. No message in computer. Pending rx to file. Please advise Patient has been identified by name and date of : Yes Patient phones for refill(s): Pending Prescriptions Disp Refills LEVOTHYROXINE 125 MCG TABLET 30 tablet 0 Sig: Take 1 tablet by mouth once daily. Take on empty stomach. For thyroid. SEAMUS: No Date of last office visit in primary care: 08/29/2021, has appt 02/28/2022 Last 2 Encounter Wt Readings: Date: Wt: 08/31/2021 83.5 kg (184 lb) 08/29/2021 83.5 kg (184 lb) Previous labs/tests for medication: Thyroid: TSH Date Value 10/22/2021 1.690 mIU/L 08/29/2021 4.250 uU/mL Please advise. Thank you. Berenice Azevedo LPN [facility] Miscellaneous Notes* Telephone Encounter - Navdeep Irving LPN - 12/04/2021 9:50 AM EDT Patient phones requesting refills as follows: Pending Prescriptions Disp Refills FLUOXETINE 40 MG CAPSULE 30 capsule 5 Sig: Take 1 capsule by mouth once daily. SEAMUS: No FLOR 08/29/21 NOV 02/28/22 Please review and advise. Navdeep Irving LPN documented [facility] encounter[facility]04[facility] History of Present illness Narrative* Duyen Jo PA-C - 11/24/2021 1:59 PM EDT Patient presents to [facility] care triage with a chief complaint of a head injury. She tripped and fell landing on the concrete on her right forehead. Denies loss of consciousness. She does have swelling and bruising and a wound that needs repair. Recommended she be evaluated in the ER. [facility] be seen. [facility] noteNo assessment information availableWTriHealth [facility] Work Phone: Evaluation note* Diagnosis Injury of head, initial encounter- Primary [facility] Diagnosis Hot flashes Symptomatic menopausal or female climacteric states Fatigue, unspecified type [facility] Diagnosis Prolapse of vaginal wall- Primary Unspecified prolapse of vaginal jovel Cystocele, midline [facility]* Diagnosis Cystocele, midline- Primary [facility]* Diagnosis Hypothyroidism, unspecified type- Primary Hyperlipidemia, mixed Mixed hyperlipidemia Mitral valve prolapse Mitral valve disorders Mixed hyperlipidemia Hot flashes Symptomatic menopausal or female climacteric states Lumbar pain Lumbago Palpitations Hyperglycemia Other abnormal glucose Need for vaccination Need for prophylactic vaccination and inoculation against unspecified single disease [facility]* Diagnosis Lumbar pain- Primary Lumbago [facility]* Diagnosis Lumbar pain- Primary Lumbago [facility]* Diagnosis Lumbar pain- Primary Lumbago [facility]* Diagnosis Lumbar pain- Primary Lumbago [facility]* Diagnosis Lumbar pain- Primary Lumbago [facility]* Diagnosis Gastroesophageal reflux disease without esophagitis Esophageal reflux [facility]* Diagnosis Mixed hyperlipidemia- Primary Mitral valve prolapse Mitral valve disorders Acute superficial gastritis without hemorrhage Macrocytosis Other specified diseases of blood and blood-forming organs Hypothyroidism, unspecified type Hyperglycemia Other abnormal glucose [facility]* Diagnosis Boil, thigh- Primary Carbuncle and furuncle of leg, except foot [facility]* Diagnosis Hot flashes Symptomatic menopausal or female climacteric states Fatigue, unspecified type [facility]* Diagnosis Hyperlipidemia, mixed Mixed hyperlipidemia [facility]* Diagnosis Vulvar lesion- Primary Other specified noninflammatory disorder of vulva and perineum [facility]* Diagnosis Fatigue, unspecified type- Primary Hyperlipidemia, mixed Mixed hyperlipidemia Snoring Other dyspnea and respiratory abnormality Hyperglycemia Other abnormal glucose Hypersomnia, unspecified Body mass index (BMI) 31.0-31.9, adult documented [facility] this encounter [facility]* Diagnosis Nocturnal hypoxia- Primary Hypoxemia SHIVA (obstructive sleep apnea) Obstructive sleep apnea (adult) (pediatric) documented [facility]* Diagnosis SHIVA (obstructive sleep apnea)- Primary Obstructive sleep apnea (adult) (pediatric) documented [facility]* Diagnosis Hyperlipidemia, mixed Mixed hyperlipidemia [facility]* Diagnosis SHIVA (obstructive sleep apnea)- Primary Obstructive sleep apnea (adult) (pediatric) Nocturnal hypoxia Hypoxemia Intolerance of continuous positive airway pressure (CPAP) ventilation documented [facility] this encounter [facility]* Diagnosis Nocturnal hypoxia- Primary Hypoxemia [facility]* Diagnosis Hot flashes Symptomatic menopausal or female climacteric states Fatigue, unspecified type [facility]* Diagnosis Palpitations [facility] this [facility]* Diagnosis Epigastric pain- Primary Abdominal pain, epigastric Encounter for screening mammogram for malignant neoplasm of breast Other screening mammogram Tension-type headache, not intractable, unspecified chronicity pattern Mixed hyperlipidemia Mitral valve prolapse Mitral valve disorders SHIVA (obstructive sleep apnea) Obstructive sleep apnea (adult) (pediatric) Hypothyroidism, unspecified type Prediabetes Other abnormal glucose Screening for depression Encounter for screening examination for other mental health and behavioral disorders Gastroesophageal reflux disease without esophagitis Esophageal reflux [facility]* Diagnosis Encounter for screening mammogram for malignant neoplasm of breast Other screening mammogram [facility]* Diagnosis Epigastric pain Abdominal pain, epigastric documented [facility] this encounter [facility]* Diagnosis Chronic constipation- Primary Unspecified constipation Hepatic steatosis Other chronic nonalcoholic liver disease documented [facility] encounter [facility]* Diagnosis Gastroesophageal reflux disease without esophagitis Esophageal reflux documented in this encounter [facility]* Diagnosis Lumbar pain Lumbago documented [facility] this encounter [facility]* Diagnosis Laceration of nose, subsequent encounter- Primary Fall, subsequent encounter Encounter for immunization Need for other specified prophylactic vaccination against single bacterial disease documented [facility] this encounter [facility]* Diagnosis Hyperlipidemia, mixed Mixed hyperlipidemia [facility]* Diagnosis SHIVA on CPAP- Primary Obstructive sleep apnea (adult) (pediatric) Nocturnal hypoxia Hypoxemia Insomnia, unspecified type documented [facility] this encounter [facility]* Diagnosis Acute right-sided low back pain without sciatica- Primary documented [facility] this encounter [facility]* Diagnosis Prediabetes- Primary Other abnormal glucose Hypothyroidism, unspecified type documented [facility] encounter [facility]* Diagnosis Mixed hyperlipidemia- Primary SHIVA (obstructive sleep apnea) Obstructive sleep apnea (adult) (pediatric) Hypothyroidism, unspecified type Hot flashes Symptomatic menopausal or female climacteric states Controlled type 2 diabetes mellitus without complication, without long-term current use of insulin (HCC) documented in this encounter [facility]* Diagnosis Hyperlipidemia, mixed Mixed hyperlipidemia [facility]* Diagnosis Gastroesophageal reflux disease without esophagitis Esophageal reflux documented in this [facility]* Diagnosis Hot flashes Symptomatic menopausal or female climacteric states Fatigue, unspecified type documented in this [facility]* Diagnosis Hot flashes Symptomatic menopausal or female climacteric states Fatigue, unspecified type documented in this [facility]* Diagnosis Palpitations documented in this encounter [facility]* Diagnosis Gastroesophageal reflux disease without esophagitis Esophageal reflux documented in this encounter [facility] for referral (narrative)* Diagnostic Procedure Only (Routine) - Authorized Specialty Diagnoses / Procedures Referred By Dakota t Referred To Contact [facility] Diagnoses Fatigue, unspecified type Snoring Fatigue due to sleep pattern disturbance Hypersomnia, unspecified Procedures HOME SLEEP APNEA TEST (HSAT) SLEEP STD AIRFLOW HRT RATE&O2 SAT EFFORT Lexi Lau APRN.CNP [address] [place] [address] [id number] [place] [address] Referral ID Status Reason Start Date Expiration Date Visits Requested Visits Authorized [id number] Authorized Auto-Generat ed Referral 3 06/17/2024 1 1 [facility] for referral (narrative)* Diagnostic Procedure Only (Routine) - Authorized Specialty Diagnoses / Procedures Referred By Dakota t Referred To Contact US IMAGING Diagnoses Epigastric pain Procedures US ABD RIGHT UPPER QUADRANT US ABDOMINAL REAL TIME W/IMAGE LIMITED Edilberto Smith MD [address] [place] [address] Us Imaging [id number] Referral ID Status Reason Start Date Expiration Date Visits Requested Visits Authorized [id number] Authorized Auto-Generat ed Referral 03/03/2024 04/02/2025 1 1 * Diagnostic Procedure Only (Routine) - Authorized Specialty Diagnoses / Procedures Referred By Dakota t Referred To Contact BR IMAGING Diagnoses Encounter for screening mammogram for malignant neoplasm of breast Procedures PERRI SCREENING SCREENING MAMMOGRAPHY BI 2-VIEW BREAST INC CAD Edilberto Smith MD [address] [place] [address] Br Imaging [address] [place] [address] Referral ID Status Reason Start Date Expiration Date Visits Requested Visits Authorized [id number] Authorized Auto-Generat ed Referral 03/03/2024 04/02/2025 1 1 [facility] for referral (narrative)* Diagnostic Procedure Only (Routine) - Closed Specialty Diagnoses / Procedures Referred By Kristenac t Referred To Contact US IMAGING Diagnoses Epigastric pain Procedures US ABD RIGHT UPPER QUADRANT US ABDOMINAL REAL TIME W/IMAGE LIMITED Edilberto Smith MD [address] [place] [address] [place] [address] Referral ID Status Reason Start Date Expiration Date V isits Requested Visits Authorized [id number] Closed Auto-Generate d Referral 03/03/2024 04/02/2025 1 1 [facility] for referral (narrative)* Diagnostic Procedure Only (Routine) - Closed Specialty Diagnoses / Procedures Referred By Dakota t Referred To Contact XR IMAGING Diagnoses Lumbar pain Procedures XR LUMBAR GENERAL 3V AP/LAT/L5-S1 RADEX SPINE LUMBOSACRAL 2/3 VIEWS Edilberto Smith MD [address] [place] [address] [place] [address] Referral ID Status Reason Start Date Expiration Date V isits Requested Visits Authorized [id number] Closed Auto-Generate d Referral 02/28/2022 03/30/2023 1 1 [facility] for referral (narrative)No reason for referral information availableWTriHealth [facility] Work Phone: Reason for visit Narrative* Diagnostic Procedure Only (Routine) - Closed Specialty Diagnoses / Procedures Referred By Contac t Referred To Contact BR IMAGING Diagnoses Encounter for screening mammogram for malignant neoplasm of breast Procedures PERRI SCREENING SCREENING MAMMOGRAPHY BI 2-VIEW BREAST INC CAD Edilberto Smith MD [address] [place] [address] Br Imaging [address] [place] [address] Referral ID Status Reason Start Date Expiration Date V isits Requested Visits Authorized [id number] Closed Auto-Generate d Referral 03/03/2024 04/02/2025 1 1 [facility] for visit Narrative* Diagnostic Procedure Only (Routine) - Closed Specialty Diagnoses / Procedures Referred By Contac t Referred To Contact US IMAGING Diagnoses Epigastric pain Procedures US ABD RIGHT UPPER QUADRANT US ABDOMINAL REAL TIME W/IMAGE LIMITED Edilberto Smith MD [address] [place] [address] [place] [address] Referral ID Status Reason Start Date Expiration Date V isits Requested Visits Authorized [id number] Closed Auto-Generate d Referral 03/03/2024 04/02/2025 1 1 [facility] for visit Narrative* Diagnostic Procedure Only (Routine) - Closed Specialty Diagnoses / Procedures Referred By Contac t Referred To Contact XR IMAGING Diagnoses Lumbar pain Procedures XR LUMBAR GENERAL 3V AP/LAT/L5-S1 RADEX SPINE LUMBOSACRAL 2/3 VIEWS Edilberto Smith MD [address] [place] [address] [place] [address] Referral ID Status Reason Start Date Expiration Date V isits Requested Visits Authorized [id number] Closed Auto-Generate d Referral 02/28/2022 03/30/2023 1 1 [facility] Chief Complaint and Reason for Visit Chief Complaint lac to forehead Chief Complaint Admit Date Gastro-esophageal reflux disease without esophagit February 28, 2025 8:37am Chief Complaint Admit Date Gastro-esophageal reflux disease without esophagit February 28, 2025 8:37am Gastroesophageal reflux disease (GERD) A ugust 2024 2:09pm Chief Complaint Admit Date Gastro-esophageal reflux disease without esophagit February 28, 2025 8:37am Gastroesophageal reflux disease (GERD) A ugust 2024 2:09pm PROBLEMS W/LINZESS April 12, 2025 3:22pm Reason for Visit Admit Date Family hx of colon cancer March 15, 025 2:09pm GERD (gastroesophageal reflux disease) A [facility] 2024 2:09pm Advance Directives No Advanced Directives Records Found Advance Directive Response Recorded Date/ Time Advance Directives Yes May 17, 2015 10:07am Living Will Yes November 24, 2021 1:33pm Power of Environmental Studies Professor Yes November 24 1:33pm Documents on File Type Date Recorded 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 Advance Directive(s) 06/02/2020 9:16 AM Advance Directive(s) 02/27/2018 5:49 AM Advance Directive(s) 02/16/2018 10:24 AM Documents on File Type Date Recorded 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 Advance Directive(s) 06/02/2020 9:16 AM Advance Directive(s) 02/27/2018 5:49 AM Advance Directive(s) 02/16/2018 10:24 AM Advance Directive Response Recorded Date/ Time Advance Directives Yes May 17, 2015 10:07am Advance Directive Response Recorded Date/ Time Advance Directives Yes April 8:45am Reason for Referral Specialty Diagnoses / Procedures Referred By Contac t Referred To Contact [facility] Diagnoses Lumbar pain Procedures CONSULT TO PHYSICAL THERAPY PHYSICAL THERAPY EVALUATION HIGH COMPLEX 45 MINS Edilberto Smith MD [address] [place] [address] [facility] [address] [place] [address] Referral ID Status Reason Start Date Expiration Date Visits Requested Visits Authorized [id number] Authorized PCP Requested Referral Auto-Generate d Referral 02/28/2022 02/28/2023 99 99 Specialty Diagnoses / Procedures Referred By Contac t Referred To Contact XR IMAGING Diagnoses Lumbar pain Procedures XR LUMBAR GENERAL 3V AP/LAT/L5-S1 RADEX SPINE LUMBOSACRAL 2/3 VIEWS Edilberto Smith MD [address] [place] [address] Xr Imaging Referral ID Status Reason Start Date Expiration Date V isits Requested Visits Authorized [id number] Closed Auto-Generate d Referral 02/28/2022 03/30/2023 1 1 Specialty Diagnoses / Procedures Referred By Contac t Referred To Contact Diagnoses SHIVA (obstructive sleep apnea) Procedures CONSULT TO SLEEP MEDICINE - ADULT OFFICE/OUTPATIENT [facility] 60 MINUTES Edilberto Smith MD [address] [place] [address] Referral ID Status Reason Start Date Expiration Date Visits Requested Visits Authorized [id number] Authorized PCP Requested Referral 09/19/2023 09/18/2024 1 1 Specialty Diagnoses / Procedures Referred By Contac t Referred To Contact [facility] Diagnoses Nocturnal hypoxia Procedures CONSULT TO PULM/CRITICAL CARE OFFICE/OUTPATIENT [facility] 60 MINUTES Jose Carlos Levin APRN.[employer]CHOOL [employer] ATTENDANT [address] [place] [address] Referral ID Status Reason Start Date Expiration Date Visits Requested Visits Authorized [id number] Authorized PCP Requested Referral 01/02/2024 01/01/2025 1 1 Summary Purpose Family History No Family History Records Found Relationship Condition Age at Onset Recorded Date/T zaina daughter Malignant neoplasm of colon Unknown mother Arthritis Unknown Malignant neoplasm Unknown father Myocardial infarction Unknown brother Myocardial infarction Unknown Disorder of thyroid Unknown Additional Source Comments Goals (unrecognized section and content) Goals may be documented in a n alternate sectionGoals may be documented in an alternate sectionGoals may be documented in an alternate sectionGoals may be documented in an alternate section Source Comments (unrecognize d section and content) In the event this informatio n is protected by the Federal Confidentiality of Alcohol and Drug Abuse Patient Records regulations: The Federal rules restrict any use of the information to criminally investigate or prosecute any alcohol or drug abuse patient.[facility] HospitalIn the event this information is protected by the Federal Confidentiality of Alcohol and Drug Abuse Patient Records regulations: The Federal rules restrict any use of the information to criminally investigate or prosecute any alcohol or drug abuse patient.[facility] HospitalIn the event this information is protected by the Federal Confidentiality of Alcohol and Drug Abuse Patient Records regulations: The Federal rules restrict any use of the information to criminally investigate or prosecute any alcohol or drug abuse patient.[facility] HospitalIn the event this information is protected by the Federal Confidentiality of Alcohol and Drug Abuse Patient Records regulations: The Federal rules restrict any use of the information to criminally investigate or prosecute any alcohol or drug abuse patient.[facility] HospitalIn the event this information is protected by the Federal Confidentiality of Alcohol and Drug Abuse Patient Records regulations: The Federal rules restrict any use of the information to criminally investigate or prosecute any alcohol or drug abuse patient.[facility] HospitalIn the event this information is protected by the Federal Confidentiality of Alcohol and Drug Abuse Patient Records regulations: The Federal rules restrict any use of the information to criminally investigate or prosecute any alcohol or drug abuse patient.[facility] HospitalIn the event this information is protected by the Federal Confidentiality of Alcohol and Drug Abuse Patient Records regulations: The Federal rules restrict any use of the information to criminally investigate or prosecute any alcohol or drug abuse patient.[facility] HospitalIn the event this information is protected by the Federal Confidentiality of Alcohol and Drug Abuse Patient Records regulations: The Federal rules restrict any use of the information to criminally investigate or prosecute any alcohol or drug abuse patient.[facility] HospitalIn the event this information is protected by the Federal Confidentiality of Alcohol and Drug Abuse Patient Records regulations: The Federal rules restrict any use of the information to criminally investigate or prosecute any alcohol or drug abuse patient.[facility] HospitalIn the event this information is protected by the Federal Confidentiality of Alcohol and Drug Abuse Patient Records regulations: The Federal rules restrict any use of the information to criminally investigate or prosecute any alcohol or drug abuse patient.[facility] HospitalIn the event this information is protected by the Federal Confidentiality of Alcohol and Drug Abuse Patient Records regulations: The Federal rules restrict any use of the information to criminally investigate or prosecute any alcohol or drug abuse patient.[facility] HospitalIn the event this information is protected by the Federal Confidentiality of Alcohol and Drug Abuse Patient Records regulations: The Federal rules restrict any use of the information to criminally investigate or prosecute any alcohol or drug abuse patient.[facility] HospitalIn the event this information is protected by the Federal Confidentiality of Alcohol and Drug Abuse Patient Records regulations: The Federal rules restrict any use of the information to criminally investigate or prosecute any alcohol or drug abuse patient.[facility] HospitalIn the event this information is protected by the Federal Confidentiality of Alcohol and Drug Abuse Patient Records regulations: The Federal rules restrict any use of the information to criminally investigate or prosecute any alcohol or drug abuse patient.[facility] HospitalIn the event this information is protected by the Federal Confidentiality of Alcohol and Drug Abuse Patient Records regulations: The Federal rules restrict any use of the information to criminally investigate or prosecute any alcohol or drug abuse patient.[facility] HospitalIn the event this information is protected by the Federal Confidentiality of Alcohol and Drug Abuse Patient Records regulations: The Federal rules restrict any use of the information to criminally investigate or prosecute any alcohol or drug abuse patient.[facility] HospitalIn the event this information is protected by the Federal Confidentiality of Alcohol and Drug Abuse Patient Records regulations: The Federal rules restrict any use of the information to criminally investigate or prosecute any alcohol or drug abuse patient.[facility] HospitalIn the event this information is protected by the Federal Confidentiality of Alcohol and Drug Abuse Patient Records regulations: The Federal rules restrict any use of the information to criminally investigate or prosecute any alcohol or drug abuse patient.[facility] HospitalIn the event this information is protected by the Federal Confidentiality of Alcohol and Drug Abuse Patient Records regulations: The Federal rules restrict any use of the information to criminally investigate or prosecute any alcohol or drug abuse patient.[facility] HospitalIn the event this information is protected by the Federal Confidentiality of Alcohol and Drug Abuse Patient Records regulations: The Federal rules restrict any use of the information to criminally investigate or prosecute any alcohol or drug abuse patient.[facility] HospitalIn the event this information is protected by the Federal Confidentiality of Alcohol and Drug Abuse Patient Records regulations: The Federal rules restrict any use of the information to criminally investigate or prosecute any alcohol or drug abuse patient.[facility] HospitalIn the event this information is protected by the Federal Confidentiality of Alcohol and Drug Abuse Patient Records regulations: The Federal rules restrict any use of the information to criminally investigate or prosecute any alcohol or drug abuse patient.[facility] HospitalIn the event this information is protected by the Federal Confidentiality of Alcohol and Drug Abuse Patient Records regulations: The Federal rules restrict any use of the information to criminally investigate or prosecute any alcohol or drug abuse patient.[facility] HospitalIn the event this information is protected by the Federal Confidentiality of Alcohol and Drug Abuse Patient Records regulations: The Federal rules restrict any use of the information to criminally investigate or prosecute any alcohol or drug abuse patient.[facility] HospitalIn the event this information is protected by the Federal Confidentiality of Alcohol and Drug Abuse Patient Records regulations: The Federal rules restrict any use of the information to criminally investigate or prosecute any alcohol or drug abuse patient.[facility] HospitalIn the event this information is protected by the Federal Confidentiality of Alcohol and Drug Abuse Patient Records regulations: The Federal rules restrict any use of the information to criminally investigate or prosecute any alcohol or drug abuse patient.[facility] HospitalIn the event this information is protected by the Federal Confidentiality of Alcohol and Drug Abuse Patient Records regulations: The Federal rules restrict any use of the information to criminally investigate or prosecute any alcohol or drug abuse patient.[facility] HospitalIn the event this information is protected by the Federal Confidentiality of Alcohol and Drug Abuse Patient Records regulations: The Federal rules restrict any use of the information to criminally investigate or prosecute any alcohol or drug abuse patient.[facility] HospitalIn the event this information is protected by the Federal Confidentiality of Alcohol and Drug Abuse Patient Records regulations: The Federal rules restrict any use of the information to criminally investigate or prosecute any alcohol or drug abuse patient.[facility] HospitalIn the event this information is protected by the Federal Confidentiality of Alcohol and Drug Abuse Patient Records regulations: The Federal rules restrict any use of the information to criminally investigate or prosecute any alcohol or drug abuse patient.[facility] HospitalIn the event this information is protected by the Federal Confidentiality of Alcohol and Drug Abuse Patient Records regulations: The Federal rules restrict any use of the information to criminally investigate or prosecute any alcohol or drug abuse patient.[facility] HospitalIn the event this information is protected by the Federal Confidentiality of Alcohol and Drug Abuse Patient Records regulations: The Federal rules restrict any use of the information to criminally investigate or prosecute any alcohol or drug abuse patient.[facility] HospitalIn the event this information is protected by the Federal Confidentiality of Alcohol and Drug Abuse Patient Records regulations: The Federal rules restrict any use of the information to criminally investigate or prosecute any alcohol or drug abuse patient.[facility] HospitalIn the event this information is protected by the Federal Confidentiality of Alcohol and Drug Abuse Patient Records regulations: The Federal rules restrict any use of the information to criminally investigate or prosecute any alcohol or drug abuse patient.[facility] HospitalIn the event this information is protected by the Federal Confidentiality of Alcohol and Drug Abuse Patient Records regulations: The Federal rules restrict any use of the information to criminally investigate or prosecute any alcohol or drug abuse patient.[facility] HospitalIn the event this information is protected by the Federal Confidentiality of Alcohol and Drug Abuse Patient Records regulations: The Federal rules restrict any use of the information to criminally investigate or prosecute any alcohol or drug abuse patient.[facility] HospitalIn the event this information is protected by the Federal Confidentiality of Alcohol and Drug Abuse Patient Records regulations: The Federal rules restrict any use of the information to criminally investigate or prosecute any alcohol or drug abuse patient.[facility] HospitalIn the event this information is protected by the Federal Confidentiality of Alcohol and Drug Abuse Patient Records regulations: The Federal rules restrict any use of the information to criminally investigate or prosecute any alcohol or drug abuse patient.[facility] HospitalIn the event this information is protected by the Federal Confidentiality of Alcohol and Drug Abuse Patient Records regulations: The Federal rules restrict any use of the information to criminally investigate or prosecute any alcohol or drug abuse patient.[facility] HospitalIn the event this information is protected by the Federal Confidentiality of Alcohol and Drug Abuse Patient Records regulations: The Federal rules restrict any use of the information to criminally investigate or prosecute any alcohol or drug abuse patient.[facility] HospitalIn the event this information is protected by the Federal Confidentiality of Alcohol and Drug Abuse Patient Records regulations: The Federal rules restrict any use of the information to criminally investigate or prosecute any alcohol or drug abuse patient.[facility] HospitalIn the event this information is protected by the Federal Confidentiality of Alcohol and Drug Abuse Patient Records regulations: The Federal rules restrict any use of the information to criminally investigate or prosecute any alcohol or drug abuse patient.[facility] HospitalIn the event this information is protected by the Federal Confidentiality of Alcohol and Drug Abuse Patient Records regulations: The Federal rules restrict any use of the information to criminally investigate or prosecute any alcohol or drug abuse patient.[facility] HospitalIn the event this information is protected by the Federal Confidentiality of Alcohol and Drug Abuse Patient Records regulations: The Federal rules restrict any use of the information to criminally investigate or prosecute any alcohol or drug abuse patient.[facility] HospitalIn the event this information is protected by the Federal Confidentiality of Alcohol and Drug Abuse Patient Records regulations: The Federal rules restrict any use of the information to criminally investigate or prosecute any alcohol or drug abuse patient.[facility] HospitalIn the event this information is protected by the Federal Confidentiality of Alcohol and Drug Abuse Patient Records regulations: The Federal rules restrict any use of the information to criminally investigate or prosecute any alcohol or drug abuse patient.[facility] HospitalIn the event this information is protected by the Federal Confidentiality of Alcohol and Drug Abuse Patient Records regulations: The Federal rules restrict any use of the information to criminally investigate or prosecute any alcohol or drug abuse patient.[facility] HospitalIn the event this information is protected by the Federal Confidentiality of Alcohol and Drug Abuse Patient Records regulations: The Federal rules restrict any use of the information to criminally investigate or prosecute any alcohol or drug abuse patient.[facility] HospitalIn the event this information is protected by the Federal Confidentiality of Alcohol and Drug Abuse Patient Records regulations: The Federal rules restrict any use of the information to criminally investigate or prosecute any alcohol or drug abuse patient.[facility] HospitalIn the event this information is protected by the Federal Confidentiality of Alcohol and Drug Abuse Patient Records regulations: The Federal rules restrict any use of the information to criminally investigate or prosecute any alcohol or drug abuse patient.[facility] HospitalIn the event this information is protected by the Federal Confidentiality of Alcohol and Drug Abuse Patient Records regulations: The Federal rules restrict any use of the information to criminally investigate or prosecute any alcohol or drug abuse patient.[facility] HospitalIn the event this information is protected by the Federal Confidentiality of Alcohol and Drug Abuse Patient Records regulations: The Federal rules restrict any use of the information to criminally investigate or prosecute any alcohol or drug abuse patient.[facility] HospitalIn the event this information is protected by the Federal Confidentiality of Alcohol and Drug Abuse Patient Records regulations: The Federal rules restrict any use of the information to criminally investigate or prosecute any alcohol or drug abuse patient.[facility] HospitalIn the event this information is protected by the Federal Confidentiality of Alcohol and Drug Abuse Patient Records regulations: The Federal rules restrict any use of the information to criminally investigate or prosecute any alcohol or drug abuse patient.[facility] HospitalIn the event this information is protected by the Federal Confidentiality of Alcohol and Drug Abuse Patient Records regulations: The Federal rules restrict any use of the information to criminally investigate or prosecute any alcohol or drug abuse patient.[facility] HospitalIn the event this information is protected by the Federal Confidentiality of Alcohol and Drug Abuse Patient Records regulations: The Federal rules restrict any use of the information to criminally investigate or prosecute any alcohol or drug abuse patient.[facility] HospitalIn the event this information is protected by the Federal Confidentiality of Alcohol and Drug Abuse Patient Records regulations: The Federal rules restrict any use of the information to criminally investigate or prosecute any alcohol or drug abuse patient.[facility] HospitalIn the event this information is protected by the Federal Confidentiality of Alcohol and Drug Abuse Patient Records regulations: The Federal rules restrict any use of the information to criminally investigate or prosecute any alcohol or drug abuse patient.[facility] HospitalIn the event this information is protected by the Federal Confidentiality of Alcohol and Drug Abuse Patient Records regulations: The Federal rules restrict any use of the information to criminally investigate or prosecute any alcohol or drug abuse patient.[facility] HospitalIn the event this information is protected by the Federal Confidentiality of Alcohol and Drug Abuse Patient Records regulations: The Federal rules restrict any use of the information to criminally investigate or prosecute any alcohol or drug abuse patient.[facility] HospitalIn the event this information is protected by the Federal Confidentiality of Alcohol and Drug Abuse Patient Records regulations: The Federal rules restrict any use of the information to criminally investigate or prosecute any alcohol or drug abuse patient.[facility] HospitalIn the event this information is protected by the Federal Confidentiality of Alcohol and Drug Abuse Patient Records regulations: The Federal rules restrict any use of the information to criminally investigate or prosecute any alcohol or drug abuse patient.[facility] HospitalIn the event this information is protected by the Federal Confidentiality of Alcohol and Drug Abuse Patient Records regulations: The Federal rules restrict any use of the information to criminally investigate or prosecute any alcohol or drug abuse patient.[facility] HospitalIn the event this information is protected by the Federal Confidentiality of Alcohol and Drug Abuse Patient Records regulations: The Federal rules restrict any use of the information to criminally investigate or prosecute any alcohol or drug abuse patient.[facility] HospitalIn the event this information is protected by the Federal Confidentiality of Alcohol and Drug Abuse Patient Records regulations: The Federal rules restrict any use of the information to criminally investigate or prosecute any alcohol or drug abuse patient.[facility] Care Teams (unrecognized sec tion and content) Internet Marketing Assistant Relationship Specialty Start Date End Date Edilberto Smith MD [address] [place] [address] PCP - General Family Practice 11/15/15 Internet Marketing Assistant Relationship Specialty Start Date End Date Edilberto Smith MD [address] [place] [address] PCP - General Family Practice 11/15/15 Internet Marketing Assistant Relationship Specialty Start Date End Date Edilberto Smith MD [address] [place] [address] PCP - General Family Practice 11/15/15 Internet Marketing Assistant Relationship Specialty Start Date End Date Edilberto Smith MD [address] [place] [address] PCP - General Family Practice 11/15/15 Internet Marketing Assistant Relationship Specialty Start Date End Date Edilberto Smith MD [address] [facility] [place] [address] PCP - General Family Practice 11/15/15 Internet Marketing Assistant Relationship Specialty Start Date End Date Edilberto Smith MD [address] [facility] [place] [address] PCP - General Family Practice 11/15/15 Internet Marketing Assistant Relationship Specialty Start Date End Date Edilberto Smith MD [address] [facility] [place] [address] PCP - General Family Practice 11/15/15 Internet Marketing Assistant Relationship Specialty Start Date End Date Edilberto Smith MD [address] [facility] [place] [address] PCP - General Family Practice 11/15/15 Internet Marketing Assistant Relationship Specialty Start Date End Date Edilberto Smith MD [address] [facility] [place] [address] PCP - General Family Practice 11/15/15 Internet Marketing Assistant Relationship Specialty Start Date End Date Edilberto Smith MD [address] [facility] [place] [address] PCP - General Family Practice 11/15/15 Internet Marketing Assistant Relationship Specialty Start Date End Date Edilberto Smith MD [address] [facility] [place] [address] PCP - General Family Practice 11/15/15 Internet Marketing Assistant Relationship Specialty Start Date End Date Edilberto Smith MD [address] [facility] [place] [address] PCP - General Family Practice 11/15/15 Internet Marketing Assistant Relationship Specialty Start Date End Date Edilberto Smith MD [address] [facility] [place] [address] PCP - General Family Medicine 11/15/15 Internet Marketing Assistant Relationship Specialty Start Date End Date Edilberto Smith MD [address] [facility] [place] [address] PCP - General Family Medicine 11/15/15 Internet Marketing Assistant Relationship Specialty Start Date End Date Edilberto Smith MD [address] [facility] [place] [address] PCP - General Family Medicine 11/15/15 Internet Marketing Assistant Relationship Specialty Start Date End Date Edilberto Smith MD [address] [facility] [place] [address] PCP - General Family Medicine 11/15/15 Internet Marketing Assistant Relationship Specialty Start Date End Date Edilberto Smith MD [address] [facility] [place] [address] PCP - General Family Medicine 11/15/15 Internet Marketing Assistant Relationship Specialty Start Date End Date Edilberto Smith MD [address] [facility] [place] [address] PCP - General Family Medicine 11/15/15 Internet Marketing Assistant Relationship Specialty Start Date End Date Edilberto Smith MD [address] [facility] [place] [address] PCP - General Family Medicine 11/15/15 Internet Marketing Assistant Relationship Specialty Start Date End Date Edilberto Smith MD [address] [facility] [place] [address] PCP - General Family Medicine 11/15/15 Internet Marketing Assistant Relationship Specialty Start Date End Date Edilberto Smith MD [address] [facility] [place] [address] PCP - General Family Medicine 11/15/15 Internet Marketing Assistant Relationship Specialty Start Date End Date Edilberto Smith MD [address] [place] [address] PCP - General Family Medicine 11/15/15 Internet Marketing Assistant Relationship Specialty Start Date End Date Edilberto Smith MD [address] [place] [address] PCP - General Family Medicine 11/15/15 Internet Marketing Assistant Relationship Specialty Start Date End Date Edilberto Smith MD [address] [place] [address] PCP - General Family Medicine 11/15/15 Internet Marketing Assistant Relationship Specialty Start Date End Date Edilberto Smith MD [address] [place] [address] PCP - General Family Medicine 11/15/15 Internet Marketing Assistant Relationship Specialty Start Date End Date Edilberto Smith MD [address] [place] [address] PCP - General Family Medicine 11/15/15 Internet Marketing Assistant Relationship Specialty Start Date End Date Edilberto Smith MD [address] [place] [address] PCP - General Family Medicine 11/15/15 Internet Marketing Assistant Relationship Specialty Start Date End Date Edilberto Smith MD [address] [facility] [place] [address] PCP - General Family Medicine 11/15/15 Internet Marketing Assistant Relationship Specialty Start Date End Date Edilberto Smith MD [address] [place] [address] PCP - General Family Medicine 11/15/15 Internet Marketing Assistant Relationship Specialty Start Date End Date Edilberto Smith MD [address] [place], [place] [address]39[address] PCP - General Family Medicine 11/15/15 Internet Marketing Assistant Relationship Specialty Start Date End Date Edilberto Smith MD [address] [place], [place] [address] PCP - General Family Medicine 11/15/15 Internet Marketing Assistant Relationship Specialty Start Date End Date Edilberto Smith MD [address] [place] [address] PCP - General Family Medicine 11/15/15 Internet Marketing Assistant Relationship Specialty Start Date End Date Edilberto Smith MD [address] [place] [address] PCP - General Family Medicine 11/15/15 Internet Marketing Assistant Relationship Specialty Start Date End Date Edilberto Smith MD [address] [place] [address] PCP - General Family Medicine 11/15/15 Internet Marketing Assistant Relationship Specialty Start Date End Date Edilberto Smith MD [address] [place] [address] PCP - General Family Medicine 11/15/15 Internet Marketing Assistant Relationship Specialty Start Date End Date Edilberto Smith MD [address] [place], [place] [address] PCP - General Family Medicine 11/15/15 Internet Marketing Assistant Relationship Specialty Start Date End Date Edilberto Smith MD [address] [place], [place] [address]64[address] PCP - General Family Medicine 11/15/15 Internet Marketing Assistant Relationship Specialty Start Date End Date Edilberto Smith MD [address] [place], [place] [address]12[address] PCP - General Family Medicine 11/15/15 Internet Marketing Assistant Relationship Specialty Start Date End Date Edilberto Smith MD [address] [place], [place] [address]1381 PCP - General Family Medicine 11/15/15 Internet Marketing Assistant Relationship Specialty Start Date End Date Edilberto Smith MD [address] [place], [place] 644031 PCP - General Family Medicine 11/15/15 Lexi Marx, ULTRASOUND TECHNICIAN.SCHOOL BUS ATTENDANT [address] [place] [address] Field Machinist Family Medicine 07/12/24 Zoey Pickard ULTRASOUND TECHNICIAN.SCHOOL BUS ATTENDANT [address] [place] [address] Field Machinist Family Medicine 07/12/24 Internet Marketing Assistant Relationship Specialty Start Date End Date Edilberto Smith MD [address] [place] [address] PCP - General Family Medicine 11/15/15 Lexi Marx, ULTRASOUND TECHNICIAN.SCHOOL BUS ATTENDANT [address] [place] [address] Field Machinist Family Medicine 07/12/24 Zoey Pickard, ULTRASOUND TECHNICIAN.SCHOOL BUS ATTENDANT [address] [place] [address] Field Machinist Family Medicine 07/12/24 Internet Marketing Assistant Relationship Specialty Start Date End Date Edilberto Smith MD [address] [facility] [place] [address] PCP - General Family Medicine 11/15/15 Lexi Marx APRN.SCHOOL BUS ATTENDANT [address] [place] [address] Field Machinist Family Medicine 07/12/24 Zoey Pickard APRN.SCHOOL BUS ATTENDANT [address] [facility] [place] [address] Field Machinist Family Medicine 07/12/24 Internet Marketing Assistant Relationship Specialty Start Date End Date Edilberto Smith MD [address] [facility] [place] [address] PCP - General Family Medicine 11/15/15 Lexi Marx APRN.SCHOOL BUS ATTENDANT [address] [place] [address] Field Machinist Family Medicine 07/12/24 Zoey Pickard ULTRASOUND TECHNICIAN.SCHOOL BUS ATTENDANT [address] [facility] [place] [address] Field Machinist Family Medicine 07/12/24 Internet Marketing Assistant Relationship Specialty Start Date End Date Edilberto Smith MD [address] [facility] [place] [address] PCP - General Family Medicine 11/15/15 Lexi Marx APRN.SCHOOL BUS ATTENDANT [address] [place] [address] Field Machinist Family Medicine 07/12/24 Zoey Pickard APRN.SCHOOL BUS ATTENDANT [address] [facility] [place] [address] [facility] 07/12/24 Internet Marketing Assistant Relationship Specialty Start Date End Date Edilberto Smith MD [address] [facility] [place] [address] PCP - General Family Medicine 11/15/15 Lexi Marx APRN.SCHOOL BUS ATTENDANT [address] [facility] [place] [address] Field Machinist Family Medicine 07/12/24 Zoey Pickard APRN.SCHOOL BUS ATTENDANT [address] [facility] [place] [address] [facility] 07/12/24 Internet Marketing Assistant Relationship Specialty Start Date End Date Edilberto Smith MD [address] [facility] [place] [address] PCP - General Family Medicine 11/15/15 Lexi Marx APRN.SCHOOL BUS ATTENDANT [address] [facility] [place] [address] Field Machinist Family Medicine 07/12/24 Zoey Pickard APRN.SCHOOL BUS ATTENDANT [address] [facility] [place] [address] [facility] 07/12/24 Internet Marketing Assistant Relationship Specialty Start Date End Date Edilberto Smith MD [address] [facility] [place] [address] PCP - General Family Medicine 11/15/15 Lexi Marx APRN.SCHOOL BUS ATTENDANT [address] [facility] [place] [address] [facility] 07/12/24 Zoey Pickard APRN.SCHOOL BUS ATTENDANT [address] [place], [place] [address] [facility] 07/12/24 Internet Marketing Assistant Relationship Specialty Start Date End Date Edilberto Smith MD [address] [place], [place] 0325[address] PCP - General Family Medicine 11/15/15 Lexi Marx APRN.SCHOOL BUS ATTENDANT [address] [place], [place] [address] [facility] 07/12/24 Zoey Pickard APRN.SCHOOL BUS ATTENDANT [address] [place], [place] [address] [facility] 07/12/24 Team Status: Active Member Role/Relationship Status Dates Dr. Edilberto Smith MD Primary Care Provider Active Team Status: Inactive Member Role/Relationship Status Dates Dr. Edilberto Smith MD Primary Care Provider Active Start: February 28, 2025 End: February 28, 2025 ROSANNE Muniz Attending Provider Active Star t: February 28, 2025 End: February 28, 2025 ROSANNE Muniz Referring Provider Active Star t: February 28, 2025 End: February 28, 2025 Team Status: Inactive Member Role/Relationship Status Dates Dr. Edilberto Smith MD Primary Care Provider Active Start: March 15, 2025 End: March 15, 2025 JOSE Wong Attending Provider Active Start: March 15, 2025 End: March 15, 2025 ROSANNE Muniz Referring Provider Active Star t: March 15, 2025 End: March 15, 2025 Team Status: Inactive Member Role/Relationship Status Dates Dr. Edilberto Smith MD Primary Care Provider Active Start: April 12, 2025 End: April 12, 2025 Dr. Edilberto Smith MD Referring Provider Active Start: April 12, 2025 End: April 12, 2025 JOSE Wong Attending Provider Active Start: April 12, 2025 End: April 12, 2025 Reason for Visit (unrecogniz ed section and content) Reason Comments PT Discharge Specialty Diagnoses / Procedures Referred By Contac t Referred To Contact [facility] Diagnoses Lumbar pain Procedures CONSULT TO PHYSICAL THERAPY PHYSICAL THERAPY EVALUATION HIGH COMPLEX 45 MINS Edilberto Smith MD [address] [place] [address] [facility] [address] [place] [address] Referral ID Status Reason Start Date Expiration Date Visits Requested Visits Authorized [id number] Authorized PCP Requested Referral Auto-Generate d Referral 02/28/2022 02/28/2023 99 99 Reason Comments Physical Therapy Reason Onset Date Comments Refill Request 12/04/2021 Reason Comments Pessary Reason Onset Date Comments Refill Request 12/11/2021 Refill Request 01/08/2022 Reason Comments Refill Request Reason Comments 6 Month Exam Reason Comments PT Eval Reason Onset Date Comments Refill Request 07/07/2022 Reason Onset Date Comments Refill Request 07/31/2022 Reason Comments 6 Month Exam Reason Comments boil left upper thigh Boil left upper th igh x 1 week Reason Onset Date Comments Refill Request 11/11/2022 Reason Onset Date Comments Refill Request 12/02/2022 Reason Onset Date Comments Refill Request 12/28/2022 Reason Comments Abscess L side of groin x in termittent for 4 months, 2/16 for same Reason Comments Patient Question Imm/Inj Reason Comments Fatigue Reason Comments Results Reason Comments Psg Check In (Adult) Reason Comments Results Reason Onset Date Comments Refill Request 12/07/2023 Reason Comments PAP Therapy Follow Up PT RETURNED DEVICE Reason Comments New Patient New Patient reported CPAP returned x4 wks to [employer] unable to tolerate. Specialty Diagnoses / Procedures Referred By Contac t Referred To Contact Diagnoses SHIVA (obstructive sleep apnea) Procedures CONSULT TO SLEEP MEDICINE - ADULT OFFICE/OUTPATIENT NEW HIGH MDM 60 MINUTES Edilberto Smith MD [address] [place] [address] Referral ID Status Reason Start Date Expiration Date V isits Requested Visits Authorized [id number] Closed PCP Requested Referral 09/19/2023 09/18/2024 1 1 Reason Onset Date Comments Refill Request 12/22/2023 Reason Onset Date Comments Refill Request 01/10/2024 Reason Onset Date Comments Refill Request 02/27/2024 Reason Comments Follow Up Epigastric pain Reason Comments Orders Reason Onset Date Comments Refill Request 04/04/2024 Reason Comments ER F/U [facility] ER 04/25/24 dx: f all with laceration to nose Reason Onset Date Comments Refill Request 06/14/2024 Reason Comments Established Patient CPAP compliance visi t Reason Onset Date Comments Refill Request 06/28/2024 Reason Onset Date Comments Refill Request 08/27/2024 Reason Comments Low Back Pain Reason Comments Acute Visit Back pain x6 days Reason Onset Date Comments Refill Request 12/14/2024 Reason Onset Date Comments Refill Request 12/28/2024 Reason Onset Date Comments Refill Request 01/09/2025 Reason Onset Date Comments Refill Request 01/04/2025 Reason Onset Date Comments Refill Request 03/05/2025 Reason Onset Date Comments Refill Request 04/03/2025 INFORMATION SOURCE (unrecogn ized section and content) DATE CREATED AUTHOR 09/21/2023 [facility] DATE CREATED AUTHOR AUTHOR'S ORGANIZ ATION 12/23/2024 [facility] DATE CREATED AUTHOR AUTHOR'S ORGANIZ ATION 04/23/2025 [facility] FOR RECORDS PERTAINING TO PATIENTS WHO ARE OR HAVE BEEN ENROLLED IN A CHEMICAL DEPENDENCY/SUBSTANCEABUSE PROGRAM, SOME INFORMATION MAY BE OMITTED. This clinical summary was aggregated from multiple sources. Caution should be exercised in using it in the provision of clinical care. This summary normalizes information from multiple sources, and as a consequence, information in this document may materially change the coding, format and clinical context of patient data. In addition, data may be omitted in some cases. CLINICAL DECISIONS SHOULD BE BASED ON THE PRIMARY CLINICAL RECORDS. [employer] provides no warranty or guarantee of the accuracy or completeness of information in this document.
--- NOTE | 2025-04-25 06:34 | HP.PCM_ITS ---
[facility] - General General Date of Service: 04/25/25 Chief Complaint: globus sensation and FH of colon cancer HPI Narrative YANG GALVEZ, is a 79 F who presents with the Chief Complaint: globus sensation Details: Barium Swallow 02/28/2025 1. Extensive recurrent gastroesophageal reflux. 2. Intermittent spasm of the mid to distal esophagus. - referred by ENT - evidence of LPR on laryngoscopy - Omeprazole 40mg daily, has been on this dose for the past 5-6 years - she has also been taking chewable Alkaseltzer antacid for the past week - c/o globus sensation - denies any dysphagia - denies any heart, lung or kidney disease - denies taking any NSAIDS - denies any weight gain - 1-2 glasses of wine daily - denies any smoking - 1-2cup of coffee a day - reports her last colonoscopy was 5 years ago - daughter with colon CA - Maternal GF with esophageal CA - reports she has had trouble cleaning out in the past for a colonoscopy - denies any bleeding - has 1-2 BM and reports incomplete evacuation - Miralax 17g once a day - water intake is not optimal - she reports her fiber intake is good - denies any hard stools - she reports stools have been small in the past 1-2 years [facility] Medical History (Updated 04/25/25 @ 06:[address] Trinidad Friend, DO) Wears hearing aid Wears glasses Cancer Post-menopausal Alcohol use Thyroid disease Fatty liver High cholesterol Easy bruising Back pain Migraine headache Injury of head and neck Gastric reflux Non-smoker CPAP (continuous positive airway pressure) dependence Shortness of breath on exertion Chronic cough Leg cramps History of edema History of stress test Normal Holter exam History of echocardiogram History of irregular heartbeat Breast lump Back problem Hypercholesterolemia COVID-19 Encounter for screening for COVID-19 Home Medications ?Medication ?Instructions ?Recorded ?Last Taken ?Type atenolol 25 mg tablet 25 mg PO DAILY BP 10/22/13 0 04/25/25 05:15 History fluticasone propionate 50 1 spray intranasal PRN PRN 0 09/28/18 11/27/19 History mcg/actuation nasal Allergies 90 days #48 grams spray,suspension omeprazole 40 mg capsule,delayed 40 mg PO BID GERD 90 days #90 caps 09/28/18 11/27/19 History release magnesium 250 mg tablet 400 mg PO DAILY SUPPLEMENT 0 10/27/18 11/27/19 History vitamin B complex (Vitamins B 1 ea PO DAILY SUPPLEMENT 10/27/18 11/27/19 History Complex capsule) calcium 500 mg (as 1 tab PO BID 04/25/24 Unknow n History carbonate)-vitamin D3 15 mcg (600 unit) tablet pravastatin 20 mg tablet 20 mg PO DAILY 04/25/24 Unkn own History fluoxetine 40 mg capsule 40 mg PO QDAY 03/14/25 Unkno wn History levothyroxine 112 mcg capsule 112 mcg PO QDAY 03/14/25 04/25/25 05:15 History metformin 500 mg tablet 500 mg PO QDAY 03/14/25 Unkn own History famotidine 40 mg tablet 40 mg PO QHS #90 tabs Unknown Rx liver health supplement 2 tab PO DAILY 03/15/25 Unkn own History melatonin 5 mg capsule 5 mg PO QHS 03/15/25 Unknown History peg 3350-electrolytes 236 240 ml PO Q10M #4,000 mL 07/28 Unknown Rx gram-22.74 gram-6.74 gram-5.86 gram solution (Golytely) linaclotide 145 mcg capsule 145 mcg PO QAM #30 caps Unknown Rx (Linzess) cinnamon bark-chromium picolinate 1 cap PO DAILY 04/20 Unknown History 500 mg-100 mcg capsule turmeric 400 mg capsule 400 mg PO DAILY 04/20/25 Unk nown History Allergy/AdvReac Type Severity Reaction Status Date / Time lincomycin (From Lincocin) Allergy Other Verified 04/25/25 06:24 Sulfa (Sulfonamide Allergy Swelling Verified 04/25/25 06:24 Antibiotics) Family History Daughter Colon cancer Mother Arthritis Cancer skin Father Myocardial infarction Brother Myocardial infarction Thyroid disorder Surgical History (Updated 04/20/25 @ 11:44 by Meghan Ramirez) Hx of breast biopsy Hx of dilation and curettage Hx of arthroscopic knee surgery Hx of varicose vein ligation and stripping Hx of bilateral cataract extraction History of total right knee replacement Social History Smoking Status: Never smoker alcohol intake: current details: wine substance use type: does not use ROS Constitutional Constitutional: Denies fatigue, fever(s), poor appetite, weight gain or weight loss Gastrointestinal Gastrointestinal: Denies belching, bloating, change in bowel habits, change in stool character, chewing difficulty, coffee ground emesis, constipation, cramping, diarrhea, dyspepsia, dysphagia, early satiety, excessive flatus, fecal incontinence, heartburn, hematemesis, hematochezia, hemorrhoids, loose stools, melena, nausea, odynophagia, rectal bleeding, tenesmus, vomiting or weight changes Vital Signs Vital Signs Vital Signs: 04/25/25 06:25 04/25/25 06:25 Temperature 97.7 F L Temperature Source Temporal Pulse Rate 76 Respiratory Rate 16 Respiratory Pattern Normal Blood Pressure 126/68 H Blood Pressure Mean 87 Blood Pressure Source Monitor Blood Pressure Position Sitting Blood Pressure Location Left Arm Pulse Ox 97 Oxygen Delivery Method Room Air Weight Weight: 194 lb 0.108 oz Body Mass Index (BMI) 31.3 Physical Exam Const alert, oriented x3, no apparent distress and healthy appearing General Appearance: cooperative GI normal to inspection, nondistended, normoactive bowel sounds, soft to palpation, non-tender and non-distended Percussion: normal to percussion Rectal Exam: deferred Assessment & Plan Assessment/Plan (1) Family hx of colon cancer: (2) Irritable bowel syndrome with constipation: (3) Dysphagia: PLAN: Plan Assessment and Plan Assessment and Plan (1) GERD (gastroesophageal reflux disease): Status: Acute (2) Family hx of colon cancer: Status: Acute Comment: daughter Medications: New famotidine 40 mg PO QHS 90 tabs 1RF peg 3350-electrolytes 236-22.74-6.74 -5.86 gram (Golytely) take as directed for split dose bowel prep 240 mL PO Q10M 4,000 mL 0RF linaclotide (Linzess) take once a day, 30 minutes before your first meal 145 mcg PO QAM 90 caps 1RF Plan 79-year-old female with a history of gastroesophageal reflux disease presenting with a worsening of reflux symptoms. Her condition has been managed with omeprazole but remains uncontrolled as confirmed by recent imaging which highlighted significant acid reflux and esophageal spasms. This is further complicated by chronic constipation that affects her bowel habits. Due to a strong family history of colon cancer, there is a noted emphasis on continued gastrointestinal surveillance. The current symptoms from GERD are persistent and mainly exacerbated in the morning. She will add Famotidine at HS and schedule bidirectional endoscopies.
[2025-04-25] MEDS: Lactated Ringers 1,000 ML 15 ML IV (06:35)
--- NOTE | 2025-04-25 06:42 | PCM.PRE.AN2 ---
ASA Classification* ASA Classification ASA Classification: 2 Assessment & Plan Anesthesia* Anesthesia Assessment Anesthesia Assessment: Discussed sedation and/or anesthesia options, risks, benefits, and alternatives with patient/parents/legal guardian/POA. Questions invited. The patient/parents/legal guardian/POA seems to understand and agrees to proceed with anesthesia plan. Reviewed the physical assessment, medical history, allergy history and patient home medications list prior to surgery/procedure/anesthetic and documented any changes. Performed airway and anesthesia risk assessments. Anesthesia Type Anesthesia Type: MAC Anesthesia Focused Assessment* Temperature: 97.7 F Pulse Rate: 76 Blood Pressure: 126/68 Respiratory Rate: 16 Pulse Ox: 97 Airway Assessment Mouth opens: >3 cm Mallampati Score: II Labs Anesthesia Preop lab: CBC WBC, (4.4-11.0) 5.4 K/mm3 11/27/19, 11:15 RBC, (4.2-5.4) 3.85 M/mm3 L 11/27/19, 11:15 Hgb, (12.0-15.0) 13.0 g/dL 11/27/19, 11:15 Hct, (37-47) 38.8 % 11/27/19, 11:15 Plt Count, (150-450) 209 K/mm3 11/27/19, 11:15 CHEMISTRY Potassium, (3.5-5.1) 3.7 mmol/L 11/27/19, 11:15 Sodium, (136-145) 137 mmol/L 11/27/19, 11:15 BUN, (7-18) 14 mg/dL 11/27/19, 11:15 Creatinine, (0.55-1.02) 0.87 mg/dL 11/27/19, 11:15 Glucose, (74-106) 107 mg/dL H 11/27/19, 11:15 TSH, (0.358-3.74) 0.92 uIU/mL 07/10/15, 10:55 COAG PT, (11.9-14.4) 12.8 SECONDS 10/22/13, 09:40 Pre-Assessment Diagnosis/Proposed Procedure Planned Operative Procedure(s): COLONOSCOPY/EGD Anesthesia History Anesthesia History - venetian blind washer: Anesthesia History - venetian blind washer Hx Hospitalization No 04/20/25 11:44 Any Problems With Anesthesia Yes: NAUSEA 04/20/25 11:44 Cholinesterase deficiency No 04/20/25 11:44 You/Your Family Experience No 04/20/25 11:44 fever (hyperthermia) with Relationship Recent Exposure to Contagious No 04/25/25 06:25 Disease Does patient have nerve No 04/20/25 11:44 stimulator Patient instructed to have device shut off --Does patient have Pacemaker No 04/25/25 06:25 or ICD? When Was Last Pacemaker Check QUESTION #4 FULL TEXT: You/Your Family Experience fever (hyperthermia) with Anesthesia Last Oral Intake Last Oral intake: Last Oral Intake NPO since 02:00 04/25/25 06:25 Meds taken in AM with sips of Yes 04/25/25 06:25 water? Meds patient instructed to take am of surgery PONV PONV - venetian blind washer: PONV - venetian blind washer Female Yes 04/20/25 11:44 HX of Motion Sickness Yes 04/20/25 11:44 HX of N/V After Surgery No 04/20/25 11:44 Non-Smoker Yes 04/20/25 11:44 Duration of Surgery greater No 04/20/25 11:44 than 60 minutes Number of Risk Factors 3 04/20/25 11:44 PONV Score Moderate Risk 04/20/25 11:44 Height & Weight Height & Weight: Anesthesia: Height & Weight Height 5 ft 6 in 04/25/25 06:25 Weight: 88 kg 04/25/25 06:25 Body Mass Index (BMI) 31.3 04/25/25 06:25 Respiratory Assessment Respiratory Assessment - venetian blind washer: Respiratory Tract Infection Hx - venetian blind washer Hx Respiratory Tract Infection No 04/20/25 11:44 STOP Sleep Apnea STOP Sleep Apnea - venetian blind washer: STOP Sleep Apnea - venetian blind washer Hx Hypertension No 04/20/25 11:44 Hx Sleep Apnea No 04/20/25 11:44 CPAP No 04/20/25 11:44 BIPAP No 04/20/25 11:44 Do you snore loudly (louder No 04/20/25 11:44 than talking or can be heard Do you often feel tired/ No 04/20/25 11:44 fatigued/ sleepy during daytime? Has anyone observed you stop No 04/20/25 11:44 breathing during sleep? STOP Results Negative 04/20/25 11:44 QUESTION #5 FULL TEXT : Do you snore loudly (louder than talking or can be heard through closed doors)? 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 Specify any problems Hx of Preganancy in last 3 No 04/20/25 11:44 Months Nurse Filling Out Transfusion VCHRISTIN 04/20/25 11:44 & Questions: Date: 04/20/25 04/20/25 11:44 Time: 11:45 04/20/25 11:44 Patient unable to answer at this time (ie. confused, unrespo /Reproduction History /Reproductive History - venetian blind washer: /Reproductive Hx- venetian blind washer Hx Now No 04/20/25 11:44 Gestational Age (in weeks): EDC: Hx Hx Para Hx Section SAB No 04/20/25 11:44 Active Medications Active Medications: Current Medications Generic Name Dose Route Start Last Admin Trade Name Freq PRN Reason Stop Dose Admin Lactated Ringer's 1,000 mls @ 15 mls/hr 04/25/25 06:15 04/25/25 06:35 IV 15 mls/hr .Q48H EVER Administration PFSH Medical History Wears hearing aid Wears glasses Cancer Post-menopausal Alcohol use Thyroid disease Fatty liver High cholesterol Easy bruising Back pain Migraine headache Injury of head and neck Gastric reflux Non-smoker CPAP (continuous positive airway pressure) dependence Shortness of breath on exertion Chronic cough Leg cramps History of edema History of stress test Normal Holter exam History of echocardiogram History of irregular heartbeat Breast lump Back problem Hypercholesterolemia COVID-19 Encounter for screening for COVID-19 Home Medications ?Medication ?Instructions ?Recorded ?Last Taken ?Type atenolol 25 mg tablet 25 mg PO DAILY BP 10/22/13 04/25/25 05:15 History fluticasone propionate 50 1 spray intranasal PRN PRN 09/28/18 11/27/19 History mcg/actuation nasal Allergies 90 days #48 grams spray,suspension omeprazole 40 mg capsule,delayed 40 mg PO BID GERD 90 days #90 caps 09/28/18 11/27/19 History release magnesium 250 mg tablet 400 mg PO DAILY SUPPLEMENT 10/27/18 11/27/19 History vitamin B complex (Vitamins B 1 ea PO DAILY SUPPLEMENT 10/27/18 11/27/19 History Complex capsule) calcium 500 mg (as 1 tab PO BID 04/25/24 Unknown History carbonate)-vitamin D3 15 mcg (600 unit) tablet pravastatin 20 mg tablet 20 mg PO DAILY 04/25/24 Unknown History fluoxetine 40 mg capsule 40 mg PO QDAY 03/14/25 Unknown History levothyroxine 112 mcg capsule 112 mcg PO QDAY 03/14/25 04/25/25 05:15 History metformin 500 mg tablet 500 mg PO QDAY 03/14/25 Unknown History famotidine 40 mg tablet 40 mg PO QHS #90 tabs 03/15/25 Unknown Rx liver health supplement 2 tab PO DAILY 03/15/25 Unknown History melatonin 5 mg capsule 5 mg PO QHS 03/15/25 Unknown History peg 3350-electrolytes 236 240 ml PO Q10M #4,000 mL 03/15/25 Unknown Rx gram-22.74 gram-6.74 gram-5.86 gram solution (Golytely) linaclotide 145 mcg capsule 145 mcg PO QAM #30 caps 03/21/25 Unknown Rx (Linzess) cinnamon bark-chromium picolinate 1 cap PO DAILY 04/20/25 Unknown History 500 mg-100 mcg capsule turmeric 400 mg capsule 400 mg PO DAILY 04/20/25 Unknown History Allergy/AdvReac Type Severity Reaction Status Date / Time lincomycin (From Lincocin) Allergy Other Verified 04/25/25 06:24 Sulfa (Sulfonamide Allergy Swelling Verified 04/25/25 06:24 Antibiotics) Family History Daughter Colon cancer Mother Arthritis Cancer skin Father Myocardial infarction Brother Myocardial infarction Thyroid disorder Surgical History Hx of breast biopsy Hx of dilation and curettage Hx of arthroscopic knee surgery Hx of varicose vein ligation and stripping Hx of bilateral cataract extraction History of total right knee replacement Social History Smoking Status: Never smoker alcohol intake: current details: wine substance use type: does not use Review of Systems (Anesthesia) ROS Narrative System reviewed and no additional complaints, except as documented.
--- NOTE | 2025-04-25 07:00 | COLBX_PTH ---
PATIENT: YANG GALVEZ LOC: EN U#:[id number] AGE/SX: 79/F ROOM: RE04/25/[address]: Dr. Amos Sloan DO : 1945 BED: DIS: 04/25/2025 SPEC #: [id number] RECD: 04/25/25 09:28 STATUS: LUIS ANTONIO REPraful #: [id number] ANTONINO: 04/25/25 07:[address]: Amos Sloan DEPT: SURGICAL PATHOLOGY RECD BY: Mauro Rico ENTERED: 04/25/25 13:51 SP TYPE: COLON BX OTHR DR: Dr. Edilberto Pugh MD Tissues: A - Esophagus, NOS B - SPLENIC FLEXURE Procedures: Surgery Specimen Level IV HEADER OPERATION: Colonoscopy, EGD with biopsy and dilation PRE-OP DIAGNOSIS: Family history of colon cancer, irritable bowel syndrome with constipation, dysphagia TISSUE SUBMITTED: A- Random esophagus biopsy, B- Splenic flexure polyp MICROSCOPIC DIAGNOSIS A. Esophagus, random, biopsy: * Squamous mucosa with reactive changes. 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 * Note: The diagnosis depends on the location of the biopsy and the extent of the mucosal irregularity. If the biopsy originates from the tubular esophagus and the mucosal irregularity extends at least 1 cm above the top of the gastric folds, this represents [place] mucosa. If the biopsy originates from gastric cardia and/or the mucosal irregularity is less than 1 cm in extent, this represents intestinal metaplasia B. Splenic flexure, polyp, biopsy: * Hyperplastic polyp. MICROSCOPIC DESCRIPTION Slides are reviewed. GROSS DESCRIPTION A. Received in fixative is one container labeled with the patient's name and designated Random esophagus biopsy. The specimen consists of multiple irregular fragments of urbano tissue that in aggregate measure 1 x 0.3 x 0.1 cm. The specimen is totally submitted in one cassette. B. Received in fixative is one container labeled with the patient's name and designated Splenic flexure polyp. The specimen consists of three irregular fragments of urbano tissue, each measuring 0.3 cm. The specimen is totally submitted in one cassette. AR 04/25/2025 CPT:87121 x2
--- NOTE | 2025-04-25 08:01 | OP.EGD_ITS ---
Patient Name: Salma Sandhu Procedure Date: 04/25/2025 7:25 AM Date of : 1945 Age: 79 Procedure: Upper GI endoscopy Indications: Dysphagia Providers: Amos Sloan DO Referring MD: Edilberto Pugh Medicines: Monitored Anesthesia Care Patient Profile: This is a 79 year old female. Refer to note in patient chart for documentation of history and physical. Patient has symptoms of chronic dysphagia and dysphagia with both liquids and solids. Complications: No immediate complications. Procedure: Pre-Anesthesia Assessment: - Prior to the procedure, a History and Physical was performed, and patient medications and allergies were reviewed. The patient is competent. The risks and benefits of the procedure and the sedation options and risks were discussed with the patient. All questions were answered and informed consent was obtained. Patient identification and proposed procedure were verified by the physician in the pre-procedure area. Mental Status Examination: alert and oriented. Airway Examination: normal oropharyngeal airway and neck mobility. Respiratory Examination: clear to auscultation. CV Examination: normal. ASA Grade Assessment: II - A patient with mild systemic disease. After reviewing the risks and benefits, the patient was deemed in satisfactory condition to undergo the procedure. The anesthesia plan was to use monitored anesthesia care (MAC). Immediately prior to administration of medications, the patient was re-assessed for adequacy to receive sedatives. The heart rate, respiratory rate, oxygen saturations, blood pressure, adequacy of pulmonary ventilation, and response to care were monitored throughout the procedure. The physical status of the patient was re-assessed after the procedure. After obtaining informed consent, the endoscope was passed under direct vision. Throughout the procedure, the patient's blood pressure, pulse, and oxygen saturations were monitored continuously. The colonoscope was introduced through the mouth, and advanced to the second part of duodenum. The upper GI endoscopy was accomplished without difficulty. The patient tolerated the procedure well. Scope In: 7:34:21 AM Scope Out: 7:39:54 AM Total Procedure Duration Time 0 hours 5 minutes 33 seconds Findings: A non-bleeding diverticulum with a small opening and no stigmata of recent bleeding was found at the cricopharyngeus. Abnormal motility was noted in the esophagus. The cricopharyngeus was abnormal. There are extra peristaltic waves in the esophageal body. The distal esophagus/lower esophageal sphincter is spastic, but gives up passage to the endoscope. Tertiary peristaltic waves are noted. Biopsies were taken with a cold forceps for histology. Verification of patient identification for the specimen was done. Estimated blood loss was minimal. A moderate Schatzki ring was found at the gastroesophageal junction. A guidewire was placed and the scope was withdrawn. Dilation was performed with a Savary dilator with no resistance at 57 Fr. The dilation site was examined and showed moderate mucosal disruption. Estimated blood loss was minimal. No gross lesions were noted in the entire examined stomach. No gross lesions were noted in the entire examined duodenum. A small hiatal hernia was present. 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 - Abnormal esophageal motility. Biopsied. - Moderate Schatzki ring. Dilated. - No gross lesions in the entire stomach. - No gross lesions in the entire examined duodenum. Recommendation: - Discharge patient to home. - Resume previous diet. - Continue present medications. - Await pathology results. Procedure Code(s): --- Professional --- 83904, Esophagogastroduodenoscopy, flexible, transoral; with insertion of guide wire followed by passage of dilator(s) through esophagus over guide wire 16373, 59,51, Esophagogastroduodenoscopy, flexible, transoral; with biopsy, single or multiple CPT copyright 2021 [employer]. All rights reserved. The codes documented in this report are preliminary and upon remote medical coder review may be revised to meet current compliance requirements. Amos Sloan DO 04/25/2025 8:00:57 AM This report has been signed electronically. Number of Addenda: 0 Note Initiated On: 04/25/2025 7:25 AM
--- NOTE | 2025-04-25 08:01 | OP.PROVAT_ITS ---
04/25/2025 Edilberto Pugh Re : Upper GI endoscopy procedure for Salma Sandhu Dear Lexy This procedure was performed on Friday, April 25, 2025. 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 - Abnormal esophageal motility. Biopsied. - Moderate Schatzki ring. Dilated. - No gross lesions in the entire stomach. - No gross lesions in the entire examined duodenum. Recommendations : - Discharge patient to home. - Resume previous diet. - Continue present medications. - Await pathology results. My findings are described in the full procedure note, which is enclosed. If I can be of further assistance, please feel free to contact me at . Sincerely, Amos Sloan, 04/25/2025 8:00:57 AM This report has been signed electronically.
--- NOTE | 2025-04-25 08:04 | OP.COLON_ITS ---
Patient Name: Salma Sandhu Procedure Date: 04/25/2025 7:40 AM Date of : 1945 Age: 79 Procedure: Colonoscopy Indications: Screening for colorectal malignant neoplasm, Screening for colon cancer: Family history of colorectal cancer in multiple 2nd degree relatives Providers: Amos Sloan DO Referring MD: Edilberto Pugh Medicines: Monitored Anesthesia Care Patient Profile: This is a 79 year old female. Refer to note in patient chart for documentation of history and physical. Patient has symptoms of chronic dysphagia and dysphagia with both liquids and solids. Last Colonoscopy: 5 years ago. Complications: No immediate complications. Procedure: Pre-Anesthesia Assessment: - Prior to the procedure, a History and Physical was performed, and patient medications and allergies were reviewed. The patient is competent. The risks and benefits of the procedure and the sedation options and risks were discussed with the patient. All questions were answered and informed consent was obtained. Patient identification and proposed procedure were verified by the physician in the pre-procedure area. Mental Status Examination: alert and oriented. Airway Examination: normal oropharyngeal airway and neck mobility. Respiratory Examination: clear to auscultation. CV Examination: normal. ASA Grade Assessment: II - A patient with mild systemic disease. After reviewing the risks and benefits, the patient was deemed in satisfactory condition to undergo the procedure. The anesthesia plan was to use monitored anesthesia care (MAC). Immediately prior to administration of medications, the patient was re-assessed for adequacy to receive sedatives. The heart rate, respiratory rate, oxygen saturations, blood pressure, adequacy of pulmonary ventilation, and response to care were monitored throughout the procedure. The physical status of the patient was re-assessed after the procedure. After I obtained informed consent, the scope was passed under direct vision. Throughout the procedure, the patient's blood pressure, pulse, and oxygen saturations were monitored continuously. The colonoscope was introduced through the anus and advanced to the cecum, identified by appendiceal orifice and ileocecal valve. The colonoscopy was performed without difficulty. The patient tolerated the procedure well. The quality of the bowel preparation was adequate. Scope In: 7:41:47 AM Scope Withdrawal Time 0 hours 10 minutes 54 seconds Scope Out: 7:55:02 AM Total Procedure Duration Time 0 hours 13 minutes 15 seconds Findings: The perianal and digital rectal examinations were normal. A few small-mouthed diverticula were found in the recto-sigmoid colon and sigmoid colon. Stool was found in the sigmoid colon and in the cecum. The exam was otherwise without abnormality on direct and retroflexion views. The entire examined colon appeared normal. An 8 mm polyp was found in the splenic flexure. The polyp was sessile. The polyp was removed with a cold biopsy forceps. Resection and retrieval were complete. Verification of patient identification for the specimen was done. Estimated blood loss was minimal. Impression: - Diverticulosis in the recto-sigmoid colon and in the sigmoid colon. - Stool in the sigmoid colon and in the cecum. - The examination was otherwise normal on direct and retroflexion views. - No specimens collected. Recommendation: - Discharge patient to home. - Resume previous diet. - Continue present medications. - Repeat colonoscopy in 5 years for surveillance. Procedure Code(s): --- Professional --- 09944, Colonoscopy, flexible; with biopsy, single or multiple CPT copyright 2021 [employer]. All rights reserved. The codes documented in this report are preliminary and upon fundraising officer review may be revised to meet current compliance requirements. Aoms Sloan DO 04/25/2025 8:04:08 AM This report has been signed electronically. Number of Addenda: 0 Note Initiated On: 04/25/2025 7:40 AM
--- NOTE | 2025-04-25 08:05 | OP.PROVAT_ITS ---
04/25/2025 Edilberto Pugh Re : Colonoscopy procedure for Salma Sandhu Dear Lexy This procedure was performed on Friday, April 25, 2025. My impressions and recommendations are as follows: Impressions : - Diverticulosis in the recto-sigmoid colon and in the sigmoid colon. - Stool in the sigmoid colon and in the cecum. - The examination was otherwise normal on direct and retroflexion views. - No specimens collected. Recommendations : - Discharge patient to home. - Resume previous diet. - Continue present medications. - Repeat colonoscopy in 5 years for surveillance. My findings are described in the full procedure note, which is enclosed. If I can be of further assistance, please feel free to contact me at . Sincerely, Amos Sloan, 04/25/2025 8:04:08 AM This report has been signed electronically.
--- NOTE | 2025-04-25 08:06 | PCM.POST.ANE ---
Anesthesia: Postop Eval I Current Vital Signs Temperature: 97.1 F Pulse Rate: 78 Blood Pressure: 112/65 Respiratory Rate: 16 Pulse Ox: 97 Oxygen Delivery Method: Room Air Assessment Airway patent: Yes Spontaneous unlabored respirations: Yes Mental status: Awake and Calm nausea: No Vomiting: No Anesthesia Complication: No Fluid Hydration Crystalloid volume administer (ml): 900 Total IV fluid infused: 900 Progress Note Anesthesia document: Postop Eval 1 completed: Yes
--- NOTE | 2025-04-25 09:15 | PCM.POSTANE2 ---
Anesthesia Postop Eval I Sum Postop Eval Completion status Anesthesia document: Postop Eval 1 completed: Yes Anesthesia Postop Eval I Summary Anesthesia Postop Eval I Summary: Anesthesia Postop Eval I: Assessment Summary Airway patent Yes 04/25/25 08:08 [email or web address] Spontaneous unlabored Yes 04/25/25 08:08 [email or web address] respirations Mental status Awake,Calm 04/25/25 08:08 [email or web address] nausea No 04/25/25 08:08 [email or web address] Vomiting No 04/25/25 08:08 [email or web address] Anesthesia Postop Eval I: Fluid Summary Crystalloid volume administer 900 04/25/25 08:08 [email or web address] (ml) Colloids volume administered ( ml) Blood Product volume administered (ml) Total IV fluid infused 900 04/25/25 08:08 [email or web address] Anesthesia Postop Eval I: Summary Notes Anesthesia Complication No 04/25/25 08:08 [email or web address] Anesthesia Complication Comment: Post-operative progress note Anesthesia: Postop Eval II Evaluation Mental status: Awake Pain Level: 0 nausea: No Vomiting: No
== END 2025-04-25 08:59 | disposition home or self-care (01) ==
LOC: EN 05:54 → AC 05:55
PROVIDERS: PCP Family Medicine; Referring Provider Family Medicine; Visit Provider Internal Medicine Gastroenterology
PROC: 0DJD8ZZ Inspection of Lower Intestinal Tract, Via Natural or Artificial Opening Endoscopic (ICD-10-PCS; CPT 45378; principal; 2025-04-25 06:55)
DX: K58.1 Irritable bowel syndrome with constipation (principal); K21.9 Gastro-esophageal reflux disease without esophagitis; E78.00 Pure hypercholesterolemia, unspecified; K57.30 Diverticulosis of large intestine without perforation or abscess without bleeding; R13.10 Dysphagia, unspecified; Z80.0 Family history of malignant neoplasm of digestive organs; Z96.651 Presence of right artificial knee joint; Q39.6 Congenital diverticulum of esophagus; K30 Functional dyspepsia; K22.2 Esophageal obstruction; K44.9 Diaphragmatic hernia without obstruction or gangrene; K63.5 Polyp of colon; K22.89 Other specified disease of esophagus
CPT/HCPCS: 43239; 43248; 45380; 82962; 88305; C1769; J2405

== ENCOUNTER → 2025-06-24 | Outpatient (CLI) | payer MEDICARE, OTHER, SELFPAY ==
--- NOTE | 2025-06-24 13:24 | ST.MBS ---
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 Of note, pt had recent EGD demonstrating Zenker's diverticulum, Abnormal esophageal motility, Moderate esophageal ring (dilated), Pathology consistent with Bedolla's esophagus and a hyperplastic polyp. Pt states she also has esophageal spasms. She is taking omeprazole 40 mg twice a day and famotidine 40 mg in the evening. She was referred for this MBSS to further assess swallow function and aspiration risk given persistent throat clearing w/ po intake. Per pt, she has had throat clearing for ~8 years. For the past 1-1.5 years her swallowing worsened and she began to feel retention in her upper esophagus. Pt reports occ bad coughing episodes if she eats or drinks too quickly. She denies regurgitation of food/drink. She has never required the Heimlich. Medical History: Medical History Wears hearing aid Wears glasses Cancer Post-menopausal Alcohol use Thyroid disease Fatty liver High cholesterol Easy bruising Back pain Migraine headache Injury of head and neck Gastric reflux Non-smoker CPAP (continuous positive airway pressure) dependence Shortness of breath on exertion Chronic cough Leg cramps History of edema History of stress test Normal Holter exam History of echocardiogram History of irregular heartbeat Breast lump Back problem Hypercholesterolemia COVID-19 Encounter for screening for COVID-19 Surgical History Hx of breast biopsy Hx of dilation and curettage Hx of arthroscopic knee surgery Hx of varicose vein ligation and stripping Hx of bilateral cataract extraction History of total right knee replacement Current Diet Ordered: Regular textures / Thin liquids Mental Status: WNL Respiratory Status: Oxygenating on Room Air Penetration-Aspiration Scale Penetration-Aspiration Scale: OBJECTIVE ASSESSMENT OF SWALLOW FUNCTION (QUANTITATIVE ? PER TRIAL): PENETRATION / ASPIRATION SCALE (CALHOUN): 1 = does not enter airway 2 = enters airway/above vocal folds/ejected 3 = enters airway/above vocal folds/not ejected 4 = enters airway/contacts vocal folds/ejected 5 = enters airway/contacts vocal folds/not ejected 6 = enters airway/below vocal folds/ejected 7 = enters airway/below vocal folds/not ejected despite effort 8 = enters airway/below vocal folds/no effort VIDEOFLOROSCOPIC SCALE SCORE (CALHOUN): Grade I = aspiration of material that has penetrated into the laryngeal vestibule, intact cough reflex Grade II = aspiration < 10 % of the bolus, intact cough reflex Grade III = aspiration of < 10 % of the bolus, reduced cough reflex or aspiration of > 10 % of the bolus, intact cough reflex Grade IV = aspiration of > 10 % of the bolus, reduced cough reflex Penetration-Aspiration Scale Score Thin Liquid via teaspoon: Result: 1= does not enter airway Thin Liquid via teaspoon Trial 2: Result: 2= enter airway/above vocal folds/ejected Thin Liquid via large single sip: cup: Result: 1= does not enter airway Thin Liquid via sequential sips: cup: Result: 2= enter airway/above vocal folds/ejected Comment: Esophageal screen - Mild retention in the lower esophagus w/ retrograde flow of barium to the middle esophagus. [place] Thick Liquid via large single sip: cup: Result: 1= does not enter airway Pudding via teaspoon: Result: 1= does not enter airway Comment: Esophageal screen - Complete clearance. 1/2 Cookie: Result: 1= does not enter airway Comment: Esophageal screen - Moderate retention in the middle and lower esophagus. Thin Liquid via single sip: straw: Result: 1= does not enter airway Comment: Esophageal screen - Liquid wash did not greatly improve retention of cookie in the middle and lower esophagus. [employer] had the patient swivel to view the upper esophagus, which did not appear to have any pouch-like collection of barium at the end of the study. Oral Phase Labial Seal: Interlabial escape, no progression to anterior lip Tongue Control During Bolus Hold: Posterior escape of less than half of bolus Bolus Preparation/Mastication: Timely and efficient chewing and mashing Bolus Transport/Lingual Motion: Brisk tongue motion Oral Residue: Residue collection on oral structures (piecemeal deglutition w/ cookie) Pharyngeal Phase Initiation of Pharyngeal Swallow: Bolus head in pyriforms Soft Palate Elevation: Trace column of contrast/air between soft palate and pharyngeal wall Laryngeal Elevation: Comp. Superior move thyroid cart w/comp. apprx arytenoid cart-epig pet Anterior Hyoid Excursion: Complete anterior movement Epiglottic Movement: Complete inversion Laryngeal Vestibule Closure at Height of Swallow: Incomplete; narrow column of air/contrast in laryngeal vestibule (trace laryngeal penetration 2X w/ complete ejection) Pharyngeal Stripping Wave: Present - complete Pharyngoesophageal Segment Opening: Complete distension and complete duration; no obstruction of flow Tongue Base Retraction: Narrow column of contrast between tongue base & post. pharyngeal wall Pharyngeal Residue: Trace residue within or on pharyngeal structures Diagnosis/Impression Diagnosis: Esophageal dysphagia R13.14; Oropharyngeal swallow function grossly WNL MBS Impressions: Oropharyngeal swallow function grossly WNL as compared to same age peers. The esophageal phase is primarily marked by... -Small CP bar at the level of C5, which did not impact bolus clearance through the UES. -Mild retention of liquids in the lower esophagus w/ retrograde flow of barium to the middle esophagus. -Moderate retention of cookie in the middle and lower esophagus, which did not effectively clear provided thin liquid wash. -Of note, no pouch-like collection of barium was observed in the region of the cricopharyngeus. [employer] had the patient pivot on the final trial to better view the upper esophagus, which revealed no barium in the upper esophagus. Recommendations Diet: Regular Textures (Moisten Dry Textures) and Thin Liquids Comment: If sensation of retention despite use of liquid washes, STOP meal and resume at a later time. Compensatory Strategies: Small Bites, Small Sips, Slow Rate, Alternate bites/solids and sips/liquids (Frequently) and Sitting upright (During and 30-60min after meals) Recommend Repeat Modified Barium Swallow: TBD Comment: If worsening sensation of retention or if pt experiences regurgitation, consider repeat MBSS. Need for Skilled Speech Therapy Services: No Recommended Referrals: GI Consult (Continue to follow w/ GI for management of esophageal dysphagia) Education Completed: 1. Described result of evaluation. Status Active ST Patient: Active Contact Information [facility]:: Samantha Grove M.A. CCC-[employer] Speech-Language Pathologist [facility] [address] [place] [address] [email or web address] [phone]
== END | disposition home or self-care (01) ==
LOC: RAD 12:31
PROVIDERS: PCP Family Medicine; Referring Provider Student in an Organized Health Care Education/Training Program; Visit Provider Student in an Organized Health Care Education/Training Program
DX: K22.5 Diverticulum of esophagus, acquired (principal); R13.10 Dysphagia, unspecified
CPT/HCPCS: 74230; 92611